=== PATIENT | female | born 1970 | race Caucasian/White ===

== ENCOUNTER 2016-09-04 16:29 | Inpatient (IN) ==
[2016-09-04] MEDS ORDERED: Pantoprazole 40 MG VIAL IVP ONE (16:37)
--- NOTE | 2016-09-04 16:45 | Emergency Department Note ---
Disposition Clinical Impression: Pulmonary embolism Disposition: Admitted As Inpatient Condition: Good Abdominal Pain HPI - General Chief Complaint: ED Abdominal Pain Stated Complaint: abd pain Time Seen by Provider: 09/04/16 16:36 Source: patient, EMS Mode of arrival: EMS Limitations: no limitations Nursing Notes Reviewed: Yes Vital Signs Reviewed: Yes - History of Present Illness HPI Narrative: 45-year-old with a history of DVT, PE who was on anticoagulation until was stopped due to the fact the patient was having some bleeding episodes. Today she noted that she's been nauseated and unable to keep anything down since vomited a couple times did have some blood in her vomit also had some dark tarry stools. Pt Subjective Complaint: abdominal pain Onset (ago): day(s) Consistency: intermittent Location: diffuse Pain Severity: moderate Pain Scale: 8 Quality: cramping, aching Radiation: none Migration to: no migration Improves with: nothing Worsens with: nothing - Related Data Home Medications Medication Instructions Recorded Confirmed Albuterol Sulfate [Proair 2 puff PO Q4H PRN #0 04/10/15 09/04/16 Respiclick] Aspirin 325 mg PO DAILY #0 04/10/15 09/04/16 BuPROPion XL (24 HR) [Wellbutrin 150 mg PO BID #0 04/10/15 09/04/16 Xl] Budesonide/Formoterol 160/4.5 2 puff IH BIDR #0 04/10/15 09/04/16 [Symbicort 160/4.5] Ipratropium/Albuterol Neb [Duoneb] 3 ml IH QIDR PRN 04/10/15 09/04/16 Montelukast [Singulair] 10 mg PO HS 04/10/15 09/04/16 Ranitidine HCl 150 mg PO BID 04/10/15 09/04/16 Topiramate [Topamax] 100 mg PO HS 04/10/15 09/04/16 Doxepin [Sinequan] 25 - 50 mg PO HS 08/14/15 09/04/16 Venlafaxine XR (24 HR) [Effexor Xr] 75 mg PO HS 08/14/15 09/04/16 Buspirone HCl [Buspar] 10 mg PO BID 09/17/15 09/04/16 CloNIDine HCl 0.1 mg PO BID 09/17/15 09/04/16 Furosemide [Lasix] 40 mg PO DAILY 09/17/15 09/04/16 Oxygen 2 l NS AD 09/17/15 09/04/16 SUMAtriptan Succinate [Imitrex] 100 mg PO DAILY PRN 09/17/15 09/04/16 Potassium Chloride [K-Tab ER] 10 meq PO DAILY 01/20/16 09/04/16 Trazodone HCl [TraZODone] 100 mg PO HS PRN 01/20/16 09/04/16 LORazepam [Ativan] 1 mg PO BID 03/03/16 09/04/16 Cetirizine HCl [All Day Allergy] 10 mg PO DAILY 08/26/16 09/04/16 Gabapentin 800 mg PO TID 08/26/16 09/04/16 Lamotrigine [Lamictal] 100 mg PO BID 08/26/16 09/04/16 Liraglutide [Victoza 2-Jignesh] 1.2 mg SQ DAILY 08/26/16 09/05/16 Metolazone 2.5 mg PO DAILY 08/26/16 09/04/16 Sitagliptin Phosphate [Januvia] 50 mg PO DAILY 08/26/16 09/04/16 Acetaminophen [Tylenol] 1,000 mg PO Q6HR PRN 09/04/16 09/04/16 Previous Rx's Medication Instructions Recorded Bisacodyl [Dulcolax] 10 mg PO DAILY #10 tablet 08/28/16 OxyCODONE ER (12 HR) [OxyCONTIN] 10 mg PO Q12HR #20 tab.er.12h 08/28/16 OxyCODONE/APAP 7.5/325 [Percocet 1 each PO Q6HR PRN #30 tablet 08/28/16 7.5/325 MG] Sennosides/Docusate Sodium 1 each PO BID #30 tablet 08/28/16 [Senna-Docusate Sodium Tablet] Allergies Allergy/AdvReac Type Severity Reaction Status Date / Time codeine Allergy Hives,SWELL Verified 09/04/16 16:32 ING Erythromycin Base Allergy THROAT Verified 09/04/16 16:32 SWELLING ondansetron Allergy Hives Verified 09/04/16 16:32 [From Zofran (as hydrochloride)] Penicillins [PCN] Allergy THROAT Verified 09/04/16 16:32 SWELLING Sulfa (Sulfonamide Allergy THROAT Verified 09/04/16 16:32 Antibiotics) SWELLING tape Allergy Blister Uncoded 08/23/16 01:49 Constitutional: Denies: fever, chills, weakness, weight change Eyes: Denies: eye pain, eye discharge, vision change ENT ED: Denies: ear pain, throat pain, dental pain, hearing loss, epistaxis, congestion, dysphagia Cardiovascular: Denies: chest pain, palpitations, dyspnea on exertion, edema, syncope Respiratory: Denies: cough, dyspnea, wheezes, hemoptysis, stridor Gastrointestinal: Reports: abdominal pain, nausea, vomiting. Denies: diarrhea, constipation, hematemesis, melena, hematochezia Genitourinary: Denies: dysuria, frequency, hematuria, discharge Musculoskeletal: Denies: back pain, neck pain, arthralgia, myalgia Integumentary: Denies: rash, abrasion, lesions Neurological: Denies: headache, weakness, numbness, paresthesias, confusion, abnormal gait, vertigo Psychiatric: Denies: anxiety, depression, suicidal thoughts, homicidal thoughts , auditory hallucinations, visual hallucinations Endocrine: Denies: fatigue Hematological/Lymphatic: Denies: easy bleeding, easy bruising Allergic/Immunologic: Denies: facial swelling, urticaria Abdominal Pain PMH - Past Medical History Medical history: Reports: asthma, DVT, diabetes, GERD, pulmonary embolus, other Female Surgical History: Reports: Adenoidectomy, appendectomy, cholecystectomy, hysterectomy, Tonsillectomy DIRECTOR LEARNING history: Reports: no DIRECTOR LEARNING history Psychiatric history: Reports: anxiety, panic disorder - Social History Smoking status: Never smoker Alcohol use: Reports: none Drug use: Reports: none Physical Exam - General Limitations: physical limitation General appearance: alert, in no apparent distress - Head Head exam: atraumatic, normocephalic, normal inspection - Eye Eye exam: Present: normal appearance, PERRL, EOMI - ENT ENT exam: normal exam, normal oropharynx, mucous membranes moist - Neck Neck exam: Present: normal inspection, full ROM, trachea midline - Chest Chest inspection: Present: normal inspection, symmetric chest wall rise - Respiratory Respiratory exam: Present: normal lung sounds bilaterally - Cardiovascular Cardiovascular exam: Present: regular rate, normal rhythm, normal heart sounds - Abdominal Exam Abdominal exam: Present: soft, tenderness. Absent: distention, guarding, rebound, rigidity Abdominal tenderness: Present: diffuse - Rectal Exam Softlines Supervisor present during exam: Yes Rectal exam: Present: heme (-) stool - Extremities Exam Extremities exam: Present: normal inspection, full ROM. Absent: tenderness, pedal edema - Expanded Lower Extremity Exam Neurovascular/Tendon exam: Absent: motor deficit, sensory deficit, tendon deficit Gait: not tested/not observed - Back Exam Back exam: Present: normal inspection, full ROM. Absent: tenderness - Neurological Exam Neurological exam: Present: alert, oriented X3 - Psychiatric Psychiatric exam: Present: normal affect, normal mood - Skin Skin exam: Present: warm, dry, intact, normal color Course Vital Signs Temperature 98.0 F 09/04/16 16:33 Pulse Rate 93 09/04/16 16:33 Respiratory Rate 24 09/04/16 16:33 Blood Pressure 117/86 09/04/16 16:33 O2 Sat by Pulse Oximetry 98 09/04/16 16:33 Temperature 97.9 F 09/06/16 04:00 Pulse Rate 68 09/06/16 04:00 Respiratory Rate 16 09/06/16 04:00 Blood Pressure 115/84 09/06/16 04:00 O2 Sat by Pulse Oximetry 95 09/06/16 04:00 Oxygen Delivery Oxygen Delivery Nasal Cannula Abdominal Pain - Lab Data Result diagrams: 09/05/16 06:23 09/05/16 06:23 Lab Results 09/04/16 09/04/16 09/04/16 Range/Units 16:50 17:34 17:34 WBC 7.8 (4.3-11.1) K/mcL RBC 4.59 (3.82-4.97) M/mcL Hgb 13.0 (11.5-15.4) g/dL Hct 40.6 (35.3-44.9) % MCV 88.5 (83.0-100.0) fL MCH 28.3 (28.0-33.3) pg MCHC 32.0 (31.6-35.5) g/dL RDW 13.9 (11.5-14.5) % Plt Count 227 (140-400) K/mcL MPV 11.6 (9.4-12.4) fL Immature Gran % 0.9 (0-4) % Seg Neutrophils % 61.4 % Lymphocytes % 23.0 % Monocytes % 6.3 % Eosinophils % 7.8 % Basophils % 0.6 % Neutrophils # 4.8 (1.6-8.9) K/mcL Lymphocytes # 1.8 (0.6-4.6) K/mcL Monocytes # 0.5 (0.0-1.3) K/mcL Eosinophils # 0.6 (0.0-0.6) K/mcL Basophils # 0.1 (0.0-0.2) K/mcL PT 14.0 H (9.4-12.1) Seconds INR 1.3 APTT 26.7 (26.0-36.0) Seconds D-Dimer 63966 H (0-500) ng/mLFEU Sodium (136-145) mEq/L Potassium (3.5-4.5) mEq/L Chloride (98-109) mEq/L Carbon Dioxide (19-29) mEq/L BUN (7-20) mg/dL Creatinine (0.57-1.11) mg/dL Est GFR ( Amer) (> 60) Est GFR (Non-Af Amer) (> 60) BUN/Creatinine Ratio (6-26) Glucose (70-99) mg/dL Calculated Osmolality (280-300) Calcium (8.6-10.8) mg/dL Total Bilirubin (0.2-1.2) mg/dL Direct Bilirubin (0.0-0.5) mg/dL Indirect Bilirubin (0.0-1.2) mg/dL AST (5-34) Units/L ALT (0-55) Units/L Alkaline Phosphatase (38-126) Units/L Troponin I (0-0.03) ng/mL Serum Total Protein (6.0-8.3) g/dL Albumin (3.5-5.0) g/dL Globulin (2.4-3.5) g/dL Albumin/Globulin Ratio (1.1-2.2) Amylase (25-125) Units/L Lipase (8-78) Units/L Serum , Qual (Negative) Urine Color Dark Yellow (Yellow) Urine Clarity Turbid A (Clear) Urine pH 5.5 (5.0-8.0) pH Units Ur Specific [place] 1.029 H (1.010-1.025) Urine Protein Negative (Neg-Trace) mg/dL Urine Glucose (UA) Normal (Normal) mg/dL Urine Ketones Negative (Negative) mg/dL Urine Blood Negative (Negative) Urine Nitrite Negative (Negative) Urine Bilirubin Small H (Negative) Urine Urobilinogen Normal (Normal) mg/dL Ur Leukocyte Esterase Negative (Negative) Urine Microscopic RBC 0-3 (0-3) per hpf Urine Microscopic WBC 5-15 H (0-3) per hpf Ur Squamous Epith Cells Many H (None-Few) per lpf Urine Bacteria Few (None-Few) per hpf Hyaline Casts Test Not Performed Urine Mucus Moderate H (Few) Ur Culture Indicated? YES A (NO) 09/04/16 09/04/16 09/04/16 Range/Units 17:34 17:34 17:34 WBC (4.3-11.1) K/mcL RBC (3.82-4.97) M/mcL Hgb (11.5-15.4) g/dL Hct (35.3-44.9) % MCV (83.0-100.0) fL MCH (28.0-33.3) pg MCHC (31.6-35.5) g/dL RDW (11.5-14.5) % Plt Count (140-400) K/mcL MPV (9.4-12.4) fL Immature Gran % (0-4) % Seg Neutrophils % % Lymphocytes % % Monocytes % % Eosinophils % % Basophils % % Neutrophils # (1.6-8.9) K/mcL Lymphocytes # (0.6-4.6) K/mcL Monocytes # (0.0-1.3) K/mcL Eosinophils # (0.0-0.6) K/mcL Basophils # (0.0-0.2) K/mcL PT (9.4-12.1) Seconds INR APTT (26.0-36.0) Seconds D-Dimer (0-500) ng/mLFEU Sodium 138 (136-145) mEq/L Potassium 4.0 (3.5-4.5) mEq/L Chloride 106 (98-109) mEq/L Carbon Dioxide 19 (19-29) mEq/L BUN 21 H (7-20) mg/dL Creatinine 1.07 (0.57-1.11) mg/dL Est GFR ( Amer) > 60 (> 60) Est GFR (Non-Af Amer) 56 L (> 60) BUN/Creatinine Ratio 20 (6-26) Glucose 165 H (70-99) mg/dL Calculated Osmolality 293 (280-300) Calcium 9.5 (8.6-10.8) mg/dL Total Bilirubin 0.8 (0.2-1.2) mg/dL Direct Bilirubin 0.3 (0.0-0.5) mg/dL Indirect Bilirubin 0.5 (0.0-1.2) mg/dL AST 14 (5-34) Units/L ALT 17 (0-55) Units/L Alkaline Phosphatase 191 H (38-126) Units/L Troponin I 0.56 H* (0-0.03) ng/mL Serum Total Protein 8.1 (6.0-8.3) g/dL Albumin 3.5 (3.5-5.0) g/dL Globulin 4.6 H (2.4-3.5) g/dL Albumin/Globulin Ratio 0.8 L (1.1-2.2) Amylase 44 (25-125) Units/L Lipase 31 (8-78) Units/L Serum , Qual Negative (Negative) Urine Color (Yellow) Urine Clarity (Clear) Urine pH (5.0-8.0) pH Units Ur Specific [place] (1.010-1.025) Urine Protein (Neg-Trace) mg/dL Urine Glucose (UA) (Normal) mg/dL Urine Ketones (Negative) mg/dL Urine Blood (Negative) Urine Nitrite (Negative) Urine Bilirubin (Negative) Urine Urobilinogen (Normal) mg/dL Ur Leukocyte Esterase (Negative) Urine Microscopic RBC (0-3) per hpf Urine Microscopic WBC (0-3) per hpf Ur Squamous Epith Cells (None-Few) per lpf Urine Bacteria (None-Few) per hpf Hyaline Casts Urine Mucus (Few) Ur Culture Indicated? (NO) - EKG Data EKG attestation: Yes I reviewed and interpreted this EKG. EKG shows normal: sinus rhythm Rate: normal Rhythm: NSR Interpretation: no acute changes S.B.A.R. - S.B.A.R. Recommendation: Recommendation based on pending studies, treatments, or consults S.B.A.R. Report Given to: Dr.Budi Munroe Repor Time: 19:00
[2016-09-04] MEDS ORDERED: 0.9 % Sodium Chloride 1,000 ML IVC ONE (16:46)
[2016-09-04 16:59] LABS: Bilirubin,Urine Small (Negative); Blood,Urine Negative (Negative); Clarity,Urine Turbid (Clear); Color,Urine Dark Yellow (Yellow); Glucose,Urine (UA) Normal (Normal); Ketones,Urine Negative (Negative); Leukocyte Esterase,Urine Negative (Negative); Nitrite,Urine Negative (Negative); PH,Urine 5.5 pH Units (5.0-8.0); Protein,Urine Negative (Neg-Trace); Specific Gravity,Urine 1.029 (1.010-1.025); Urobilinogen,Urine Normal (Normal)
[2016-09-04 17:01] LABS: RBC,Urine 0-3 per hpf (0-3); Squamous Epithelial Cell,Urine Many per lpf (None-Few)
[2016-09-04 17:16] LABS: Bacteria,Urine Few per hpf (None-Few)
[2016-09-04 17:17] LABS: Mucus,Urine Moderate (Few)
[2016-09-04 17:46] LABS: Basophils # 0.1 K/mcL (0.0-0.2); Basophils % 0.6 %; Eosinophils # 0.6 K/mcL (0.0-0.6); Eosinophils % 7.8 %; Hematocrit 40.6 % (35.3-44.9); Immature Granulocytes % 0.9 % (0-4); Lymphocytes # 1.8 K/mcL (0.6-4.6); Mean Corpuscular Hemoglobin 28.3 pg (28.0-33.3); Mean Corpuscular Volume 88.5 fL (83.0-100.0); Mean Platelet Volume 11.6 fL (9.4-12.4); Monocytes # 0.5 K/mcL (0.0-1.3); Monocytes % 6.3 %; Neutrophils # 4.8 K/mcL (1.6-8.9); Platelet Count 227 K/mcL (140-400); Red Blood Count 4.59 M/mcL (3.82-4.97); Red Cell Distribution Width 13.9 % (11.5-14.5); Segmented Neutrophils % 61.4 %
[2016-09-04 17:55] LABS: INR 1.3
[2016-09-04 17:57] LABS: Activated Partial Thrombo Time 26.7 Seconds (26.0-36.0)
[2016-09-04 18:02] LABS: Albumin 3.5 g/dL (3.5-5.0); Albumin/Globulin Ratio 0.8 (1.1-2.2); Alkaline Phosphatase 191 Units/L (38-126); Amylase 44 Units/L (25-125); Aspartate Amino Transferase 14 Units/L (5-34); BUN/Creatinine Ratio 20 (6-26); Bilirubin,Direct 0.3 mg/dL (0.0-0.5); Bilirubin,Indirect 0.5 mg/dL (0.0-1.2); Bilirubin,Total 0.8 mg/dL (0.2-1.2); Blood Urea Nitrogen 21 mg/dL (7-20); Calcium 9.5 mg/dL (8.6-10.8); Carbon Dioxide 19 mEq/L (19-29); Chloride 106 mEq/L (98-109); Globulin 4.6 g/dL (2.4-3.5); Glucose 165 mg/dL (70-99); Lipase 31 Units/L (8-78); Osmolality,Calculated 293 (280-300); Sodium 138 mEq/L (136-145); Total Protein 8.1 g/dL (6.0-8.3); eGFR For African Americans > 60 (> 60); eGFR For Non-African Americans 56 (> 60)
[2016-09-04 18:19] LABS: Alanine Aminotransferase 17 Units/L (0-55)
[2016-09-04] MEDS ORDERED: *HR* Heparin 5,000 UNIT/ML VIAL IVP PRN ×2 (20:50)
[2016-09-04] MEDS ORDERED: *HR* Heparin 5,000 UNIT/ML VIAL IVP ONE (20:50)
[2016-09-04] MEDS ORDERED: *HR* Promethazine 25 MG/ML VIAL IVP ONE (21:11)
[2016-09-04] MEDS ORDERED: *HR* Morphine 2 MG/ML SYRINGE IVP ONE (21:11)
[2016-09-04] MEDS: Heparin 25,000 UNIT/500 ML D5W 25,000 UNIT/500 ML MLS IVC SCH (21:24)
--- NOTE | 2016-09-04 22:50 | Emergency Department Note ---
Disposition Clinical Impression: Pulmonary embolism Qualifiers: Qualified Code(s): I26.99 - Disposition: Admitted As Inpatient Condition: Good Time of Disposition: 22:44 Abdominal Pain HPI - General Chief Complaint: ED Abdominal Pain Stated Complaint: abd pain Time Seen by Provider: 09/04/16 16:36 Source: patient, EMS Mode of arrival: EMS Limitations: no limitations Nursing Notes Reviewed: Yes Vital Signs Reviewed: Yes - History of Present Illness Pt Subjective Complaint: abdominal pain Location: diffuse Pain Severity: moderate Pain Scale: 7 Quality: cramping, aching Migration to: no migration Improves with: nothing Worsens with: nothing - Related Data Home Medications Medication Instructions Recorded Confirmed Albuterol Sulfate [Proair 2 puff PO Q4H PRN #0 04/10/15 09/04/16 Respiclick] Aspirin 325 mg PO DAILY #0 04/10/15 09/04/16 BuPROPion XL (24 HR) [Wellbutrin 150 mg PO BID #0 04/10/15 09/04/16 Xl] Budesonide/Formoterol 160/4.5 2 puff IH BIDR #0 04/10/15 09/04/16 [Symbicort 160/4.5] Ipratropium/Albuterol Neb [Duoneb] 3 ml IH QIDR PRN 04/10/15 09/04/16 Montelukast [Singulair] 10 mg PO HS 04/10/15 09/04/16 Ranitidine HCl 150 mg PO BID 04/10/15 09/04/16 Topiramate [Topamax] 100 mg PO HS 04/10/15 09/04/16 Doxepin [Sinequan] 25 - 50 mg PO HS 08/14/15 09/04/16 Venlafaxine XR (24 HR) [Effexor Xr] 75 mg PO HS 08/14/15 09/04/16 Buspirone HCl [Buspar] 10 mg PO BID 09/17/15 09/04/16 CloNIDine HCl 0.1 mg PO BID 09/17/15 09/04/16 Furosemide [Lasix] 40 mg PO DAILY 09/17/15 09/04/16 Oxygen 2 l NS AD 09/17/15 09/04/16 SUMAtriptan Succinate [Imitrex] 100 mg PO DAILY PRN 09/17/15 09/04/16 Potassium Chloride [K-Tab ER] 10 meq PO DAILY 01/20/16 09/04/16 Trazodone HCl [TraZODone] 100 mg PO HS PRN 01/20/16 09/04/16 LORazepam [Ativan] 1 mg PO BID 03/03/16 09/04/16 Cetirizine HCl [All Day Allergy] 10 mg PO DAILY 08/26/16 09/04/16 Gabapentin 800 mg PO TID 08/26/16 09/04/16 Lamotrigine [Lamictal] 100 mg PO BID 08/26/16 09/04/16 Liraglutide [Victoza 2-Jignesh] 0.6 mg PO DAILY 08/26/16 09/04/16 Metolazone 2.5 mg PO DAILY 08/26/16 09/04/16 Sitagliptin Phosphate [Januvia] 50 mg PO DAILY 08/26/16 09/04/16 Acetaminophen [Tylenol] 1,000 mg PO Q6HR PRN 09/04/16 09/04/16 Previous Rx's Medication Instructions Recorded Bisacodyl [Dulcolax] 10 mg PO DAILY #10 tablet 08/28/16 OxyCODONE ER (12 HR) [OxyCONTIN] 10 mg PO Q12HR #20 tab.er.12h 08/28/16 OxyCODONE/APAP 7.5/325 [Percocet 1 each PO Q6HR PRN #30 tablet 08/28/16 7.5/325 MG] Sennosides/Docusate Sodium 1 each PO BID #30 tablet 08/28/16 [Senna-Docusate Sodium Tablet] Allergies Allergy/AdvReac Type Severity Reaction Status Date / Time codeine Allergy Hives,SWELL Verified 09/04/16 16:32 ING Erythromycin Base Allergy THROAT Verified 09/04/16 16:32 SWELLING ondansetron Allergy Hives Verified 09/04/16 16:32 [From Zofran (as hydrochloride)] Penicillins [PCN] Allergy THROAT Verified 09/04/16 16:32 SWELLING Sulfa (Sulfonamide Allergy THROAT Verified 09/04/16 16:32 Antibiotics) SWELLING tape Allergy Blister Uncoded 08/23/16 01:49 Constitutional: Denies: fever, chills, weakness, weight change Eyes: Denies: eye pain, eye discharge, vision change ENT ED: Denies: ear pain, throat pain, dental pain, hearing loss, epistaxis, congestion, dysphagia Cardiovascular: Denies: chest pain, palpitations, dyspnea on exertion, edema, syncope Respiratory: Denies: cough, dyspnea, wheezes, hemoptysis, stridor Gastrointestinal: Reports: abdominal pain, nausea, vomiting. Denies: diarrhea, constipation, hematemesis, melena, hematochezia Genitourinary: Denies: dysuria, frequency, hematuria, discharge Musculoskeletal: Denies: back pain, neck pain, arthralgia, myalgia Integumentary: Denies: rash, abrasion, lesions Neurological: Denies: headache, weakness, numbness, paresthesias, confusion, abnormal gait, vertigo Psychiatric: Denies: anxiety, depression, suicidal thoughts, homicidal thoughts , auditory hallucinations, visual hallucinations Endocrine: Denies: fatigue Hematological/Lymphatic: Denies: easy bleeding, easy bruising Allergic/Immunologic: Denies: facial swelling, urticaria Abdominal Pain PMH - Past Medical History Medical history: Reports: asthma, DVT, diabetes, GERD, pulmonary embolus, other Female Surgical History: Reports: Adenoidectomy, appendectomy, cholecystectomy, hysterectomy, Tonsillectomy CATERER HELPER history: Reports: no CATERER HELPER history Psychiatric history: Reports: anxiety, panic disorder - Social History Smoking status: Never smoker Alcohol use: Reports: none Drug use: Reports: none Physical Exam - General Limitations: physical limitation General appearance: alert, in no apparent distress Course Vital Signs Temperature 98.0 F 09/04/16 16:33 Pulse Rate 93 09/04/16 16:33 Respiratory Rate 24 09/04/16 16:33 Blood Pressure 117/86 09/04/16 16:33 O2 Sat by Pulse Oximetry 98 09/04/16 16:33 Temperature 98.0 F 09/04/16 22:33 Pulse Rate 90 09/04/16 22:33 Respiratory Rate 18 09/04/16 22:33 Blood Pressure 115/68 09/04/16 22:33 O2 Sat by Pulse Oximetry 99 09/04/16 22:33 Oxygen Delivery Oxygen Delivery Nasal Cannula Abdominal Pain - MDM Narrative Medical decision making narrative: Patient received in signout from Dr. Mata pending CTA of the chest to rule out pulmonary embolism. Patient has bilateral pulmonary embolisms present on CT. She has a history of GI bleeding as well as a hematoma to the right gluteus which was treated in the hospital 2 weeks ago. Patient was taken off her anticoagulation medication in order to resolve the hematoma. Today the patient states that she had one episode of emesis which was red colored however she has not had any since that time. Patient's hemoglobin is within normal limits in the emergency department. She had a negative rectal exam by the previous attending which was confirmed upon asking the patient. I spoke with Dr. Bishop who was covering for the patient's car groomer who recommended starting heparin drip to treat her PE. Dr. Denis was consult in to admit the patient to the hospital who recommended speaking with surgery prior to starting the heparin drip. Surgery was counseled that by Dr. Denis who agreed to consult on the patient if there was any difficulty. Vital signs are stable and patient is comfortable with plan of admitting to the hospital for further care. - Medical Records Medical records reviewed: Yes I reviewed the patient's medical records. - Lab Data Lab results reviewed: Yes I reviewed the patient's lab results. Result diagrams: 09/04/16 17:34 09/04/16 17:34 Lab Results 09/04/16 09/04/16 09/04/16 Range/Units 16:50 17:34 17:34 WBC 7.8 (4.3-11.1) K/mcL RBC 4.59 (3.82-4.97) M/mcL Hgb 13.0 (11.5-15.4) g/dL Hct 40.6 (35.3-44.9) % MCV 88.5 (83.0-100.0) fL MCH 28.3 (28.0-33.3) pg MCHC 32.0 (31.6-35.5) g/dL RDW 13.9 (11.5-14.5) % Plt Count 227 (140-400) K/mcL MPV 11.6 (9.4-12.4) fL Immature Gran % 0.9 (0-4) % Seg Neutrophils % 61.4 % Lymphocytes % 23.0 % Monocytes % 6.3 % Eosinophils % 7.8 % Basophils % 0.6 % Neutrophils # 4.8 (1.6-8.9) K/mcL Lymphocytes # 1.8 (0.6-4.6) K/mcL Monocytes # 0.5 (0.0-1.3) K/mcL Eosinophils # 0.6 (0.0-0.6) K/mcL Basophils # 0.1 (0.0-0.2) K/mcL PT 14.0 H (9.4-12.1) Seconds INR 1.3 APTT 26.7 (26.0-36.0) Seconds D-Dimer 53291 H (0-500) ng/mLFEU Sodium (136-145) mEq/L Potassium (3.5-4.5) mEq/L Chloride (98-109) mEq/L Carbon Dioxide (19-29) mEq/L BUN (7-20) mg/dL Creatinine (0.57-1.11) mg/dL Est GFR ( Amer) (> 60) Est GFR (Non-Af Amer) (> 60) BUN/Creatinine Ratio (6-26) Glucose (70-99) mg/dL Calculated Osmolality (280-300) Calcium (8.6-10.8) mg/dL Total Bilirubin (0.2-1.2) mg/dL Direct Bilirubin (0.0-0.5) mg/dL Indirect Bilirubin (0.0-1.2) mg/dL AST (5-34) Units/L ALT (0-55) Units/L Alkaline Phosphatase (38-126) Units/L Troponin I (0-0.03) ng/mL Serum Total Protein (6.0-8.3) g/dL Albumin (3.5-5.0) g/dL Globulin (2.4-3.5) g/dL Albumin/Globulin Ratio (1.1-2.2) Amylase (25-125) Units/L Lipase (8-78) Units/L Serum , Qual (Negative) Urine Color Dark Yellow (Yellow) Urine Clarity Turbid A (Clear) Urine pH 5.5 (5.0-8.0) pH Units Ur Specific [place] 1.029 H (1.010-1.025) Urine Protein Negative (Neg-Trace) mg/dL Urine Glucose (UA) Normal (Normal) mg/dL Urine Ketones Negative (Negative) mg/dL Urine Blood Negative (Negative) Urine Nitrite Negative (Negative) Urine Bilirubin Small H (Negative) Urine Urobilinogen Normal (Normal) mg/dL Ur Leukocyte Esterase Negative (Negative) Urine Microscopic RBC 0-3 (0-3) per hpf Urine Microscopic WBC 5-15 H (0-3) per hpf Ur Squamous Epith Cells Many H (None-Few) per lpf Urine Bacteria Few (None-Few) per hpf Hyaline Casts Test Not Performed Urine Mucus Moderate H (Few) Ur Culture Indicated? YES A (NO) 09/04/16 09/04/16 09/04/16 Range/Units 17:34 17:34 17:34 WBC (4.3-11.1) K/mcL RBC (3.82-4.97) M/mcL Hgb (11.5-15.4) g/dL Hct (35.3-44.9) % MCV (83.0-100.0) fL MCH (28.0-33.3) pg MCHC (31.6-35.5) g/dL RDW (11.5-14.5) % Plt Count (140-400) K/mcL MPV (9.4-12.4) fL Immature Gran % (0-4) % Seg Neutrophils % % Lymphocytes % % Monocytes % % Eosinophils % % Basophils % % Neutrophils # (1.6-8.9) K/mcL Lymphocytes # (0.6-4.6) K/mcL Monocytes # (0.0-1.3) K/mcL Eosinophils # (0.0-0.6) K/mcL Basophils # (0.0-0.2) K/mcL PT (9.4-12.1) Seconds INR APTT (26.0-36.0) Seconds D-Dimer (0-500) ng/mLFEU Sodium 138 (136-145) mEq/L Potassium 4.0 (3.5-4.5) mEq/L Chloride 106 (98-109) mEq/L Carbon Dioxide 19 (19-29) mEq/L BUN 21 H (7-20) mg/dL Creatinine 1.07 (0.57-1.11) mg/dL Est GFR ( Amer) > 60 (> 60) Est GFR (Non-Af Amer) 56 L (> 60) BUN/Creatinine Ratio 20 (6-26) Glucose 165 H (70-99) mg/dL Calculated Osmolality 293 (280-300) Calcium 9.5 (8.6-10.8) mg/dL Total Bilirubin 0.8 (0.2-1.2) mg/dL Direct Bilirubin 0.3 (0.0-0.5) mg/dL Indirect Bilirubin 0.5 (0.0-1.2) mg/dL AST 14 (5-34) Units/L ALT 17 (0-55) Units/L Alkaline Phosphatase 191 H (38-126) Units/L Troponin I 0.56 H* (0-0.03) ng/mL Serum Total Protein 8.1 (6.0-8.3) g/dL Albumin 3.5 (3.5-5.0) g/dL Globulin 4.6 H (2.4-3.5) g/dL Albumin/Globulin Ratio 0.8 L (1.1-2.2) Amylase 44 (25-125) Units/L Lipase 31 (8-78) Units/L Serum , Qual Negative (Negative) Urine Color (Yellow) Urine Clarity (Clear) Urine pH (5.0-8.0) pH Units Ur Specific [place] (1.010-1.025) Urine Protein (Neg-Trace) mg/dL Urine Glucose (UA) (Normal) mg/dL Urine Ketones (Negative) mg/dL Urine Blood (Negative) Urine Nitrite (Negative) Urine Bilirubin (Negative) Urine Urobilinogen (Normal) mg/dL Ur Leukocyte Esterase (Negative) Urine Microscopic RBC (0-3) per hpf Urine Microscopic WBC (0-3) per hpf Ur Squamous Epith Cells (None-Few) per lpf Urine Bacteria (None-Few) per hpf Hyaline Casts Urine Mucus (Few) Ur Culture Indicated? (NO) - Radiology Data Radiology results reviewed: Yes I reviewed the patient's radiology results. - EKG Data EKG attestation: Yes I reviewed and interpreted this EKG. EKG results narrative: ECG - interpreted by ED physician. Rate 95, normal sinus rhythm, no STEMI, MO, QT intervals, and QRS within normal limits
[2016-09-04] MEDS ORDERED: Ipratropium/Albuterol Neb 3 ML IH PRN (22:52)
[2016-09-04] MEDS ORDERED: NON-FORMULARY MEDICATION 1 EACH EACH (Oxygen [Oxygen] 2 L) NS SCH (23:00)
--- NOTE | 2016-09-04 23:04 | Internal Med History&Physical ---
Date of Encounter: 09/04/16 Time of Encounter: 23:00 Assessment and Plan (1) Pulmonary embolism Current visit: Yes Status: Acute Patients presents with acute bilateral pulmonary embolism due to interruption of anticoagulation in a patient with factor V Leiden mutation. She will be started on high dose heparin drip. I discussed the case with the surgeon because of history of recent gluteal hematoma so surgery will be follwoing. Patients appears short of breath with conversation. Echocardiogram will be check will also check troponin. she is normotensive. She has been on O2 at home proably because of chronic thromboemnbolic pulmonary hypertension. Qualifiers: Qualified Code(s): I26.99 - Other pulmonary embolism without acute cor pulmonale (2) Thigh hematoma Current visit: Yes Status: Acute Seems to be improving. Ultrasound will be performed to evaluate the hematoma. Serial examination. 3. Questionable urinary tract infection she has some parcels in your and however lots of epithelial cells. Await urine culture hold off antibiotics Qualifiers: Qualified Code(s): S70.10XA - Contusion of unspecified thigh, initial encounter Internal Medicine - H&P: HPI Chief complaint: sob History of present illness: Ms. Mitchell is a 45 year old female with unfortunate history of factor 5 Leiden mutation with multiple prior DVDs pulmonary embolism and other clotting on home oxygen probably because of chronic thromboembolic pulmonary hypertension will recently had their anticoagulation interrupted since her discharge from the hospital a week ago on 08/28/2016 after she had sustained our rights will till hematoma presents with emergency room today with having shortness of breath. For the past 3 days patient has been short of breath on this has been progressive to the point where she is unable to breathe at rest. She has been having some chest pains that worsens with inspiration. She presented the emergency room and CT angiogram showed bilateral pulmonary embolism (involving right main pulmonary artery). She has been on photos Lovenox 150 mg twice daily prior to that as this seems to have been them best anticoagulant to prevent clotting for her. Patient notices improvement in her right gluteal and thigh pain however she stills notices increasing girth of her right upper thigh compares to the left side. She mentioned that she was having black stools however she started taking Pepto-Bismol. Patient was hemodynamically stable in the emergency room. Past Med Surg Social Fam HX - Past Medical History Medical history: asthma, DVT, diabetes, GERD, pulmonary embolus, other Psychiatric history: anxiety, panic disorder - Past Surgical History Surgical History: cholecystectomy, hysterectomy, orthopedic, other (Left endoscopic carpal tunnel release and left elbow ulnar nerve decompression) - Social History Smoking Status: Never smoker Smokeless Tobacco Status: No Alcohol use: none Drug use: none - Family History Mother Name: Akbar Cullen Family Member Ethnicity: Non- Living Status: Age at : 46 Cause of : cancer Hx Family Cardiac Disorders: Yes Hx Family Cancer: Yes (cervical cancer w/ mets) Internal Medicine - H&P: Meds Albuterol Sulfate [Proair Respiclick] 2 puff PO Q4H PRN #0 04/10/15 [History] Aspirin 325 mg PO DAILY #0 04/10/15 [History] BuPROPion XL (24 HR) [Wellbutrin Xl] 150 mg PO BID #0 04/10/15 [History] Budesonide/Formoterol 160/4.5 [Symbicort 160/4.5] 2 puff IH BIDR #0 04/10/15 [ History] Ipratropium/Albuterol Neb [Duoneb] 3 ml IH QIDR PRN 04/10/15 [History] Montelukast [Singulair] 10 mg PO HS 04/10/15 [History] Ranitidine HCl 150 mg PO BID 04/10/15 [History] Topiramate [Topamax] 100 mg PO HS 04/10/15 [History] Doxepin [Sinequan] 25 - 50 mg PO HS 08/14/15 [History] Venlafaxine XR (24 HR) [Effexor Xr] 75 mg PO HS 08/14/15 [History] Buspirone HCl [Buspar] 10 mg PO BID 09/17/15 [History] CloNIDine HCl 0.1 mg PO BID 09/17/15 [History] Furosemide [Lasix] 40 mg PO DAILY 09/17/15 [History] Oxygen 2 l NS AD 09/17/15 [History] SUMAtriptan Succinate [Imitrex] 100 mg PO DAILY PRN 09/17/15 [History] Potassium Chloride [K-Tab ER] 10 meq PO DAILY 01/20/16 [History] Trazodone HCl [TraZODone] 100 mg PO HS PRN 01/20/16 [History] LORazepam [Ativan] 1 mg PO BID 03/03/16 [History] Cetirizine HCl [All Day Allergy] 10 mg PO DAILY 08/26/16 [History] Gabapentin 800 mg PO TID 08/26/16 [History] Lamotrigine [Lamictal] 100 mg PO BID 08/26/16 [History] Liraglutide [Victoza 2-Jignesh] 0.6 mg PO DAILY 08/26/16 [History] Metolazone 2.5 mg PO DAILY 08/26/16 [History] Sitagliptin Phosphate [Januvia] 50 mg PO DAILY 08/26/16 [History] Bisacodyl [Dulcolax] 10 mg PO DAILY #10 tablet 08/28/16 [Rx] OxyCODONE ER (12 HR) [OxyCONTIN] 10 mg PO Q12HR #20 tab.er.12h 08/28/16 [Rx] OxyCODONE/APAP 7.5/325 [Percocet 7.5/325 MG] 1 each PO Q6HR PRN #30 tablet 08/28 [Rx] Sennosides/Docusate Sodium [Senna-Docusate Sodium Tablet] 1 each PO BID #30 tablet 08/28/16 [Rx] Acetaminophen [Tylenol] 1,000 mg PO Q6HR PRN 09/04/16 [History] Allergies codeine Allergy (Verified 09/04/16 16:32) Hives,SWELLING Erythromycin Base Allergy (Verified 09/04/16 16:32) THROAT SWELLING ondansetron [From Zofran (as hydrochloride)] Allergy (Verified 09/04/16 16:32) Hives Penicillins [PCN] Allergy (Verified 09/04/16 16:32) THROAT SWELLING Sulfa (Sulfonamide Antibiotics) Allergy (Verified 09/04/16 16:32) THROAT SWELLING tape Allergy (Uncoded 08/23/16 01:49) Blister All Systems PM: A 10-system review of systems was performed and is negative for pertinent findings except as documented above in the HPI. Review of systems: 10 point review systems is negative except for HPI - Constitutional Vitals: Temp Pulse Resp BP Pulse Ox 98.0 F 90 18 115/68 99 09/04/16 22:33 09/04/16 22:33 09/04/16 22:33 09/04/16 22:33 09/04/16 22:33 Exam: Gen.: patient is alert and oriented times 3 not distress Hillary: normal S1 S2 no additional sounds of murmurs chest: clear auscultation abdomen: soft nontender nondistended most discreet I do not appreciate any hematoma in the groin, gluteal or thigh area. There is increased girth of the right thigh. Left neuro: no focal deficits Internal Med - H&P Results - Labs CBC & Chem 7: 09/04/16 17:34 09/04/16 17:34
[2016-09-05] MEDS: Ondansetron 4 MG/2 ML VIAL IVP PRN ×4 (00:08→22:54)
[2016-09-05] MEDS: *HR* Morphine 2 MG/ML SYRINGE IVP PRN ×5 (00:15→22:54)
[2016-09-05 01:21] LABS: Activated Partial Thrombo Time 186.2 Seconds (26.0-36.0)
[2016-09-05 02:13] LABS: Heparin anti-factor XA UFH 1.24 IU/mL (0.30-0.70)
[2016-09-05 07:18] LABS: Basophils # 0.1 K/mcL (0.0-0.2); Basophils % 0.8 %; Eosinophils # 0.7 K/mcL (0.0-0.6); Eosinophils % 9.3 %; Hematocrit 36.5 % (35.3-44.9); Hemoglobin 11.5 g/dL (11.5-15.4); Immature Granulocytes % 1.3 % (0-4); Lymphocytes # 2.6 K/mcL (0.6-4.6); Lymphocytes % 35.1 %; Mean Corpuscular HGB Conc 31.5 g/dL (31.6-35.5); Mean Corpuscular Hemoglobin 28.4 pg (28.0-33.3); Mean Corpuscular Volume 90.1 fL (83.0-100.0); Mean Platelet Volume 11.7 fL (9.4-12.4); Monocytes # 0.5 K/mcL (0.0-1.3); Monocytes % 6.7 %; Neutrophils # 3.5 K/mcL (1.6-8.9); Platelet Count 244 K/mcL (140-400); Red Blood Count 4.05 M/mcL (3.82-4.97); Red Cell Distribution Width 13.8 % (11.5-14.5); Segmented Neutrophils % 46.8 %
[2016-09-05 07:33] LABS: BUN/Creatinine Ratio 21 (6-26); Blood Urea Nitrogen 21 mg/dL (7-20); Calcium 8.7 mg/dL (8.6-10.8); Carbon Dioxide 21 mEq/L (19-29); Chloride 105 mEq/L (98-109); Glucose 177 mg/dL (70-99); Magnesium 1.8 mg/dL (1.6-2.6); Osmolality,Calculated 285 (280-300); Potassium 3.7 mEq/L (3.5-4.5); Sodium 134 mEq/L (136-145); eGFR For African Americans > 60 (> 60); eGFR For Non-African Americans 60 (> 60)
[2016-09-05] MEDS ORDERED: *HR* Dextrose 50 % in Water (Syg) 50 ML SYRINGE IVP PRN (09:01)
[2016-09-05] MEDS ORDERED: D5% in Water 1,000 ML IV PRN (09:01)
[2016-09-05] MEDS ORDERED: Dextrose Gel 15 GM PO PRN ×2 (09:01)
[2016-09-05] MEDS: Heparin 25,000 UNIT/500 ML D5W 25,000 UNIT/500 ML MLS IVC SCH ×2 (09:13→20:22)
[2016-09-05] MEDS: Aspirin 325 MG TABLET PO SCH (09:24)
[2016-09-05] MEDS: Famotidine 20 MG TABLET PO SCH ×2 (09:24→16:26)
[2016-09-05] MEDS: *HR* LORazepam 0.5 MG TABLET PO SCH ×2 (09:25→20:17)
[2016-09-05] MEDS: Furosemide 40 MG TABLET PO SCH (09:25)
[2016-09-05] MEDS: Loratadine 10 MG TABLET PO SCH (09:25)
[2016-09-05] MEDS: lamoTRIgine 100 MG TABLET PO SCH ×2 (09:25→20:18)
[2016-09-05] MEDS: Sennosides/Docusate Sodium TABLET PO SCH ×2 (09:25→20:18)
[2016-09-05] MEDS: Gabapentin 400 MG CAPSULE PO SCH ×3 (09:26→20:17)
[2016-09-05] MEDS: Budesonide/Formoterol 160/4.5 MDI IH SCH ×2 (11:07→21:06)
--- NOTE | 2016-09-05 11:19 | Internal Med Progress Note ---
Date of Encounter: 09/05/16 Time of Encounter: 10:00 - Assessment and plan (1) Pulmonary embolism Current Visit: Yes Status: Acute Assessment and plan: Pt with bilateral PEs. She is currently on heparin drip. Depending on recent hematoma, will need to decide on timing of starting PO anticoagulation. Qualifiers: Pulmonary embolism type: other Chronicity: acute Acute cor pulmonale presence: without acute cor pulmonale Qualified Code(s): I26.99 - Other pulmonary embolism without acute cor pulmonale (2) Factor 5 Leiden mutation, heterozygous Current Visit: Yes Status: Chronic (3) Chest pain Current Visit: Yes Status: Acute Assessment and plan: Related to acute PE. Qualifiers: Chest pain type: chest pain on breathing Qualified Code(s): R07.1 - Chest pain on breathing (4) Diabetes mellitus Current Visit: Yes Status: Chronic Qualifiers: Diabetes mellitus type: type 2 Diabetes mellitus complication status: with hyperglycemia Diabetes mellitus moth exterminator insulin use: without prison use Qualified Code(s): E11.65 - Type 2 diabetes mellitus with hyperglycemia (5) Thigh hematoma Current Visit: Yes Status: Acute Assessment and plan: Evaluation to see if can restart PO anticoagulant. Qualifiers: Encounter type: subsequent encounter Laterality: right Qualified Code(s) : S70.11XD - Contusion of right thigh, subsequent encounter (6) Morbid obesity with BMI of 50.0-59.9, adult Current Visit: Yes Status: Chronic - Subjective Interval history: Ms. Mitchell is currently admitted for acute bilateral PE. She is high risk due to potential for further thrombosis as well respiratory issues. Ms. Mitchell is feeling OK but having pain and dyspnea. Morphine does not last long enough. No GI symptoms. No fever or chills but feels flushed and warm at times. No cough. No abd pain. Hungry but is NPO pending any cardiology tests. - Constitutional Vitals: Temp Pulse Resp BP Pulse Ox 97.7 F 81 16 104/77 97 09/05/16 07:04 09/05/16 07:04 09/05/16 07:04 09/05/16 07:04 09/05/16 07:47 General appearance: Present: A&O X 3, morbidly obese, pleasant, answers questions appropriately - Head Head exam: Present: normocephalic - Eye Eye exam: Present: EOMI, conjuntiva pink - ENT ENT exam: Present: mucous membranes dry - Respiratory Respiratory exam: Present: rhonchi, tachypnea. Absent: wheezes - Cardiovascular Cardiovascular exam: Present: RRR, tachycardia. Absent: systolic murmur - GI/Abdominal GI/Abdominal exam: Present: soft. Absent: mass, tenderness - Extremities Exam Extremities exam: Present: warm. Absent: pedal edema - Neurological Exam Neurological exam: Present: alert, oriented X3, no focal deficits - Psychiatric Psychiatric exam: Present: normal affect, normal mood - Skin Skin exam: Present: dry, normal color, warm. Absent: rash Internal Medicine: Result - Labs CBC & Chem 7: 09/05/16 06:23 09/05/16 06:23 Labs: Short CBC 09/05/16 Range/Units 06:23 WBC 7.5 (4.3-11.1) K/mcL Hgb 11.5 D (11.5-15.4) g/dL Hct 36.5 (35.3-44.9) % Plt Count 244 (140-400) K/mcL Neutrophils # 3.5 (1.6-8.9) K/mcL BMP 09/05/16 06:23 Sodium 134 L Potassium 3.7 Chloride 105 Carbon Dioxide 21 BUN 21 H Creatinine 1.01 Glucose 177 H Calcium 8.7 Cardiac Enzymes 09/05/16 Range/Units 06:23 Troponin I 0.01 (0-0.03) ng/mL - ABG Interpretation ABG results: PT/INR, D-dimer PT 14.0 Seconds (9.4-12.1) H 09/04/16 17:34 D-Dimer 78624 ng/mLFEU (0-500) H 09/04/16 17:34 - Impressions Impressions Extremity Ultrasound 09/04/16 22:58 IMPRESSION: Unremarkable sonographic evaluation of the right buttock D/ / Aldo Juárez MD / Aldo Juárez MD Interpreting Provider: Aldo Juárez MD Consult Discharge Plan - Plan Referrals: Misael Miller MD [Primary Care Provider] -
--- NOTE | 2016-09-05 11:35 | ECHO - Doppler Report ---
Limited Echocardiogram Name: Mary Mitchell Date of Study: 09/05/2016 Date: 1970 Ht: 65.0 in Medical Record#: [id number] Age: 45 Wt: 340.0 lb Gender: Female BSA: 2.48 Order #: [id number] Location: [facility] Room #: [id number] Reading Physician: Mino Hutson MD, [facility] Production Gear Cutter: Santos Fournier Ordering Physician: Wesley Denis MD Primary Physician: Misael Miller M.D. Indications: Check RV function Impressions: Normal left ventricular size and systolic function, LVEF 55%. Normal right ventricular size and function. No evidence of pulmonary hypertension. Left Ventricular Wall Motion: Rest Echo Findings All wall segments showed normal motion. Findings: Study Quality * Technically adequate exam. ECG Findings * Normal sinus rhythm. Left Ventricle * Normal left ventricular size and systolic function, LVEF 55%. * Normal LV wall thickness. Right Ventricle * Normal right ventricular size and function. Left Atrium * Normal left atrial size. Right Atrium * Normal right atrial size. Aorta * Normally sized aortic root. Pericardium * There is no pericardial effusion present. IVC * The IVC is not dilated. Tricuspid Valve * Normal tricuspid valve structure. * No tricuspid stenosis. * Trace tricuspid regurgitation. * No evidence of pulmonary hypertension. History Family History of CAD 07/16/16 a Previous Echo was performed. Measurements: BP: 104/ 77 2D Normal Values RVIDd: 2.90 cm IVSd: 1.00 cm 0.6 - 1.0 cm LVIDd: 5.26 cm 3.7 - 5.6 cm LVPWd: 1.00 cm 0.6 - 1.1 cm LVIDs: 3.75 cm 1.5 - 3.6 cm AO: 2.90 cm < 4.0 cm %FS: 28.70 cm >25 % LA volume: 43 Tricuspid Valve TV Regurg Peak Grad: 12.00mmHg TV Regurg Peak Jamir: 1.70m/sec Updated by Mino Hutson MD, [facility] on 09/05/2016 11:25:21 AM electronically signed on 09/05/2016 11:30:00 AM with status of Final Wall Motion Garcia: 1=Normal, 2=Hypokinesis, 3=Akinesis, 4=Dyskinesis, 5=Aneurysmal, 6=Hyperkinetic, X=Not Visualized (Blank)=Missing
[2016-09-05] MEDS: Insulin LISPRO 300 UNITS/3 ML VIAL SQ SCH ×3 (13:18→21:55)
[2016-09-05] MEDS: *HR* OxyCODONE/APAP 5/325 TABLET PO PRN ×2 (13:18→17:34)
[2016-09-05] MEDS ORDERED: SUMAtriptan succinate 50 MG TABLET PO PRN (14:52)
[2016-09-05] MEDS: cloNIDine HCl 0.1 MG TABLET PO SCH ×2 (15:21→20:18)
--- NOTE | 2016-09-05 15:24 | General Surgery Consult Note ---
<Philomena Lee - Last Filed: 09/05/16 15:20> Date of Encounter: 09/05/16 Time of Encounter: 15:20 Assessment and Plan (1) Pulmonary embolism Current Visit: Yes Status: Acute Bilateral PEs Currently on heparin drip Hematoma will determine timing to start PO anticoagulation Qualifiers: Pulmonary embolism type: other Chronicity: acute Acute cor pulmonale presence: without acute cor pulmonale Qualified Code(s): I26.99 - Other pulmonary embolism without acute cor pulmonale (2) Thigh hematoma Current Visit: Yes Status: Acute Improved since previous hospital discharge No abnormality seen on imaging. There is no indication for surgery at this time. Surgery will follow at a distance. 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 harvesting supervisor use Qualified Code(s): E11.65 - Type 2 diabetes mellitus with hyperglycemia (4) Factor 5 Leiden mutation, heterozygous Current Visit: Yes Status: Chronic (5) Morbid obesity with BMI of 50.0-59.9, adult Current Visit: Yes Status: Chronic History of Present Illness Consult date: 09/05/16 Reason for consult: other (R gluteal hematoma diagnosed 12 days ago, now starting high dose heparin therapy for PE) Requesting physician: Wesley Denis History of present illness: 45 yo female with a past medical history of Factor V Leiden with multiple DVTs and PEs who was recently diagnosed with a right thigh hematoma and taken off anticoagulation admitted with bilateral PE. She had increasing shortness of breath for 3 days prior to coming to the ER, with the last day being progressively worse. Of note, her thigh has improved since her previous hospital discharge. Past Med Surg Social Fam HX - Past Medical History Medical history: asthma, DVT, diabetes, GERD, pulmonary embolus, other (Factor V Leiden) Psychiatric history: anxiety, panic disorder - Past Surgical History Surgical History: cholecystectomy, hysterectomy, orthopedic, other (Left endoscopic carpal tunnel release and left elbow ulnar nerve decompression) - Social History Smoking Status: Never smoker Smokeless Tobacco Status: No Alcohol use: none Drug use: none - Family History Mother Name: Akbar Cullen Family Member Ethnicity: Non- Living Status: Age at : 46 Cause of : cancer Hx Family Cardiac Disorders: Yes Hx Family Cancer: Yes (cervical cancer w/ mets) Medications and Allergies Albuterol Sulfate [Proair Respiclick] 2 puff PO Q4H PRN #0 04/10/15 [History] Aspirin 325 mg PO DAILY #0 04/10/15 [History] BuPROPion XL (24 HR) [Wellbutrin Xl] 150 mg PO BID #0 04/10/15 [History] Budesonide/Formoterol 160/4.5 [Symbicort 160/4.5] 2 puff IH BIDR #0 04/10/15 [ History] Ipratropium/Albuterol Neb [Duoneb] 3 ml IH QIDR PRN 04/10/15 [History] Montelukast [Singulair] 10 mg PO HS 04/10/15 [History] Ranitidine HCl 150 mg PO BID 04/10/15 [History] Topiramate [Topamax] 100 mg PO HS 04/10/15 [History] Doxepin [Sinequan] 25 - 50 mg PO HS 08/14/15 [History] Venlafaxine XR (24 HR) [Effexor Xr] 75 mg PO HS 08/14/15 [History] Buspirone HCl [Buspar] 10 mg PO BID 09/17/15 [History] CloNIDine HCl 0.1 mg PO BID 09/17/15 [History] Furosemide [Lasix] 40 mg PO DAILY 09/17/15 [History] Oxygen 2 l NS AD 09/17/15 [History] SUMAtriptan Succinate [Imitrex] 100 mg PO DAILY PRN 09/17/15 [History] Potassium Chloride [K-Tab ER] 10 meq PO DAILY 01/20/16 [History] Trazodone HCl [TraZODone] 100 mg PO HS PRN 01/20/16 [History] LORazepam [Ativan] 1 mg PO BID 03/03/16 [History] Cetirizine HCl [All Day Allergy] 10 mg PO DAILY 08/26/16 [History] Gabapentin 800 mg PO TID 08/26/16 [History] Lamotrigine [Lamictal] 100 mg PO BID 08/26/16 [History] Liraglutide [Victoza 2-Jignesh] 1.2 mg SQ DAILY 08/26/16 [History] Metolazone 2.5 mg PO DAILY 08/26/16 [History] Sitagliptin Phosphate [Januvia] 50 mg PO DAILY 08/26/16 [History] Bisacodyl [Dulcolax] 10 mg PO DAILY #10 tablet 08/28/16 [Rx] OxyCODONE ER (12 HR) [OxyCONTIN] 10 mg PO Q12HR #20 tab.er.12h 08/28/16 [Rx] OxyCODONE/APAP 7.5/325 [Percocet 7.5/325 MG] 1 each PO Q6HR PRN #30 tablet 08/28 [Rx] Sennosides/Docusate Sodium [Senna-Docusate Sodium Tablet] 1 each PO BID #30 tablet 08/28/16 [Rx] Acetaminophen [Tylenol] 1,000 mg PO Q6HR PRN 09/04/16 [History] Allergies codeine Allergy (Verified 09/04/16 16:32) Hives,SWELLING Erythromycin Base Allergy (Verified 09/04/16 16:32) THROAT SWELLING ondansetron [From Zofran (as hydrochloride)] Allergy (Verified 09/04/16 16:32) Hives Penicillins [PCN] Allergy (Verified 09/04/16 16:32) THROAT SWELLING Sulfa (Sulfonamide Antibiotics) Allergy (Verified 09/04/16 16:32) THROAT SWELLING tape Allergy (Uncoded 08/23/16 01:49) Blister Review of Systems All systems PM: A 10-system review of systems was performed and is negative for pertinent findings except as documented above in the HPI. General Surgery Exam Initial Vital Signs Temp Pulse Resp BP Pulse Ox 98.0 F 93 24 117/86 98 09/04/16 16:33 09/04/16 16:33 09/04/16 16:33 09/04/16 16:33 09/04/16 16:33 Exam Initial Vital Signs Temp Pulse Resp BP Pulse Ox 98.0 F 93 24 117/86 98 09/04/16 16:33 09/04/16 16:33 09/04/16 16:33 09/04/16 16:33 09/04/16 16:33 - General physical appearance well developed, well nourished, no distress, obese - Eyes normal ocular movement - ENT atraumatic, normocephalic - Neck trachea midline - Respiratory normal respiratory effort rales: bilateral - Abdomen Abdomen: soft, non tender - Musculoskeletal other (right thigh larger than left) Results - Labs 09/05/16 06:23 09/05/16 06:23 Abnormal lab results MCHC 31.5 g/dL (31.6-35.5) L 09/05/16 06:23 Eosinophils # 0.7 K/mcL (0.0-0.6) H 09/05/16 06:23 PT 14.0 Seconds (9.4-12.1) H 09/04/16 17:34 APTT 108.3 Seconds (26.0-36.0) H 09/05/16 13:13 D-Dimer [id number] ng/mLFEU (0-500) H 09/04/16 17:34 Heparin Anti-Xa, Unfract 1.24 IU/mL (0.30-0.70) H* 09/05/16 00:40 Sodium 134 mEq/L (136-145) L 09/05/16 06:23 BUN 21 mg/dL (7-20) H 09/05/16 06:23 Glucose 177 mg/dL (70-99) H 09/05/16 06:23 POC Glucose 217 (58-89) H 09/05/16 12:23 Alkaline Phosphatase 191 Units/L (38-126) H 09/04/16 17:34 Globulin 4.6 g/dL (2.4-3.5) H 09/04/16 17:34 Albumin/Globulin Ratio 0.8 (1.1-2.2) L 09/04/16 17:34 Urine Clarity Turbid (Clear) A 09/04/16 16:50 Ur Specific [place] 1.029 (1.010-1.025) H 09/04/16 16:50 Urine Bilirubin Small (Negative) H 09/04/16 16:50 Urine Microscopic WBC 5-15 per hpf (0-3) H 09/04/16 16:50 Ur Squamous Epith Cells Many per lpf (None-Few) H 09/04/16 16:50 Urine Mucus Moderate (Few) H 09/04/16 16:50 Ur Culture Indicated? YES (NO) A 09/04/16 16:50 Diabetes panel 09/05/16 Range/Units 06:23 Sodium 134 L (136-145) mEq/L Potassium 3.7 (3.5-4.5) mEq/L Chloride 105 (98-109) mEq/L Carbon Dioxide 21 (19-29) mEq/L BUN 21 H (7-20) mg/dL Creatinine 1.01 (0.57-1.11) mg/dL Glucose 177 H (70-99) mg/dL Calcium 8.7 (8.6-10.8) mg/dL Calcium panel 09/05/16 Range/Units 06:23 Calcium 8.7 (8.6-10.8) mg/dL Pituitary panel 09/05/16 Range/Units 06:23 Sodium 134 L (136-145) mEq/L Potassium 3.7 (3.5-4.5) mEq/L Chloride 105 (98-109) mEq/L Carbon Dioxide 21 (19-29) mEq/L BUN 21 H (7-20) mg/dL Creatinine 1.01 (0.57-1.11) mg/dL Glucose 177 H (70-99) mg/dL Calcium 8.7 (8.6-10.8) mg/dL Adrenal panel 09/05/16 Range/Units 06:23 Sodium 134 L (136-145) mEq/L Potassium 3.7 (3.5-4.5) mEq/L Chloride 105 (98-109) mEq/L Carbon Dioxide 21 (19-29) mEq/L BUN 21 H (7-20) mg/dL Creatinine 1.01 (0.57-1.11) mg/dL Glucose 177 H (70-99) mg/dL Calcium 8.7 (8.6-10.8) mg/dL All other labs normal. Consult Discharge Plan - Plan Referrals: Misael Miller MD [Primary Care Provider] - <Cathleen Valencia - Last Filed: 09/06/16 08:06> Date of Encounter: 09/05/16 Assessment and Plan (1) Myositis Current Visit: Yes Status: Acute I have reviewed previous imaging and current imaging and do not believe patient had a hematoma, favor more likely mysosits. A hematoma would not have resolved so quickly. Qualifiers: Myositis type: unspecified type Myositis location: lower extremity Laterality: right Qualified Code(s): M60.861 - Other myositis, right lower leg (2) Pulmonary embolism Current Visit: Yes Status: Acute treat bilateral PE's without concern for hematoma - do not think she had hematoma but more likely mysositis no hematoma on CT or US this admission follow Hb restart lovenox (home medication) when medicine feels appropriate general surgery signing off, call if needed Qualifiers: Pulmonary embolism type: other Chronicity: acute Acute cor pulmonale presence: without acute cor pulmonale Qualified Code(s): I26.99 - Other pulmonary embolism without acute cor pulmonale (3) Factor 5 Leiden mutation, heterozygous Current Visit: Yes Status: Chronic (4) Morbid obesity with BMI of 50.0-59.9, adult Current Visit: Yes Status: Chronic History of Present Illness History of present illness: Patient with factor 5 Leiden and a longstanding history of recurrent PE's. She has an IVCF in place for several years. She is usually on lovenox as they could never get her inr stabilized with coumadin. She states she developed a spontaneous hematoma in her right buttock/hip area about 2 weeks ago and was admitted into the hospital. CT scan on 08/23 showed mysositis verses hematoma. Her lovenox was stopped at that time. She began having SOB about 3 days prior to this admission. She presented to the ER and CTA showed bilateral PE's. She has had repeat imaging during this admission CT and US both not demonstrating any hematoma. Past Med Surg Social Fam HX - Past Medical History Source: patient Medical history: other (factor V leiden) - Past Surgical History Surgical History: other (IVCF) Review of Systems All systems PM: reviewed and no additional remarkable complaints except as stated All systems PM: A 10-system review of systems was performed and is negative for pertinent findings except as documented above in the HPI. - Constitutional as per HPI General Surgery Exam Initial Vital Signs Temp Pulse Resp BP Pulse Ox 98.0 F 93 24 117/86 98 09/04/16 16:33 09/04/16 16:33 09/04/16 16:33 09/04/16 16:33 09/04/16 16:33 - General physical appearance well nourished, no distress, no pain, obese - Eyes PERRL, normal ocular movement - ENT normal mucosa, atraumatic, normocephalic - Neck trachea midline - Respiratory normal expansion, clear to auscultation - Cardiovascular Cardiovascular exam: Present: RRR - Integumentary Integumentary general surgery: Present: warm and dry, no abnormal pigmentation - Neurologic Present: CN 2-12 grossly intact - Musculoskeletal Present: normal posture, other (no obvious hematoma at right buttock/flank, is tender) - Psychiatric Psychiatric general surgery: Present: A&Ox3, speech is normal Exam Initial Vital Signs Temp Pulse Resp BP Pulse Ox 98.0 F 93 24 117/86 98 09/04/16 16:33 09/04/16 16:33 09/04/16 16:33 09/04/16 16:33 09/04/16 16:33 Results - Labs 09/05/16 06:23 09/05/16 06:23 Abnormal lab results MCHC 31.5 g/dL (31.6-35.5) L 09/05/16 06:23 Eosinophils # 0.7 K/mcL (0.0-0.6) H 09/05/16 06:23 PT 14.0 Seconds (9.4-12.1) H 09/04/16 17:34 APTT 71.7 Seconds (26.0-36.0) H 09/06/16 02:39 D-Dimer [id number] ng/mLFEU (0-500) H 09/04/16 17:34 Heparin Anti-Xa, Unfract 1.24 IU/mL (0.30-0.70) H* 09/05/16 00:40 Sodium 134 mEq/L (136-145) L 09/05/16 06:23 BUN 21 mg/dL (7-20) H 09/05/16 06:23 Glucose 177 mg/dL (70-99) H 09/05/16 06:23 POC Glucose 206 (58-89) H 09/05/16 21:27 Alkaline Phosphatase 191 Units/L (38-126) H 09/04/16 17:34 Globulin 4.6 g/dL (2.4-3.5) H 09/04/16 17:34 Albumin/Globulin Ratio 0.8 (1.1-2.2) L 09/04/16 17:34 Urine Clarity Turbid (Clear) A 09/04/16 16:50 Ur Specific [place] 1.029 (1.010-1.025) H 09/04/16 16:50 Urine Bilirubin Small (Negative) H 09/04/16 16:50 Urine Microscopic WBC 5-15 per hpf (0-3) H 09/04/16 16:50 Ur Squamous Epith Cells Many per lpf (None-Few) H 09/04/16 16:50 Urine Mucus Moderate (Few) H 09/04/16 16:50 Ur Culture Indicated? YES (NO) A 09/04/16 16:50 All other labs normal. - Imaging CT scan - abdomen: report reviewed, image reviewed CT scan - chest: report reviewed, image reviewed CT scan - pelvis: report reviewed, image reviewed Additional studies: US extremity
[2016-09-05] MEDS: BuPROPion XL (24 HR) 150 MG TABLET PO SCH (20:17)
[2016-09-05] MEDS: Topiramate 100 MG TABLET PO SCH (20:18)
[2016-09-05] MEDS: Venlafaxine XR (24 HR) 75 MG CAP.ER.24H PO SCH (20:18)
[2016-09-05] MEDS: Nystatin POWDER 30 GM BOTTLE TP SCH (21:57)
[2016-09-06] MEDS: *HR* OxyCODONE/APAP 5/325 TABLET PO PRN ×5 (00:17→21:03)
[2016-09-06] MEDS: *HR* Morphine 2 MG/ML SYRINGE IVP PRN ×2 (04:48→19:34)
[2016-09-06] MEDS: Ondansetron 4 MG/2 ML VIAL IVP PRN ×2 (06:18→19:40)
[2016-09-06] MEDS: Budesonide/Formoterol 160/4.5 MDI IH SCH ×2 (10:27→22:25)
[2016-09-06] MEDS: BuPROPion XL (24 HR) 150 MG TABLET PO SCH ×2 (11:13→21:03)
[2016-09-06] MEDS: Loratadine 10 MG TABLET PO SCH (11:14)
[2016-09-06] MEDS: Famotidine 20 MG TABLET PO SCH ×2 (11:14→16:31)
[2016-09-06] MEDS: Gabapentin 400 MG CAPSULE PO SCH ×3 (11:14→21:03)
[2016-09-06] MEDS: Aspirin 325 MG TABLET PO SCH (11:15)
[2016-09-06] MEDS: Furosemide 40 MG TABLET PO SCH (11:15)
[2016-09-06] MEDS: Sennosides/Docusate Sodium TABLET PO SCH ×2 (11:15→21:03)
[2016-09-06] MEDS: cloNIDine HCl 0.1 MG TABLET PO SCH ×2 (11:15→21:03)
[2016-09-06] MEDS: *HR* LORazepam 0.5 MG TABLET PO SCH ×2 (11:15→21:03)
[2016-09-06] MEDS: Insulin LISPRO 300 UNITS/3 ML VIAL SQ SCH ×4 (11:20→21:47)
[2016-09-06] MEDS: Nystatin POWDER 30 GM BOTTLE TP SCH ×2 (11:21→21:07)
[2016-09-06] MEDS: lamoTRIgine 100 MG TABLET PO SCH ×2 (11:21→21:03)
--- NOTE | 2016-09-06 17:08 | Internal Med Progress Note ---
Date of Encounter: 09/06/16 Time of Encounter: 08:30 - Assessment and plan (1) Pulmonary embolism Current Visit: Yes Status: Acute Assessment and plan: Acute bilateral PEs. Hematoma appears to have resolved so plan restart Lovenox tomorrow. Increase activity as able. PT/OT. Incentive spirometry/ Qualifiers: Pulmonary embolism type: other Chronicity: acute Acute cor pulmonale presence: without acute cor pulmonale Qualified Code(s): I26.99 - Other pulmonary embolism without acute cor pulmonale (2) Factor 5 Leiden mutation, heterozygous Current Visit: Yes Status: Chronic Assessment and plan: Continue anticoagulation. (3) Chest pain Current Visit: Yes Status: Acute Assessment and plan: Persists. Appears to be related to PEs. Continue symptomatic treatment. Qualifiers: Chest pain type: chest pain on breathing Qualified Code(s): R07.1 - Chest pain on breathing (4) Diabetes mellitus Current Visit: Yes Status: Chronic Assessment and plan: Continue accuchecks and coverage. 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 Qualifiers: Encounter type: subsequent encounter Laterality: right Qualified Code(s) : S70.11XD - Contusion of right thigh, subsequent encounter (6) Morbid obesity with BMI of 50.0-59.9, adult Current Visit: Yes Status: Chronic - Subjective Interval history: Ms. Mitchell is currently admitted for acute bilateral PE. She is high risk due to potential for further thrombosis as well respiratory issues. Ms. Mitchell is very dyspneic with any movement. Still having pain in chest area and receiving pain medications. Appreciate surgical input - hematoma appears to have resolved. Has not been up much due to dyspnea and fatigue. No cough. No diarrhea. - Constitutional Vitals: Temp Pulse Resp BP Pulse Ox 97.5 F L 71 15 119/41 96 09/06/16 15:41 09/06/16 15:41 09/06/16 15:41 09/06/16 15:41 09/06/16 15:41 General appearance: Present: A&O X 3, morbidly obese, pleasant, answers questions appropriately - Head Head exam: Present: normocephalic - Eye Eye exam: Present: EOMI, conjuntiva pink - ENT ENT exam: Present: mucous membranes moist - Respiratory Respiratory exam: Present: decreased breath sounds, CTAB. Absent: rhonchi, wheezes - Cardiovascular Cardiovascular exam: Present: RRR. Absent: tachycardia - GI/Abdominal GI/Abdominal exam: Present: normal bowel sounds, soft. Absent: mass, tenderness - Extremities Exam Extremities exam: Present: pedal edema, warm - Neurological Exam Neurological exam: Present: alert, oriented X3, no focal deficits - Skin Skin exam: Present: dry, warm. Absent: rash Internal Medicine: Result - Labs CBC & Chem 7: 09/05/16 06:23 09/05/16 06:23 - ABG Interpretation ABG results: PT/INR, D-dimer PT 14.0 Seconds (9.4-12.1) H 09/04/16 17:34 D-Dimer [id number] ng/mLFEU (0-500) H 09/04/16 17:34 Consult Discharge Plan - Plan Referrals: Misael Miller MD [Primary Care Provider] -
[2016-09-06] MEDS: Venlafaxine XR (24 HR) 75 MG CAP.ER.24H PO SCH (21:02)
[2016-09-06] MEDS: traZODone 50 MG TABLET PO PRN (21:02)
[2016-09-06] MEDS: Topiramate 100 MG TABLET PO SCH (21:03)
[2016-09-06] MEDS: Heparin 25,000 UNIT/500 ML D5W 25,000 UNIT/500 ML MLS IVC SCH (21:45)
[2016-09-07] MEDS: *HR* Morphine 2 MG/ML SYRINGE IVP PRN ×4 (00:06→18:58)
[2016-09-07] MEDS: Ondansetron 4 MG/2 ML VIAL IVP PRN ×3 (04:49→19:02)
[2016-09-07] MEDS: *HR* OxyCODONE/APAP 5/325 TABLET PO PRN ×3 (04:49→20:57)
[2016-09-07 05:57] LABS: Hemoglobin 10.9 g/dL (11.5-15.4); Mean Corpuscular HGB Conc 32.1 g/dL (31.6-35.5); Mean Corpuscular Hemoglobin 28.6 pg (28.0-33.3); Mean Corpuscular Volume 89.2 fL (83.0-100.0); Mean Platelet Volume 11.8 fL (9.4-12.4); Platelet Count 245 K/mcL (140-400); Red Blood Count 3.81 M/mcL (3.82-4.97); Red Cell Distribution Width 13.8 % (11.5-14.5)
[2016-09-07 06:23] LABS: BUN/Creatinine Ratio 16 (6-26); Blood Urea Nitrogen 17 mg/dL (7-20); Calcium 8.8 mg/dL (8.6-10.8); Carbon Dioxide 26 mEq/L (19-29); Chloride 102 mEq/L (98-109); Glucose 273 mg/dL (70-99); Osmolality,Calculated 291 (280-300); Sodium 135 mEq/L (136-145); eGFR For African Americans > 60 (> 60); eGFR For Non-African Americans 56 (> 60)
[2016-09-07] MEDS: Furosemide 40 MG TABLET PO SCH (08:25)
[2016-09-07] MEDS: Gabapentin 400 MG CAPSULE PO SCH ×3 (08:25→20:54)
[2016-09-07] MEDS: lamoTRIgine 100 MG TABLET PO SCH ×2 (08:25→20:58)
[2016-09-07] MEDS: BuPROPion XL (24 HR) 150 MG TABLET PO SCH ×2 (08:25→20:55)
[2016-09-07] MEDS: cloNIDine HCl 0.1 MG TABLET PO SCH ×2 (08:25→20:56)
[2016-09-07] MEDS: Aspirin 325 MG TABLET PO SCH (08:25)
[2016-09-07] MEDS: Insulin LISPRO 300 UNITS/3 ML VIAL SQ SCH ×4 (08:26→20:59)
[2016-09-07] MEDS: *HR* LORazepam 0.5 MG TABLET PO SCH ×2 (08:26→20:58)
[2016-09-07] MEDS: Sennosides/Docusate Sodium TABLET PO SCH ×2 (08:26→20:56)
[2016-09-07] MEDS: Loratadine 10 MG TABLET PO SCH (08:26)
[2016-09-07] MEDS: Famotidine 20 MG TABLET PO SCH ×2 (08:26→16:25)
[2016-09-07] MEDS: Nystatin POWDER 30 GM BOTTLE TP SCH ×2 (08:27→20:59)
[2016-09-07] MEDS: Budesonide/Formoterol 160/4.5 MDI IH SCH ×2 (10:24→21:24)
--- NOTE | 2016-09-07 11:45 | Internal Med Progress Note ---
<Manuel Constantino - Last Filed: 09/07/16 11:43> Date of Encounter: 09/07/16 Time of Encounter: 09:00 - Assessment and plan (1) Pulmonary embolism Current Visit: Yes Status: Acute Assessment and plan: Acute bilateral PEs. Patient is transitioned from heparin to lovenox. continues to have CP with inspiration. Qualifiers: Pulmonary embolism type: other Chronicity: acute Acute cor pulmonale presence: without acute cor pulmonale Qualified Code(s): I26.99 - Other pulmonary embolism without acute cor pulmonale (2) Chest pain Current Visit: Yes Status: Acute Assessment and plan: Persists. Appears to be related to PEs. Continue symptomatic treatment. Qualifiers: Chest pain type: chest pain on breathing Qualified Code(s): R07.1 - Chest pain on breathing (3) Diabetes mellitus Current Visit: Yes Status: Chronic Assessment and plan: Continue accuchecks and coverage. Qualifiers: Diabetes mellitus type: type 2 Diabetes mellitus complication status: with hyperglycemia Diabetes mellitus [facility] insulin use: without [facility] chemist use Qualified Code(s): E11.65 - Type 2 diabetes mellitus with hyperglycemia (4) Factor 5 Leiden mutation, heterozygous Current Visit: Yes Status: Chronic Assessment and plan: Continue anticoagulation. (5) Morbid obesity with BMI of 50.0-59.9, adult Current Visit: Yes Status: Chronic Assessment and plan: PT/OT will be ordered to assess patients functional status. - Subjective Interval history: Patient continues to have pleuritic chest pain with inspiration. She does not feel back to her baseline. - Constitutional Vitals: Temp Pulse Resp BP Pulse Ox 98.6 F 76 16 111/75 97 09/07/16 07:10 09/07/16 07:10 09/07/16 07:10 09/07/16 07:10 09/07/16 07:10 General appearance: Present: A&O X 3, morbidly obese, pleasant, answers questions appropriately - Respiratory Respiratory exam: Present: decreased breath sounds, wheezes. Absent: rales, rhonchi - Cardiovascular Cardiovascular exam: Present: RRR, +S1, +S2. Absent: diastolic murmur, gallop, rubs, systolic murmur - Extremities Exam Extremities exam: Present: normal inspection, radial pulses palpable and symetrical. Absent: pedal edema - Skin Skin exam: Present: dry, intact Internal Medicine: Result - Labs CBC & Chem 7: 09/07/16 04:43 09/07/16 04:43 Labs: Short CBC 09/07/16 Range/Units 04:43 WBC 6.8 (4.3-11.1) K/mcL Hgb 10.9 L (11.5-15.4) g/dL Hct 34.0 L (35.3-44.9) % Plt Count 245 (140-400) K/mcL BMP 09/07/16 04:43 Sodium 135 L Potassium 4.0 Chloride 102 Carbon Dioxide 26 BUN 17 Creatinine 1.07 Glucose 273 H Calcium 8.8 - ABG Interpretation ABG results: PT/INR, D-dimer PT 14.0 Seconds (9.4-12.1) H 09/04/16 17:34 D-Dimer [id number] ng/mLFEU (0-500) H 09/04/16 17:34 Consult Discharge Plan - Plan Referrals: Misael Miller MD [Primary Care Provider] - 09/17/16 2:15 pm <Sebastien López - Last Filed: 09/07/16 19:32> Date of Encounter: 09/07/16 - Assessment and plan (1) Pulmonary embolism Current Visit: Yes Status: Acute Qualifiers: Pulmonary embolism type: other Chronicity: acute Acute cor pulmonale presence: without acute cor pulmonale Qualified Code(s): I26.99 - Other pulmonary embolism without acute cor pulmonale (2) Factor 5 Leiden mutation, heterozygous Current Visit: Yes Status: Chronic (3) Chest pain Current Visit: Yes Status: Acute Qualifiers: Chest pain type: chest pain on breathing Qualified Code(s): R07.1 - Chest pain on breathing (4) Diabetes mellitus Current Visit: Yes Status: Chronic Qualifiers: Diabetes mellitus type: type 2 Diabetes mellitus complication status: with hyperglycemia Diabetes mellitus [facility] chem[facility] insulin use: without [facility] use Qualified Code(s): E11.65 - Type 2 diabetes mellitus with hyperglycemia (5) Morbid obesity with BMI of 50.0-59.9, adult Current Visit: Yes Status: Chronic (6) Chronic pain Current Visit: Yes Status: Acute Qualifiers: Chronic pain type: chronic pain syndrome Qualified Code(s): G89.4 - Chronic pain syndrome - Constitutional Vitals: Temp Pulse Resp BP Pulse Ox 98.6 F 76 16 111/75 97 09/07/16 07:10 09/07/16 07:10 09/07/16 07:10 09/07/16 07:10 09/07/16 07:10 Internal Medicine: Result - Labs CBC & Chem 7: 09/07/16 04:43 09/07/16 04:43 Labs: Short CBC 09/07/16 Range/Units 04:43 WBC 6.8 (4.3-11.1) K/mcL Hgb 10.9 L (11.5-15.4) g/dL Hct 34.0 L (35.3-44.9) % Plt Count 245 (140-400) K/mcL BMP 09/07/16 04:43 Sodium 135 L Potassium 4.0 Chloride 102 Carbon Dioxide 26 BUN 17 Creatinine 1.07 Glucose 273 H Calcium 8.8 - ABG Interpretation ABG results: PT/INR, D-dimer PT 14.0 Seconds (9.4-12.1) H 09/04/16 17:34 D-Dimer [id number] ng/mLFEU (0-500) H 09/04/16 17:34 - Attending Attestation I examined this patient and my medical decision-making was reviewed with the Resident Physician. I agree with the documented findings, disposition and treatment plan as described except to the extent set forth below. Ms. Mitchell is currently admitted for bilateral PEs related to Factor V Leiden. She is high risk due to potential of worsening status with PEs. Ms. Mitchell continues to have pain and is not getting up much. Breathing is still an issue. Hematoma is gone. No GI symptoms. Exam Alert. Mild distress Heart reg Lungs clear I/P 1. Bilateral PE 2. Chronic pain 3. Thigh hematoma - resolved. Can restart Lovenox and work on d/c planning. PT/OT. Discourage long acting pain med.
[2016-09-07] MEDS: *HR* Enoxaparin 150 MG/ML SYRINGE SQ SCH (13:01)
--- NOTE | 2016-09-07 14:07 | Electrocardiograph Report ---
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
--- NOTE | 2016-09-07 14:09 | Electrocardiograph Report ---
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
[2016-09-07] MEDS: Venlafaxine XR (24 HR) 75 MG CAP.ER.24H PO SCH (20:54)
[2016-09-07] MEDS: Topiramate 100 MG TABLET PO SCH (20:55)
[2016-09-08] MEDS: *HR* Enoxaparin 150 MG/ML SYRINGE SQ SCH ×2 (00:16→13:49)
[2016-09-08] MEDS: *HR* Morphine 2 MG/ML SYRINGE IVP PRN (00:16)
[2016-09-08] MEDS: traZODone 50 MG TABLET PO PRN (00:16)
[2016-09-08] MEDS: Ondansetron 4 MG/2 ML VIAL IVP PRN ×2 (01:51→08:16)
[2016-09-08 06:37] LABS: Hematocrit 35.5 % (35.3-44.9); Hemoglobin 11.1 g/dL (11.5-15.4); Mean Corpuscular HGB Conc 31.3 g/dL (31.6-35.5); Mean Corpuscular Hemoglobin 28.2 pg (28.0-33.3); Mean Corpuscular Volume 90.1 fL (83.0-100.0); Mean Platelet Volume 11.6 fL (9.4-12.4); Platelet Count 258 K/mcL (140-400); Red Blood Count 3.94 M/mcL (3.82-4.97); Red Cell Distribution Width 13.7 % (11.5-14.5)
[2016-09-08 06:39] LABS: INR 1.2; Prothrombin Time 13.1 Seconds (9.4-12.1)
[2016-09-08 06:57] LABS: BUN/Creatinine Ratio 19 (6-26); Blood Urea Nitrogen 18 mg/dL (7-20); Calcium 9.3 mg/dL (8.6-10.8); Carbon Dioxide 26 mEq/L (19-29); Chloride 103 mEq/L (98-109); Glucose 196 mg/dL (70-99); Osmolality,Calculated 291 (280-300); Potassium 4.3 mEq/L (3.5-4.5); Sodium 137 mEq/L (136-145); eGFR For African Americans > 60 (> 60); eGFR For Non-African Americans > 60 (> 60)
[2016-09-08 08:06] VITALS: BP 106/74
[2016-09-08] MEDS: *HR* OxyCODONE/APAP 5/325 TABLET PO PRN (08:17)
[2016-09-08] MEDS: Aspirin 325 MG TABLET PO SCH (08:17)
[2016-09-08] MEDS: cloNIDine HCl 0.1 MG TABLET PO SCH (08:17)
[2016-09-08] MEDS: Sennosides/Docusate Sodium TABLET PO SCH (08:17)
[2016-09-08] MEDS: Gabapentin 400 MG CAPSULE PO SCH (08:17)
[2016-09-08] MEDS: Loratadine 10 MG TABLET PO SCH (08:17)
[2016-09-08] MEDS: Furosemide 40 MG TABLET PO SCH (08:17)
[2016-09-08] MEDS: *HR* LORazepam 0.5 MG TABLET PO SCH (08:18)
[2016-09-08] MEDS: Famotidine 20 MG TABLET PO SCH (08:18)
[2016-09-08] MEDS: Nystatin POWDER 30 GM BOTTLE TP SCH (08:18)
[2016-09-08] MEDS: Insulin LISPRO 300 UNITS/3 ML VIAL SQ SCH (08:18)
[2016-09-08] MEDS: BuPROPion XL (24 HR) 150 MG TABLET PO SCH (08:18)
[2016-09-08] MEDS: lamoTRIgine 100 MG TABLET PO SCH (08:18)
[2016-09-08] MEDS: Budesonide/Formoterol 160/4.5 MDI IH SCH (08:19)
--- NOTE | 2016-09-08 10:32 | Discharge Summary ---
<Max Pollard P - Last Filed: 09/08/16 19:10> Date of Encounter: 09/08/16 - Discharge Medications Prescriptions: OxyCODONE/APAP 5/325 [Percocet 5/325 MG] 1 each PO Q8HR PRN #20 tablet PRN Reason: Pain Enoxaparin [Lovenox] 150 mg SQ Q12H #60 syringe Home Medications: Albuterol Sulfate [Proair Respiclick] 2 puff PO Q4H PRN #0 04/10/15 [History] Aspirin 325 mg PO DAILY #0 04/10/15 [History] BuPROPion XL (24 HR) [Wellbutrin Xl] 150 mg PO BID #0 04/10/15 [History] Budesonide/Formoterol 160/4.5 [Symbicort 160/4.5] 2 puff IH BIDR #0 04/10/15 [ History] Ipratropium/Albuterol Neb [Duoneb] 3 ml IH QIDR PRN 04/10/15 [History] Montelukast [Singulair] 10 mg PO HS 04/10/15 [History] Ranitidine HCl 150 mg PO BID 04/10/15 [History] Topiramate [Topamax] 100 mg PO HS 04/10/15 [History] Doxepin [Sinequan] 25 - 50 mg PO HS 08/14/15 [History] Venlafaxine XR (24 HR) [Effexor Xr] 75 mg PO HS 08/14/15 [History] Buspirone HCl [Buspar] 10 mg PO BID 09/17/15 [History] CloNIDine HCl 0.1 mg PO BID 09/17/15 [History] Furosemide [Lasix] 40 mg PO DAILY 09/17/15 [History] Oxygen 2 l NS AD 09/17/15 [History] SUMAtriptan Succinate [Imitrex] 100 mg PO DAILY PRN 09/17/15 [History] Potassium Chloride [K-Tab ER] 10 meq PO DAILY 01/20/16 [History] Trazodone HCl [TraZODone] 100 mg PO HS PRN 01/20/16 [History] LORazepam [Ativan] 1 mg PO BID 03/03/16 [History] Cetirizine HCl [All Day Allergy] 10 mg PO DAILY 08/26/16 [History] Gabapentin 800 mg PO TID 08/26/16 [History] Lamotrigine [Lamictal] 100 mg PO BID 08/26/16 [History] Liraglutide [Victoza 2-Jignesh] 1.2 mg SQ DAILY 08/26/16 [History] Metolazone 2.5 mg PO DAILY 08/26/16 [History] Sitagliptin Phosphate [Januvia] 50 mg PO DAILY 08/26/16 [History] Bisacodyl [Dulcolax] 10 mg PO DAILY #10 tablet 08/28/16 [Rx] OxyCODONE/APAP 7.5/325 [Percocet 7.5/325 MG] 1 each PO Q6HR PRN #30 tablet 08/28 [Rx] Sennosides/Docusate Sodium [Senna-Docusate Sodium Tablet] 1 each PO BID #30 tablet 08/28/16 [Rx] Acetaminophen [Tylenol] 1,000 mg PO Q6HR PRN 09/04/16 [History] Enoxaparin [Lovenox] 150 mg SQ Q12H #60 syringe 09/08/16 [Rx] OxyCODONE/APAP 5/325 [Percocet 5/325 MG] 1 each PO Q8HR PRN #20 tablet 09/08/16 [Rx] Allergies/Adverse Reactions: Allergies codeine Allergy (Verified 09/04/16 16:32) Hives,SWELLING Erythromycin Base Allergy (Verified 09/04/16 16:32) THROAT SWELLING ondansetron [From Zofran (as hydrochloride)] Allergy (Verified 09/04/16 16:32) Hives Penicillins [PCN] Allergy (Verified 09/04/16 16:32) THROAT SWELLING Sulfa (Sulfonamide Antibiotics) Allergy (Verified 09/04/16 16:32) THROAT SWELLING tape Allergy (Uncoded 08/23/16 01:49) Blister Procedures/tests Complete & Pending: Procedures Performed prior 72 hours Category Date Time Status EV limited echocardiogram Routine Y 09/05/16 23:00 Completed Date of admission: 09/04/16 20:55 Primary care physician: Misael Miller MD Consults: 09/06/16 17:14 Consult to Occupational Therapy [CONS] Routine Comment: Evaluate, develop and implement POC Consult to Physical Therapy [CONS] Routine Comment: Evaluate, develop and implement POC 09/04/16 22:49 Consult to Surgery [CONS] Routine Consulting Provider: [facility] Reason for Consult: right gluteal hematoma diagnosed 12 days ago. Now have to start High dose heparin for PE Call Completed: Yes - Patient Status Disposition: Home Health Service Condition: Good - Discharge Instructions Follow Up With: Misael Miller MD [Primary Care Provider] - 09/17/16 2:15 pm Forms: ED Satisfaction Letter, Work/School Release Hospital course: Ms. Mitchell is a 45 year old female - Time Spent with Patient Total time spent providing and/or coordinating discharge services: - Constitutional Vitals: Temp Pulse Resp BP Pulse Ox 97.8 F 64 18 106/74 96 09/08/16 07:59 09/08/16 07:59 09/08/16 08:19 09/08/16 07:59 09/08/16 08:19 - Attending Attestation I examined this patient and my medical decision-making was reviewed with the DRAPERY SEWER HAND/PA/Advanced Practice Nurse/Resident Physician. I agree with the documented findings, disposition and treatment plan as described except to the extent set forth below. <ViraIldefonsodianna Robins - Last Filed: 09/08/16 19:32> Date of Encounter: 09/08/16 Time of Encounter: 10:26 - Discharge Diagnosis (1) Pulmonary embolism Priority: Primary Status: Acute Qualifiers: Pulmonary embolism type: other Chronicity: acute Acute cor pulmonale presence: without acute cor pulmonale Qualified Code(s): I26.99 - Other pulmonary embolism without acute cor pulmonale (2) Chest pain Priority: Secondary Status: Acute Qualifiers: Chest pain type: chest pain on breathing Qualified Code(s): R07.1 - Chest pain on breathing (3) Diabetes mellitus Priority: Secondary Status: Chronic Qualifiers: Diabetes mellitus type: type 2 Diabetes mellitus complication status: with hyperglycemia Diabetes mellitus senior living insulin use: without senior living use Qualified Code(s): E11.65 - Type 2 diabetes mellitus with hyperglycemia (4) Factor 5 Leiden mutation, heterozygous Priority: Secondary Status: Chronic (5) Morbid obesity with BMI of 50.0-59.9, adult Priority: Secondary Status: Chronic Procedures/tests Complete & Pending: Procedures Performed prior 72 hours Category Date Time Status ECG 12 lead ECG [ECG] Routine Y 09/05/16 12:00 Completed EV limited echocardiogram Routine Y 09/05/16 23:00 Completed Date of admission: 09/04/16 20:55 Primary care physician: Misael Miller MD Consults: 09/06/16 17:14 Consult to Occupational Therapy [CONS] Routine Comment: Evaluate, develop and implement POC Consult to Physical Therapy [CONS] Routine Comment: Evaluate, develop and implement POC 09/04/16 22:49 Consult to Surgery [CONS] Routine Consulting Provider: [facility] Reason for Consult: right gluteal hematoma diagnosed 12 days ago. Now have to start High dose heparin for PE Call Completed: Yes Discharging clinician: Manuel Constantino Anticipated date of discharge: 09/08/16 - Patient Status Functional capacity at discharge: uses cane/walker Overall status at discharge: patient is progressing back to baseline - Diet and Activity Activity: as per physical therapy, increase activity as tolerated, wear oxygen at all times Diet: diabetic diet, low fat, low cholesterol, low salt diet Hospital course: Ms. Mitchell is a 45 year old female hx of factor five leiden, PE presented with 3 days of sob and chest pain with inspiration. Patient developed a r thigh hematoma during her last admission and her anticoagulation lovenox was d/c for a brief period. She takes 150mg twice daily. CT angio chest showed b/l pulmonary embolism. She was started on high dose heparin drip and her home O2 was continued as she had chronic thromboembolic pulmonary HTN. Surgery was consulted for R. thigh hematoma. Echocardiogram did not show R. heart strain. Initial troponin was elevated at .53 repeat was 0.01. Ultrasound of R thigh showed resolution of hematoma. Patients sob improved during her hospital stay. She was switched to her home dose of lovenox. PT/OT were consulted and recomended outpatient PT/OT. Today patients vitals were stable and her sob resolved, lung exam was CTAB, she was tolerating oral intake well. Patient is stable for discharge. Plan is to see PCP in 7 days. Will be discharged with prescription for Lovenox. - Time Spent with Patient Total time spent providing and/or coordinating discharge services: - Constitutional Vitals: Temp Pulse Resp BP Pulse Ox 97.8 F 64 18 106/74 94 L 09/08/16 07:59 09/08/16 07:59 01/03/17 07:59 09/08/16 07:59 09/08/16 07:59 General appearance: Present: A&O X 3, morbidly obese, pleasant, answers questions appropriately - Head Head exam: Present: atraumatic, normocephalic - Eye Eye exam: Present: EOMI, PERRL, conjuntiva pink, sclera anicteric - Neck Neck exam general surgery: Present: supple, trachea midline. Absent: lymphadenopathy - Respiratory Respiratory exam: Present: CTAB. Absent: accessory muscle use, rales, rhonchi, wheezes - Cardiovascular Cardiovascular exam: Present: RRR, +S1, +S2. Absent: diastolic murmur, gallop, rubs, systolic murmur - GI/Abdominal GI/Abdominal exam: Present: normal bowel sounds, soft, no peritoneal signs. Absent: distended, tenderness - Extremities Exam Extremities exam: Present: warm, radial pulses palpable and symetrical. Absent : calf tenderness, cyanotic, pedal edema - Neurological Exam Neurological exam: Present: CN II-XII intact, oriented X3, no focal deficits. Absent: pronater drift, facial droop, speech deficit - Skin Skin exam: Present: dry, intact
--- NOTE | 2016-09-08 10:34 | Physician Discharge Referral ---
<Manuel Constantino - Last Filed: 09/08/16 10:35> Home Health/Hosp Referral Info Transfer to: Home Health Attending Provider: Dr. Pollard Provider in Charge Post Discharge: PCP - Diagnosis (1) Pulmonary embolism Priority: Primary Status: Acute (2) Chest pain Priority: Secondary Status: Acute (3) Diabetes mellitus Priority: Secondary Status: Chronic (4) Factor 5 Leiden mutation, heterozygous Priority: Secondary Status: Chronic (5) Morbid obesity with BMI of 50.0-59.9, adult Priority: Secondary Status: Chronic - Respiratory Orders Oxygen / L per min (2) Smoking Cessation: Smoking cessation has been advised. For more information, call the [place] Tobacco Quit Line at 9-328-ISHD-NOW. - Diet/Nutrition Diet/Nutrition Orders: No Added Salt (GIOVANI) (diabetic diet as well), Cardiac - Activity Activity Orders: Walker - Services Needed Following services are medically necessary services: Nursing, Physical Therapy, Occupational Therapy - Transfer Medications Prescriptions: OxyCODONE/APAP 5/325 [Percocet 5/325 MG] 1 each PO Q8HR PRN #20 tablet PRN Reason: Pain Enoxaparin [Lovenox] 150 mg SQ Q12H #60 syringe Home Medications: Albuterol Sulfate [Proair Respiclick] 2 puff PO Q4H PRN #0 04/10/15 [History] Aspirin 325 mg PO DAILY #0 04/10/15 [History] BuPROPion XL (24 HR) [Wellbutrin Xl] 150 mg PO BID #0 04/10/15 [History] Budesonide/Formoterol 160/4.5 [Symbicort 160/4.5] 2 puff IH BIDR #0 04/10/15 [ History] Ipratropium/Albuterol Neb [Duoneb] 3 ml IH QIDR PRN 04/10/15 [History] Montelukast [Singulair] 10 mg PO HS 04/10/15 [History] Ranitidine HCl 150 mg PO BID 04/10/15 [History] Topiramate [Topamax] 100 mg PO HS 04/10/15 [History] Doxepin [Sinequan] 25 - 50 mg PO HS 08/14/15 [History] Venlafaxine XR (24 HR) [Effexor Xr] 75 mg PO HS 08/14/15 [History] Buspirone HCl [Buspar] 10 mg PO BID 09/17/15 [History] CloNIDine HCl 0.1 mg PO BID 09/17/15 [History] Furosemide [Lasix] 40 mg PO DAILY 09/17/15 [History] Oxygen 2 l NS AD 09/17/15 [History] SUMAtriptan Succinate [Imitrex] 100 mg PO DAILY PRN 09/17/15 [History] Potassium Chloride [K-Tab ER] 10 meq PO DAILY 01/20/16 [History] Trazodone HCl [TraZODone] 100 mg PO HS PRN 01/20/16 [History] LORazepam [Ativan] 1 mg PO BID 03/03/16 [History] Cetirizine HCl [All Day Allergy] 10 mg PO DAILY 08/26/16 [History] Gabapentin 800 mg PO TID 08/26/16 [History] Lamotrigine [Lamictal] 100 mg PO BID 08/26/16 [History] Liraglutide [Victoza 2-Jignesh] 1.2 mg SQ DAILY 08/26/16 [History] Metolazone 2.5 mg PO DAILY 08/26/16 [History] Sitagliptin Phosphate [Januvia] 50 mg PO DAILY 08/26/16 [History] Bisacodyl [Dulcolax] 10 mg PO DAILY #10 tablet 08/28/16 [Rx] OxyCODONE/APAP 7.5/325 [Percocet 7.5/325 MG] 1 each PO Q6HR PRN #30 tablet 08/28 [Rx] Sennosides/Docusate Sodium [Senna-Docusate Sodium Tablet] 1 each PO BID #30 tablet 08/28/16 [Rx] Acetaminophen [Tylenol] 1,000 mg PO Q6HR PRN 09/04/16 [History] Enoxaparin [Lovenox] 150 mg SQ Q12H #60 syringe 09/08/16 [Rx] OxyCODONE/APAP 5/325 [Percocet 5/325 MG] 1 each PO Q8HR PRN #20 tablet 09/08/16 [Rx] Allergies/Adverse Reactions: Allergies codeine Allergy (Verified 09/04/16 16:32) Hives,SWELLING Erythromycin Base Allergy (Verified 09/04/16 16:32) THROAT SWELLING ondansetron [From Zofran (as hydrochloride)] Allergy (Verified 09/04/16 16:32) Hives Penicillins [PCN] Allergy (Verified 09/04/16 16:32) THROAT SWELLING Sulfa (Sulfonamide Antibiotics) Allergy (Verified 09/04/16 16:32) THROAT SWELLING tape Allergy (Uncoded 08/23/16 01:49) Blister Certification: Further, I certify that my clinical findings support that this patient is homebound (i.e. absences from home require considerable and taxing effort and are for medical reasons or sikhism services or infrequently or short duration when for other reasons) because: Homebound Reason: Patient requires assistance of a person or device to safely leave home, Leaving home requires considerable and taxing effort due to condition Attestation: My signature below is to certify that this patient is under my care and that I, or nurse practitioner, or a physician's application assistant working with me, has a face-to -face encounter with this patient. <Max Pollard P - Last Filed: 09/08/16 19:10> - Respiratory Orders Smoking Cessation: Smoking cessation has been advised. For more information, call the [place] Tobacco Quit Line at 2-205-QTDP-NOW. Certification: Further, I certify that my clinical findings support that this patient is homebound (i.e. absences from home require considerable and taxing effort and are for medical reasons or sikhism services or infrequently or short duration when for other reasons) because: Attestation: My signature below is to certify that this patient is under my care and that I, or nurse practitioner, or a physician's application assistant working with me, has a face-to -face encounter with this patient.
[2016-09-09 18:15] LABS: CK-BB (CK isoenzymes) 0 % (0-0); CK-MB (CK isoenzymes) 0 % (0-4); CK-MM (CK-isoenzymes) 100 % (96-100)
[2016-09-11 08:40] LABS: CK Total (Ck Isoenzymes) 97 U/L (20-180)
== END 2016-09-08 14:56 | disposition home health service (06) | DRG 134 ==
LOC: EMEROO 16:29 → 2NENU 20:55
PROVIDERS: ADMIT Hospitalist; ATTEND Internal Medicine

== ENCOUNTER 2016-09-21 16:56 | Inpatient (IN) ==
--- NOTE | 2016-09-21 17:27 | Emergency Department Note ---
Disposition Clinical Impression: Pulmonary embolism Qualifiers: Pulmonary embolism type: other Chronicity: acute Acute cor pulmonale presence: without acute cor pulmonale Qualified Code(s): I26.99 - Other pulmonary embolism without acute cor pulmonale Disposition: Admitted As Inpatient Condition: Critical Time of Disposition: 22:15 General Adult HPI - General Chief complaint: ED Shortness of Breath/Dyspnea Stated complaint: "multiple PE's" Time Seen by Provider: 09/21/16 17:05 Source: patient Limitations: no limitations Nursing Notes Reviewed: Yes Vital Signs Reviewed: Yes - History of Present Illness HPI Narrative: Ms. Mitchell, a 45yo female, presents form Dr. Castillo's office by POV with CC: symptomatic hypoxia. Known hx of recurrent PE. Was diagnosed with PE yesterday in this ED per CTA chest, no right heart strain per Echo. PE unchanged since last CTA Aug 2016. Symptoms at this presentation include lightheadedness, chills, chest pain described as "what she normally feels when she has a PE." Denies fever, weakness, cough. Was last diacharged 09/08/16 for PE. While inpatient, she developed a spontaneous right gluteal hematoma while on high dose Lovenox. Anticoagulation was held. Discharged and re-started hematoma 09/08. PMH: Recurrent PE since 1998. History of failed Coumadin as her INR was repeatedly uncontrolled. On Lovenox x 7yrs. Pain Scale: 8 - Related Data Home Medications Medication Instructions Recorded Confirmed Albuterol Sulfate [Proair 2 puff PO Q4H PRN #0 04/10/15 09/21/16 Respiclick] Aspirin 325 mg PO DAILY #0 04/10/15 09/21/16 BuPROPion XL (24 HR) [Wellbutrin 150 mg PO BID #0 04/10/15 09/21/16 Xl] Budesonide/Formoterol 160/4.5 2 puff IH BIDR #0 04/10/15 09/21/16 [Symbicort 160/4.5] Ipratropium/Albuterol Neb [Duoneb] 3 ml IH QIDR PRN 04/10/15 09/21/16 Montelukast [Singulair] 10 mg PO HS 04/10/15 09/21/16 Ranitidine HCl 150 mg PO BID 04/10/15 09/21/16 Topiramate [Topamax] 100 mg PO HS 04/10/15 09/21/16 Doxepin [Sinequan] 25 - 50 mg PO HS 08/14/15 09/21/16 Venlafaxine XR (24 HR) [Effexor Xr] 75 mg PO HS 08/14/15 09/21/16 Buspirone HCl [Buspar] 10 mg PO BID 09/17/15 09/21/16 CloNIDine HCl 0.1 mg PO BID 09/17/15 09/21/16 Furosemide [Lasix] 40 mg PO DAILY 09/17/15 09/21/16 Oxygen 2 l NS AD 09/17/15 09/21/16 SUMAtriptan Succinate [Imitrex] 100 mg PO DAILY PRN 09/17/15 09/21/16 Potassium Chloride [K-Tab ER] 10 meq PO DAILY 01/20/16 09/21/16 Trazodone HCl [TraZODone] 100 mg PO HS PRN 01/20/16 09/21/16 LORazepam [Ativan] 1 mg PO BID 03/03/16 09/21/16 Cetirizine HCl [All Day Allergy] 10 mg PO DAILY 08/26/16 09/21/16 Gabapentin 800 mg PO TID 08/26/16 09/21/16 Lamotrigine [Lamictal] 100 mg PO BID 08/26/16 09/21/16 Liraglutide [Victoza 2-Jignesh] 1.2 mg SQ DAILY 08/26/16 09/21/16 Metolazone 2.5 mg PO DAILY 08/26/16 09/21/16 Acetaminophen [Tylenol] 1,000 mg PO Q6HR PRN 09/04/16 09/21/16 OxyCODONE/APAP 5/325 [Percocet 1 tab PO Q8HR PRN 09/21/16 09/21/16 5/325 MG] Sennosides/Docusate Sodium 1 tab PO BID 09/21/16 09/21/16 [Senna-Docusate Sodium Tablet] Previous Rx's Medication Instructions Recorded Bisacodyl [Dulcolax] 10 mg PO DAILY #10 tablet 08/28/16 Enoxaparin [Lovenox] 150 mg SQ Q12H #60 syringe 09/08/16 Promethazine [Phenergan] 12.5 mg PO Q6HR #8 tablet 09/20/16 Allergies Allergy/AdvReac Type Severity Reaction Status Date / Time codeine Allergy Hives,SWELL Verified 09/04/16 16:32 ING Erythromycin Base Allergy THROAT Verified 09/04/16 16:32 SWELLING ondansetron Allergy Hives Verified 09/04/16 16:32 [From Zofran (as hydrochloride)] Penicillins [PCN] Allergy THROAT Verified 09/04/16 16:32 SWELLING Sulfa (Sulfonamide Allergy THROAT Verified 09/04/16 16:32 Antibiotics) SWELLING tape Allergy Blister Uncoded 08/23/16 01:49 Constitutional: Reports: fever. Denies: chills Cardiovascular: Reports: chest pain, dyspnea on exertion. Denies: palpitations , orthopnea, edema, syncope Respiratory: Reports: dyspnea. Denies: cough, wheezes, hemoptysis Gastrointestinal: Reports: nausea. 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 General: Patient is alert, oriented, and in no acute distress. HEENT: No facial asymmetry. Head is normocephalic and atraumatic. PERRLA, EOMI. Nasal turbinates moist and pink. Posterior pharynx without exudates or cobblestoning. Trachea midline, no adenopathy. Cardiovascular: Heart regular rate and rhythm without clicks, rubs, gallops, or murmurs. No JVD. PMI nondisplaced. Respiratory: Symmetric chest rise with good respiratory effort. Bilateral breath sounds are clear without wheezing, crackles, or rhonchi. Abdomen: Bowel sounds present normoactive x-4 quadrants. Abdomen is soft, nondistended, and nontender. No organomegaly noted. Psych: Patient's affect is appropriate for situation. - General Limitations: no limitations General appearance: alert Course Course Narrative: Have paged heme/onc. Awaiting their call-back. No clinical need to repeat basic labs or imaging. Will repeat coagulation and draw anti-Xa. Chart check: 09/20: CTA chest: Impression-Pulmonary emboli within distal right main/proximal lobar pulmonary arteries as well as segmental left lower lobe pulmonary emboli are grossly unchanged. No new definite proximal pulmonary emboli are otherwise noted. Compared to CTA dated 09/04/2016. 09/20: EKG: Impression-Sinus tachycardia with poor R-wave progression. 09/20:2 view chest x-ray: Impression-no radiographically finding to account for patient's cough, shortness of breath, or chest pain. 09/20: Lab work: Elevated PT, APTT. Otherwise unremarkable. (CBC, PT/INR, CMP, Troponin I, BNP) 09/05/2016: Echocardiogram: Impression-Normal LV size and systolic function; LVEF 55%. Normal RV size and function. No evidence of pulmonary hypertension. 17:45 Patient reports nausea. States phenergan works better than zofran. Continues to deny pain at this time. Will dose phenergan. Encouraged her to breath through her nose to take advantage of her nasal cannulae. 17:47 Dr. Castillo - her PE this time around appears situational because she was off lovenox secondary to thigh hematoma. At rest - 98%, with conversation 79%. He recommends admission for Heparin to resolve her PE then transition to Lovenox for discharge home. 18:[address] Lee. Vital Signs Temperature 97.8 F 09/21/16 16:59 Pulse Rate 89 09/21/16 16:59 Respiratory Rate 18 09/21/16 16:59 Blood Pressure 149/93 09/21/16 16:59 O2 Sat by Pulse Oximetry 99 09/21/16 16:59 Temperature 98.0 F 09/21/16 20:10 Pulse Rate 90 09/21/16 20:10 Respiratory Rate 18 09/21/16 20:10 Blood Pressure 100/63 09/21/16 20:10 O2 Sat by Pulse Oximetry 98 09/21/16 20:10 Oxygen Delivery Oxygen Delivery Nasal Cannula Medical Decision Making - Lab Data Lab Results 09/21/16 Range/Units 18:10 PT 11.8 (9.4-12.1) Seconds INR 1.1 Heparin Anti-Xa, LM Wt 0.24 L (0.50-1.10) IU/mL
[2016-09-21] MEDS ORDERED: *HR* Promethazine 25 MG/ML VIAL IVP ONE (17:45)
[2016-09-21 18:37] LABS: Heparin anti-factor XA LMWH 0.24 IU/mL (0.50-1.10); INR 1.1; Prothrombin Time 11.8 Seconds (9.4-12.1)
[2016-09-21] MEDS ORDERED: Ipratropium/Albuterol Neb 3 ML IH PRN (21:15)
[2016-09-21] MEDS ORDERED: traZODone 50 MG TABLET PO PRN (21:15)
[2016-09-21] MEDS ORDERED: SUMAtriptan succinate 50 MG TABLET PO PRN (21:15)
[2016-09-21] MEDS ORDERED: Naloxone 0.4 MG/ML INJ IVP PRN (21:21)
--- NOTE | 2016-09-21 21:59 | Internal Med History&Physical ---
Date of Encounter: 09/22/16 Time of Encounter: 21:00 Assessment and Plan (1) Pulmonary embolism Current visit: No Status: Acute Acute on chronic Pulmonary Embolism. Patient states that she has a significant history of PE, and has had "too many to count" She was last admitted to hosptial on 09/04 for PE and released on 09/08. She came back to ED on 09/20 for PE. CTA from 09/20 showed persistent pulmonary embolus within the distal right main pulmonary artery with extension into the proximal lobar segments. No evidence of right ventricular strain. No new proximal pulmonary emboli were identified. No acute cardiopulmonary findings were noted. Of note, patient has tried coumadin in the past but was taken off due to fluctuating INR. She has failed therapy with Pradaxa, Xarelto as well. Patient's compliance with lovenox was questioned, but she states she has not missed any doses. Continue with Home dose of Lovenox: 150mg SQ Q12HR. Consider changing anticoagulation terminal computer operator, as patient has multiple recurrent PE's. Qualifiers: Pulmonary embolism type: other Chronicity: acute Acute cor pulmonale presence: without acute cor pulmonale Qualified Code(s): I26.99 - Other pulmonary embolism without acute cor pulmonale (2) Chest pain Current visit: No Status: Acute Etiology likely due to PE. Plan as above. Qualifiers: Chest pain type: chest pain on breathing Qualified Code(s): R07.1 - Chest pain on breathing (3) Factor 5 Leiden mutation, heterozygous Current visit: No Status: Chronic Heterozygous mutation, according to oncology records. Lovenox 150mg SQ Q12HR (4) Right hip pain Current visit: No Status: Acute chronic pain. (5) Neurogenic bladder Current visit: No Status: Chronic Patient has long standing history of neurogenic bladder. Her does intermittent catheterization for her at home. Vizcaino catheter will be in place. (6) Diabetes mellitus Current visit: Yes Status: Chronic Diabetic diet with ACHS accuchecks. Levemir 10 basal with low dose Sliding Scale. Qualifiers: Diabetes mellitus type: type 2 Diabetes mellitus complication status: with hyperglycemia Diabetes mellitus halfway insulin use: without terminal computer operator use Qualified Code(s): E11.65 - Type 2 diabetes mellitus with hyperglycemia (7) Morbid obesity with BMI of 50.0-59.9, adult Current visit: Yes Status: Chronic Likely a contributing factor to her recurrent Pulmonary Emboli. Patient counseled on importance of exercise, diabetes management, diet, and weight loss to help prevent further DVT/PE (8) DVT prophylaxis Current visit: Yes Status: Acute Lovenox 150mg SQ Q12HR Internal Medicine - H&P: HPI Chief complaint: shortness of breath Admitted From: Emergency Dept Plans for Post Hospital Care: Home History of present illness: Ms. Mitchell is a 45 year old female with PMHx of Factor V leiden (sees Dr. Mcdermott), asthma, anxiety, Diabetes, history of several recurrent PE. PCP: Dr. Misael Miller Ms. Mitchell was at a heme/onc appointment with Dr. Mcdermott today around 3:30, when she was experiencing severe shortness of breath and symptomatic hypoxia. She was sent to the ED by Dr. Mcdermott. This patient was last admitted to hospital on 09/04 for PE and released on 09/08. She came back to ED yesterday on for another PE, and was sent home and instructed to follow up with Dr. Mcdermott today, as previously scheduled. Upon examination, patient reports having chest pain which she rates 9/10. She also complains of intermittent shortness of breath during conversation. Her oxygen sat was 98% on 3L NC. Family History: Mother: hx of blood clots, CAD, at age 46 from cervical cancer. Father: HTN, CAD Brother and sister: health status unknown due to lack of communication. Social History: lives with at home. She has one daugher, who is in a treatment facility for severe depression due to history of rape. Denies smoking, alcohol, illicit drug use. Past Med Surg Social Fam HX - Past Medical History Medical history: asthma, diabetes, other Psychiatric history: anxiety, panic disorder - Past Surgical History Surgical History: cholecystectomy, hysterectomy, orthopedic, other - Social History Smoking Status: Never smoker Smokeless Tobacco Status: No Alcohol use: none Drug use: none - Family History Mother Family Member Ethnicity: Non- Living Status: Hx Family Cardiac Disorders: Yes Hx Family Cancer: Yes (cervical cancer w/ mets) Internal Medicine - H&P: Meds Albuterol Sulfate [Proair Respiclick] 2 puff PO Q4H PRN #0 04/10/15 [History] Aspirin 325 mg PO DAILY #0 04/10/15 [History] BuPROPion XL (24 HR) [Wellbutrin Xl] 150 mg PO BID #0 04/10/15 [History] Budesonide/Formoterol 160/4.5 [Symbicort 160/4.5] 2 puff IH BIDR #0 04/10/15 [ History] Ipratropium/Albuterol Neb [Duoneb] 3 ml IH QIDR PRN 04/10/15 [History] Montelukast [Singulair] 10 mg PO HS 04/10/15 [History] Ranitidine HCl 150 mg PO BID 04/10/15 [History] Topiramate [Topamax] 100 mg PO HS 04/10/15 [History] Doxepin [Sinequan] 25 - 50 mg PO HS 08/14/15 [History] Venlafaxine XR (24 HR) [Effexor Xr] 75 mg PO HS 08/14/15 [History] Buspirone HCl [Buspar] 10 mg PO BID 09/17/15 [History] CloNIDine HCl 0.1 mg PO BID 09/17/15 [History] Furosemide [Lasix] 40 mg PO DAILY 09/17/15 [History] Oxygen 2 l NS AD 09/17/15 [History] SUMAtriptan Succinate [Imitrex] 100 mg PO DAILY PRN 09/17/15 [History] Potassium Chloride [K-Tab ER] 10 meq PO DAILY 01/20/16 [History] Trazodone HCl [TraZODone] 100 mg PO HS PRN 01/20/16 [History] LORazepam [Ativan] 1 mg PO BID 03/03/16 [History] Cetirizine HCl [All Day Allergy] 10 mg PO DAILY 08/26/16 [History] Gabapentin 800 mg PO TID 08/26/16 [History] Lamotrigine [Lamictal] 100 mg PO BID 08/26/16 [History] Liraglutide [Victoza 2-Jignesh] 1.2 mg SQ DAILY 08/26/16 [History] Metolazone 2.5 mg PO DAILY 08/26/16 [History] Bisacodyl [Dulcolax] 10 mg PO DAILY #10 tablet 08/28/16 [Rx] Acetaminophen [Tylenol] 1,000 mg PO Q6HR PRN 09/04/16 [History] Enoxaparin [Lovenox] 150 mg SQ Q12H #60 syringe 09/08/16 [Rx] Promethazine [Phenergan] 12.5 mg PO Q6HR #8 tablet 09/20/16 [Rx] OxyCODONE/APAP 5/325 [Percocet 5/325 MG] 1 tab PO Q8HR PRN 09/21/16 [History] Sennosides/Docusate Sodium [Senna-Docusate Sodium Tablet] 1 tab PO BID 09/21/16 [History] Allergies codeine Allergy (Verified 09/04/16 16:32) Hives,SWELLING Erythromycin Base Allergy (Verified 09/04/16 16:32) THROAT SWELLING ondansetron [From Zofran (as hydrochloride)] Allergy (Verified 09/04/16 16:32) Hives Penicillins [PCN] Allergy (Verified 09/04/16 16:32) THROAT SWELLING Sulfa (Sulfonamide Antibiotics) Allergy (Verified 09/04/16 16:32) THROAT SWELLING tape Allergy (Uncoded 08/23/16 01:49) Blister All Systems PM: A 10-system review of systems was performed and is negative for pertinent findings except as documented above in the HPI. - Constitutional Constitutional: chills, lethargy, no fever(s), no falls - EENT Eyes: no blurry vision, no change in vision, no decreased night vision Nose, mouth and throat: no sore throat - Cardiovascular Cardiovascular ROS IM: chest pain, dyspnea - Respiratory Respiratory: dyspnea, no hemoptysis - Gastrointestinal Gastrointestinal: abdominal pain, no hematochezia, no melena - Genitourinary Genitourinary: difficulty urinating, no hematuria - Musculoskeletal Musculoskeletal ROS IM: arthralgias - Integumentary Integumentary IM: rash Additional comments: maculopapular rash across nose and cheeks. - Psychiatric Psychiatric: anxiety - Constitutional Vitals: Temp Pulse Resp BP Pulse Ox 98.0 F 90 18 100/63 98 09/21/16 20:10 09/21/16 20:10 09/21/16 20:10 09/21/16 20:10 09/21/16 20:10 General appearance: Present: A&O X 3, pleasant, no acute distress, obese, answers questions appropriately - Head Head exam: Present: atraumatic, normocephalic - Respiratory Respiratory exam: Present: CTAB. Absent: wheezes - Cardiovascular Cardiovascular exam: Present: RRR, +S1, +S2 - GI/Abdominal GI/Abdominal exam: Present: normal bowel sounds, soft, tenderness. Absent: guarding - Extremities Exam Extremities exam: Absent: cyanotic, pedal edema - Skin Additional comments: maculopapular erythematous rash on nose and cheeks. bruising on stomach from lovenox shots. Internal Med - H&P Results - Labs CBC & Chem 7: 09/22/16 03:57 09/22/16 03:57
[2016-09-21] MEDS: Venlafaxine XR (24 HR) 75 MG CAP.ER.24H PO SCH (22:17)
[2016-09-21] MEDS: *HR* Enoxaparin 150 MG/ML SYRINGE SQ SCH (22:17)
[2016-09-21] MEDS ORDERED: *HR* HYDROmorphone (PF) 1 MG/ML SYRINGE IVP PRN (22:36)
[2016-09-21] MEDS ORDERED: *HR* OxyCODONE/APAP 5/325 TABLET PO PRN (22:42)
[2016-09-21] MEDS ORDERED: Dextrose Gel 15 GM PO PRN ×2 (22:43)
[2016-09-21] MEDS ORDERED: *HR* Dextrose 50 % in Water (Syg) 50 ML SYRINGE IVP PRN (22:43)
[2016-09-21] MEDS ORDERED: D5% in Water 1,000 ML IV PRN (22:43)
[2016-09-21] MEDS: Budesonide/Formoterol 160/4.5 MDI IH SCH (23:34)
[2016-09-22 04:47] LABS: Basophils % 0.5 %; Eosinophils % 16.7 %; Hematocrit 36.2 % (35.3-44.9); Immature Granulocytes % 0.5 % (0-4); Lymphocytes # 2.6 K/mcL (0.6-4.6); Mean Corpuscular HGB Conc 32.3 g/dL (31.6-35.5); Mean Corpuscular Hemoglobin 28.7 pg (28.0-33.3); Mean Corpuscular Volume 88.9 fL (83.0-100.0); Mean Platelet Volume 11.6 fL (9.4-12.4); Monocytes # 0.4 K/mcL (0.0-1.3); Monocytes % 6.7 %; Neutrophils # 1.9 K/mcL (1.6-8.9); Platelet Count 174 K/mcL (140-400); Red Blood Count 4.07 M/mcL (3.82-4.97); Red Cell Distribution Width 14.5 % (11.5-14.5); Segmented Neutrophils % 32.6 %
[2016-09-22 04:48] LABS: Hemoglobin 11.7 g/dL (11.5-15.4)
[2016-09-22 05:10] LABS: Alanine Aminotransferase 41 Units/L (0-55); Albumin 3.1 g/dL (3.5-5.0); Albumin/Globulin Ratio 0.9 (1.1-2.2); Alkaline Phosphatase 130 Units/L (38-126); Aspartate Amino Transferase 26 Units/L (5-34); BUN/Creatinine Ratio 18 (6-26); Bilirubin,Total 0.5 mg/dL (0.2-1.2); Blood Urea Nitrogen 15 mg/dL (7-20); Calcium 8.8 mg/dL (8.6-10.8); Carbon Dioxide 21 mEq/L (19-29); Chloride 109 mEq/L (98-109); Globulin 3.4 g/dL (2.4-3.5); Glucose 132 mg/dL (70-99); Osmolality,Calculated 293 (280-300); Potassium 3.4 mEq/L (3.5-4.5); Sodium 140 mEq/L (136-145); Total Protein 6.5 g/dL (6.0-8.3); eGFR For African Americans > 60 (> 60); eGFR For Non-African Americans > 60 (> 60)
[2016-09-22] MEDS: Famotidine 20 MG TABLET PO SCH ×2 (07:40→15:10)
[2016-09-22] MEDS: *HR* Enoxaparin 150 MG/ML SYRINGE SQ SCH ×2 (07:40→17:25)
[2016-09-22] MEDS: BuPROPion SR (12 HR) 150 MG TABLET PO SCH ×2 (08:38→21:15)
[2016-09-22] MEDS: Insulin LISPRO 300 UNITS/3 ML VIAL SQ SCH ×3 (08:38→17:23)
[2016-09-22] MEDS: lamoTRIgine 100 MG TABLET PO SCH ×2 (08:38→21:15)
[2016-09-22] MEDS: Gabapentin 400 MG CAPSULE PO SCH ×3 (08:38→21:15)
[2016-09-22] MEDS: Budesonide/Formoterol 160/4.5 MDI IH SCH ×2 (11:07→22:28)
[2016-09-22] MEDS: *HR* OxyCODONE/APAP 5/325 TABLET PO PRN ×2 (15:14→21:47)
--- NOTE | 2016-09-22 15:26 | Internal Med Progress Note ---
Date of Encounter: 09/22/16 Time of Encounter: 15:23 - Assessment and plan (1) Pulmonary embolism Current Visit: Yes Status: Chronic Assessment and plan: Unsure if patient has a new episode of pulmonary embolism as CTA shows no e/o- extension in previous PE; continue subcutaneous Lovenox at this time, will d/w , patient's Lightning Rod Installer for further recommendations; continue supplemental O2; Patient has h/o- recurrent DVT and PE episodes and failed Coumadin, Xarelto and Pradaxa in the past and has been stable on high dose Lovenox, which had to be interrupted briefly recently due to right gluteal hematoma, and was resumed on Lovenox after being diagnosed with PE, about 2 weeks back. Qualifiers: Pulmonary embolism type: other Chronicity: acute Acute cor pulmonale presence: without acute cor pulmonale Qualified Code(s): I26.99 - Other pulmonary embolism without acute cor pulmonale (2) Diabetes mellitus Current Visit: Yes Status: Chronic Assessment and plan: Continue Accu-Chek blood glucose monitoring with basal bolus insulin regimen. Diabetic diet. Qualifiers: Diabetes mellitus type: type 2 Diabetes mellitus complication status: with unspecified complications Diabetes mellitus terminal makeup operator insulin use: without longterm use Qualified Code(s): E11.8 - Type 2 diabetes mellitus with unspecified complications (3) Low back pain Current Visit: Yes Status: Chronic Qualifiers: Chronicity: chronic Back pain laterality: midline Sciatica presence: without sciatica Qualified Code(s): M54.5 - Low back pain; G89.29 - Other chronic pain (4) Neurogenic bladder Current Visit: Yes Status: Chronic Assessment and plan: Continue Vizcaino catheter. Does intermittent self-catheterization at home. (5) Morbid obesity with BMI of 50.0-59.9, adult Current Visit: Yes Status: Chronic - Subjective Interval history: No chest pain or shortness of breath. Reports compliance to Lovenox at home. Complains of nausea at this time and also increase in right thigh girth and is worried about a new hematoma. - Constitutional Vitals: Temp Pulse Resp BP Pulse Ox 98.1 F 79 16 128/81 100 09/22/16 15:16 09/22/16 15:16 09/22/16 15:16 09/22/16 15:16 09/22/16 15:16 General appearance: Present: A&O X 3, morbidly obese, answers questions appropriately - Head Head exam: Present: atraumatic, normocephalic - Neck Neck exam general surgery: Present: supple, trachea midline. Absent: lymphadenopathy - Respiratory Respiratory exam: Present: CTAB. Absent: accessory muscle use, rales, rhonchi, wheezes - Cardiovascular Cardiovascular exam: Present: RRR, +S1, +S2. Absent: diastolic murmur, gallop, rubs, systolic murmur - GI/Abdominal GI/Abdominal exam: Present: normal bowel sounds, soft, no peritoneal signs. Absent: distended, tenderness - Extremities Exam Extremities exam: Present: warm, radial pulses palpable and symetrical. Absent : calf tenderness, cyanotic, pedal edema - Neurological Exam Neurological exam: Present: CN II-XII intact, oriented X3, no focal deficits. Absent: pronater drift, facial droop, speech deficit - Skin Skin exam: Present: dry, intact Internal Medicine: Result - Labs CBC & Chem 7: 09/22/16 03:57 09/22/16 03:57 Labs: Short CBC 09/22/16 Range/Units 03:57 WBC 5.9 (4.3-11.1) K/mcL Hgb 11.7 (11.5-15.4) g/dL Hct 36.2 (35.3-44.9) % Plt Count 174 (140-400) K/mcL Neutrophils # 1.9 (1.6-8.9) K/mcL BMP 09/22/16 03:57 Sodium 140 Potassium 3.4 L Chloride 109 Carbon Dioxide 21 BUN 15 Creatinine 0.83 Glucose 132 H Calcium 8.8 Liver Function 09/22/16 Range/Units 03:57 Total Bilirubin 0.5 (0.2-1.2) mg/dL AST 26 (5-34) Units/L ALT 41 (0-55) Units/L Alkaline Phosphatase 130 H (38-126) Units/L Albumin 3.1 L (3.5-5.0) g/dL - ABG Interpretation ABG results: PT/INR, D-dimer PT 11.8 Seconds (9.4-12.1) 09/21/16 18:10 Consult Discharge Plan - Plan Referrals: Dennis Mcdermott MD [Primary Care Provider] -
[2016-09-22] MEDS ORDERED: Potassium Chloride Elixir 20 MEQ/15 ML UDC PO ONE (15:31)
[2016-09-22] MEDS ORDERED: Topiramate 100 MG TABLET PO SCH (21:00)
[2016-09-22] MEDS ORDERED: Insulin DETEMIR 100 UNIT/ML X5UNITS SQ SCH (21:00)
[2016-09-22] MEDS ORDERED: Insulin LISPRO 300 UNITS/3 ML VIAL SQ SCH (21:00)
[2016-09-22] MEDS: Venlafaxine XR (24 HR) 75 MG CAP.ER.24H PO SCH (21:15)
[2016-09-22] MEDS: *HR* LORazepam 1 MG TABLET PO PRN (21:47)
[2016-09-23] MEDS: *HR* Enoxaparin 150 MG/ML SYRINGE SQ SCH ×2 (06:20→17:12)
[2016-09-23] MEDS: *HR* OxyCODONE/APAP 5/325 TABLET PO PRN ×2 (06:20→16:10)
[2016-09-23] MEDS: Famotidine 20 MG TABLET PO SCH ×2 (06:20→16:12)
[2016-09-23] MEDS: Insulin LISPRO 300 UNITS/3 ML VIAL SQ SCH ×4 (08:18→16:30)
[2016-09-23] MEDS: lamoTRIgine 100 MG TABLET PO SCH (08:19)
[2016-09-23] MEDS: BuPROPion SR (12 HR) 150 MG TABLET PO SCH (08:19)
[2016-09-23] MEDS: Gabapentin 400 MG CAPSULE PO SCH ×2 (08:19→16:13)
[2016-09-23] MEDS: *HR* LORazepam 1 MG TABLET PO PRN (08:26)
[2016-09-23] MEDS: Budesonide/Formoterol 160/4.5 MDI IH SCH (10:40)
--- NOTE | 2016-09-23 14:52 | Discharge Summary ---
Date of Encounter: 09/23/16 Time of Encounter: 14:50 - Discharge Diagnosis (1) Pulmonary embolism Priority: Primary Status: Chronic Qualifiers: Pulmonary embolism type: other Chronicity: acute Acute cor pulmonale presence: without acute cor pulmonale Qualified Code(s): I26.99 - Other pulmonary embolism without acute cor pulmonale (2) Diabetes mellitus Priority: Secondary Status: Chronic Qualifiers: Diabetes mellitus type: type 2 Diabetes mellitus complication status: with unspecified complications Diabetes mellitus residential insulin use: without intermediate manager use Qualified Code(s): E11.8 - Type 2 diabetes mellitus with unspecified complications (3) Low back pain Priority: Secondary Status: Chronic Qualifiers: Chronicity: chronic Back pain laterality: midline Sciatica presence: without sciatica Qualified Code(s): M54.5 - Low back pain; G89.29 - Other chronic pain (4) Neurogenic bladder Priority: Secondary Status: Chronic (5) Morbid obesity with BMI of 50.0-59.9, adult Priority: Secondary Status: Chronic - Discharge Medications Home Medications: Albuterol Sulfate [Proair Respiclick] 2 puff PO Q4H PRN #0 04/10/15 [History] Aspirin 325 mg PO DAILY #0 04/10/15 [History] BuPROPion XL (24 HR) [Wellbutrin Xl] 150 mg PO BID #0 04/10/15 [History] Budesonide/Formoterol 160/4.5 [Symbicort 160/4.5] 2 puff IH BIDR #0 04/10/15 [ History] Ipratropium/Albuterol Neb [Duoneb] 3 ml IH QIDR PRN 04/10/15 [History] Montelukast [Singulair] 10 mg PO HS 04/10/15 [History] Ranitidine HCl 150 mg PO BID 04/10/15 [History] Topiramate [Topamax] 100 mg PO HS 04/10/15 [History] Doxepin [Sinequan] 25 - 50 mg PO HS 08/14/15 [History] Venlafaxine XR (24 HR) [Effexor Xr] 75 mg PO HS 08/14/15 [History] Buspirone HCl [Buspar] 10 mg PO BID 09/17/15 [History] CloNIDine HCl 0.1 mg PO BID 09/17/15 [History] Furosemide [Lasix] 40 mg PO DAILY 09/17/15 [History] Oxygen 2 l NS AD 09/17/15 [History] SUMAtriptan Succinate [Imitrex] 100 mg PO DAILY PRN 09/17/15 [History] Potassium Chloride [K-Tab ER] 10 meq PO DAILY 01/20/16 [History] Trazodone HCl [TraZODone] 100 mg PO HS PRN 01/20/16 [History] LORazepam [Ativan] 1 mg PO BID 03/03/16 [History] Cetirizine HCl [All Day Allergy] 10 mg PO DAILY 08/26/16 [History] Gabapentin 800 mg PO TID 08/26/16 [History] Lamotrigine [Lamictal] 100 mg PO BID 08/26/16 [History] Liraglutide [Victoza 2-Jignesh] 1.2 mg SQ DAILY 08/26/16 [History] Metolazone 2.5 mg PO DAILY 08/26/16 [History] Bisacodyl [Dulcolax] 10 mg PO DAILY #10 tablet 08/28/16 [Rx] Acetaminophen [Tylenol] 1,000 mg PO Q6HR PRN 09/04/16 [History] Enoxaparin [Lovenox] 150 mg SQ Q12H #60 syringe 09/08/16 [Rx] Promethazine [Phenergan] 12.5 mg PO Q6HR #8 tablet 09/20/16 [Rx] OxyCODONE/APAP 5/325 [Percocet 5/325 MG] 1 tab PO Q8HR PRN 09/21/16 [History] Sennosides/Docusate Sodium [Senna-Docusate Sodium Tablet] 1 tab PO BID 09/21/16 [History] Allergies/Adverse Reactions: Allergies codeine Allergy (Verified 09/04/16 16:32) Hives,SWELLING Erythromycin Base Allergy (Verified 09/04/16 16:32) THROAT SWELLING ondansetron [From Zofran (as hydrochloride)] Allergy (Verified 09/04/16 16:32) Hives Penicillins [PCN] Allergy (Verified 09/04/16 16:32) THROAT SWELLING Sulfa (Sulfonamide Antibiotics) Allergy (Verified 09/04/16 16:32) THROAT SWELLING tape Allergy (Uncoded 08/23/16 01:49) Blister Procedures/tests Complete & Pending: Procedures Performed prior 72 hours Category Date Time Status ECG 12 lead ECG [ECG] AM 0600 Y 09/22/16 06:00 Ordered Date of admission: 09/21/16 18:37 Primary care physician: Chiquita Apodaca Consults: 09/21/16 23:02 Consult to Oncology Hematology [CONS] Routine Consulting Provider: Tyrone Barrera Reason for Consult: Patient sent to ED from Dr. Mcdermott's office for recurrent PE. Please see patient in hospital. Call Completed: No Discharging clinician: Christiane Cole Anticipated date of discharge: 09/23/16 - Patient Status Disposition: Home, Self-Care Condition: Good Functional capacity at discharge: independent ambulation Overall status at discharge: patient is progressing back to baseline - Discharge Instructions Follow Up With: Dennis Mcdermott MD [Primary Care Provider] - 10/19/16 2:50 pm (please call if need anything before than) - Diet and Activity Activity: resume usual activities as tolerated, wear oxygen at all times Diet: diabetic diet, low fat, low cholesterol, low salt diet Hospital course: Ms. Mitchell is a 45 year old female with history of recurrent episodes of DVT and PE was admitted with worsening shortness of breath, chest pain and tachycardia and hypoxia while in the hematology office for follow-up. CT angiogram of chest done in the emergency room showed bilateral pulmonary emboli that were present on recent CT angiogram when she was admitted for acute PE and discharged on subcutaneous Lovenox. It is difficult to say if the old pulmonary emboli have not resolved or if there has been expansion or new clots. She was continued on high dose subcutaneous Lovenox, which according to previous notes have worked better for her as she is noted to have failed previous treatments with Coumadin, Xarelto, Pradaxa. Her symptoms gradually improved and oxygen requirements returned to baseline. Case has been discussed with , patient's laundry housekeeper who agreed with the present management and patient is medically stable for discharge on subcutaneous Lovenox with outpatient hematology follow-up for further management. - Time Spent with Patient Total time spent providing and/or coordinating discharge services: Greater than 30 minutes (40 min) - Constitutional Vitals: Temp Pulse Resp BP Pulse Ox 97.7 F 79 14 132/86 100 09/23/16 11:35 09/23/16 11:35 09/23/16 11:35 09/23/16 11:35 09/23/16 11:35 General appearance: Present: A&O X 3, morbidly obese, answers questions appropriately - Respiratory Respiratory exam: Absent: accessory muscle use
[2016-09-23] MEDS ORDERED: Metoclopramide 10 MG/2 ML VIAL IVP PRN (15:36)
[2016-09-23 15:46] VITALS: BP 138/82
== END 2016-09-23 18:35 | disposition home or self-care (01) | DRG 134 ==
LOC: 2ANU 16:56 → EMEROO 16:56 → OBSVTOIN 18:37 → SUATTDRO 18:37 → 2ANU 19:04
PROVIDERS: ADMIT Internal Medicine; ATTEND Internal Medicine

== ENCOUNTER 2017-04-27 13:27 | Observation (INO) ==
[2017-04-27] MEDS ORDERED: Metoclopramide 10 MG/2 ML VIAL IVP ONE (15:42)
[2017-04-27 15:55] LABS: Basophils % 0.3 %; Eosinophils # 0.5 K/mcL (0.0-0.6); Eosinophils % 6.6 %; Hematocrit 48.8 % (35.3-44.9); Hemoglobin 16.1 g/dL (11.5-15.4); Immature Granulocytes % 0.3 % (0-4); Lymphocytes # 1.7 K/mcL (0.6-4.6); Lymphocytes % 22.7 %; Mean Platelet Volume 11.5 fL (9.4-12.4); Monocytes # 0.5 K/mcL (0.0-1.3); Monocytes % 6.1 %; Neutrophils # 4.8 K/mcL (1.6-8.9); Platelet Count 203 K/mcL (140-400); Red Blood Count 5.36 M/mcL (3.82-4.97); Red Cell Distribution Width 12.8 % (11.5-14.5)
[2017-04-27 16:08] LABS: BUN/Creatinine Ratio 16 (6-26); Blood Urea Nitrogen 16 mg/dL (7-20); Calcium 9.5 mg/dL (8.6-10.8); Carbon Dioxide 26 mEq/L (19-29); Chloride 98 mEq/L (98-109); Glucose 130 mg/dL (70-99); Osmolality,Calculated 281 (280-300); Potassium 3.9 mEq/L (3.5-4.5); Sodium 134 mEq/L (136-145); eGFR For African Americans > 60 (> 60); eGFR For Non-African Americans > 60 (> 60)
[2017-04-27 16:09] LABS: INR 1.1; Prothrombin Time 11.6 Seconds (9.4-12.1)
[2017-04-27 16:11] LABS: Activated Partial Thrombo Time 38.1 Seconds (26.0-36.0)
[2017-04-27 16:46] LABS: Bilirubin,Urine Negative (Negative); Blood,Urine Negative (Negative); Clarity,Urine Cloudy (Clear); Color,Urine Dark Yellow (Yellow); Glucose,Urine (UA) Normal (Normal); Ketones,Urine Negative (Negative); Leukocyte Esterase,Urine Negative (Negative); Nitrite,Urine Negative (Negative); PH,Urine 5.5 pH Units (5.0-8.0); Protein,Urine Negative (Neg-Trace); Urobilinogen,Urine Normal (Normal)
[2017-04-27 16:51] LABS: Bacteria,Urine None Seen per hpf (None-Few); RBC,Urine 0-3 per hpf (0-3); Squamous Epithelial Cell,Urine Many per lpf (None-Few); WBC,Urine 0-3 per hpf (0-3)
--- NOTE | 2017-04-27 16:56 | Emergency Department Note ---
Disposition Clinical Impression: Nausea, Severe nausea, Shortness of breath Left lower lobe pneumonia Qualifiers: Pneumonia type: due to unspecified organism Qualified Code(s): J18.1 - Lobar pneumonia, unspecified organism Chest pain Qualifiers: Chest pain type: unspecified Qualified Code(s): R07.9 - Chest pain, unspecified Disposition: Admitted As Inpatient Condition: Fair Time of Disposition: 20:00 Chest Pain HPI - General Chief Complaint: ED Chest Pain Stated Complaint: chest pain, "lungs hurting", nausea Time Seen by Provider: 04/27/17 15:03 Source: patient Limitations: no limitations Vital Signs Reviewed: Yes Nursing Notes Reviewed: Yes - History of Present Illness HPI Narrative: Patient is a 46-year-old female past medical history for clotting disorder secondary to a factor V Leiden deficiency, currently under care of hematology who complains of some onset of chest pain and shortness of breath 3 days. Patient states her pain symptoms and worsening and currently 8/10 worse with breathing. Patient states that she also has newly diagnosed renal insufficiency but still makes urine. Patient states she has been making less urine over the past few days. Patient states her has to straight catheter at home. Patient denies alcohol use, illicit drug use, tobacco use. Severity scale (1-10): 9 - Related Data Home Medications Medication Instructions Recorded Confirmed Albuterol Sulfate [Proair 2 puff PO Q4H PRN #0 04/10/15 04/27/17 Respiclick] Budesonide/Formoterol 160/4.5 2 puff IH BIDR #0 04/10/15 04/27/17 [Symbicort 160/4.5] Ipratropium/Albuterol Neb [Duoneb] 3 ml IH QIDR PRN 04/10/15 04/27/17 Montelukast [Singulair] 10 mg PO HS 04/10/15 04/27/17 Topiramate [Topamax] 150 mg PO HS 04/10/15 04/27/17 raNITIdine HCl [Ranitidine HCl] 150 mg PO BID 04/10/15 04/27/17 Doxepin [Sinequan] 25 - 50 mg PO HS 08/14/15 04/27/17 Venlafaxine XR (24 HR) [Effexor Xr] 75 mg PO HS 08/14/15 04/27/17 Buspirone HCl [Buspar] 10 mg PO BID 09/17/15 04/27/17 Furosemide [Lasix] 40 mg PO DAILY 09/17/15 04/27/17 Oxygen 2 l NS AD 09/17/15 04/27/17 SUMAtriptan Succinate [Imitrex] 100 mg PO DAILY PRN 09/17/15 04/27/17 cloNIDine HCl [CloNIDine HCl] 0.1 mg PO BID 09/17/15 04/27/17 Potassium Chloride [K-Tab ER] 10 meq PO DAILY 01/20/16 04/27/17 Trazodone HCl [TraZODone] 100 mg PO HS PRN 01/20/16 04/27/17 LORazepam [Ativan] 1 mg PO BID 03/03/16 04/27/17 Cetirizine HCl [All Day Allergy] 10 mg PO DAILY 08/26/16 04/27/17 Gabapentin 800 mg PO TID 08/26/16 04/27/17 lamoTRIgine [Lamictal] 100 mg PO BID 08/26/16 04/27/17 metOLazone [Metolazone] 2.5 mg PO DAILY 08/26/16 04/27/17 Acetaminophen [Tylenol] 1,000 mg PO Q6HR PRN 09/04/16 04/27/17 Topiramate [Topamax] 50 mg PO DAILY 03/04/17 04/27/17 Atorvastatin [Lipitor] 10 mg PO HS 04/27/17 04/27/17 Dulaglutide [Trulicity] 1.5 mg SQ QWEEK 04/27/17 04/27/17 Oxycodone HCl/Acetaminophen 1 tab PO Q6H PRN 04/27/17 04/27/17 [Percocet 5-325 mg Tablet] Previous Rx's Medication Instructions Recorded Albuterol Neb [Proventil Neb] 2.5 mg IH Q4HR #30 vial.neb 01/30/17 Albuterol Sulfate [Albuterol 2 puff IH Q4HR #1 hfa.aer.ad 01/30/17 Inhaler] Enoxaparin [Lovenox] 150 mg SQ Q12H #60 syringe 03/04/17 Promethazine [Phenergan] 12.5 mg PO Q8HR PRN #10 tablet 03/17/17 Allergies Allergy/AdvReac Type Severity Reaction Status Date / Time codeine Allergy Hives,SWELL Verified 04/27/17 13:40 ING Erythromycin Base Allergy THROAT Verified 04/27/17 13:40 SWELLING ondansetron Allergy Hives Verified 04/27/17 13:40 [From Zofran (as hydrochloride)] Penicillins [PCN] Allergy THROAT Verified 04/27/17 13:40 SWELLING Sulfa (Sulfonamide Allergy THROAT Verified 04/27/17 13:40 Antibiotics) SWELLING tape Allergy Blister Uncoded 04/27/17 13:40 All systems ED: reviewed and negative except as stated. Review of Systems: As Per HPI Constitutional: Denies: fever Eyes: Denies: vision change Cardiovascular: Reports: chest pain Respiratory: Reports: cough, dyspnea Gastrointestinal: Reports: nausea, vomiting Genitourinary: Denies: urgency, dysuria Musculoskeletal: Denies: back pain Integumentary: Denies: rash Neurological: Denies: headache Psychiatric: Reports: anxiety Endocrine: Reports: fatigue Hematological/Lymphatic: Denies: easy bleeding Allergic/Immunologic: Denies: facial swelling Chest Pain PMH - Past Medical History Medical history: Reports: asthma, DVT, diabetes, pulmonary embolus, renal disease, other Surgical history: Reports: cholecystectomy, hysterectomy, orthopedic, other, other Psychiatric history: Reports: anxiety, panic disorder 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 - Social History Smoking Status: Never smoker Alcohol use: Reports: none Drug use: Reports: none Physical Exam - General Limitations: no limitations General appearance: alert, in no apparent distress - Head Head exam: atraumatic, normocephalic, normal inspection - Eye Eye exam: Present: normal appearance, PERRL, EOMI - ENT ENT exam: normal exam, normal oropharynx, mucous membranes moist - Neck Neck exam: Present: normal inspection, full ROM, trachea midline - Chest Chest inspection: Present: normal inspection, symmetric chest wall rise - Respiratory Respiratory exam: Present: normal lung sounds bilaterally, other (Patient has bilateral diminished lower lung sounds. This may be secondary to body habitus) - Cardiovascular Cardiovascular exam: Present: regular rate, normal rhythm, normal heart sounds - Abdominal Exam Abdominal exam: Present: soft, Non-Tender. Absent: tenderness, distention, guarding, rebound, rigidity - Extremities Exam Extremities exam: Present: normal inspection, full ROM, normal capillary refill. Absent: tenderness, pedal edema - Back Exam Back exam: Present: normal inspection, full ROM. Absent: tenderness, CVA tenderness (R), CVA tenderness (L) - Neurological Exam Neurological exam: Present: alert, oriented X3 - Skin Skin exam: Present: warm, dry, intact, normal color Course - Reevaluation(s) Reevaluation #1: Patient seen and examined. Patient's labs ordered. Patient has been prescribed Phenergan for nausea, Dilaudid for pain. CT of the chest ordered to rule out DVT Time: 17:38 Vital Signs Temperature 97.7 F 04/27/17 13:36 Pulse Rate 96 04/27/17 13:36 Respiratory Rate 16 04/27/17 13:36 Blood Pressure 139/92 04/27/17 13:36 O2 Sat by Pulse Oximetry 98 04/27/17 13:36 Temperature 99.1 F 04/28/17 00:52 Pulse Rate 83 04/28/17 00:52 Respiratory Rate 17 04/28/17 00:52 Blood Pressure 112/76 04/28/17 00:52 O2 Sat by Pulse Oximetry 93 04/28/17 00:52 Oxygen Delivery Oxygen Delivery Room Air Chest Pain - MDM Narrative Medical decision making narrative: Patient's concerning for PE, ACS/PR, aortic dissection, pneumonia. Due to patient being high risk for clotting secondary to factor V Leiden deficiency and history of previous clots patient is a workup for ACS labs and CTA. Patient 's chest x-ray showed no acute abnormalities. Patient's lab work was negative for troponin as well as other abnormalities. CT was positive for left lower lobe pneumonia. Patient will be started on antibiotics. Patient's hard score is 3 Due to patient's complaints of inability to take anything orally secondary to extreme nausea and vomiting that has been resistant to Phenergan 25 mg 2 doses and recurrent pain. Patient will be admitted for IV antibiotic therapy for pneumonia. Patient understands and agrees to treatment plan. Patient started on levofloxacin - Lab Data Lab results reviewed: Yes I reviewed the patient's lab results. Lab results narrative: Short CBC 04/27/17 Range/Units 15:41 WBC 7.5 (4.3-11.1) K/mcL Hgb 16.1 H (11.5-15.4) g/dL Hct 48.8 H (35.3-44.9) % Plt Count 203 (140-400) K/mcL Neutrophils # 4.8 (1.6-8.9) K/mcL BMP 04/27/17 Range/Units 15:41 Sodium 134 L (136-145) mEq/L Potassium 3.9 (3.5-4.5) mEq/L Chloride 98 (98-109) mEq/L Carbon Dioxide 26 (19-29) mEq/L BUN 16 (7-20) mg/dL Creatinine 0.99 (0.57-1.11) mg/dL Glucose 130 H (70-99) mg/dL Calcium 9.5 (8.6-10.8) mg/dL Cardiac Enzymes 04/27/17 Range/Units 15:41 Troponin I 0.01 (0-0.03) ng/mL Urine 04/27/17 Range/Units 16:24 Urine Color Dark Yellow (Yellow) Urine Clarity Cloudy A (Clear) Urine pH 5.5 (5.0-8.0) pH Units Ur Specific [place] 1.030 H (1.010-1.025) Urine Protein Negative (Neg-Trace) mg/dL Urine Glucose (UA) Normal (Normal) mg/dL Result diagrams: 04/27/17 15:41 04/27/17 15:41 Lab Results 04/27/17 04/27/17 04/27/17 Range/Units 15:41 15:41 15:41 WBC 7.5 (4.3-11.1) K/mcL RBC 5.36 H (3.82-4.97) M/mcL Hgb 16.1 H (11.5-15.4) g/dL Hct 48.8 H (35.3-44.9) % MCV 91.0 (83.0-100.0) fL MCH 30.0 (28.0-33.3) pg MCHC 33.0 (31.6-35.5) g/dL RDW 12.8 (11.5-14.5) % Plt Count 203 (140-400) K/mcL MPV 11.5 (9.4-12.4) fL Immature Gran % 0.3 (0-4) % Seg Neutrophils % 64.0 % Lymphocytes % 22.7 % Monocytes % 6.1 % Eosinophils % 6.6 % Basophils % 0.3 % Neutrophils # 4.8 (1.6-8.9) K/mcL Lymphocytes # 1.7 (0.6-4.6) K/mcL Monocytes # 0.5 (0.0-1.3) K/mcL Eosinophils # 0.5 (0.0-0.6) K/mcL Basophils # 0.0 (0.0-0.2) K/mcL PT 11.6 (9.4-12.1) Seconds INR 1.1 APTT 38.1 H (26.0-36.0) Seconds Sodium 134 L (136-145) mEq/L Potassium 3.9 (3.5-4.5) mEq/L Chloride 98 (98-109) mEq/L Carbon Dioxide 26 (19-29) mEq/L BUN 16 (7-20) mg/dL Creatinine 0.99 (0.57-1.11) mg/dL Est GFR ( Amer) > 60 (> 60) Est GFR (Non-Af Amer) > 60 (> 60) BUN/Creatinine Ratio 16 (6-26) Glucose 130 H (70-99) mg/dL Calculated Osmolality 281 (280-300) Calcium 9.5 (8.6-10.8) mg/dL Troponin I (0-0.03) ng/mL Urine Color (Yellow) Urine Clarity (Clear) Urine pH (5.0-8.0) pH Units Ur Specific [place] (1.010-1.025) Urine Protein (Neg-Trace) mg/dL Urine Glucose (UA) (Normal) mg/dL Urine Ketones (Negative) mg/dL Urine Blood (Negative) Urine Nitrite (Negative) Urine Bilirubin (Negative) Urine Urobilinogen (Normal) mg/dL Ur Leukocyte Esterase (Negative) Urine Microscopic RBC (0-3) per hpf Urine Microscopic WBC (0-3) per hpf Ur Squamous Epith Cells (None-Few) per lpf Amorphous Sediment (Few) Urine Bacteria (None-Few) per hpf Hyaline Casts (None-Few) per lpf Urine Mucus (Few) Ur Culture Indicated? (NO) 04/27/17 04/27/17 Range/Units 15:41 16:24 WBC (4.3-11.1) K/mcL RBC (3.82-4.97) M/mcL Hgb (11.5-15.4) g/dL Hct (35.3-44.9) % MCV (83.0-100.0) fL MCH (28.0-33.3) pg MCHC (31.6-35.5) g/dL RDW (11.5-14.5) % Plt Count (140-400) K/mcL MPV (9.4-12.4) fL Immature Gran % (0-4) % Seg Neutrophils % % Lymphocytes % % Monocytes % % Eosinophils % % Basophils % % Neutrophils # (1.6-8.9) K/mcL Lymphocytes # (0.6-4.6) K/mcL Monocytes # (0.0-1.3) K/mcL Eosinophils # (0.0-0.6) K/mcL Basophils # (0.0-0.2) K/mcL PT (9.4-12.1) Seconds INR APTT (26.0-36.0) Seconds Sodium (136-145) mEq/L Potassium (3.5-4.5) mEq/L Chloride (98-109) mEq/L Carbon Dioxide (19-29) mEq/L BUN (7-20) mg/dL Creatinine (0.57-1.11) mg/dL Est GFR ( Amer) (> 60) Est GFR (Non-Af Amer) (> 60) BUN/Creatinine Ratio (6-26) Glucose (70-99) mg/dL Calculated Osmolality (280-300) Calcium (8.6-10.8) mg/dL Troponin I 0.01 (0-0.03) ng/mL Urine Color Dark Yellow (Yellow) Urine Clarity Cloudy A (Clear) Urine pH 5.5 (5.0-8.0) pH Units Ur Specific [place] 1.030 H (1.010-1.025) Urine Protein Negative (Neg-Trace) mg/dL Urine Glucose (UA) Normal (Normal) mg/dL Urine Ketones Negative (Negative) mg/dL Urine Blood Negative (Negative) Urine Nitrite Negative (Negative) Urine Bilirubin Negative (Negative) Urine Urobilinogen Normal (Normal) mg/dL Ur Leukocyte Esterase Negative (Negative) Urine Microscopic RBC 0-3 (0-3) per hpf Urine Microscopic WBC 0-3 (0-3) per hpf Ur Squamous Epith Cells Many H (None-Few) per lpf Amorphous Sediment Many H (Few) Urine Bacteria None Seen (None-Few) per hpf Hyaline Casts None Seen (None-Few) per lpf Urine Mucus Many H (Few) Ur Culture Indicated? NO (NO) - Radiology Data Radiology results reviewed: Yes I reviewed the patient's radiology results. Chest X-Ray 04/27/17 13:41 IMPRESSION: No acute cardiopulmonary process. D/ / 04/27/2017 15:12:30 Rishabh Ashley MD / willian Interpreting Provider: Rishabh Ashley MD Chest CTA 04/27/17 16:33 IMPRESSION: 1. No pulmonary embolism. 2. Focal consolidation in the left lower lobe evidence of acute pneumonia. Follow-up imaging recommended to ensure resolution. D/ / Rene Grady MD / Rene Grady MD Interpreting Provider: Rene Grady MD - EKG Data EKG attestation: Yes I reviewed and interpreted this EKG. EKG results narrative: EKG taken 04/27/2017 at 1347 hrs. shows a sinus rhythm with no acute ST of face or depressions any leads. Patient has 2 inversion in lead 3 no QRS widening or QT prolongation in any leads. This EKG for comparison sated 03/30/2017 shows sinus rhythm 87 bpm with same T-wave inversion in lead 3 no QRS widened QT prolongation. Heart Score - Score History: Slightly Suspicious EKG: Non Specific repolarisation Disturbance Age: Less than 45 Risk Factors: Equal/Greater than 3 risk factor or history of atherosclerotic disease Troponin: Less than normal limit HEART Score Total: 3 Attestation Statement - Attestation Attestation: I, Brent Baugh, examined this patient and my medical decision-making was reviewed with the FORMULATION CHEMIST/PA/Advanced Practice Nurse/Resident Physician. I agree with the documented findings, disposition and treatment plan as described except to the extent set forth below. 46-year-old female presents to the emergency department with concerns of difficulty breathing and chest pain. Patient states she has a history of factor V Leiden and has had multiple PEs in the past. Patient is currently taking Lovenox twice a day and denies missing any of her doses. Patient states symptoms have been present throughout the day today. She states they feel similar to her previous PE. CTA of the chest was ordered which showed a left lower lobe pneumonia but no evidence of PE. Vital signs are stable however the patient continues to be nauseated and is unable to tolerate by mouth intake. Patient does not feel comfortable going home because she is not tolerating by mouth intake. Patient will be admitted to the hospital for further care and evaluation. She was started on Levaquin IV in the emergency department.
[2017-04-27 17:24] LABS: Amorphous Sediment,Urine Many (Few); Hyaline Casts,Urine None Seen per lpf (None-Few); Mucus,Urine Many (Few)
[2017-04-27] MEDS ORDERED: *HR* HYDROmorphone (PF) 1 MG/ML SYRINGE IVP ONE (17:37)
[2017-04-27] MEDS ORDERED: *HR* Promethazine 25 MG/ML VIAL IVP ONE ×2 (17:38→19:55)
[2017-04-27] MEDS ORDERED: levoFLOXacin 750 MG TABLET PO ONE (18:22)
[2017-04-27] MEDS ORDERED: Levofloxacin 750 MG/150 ML 750 MG/150 ML BAG IVPB ONE (18:55)
[2017-04-27] MEDS ORDERED: SUMAtriptan succinate 50 MG TABLET PO PRN (23:02)
[2017-04-27] MEDS ORDERED: Naloxone 0.4 MG/ML INJ IVP PRN (23:10)
[2017-04-27] MEDS ORDERED: Ondansetron 4 MG/2 ML VIAL IVP PRN (23:10)
--- NOTE | 2017-04-27 23:14 | Internal Med History&Physical ---
Date of Encounter: 04/27/17 Time of Encounter: 23:09 Assessment and Plan (1) PNA (pneumonia) Current visit: Yes Status: Acute IV levaquin, IVF, anti-emetic due to related anorexia/n/v and unable to take PO pills Qualifiers: Laterality: left Lung location: lower lobe of lung Qualified Code(s): J18.1 - Lobar pneumonia, unspecified organism (2) Factor 5 Leiden mutation, heterozygous Current visit: No Status: Chronic lovenox 1mg/kg BID per home regimen (3) Morbid obesity with BMI of 50.0-59.9, adult Current visit: No Status: Chronic education (4) Depression (emotion) Current visit: Yes Status: Acute continue medications. Due to interactions with multiple psych meds with levaquin. Check EKG tomorrow for QTC Qualifiers: Qualified Code(s): F32.9 - Major depressive disorder, single episode, unspecified Internal Medicine - H&P: HPI Chief complaint: Chills, n/v, abdominal bloating, anorexia History of present illness: Ms. Mitchell is a 46 year old female who presents with Chills, n/v, abdominal bloating, anorexia. SOB. Found to have LLL PNA. She reported 3 days hx of above symptoms. Chest and abdominal discomfort worse with n/v. Unable to tolerate PO antibiotics for home due to UGI symptoms. SOB worse with exertion, improve with rest. Has PCN allergy with throat swelling Hx notable for FVL prothrombotic hx and is on indefinite lovenox therapy EKG reviewed with rate 94. NSR CT/CT angio chest IMPRESSION: 1. No pulmonary embolism. 2. Focal consolidation in the left lower lobe evidence of acute pneumonia. Follow-up imaging recommended to ensure resolution. Past Med Surg Social Fam HX - Past Medical History Medical history: asthma, DVT, diabetes, pulmonary embolus, renal disease, other Psychiatric history: anxiety, panic disorder - Past Surgical History Surgical History: cholecystectomy, hysterectomy, orthopedic, other, other - Social History Smoking Status: Never smoker Smokeless Tobacco Status: No Alcohol use: none Drug use: none - Family History Mother Family Member Ethnicity: Non- Living Status: Age at : 46 Cause of : Cervical Cancer Hx Family Cardiac Disorders: Yes ([place], CHF) Hx Family Respiratory Disorders: No Hx Family Cancer: Yes (Cervical) Hx Family GI Disorders: No Hx Family Genitourinary Disorders: Yes Hx Family Endocrine Disorder: Yes (Hypoglycemia) Hx Family Musculoskeletal Disorders: No Hx Family Neuromuscular Disorders: No Hx Family Neurologic Disorders: No Hx Family HEENT Disorders: No Hx Family Autoimmune Disorders: Yes (Factor V) Hx Family Reproductive Disorders: No Hx Family Psychosocial Disorders: No Hx Family Medical Disorders: No Internal Medicine - H&P: Meds Albuterol Sulfate [Proair Respiclick] 2 puff PO Q4H PRN #0 04/10/15 [History] Budesonide/Formoterol 160/4.5 [Symbicort 160/4.5] 2 puff IH BIDR #0 04/10/15 [ History] Ipratropium/Albuterol Neb [Duoneb] 3 ml IH QIDR PRN 04/10/15 [History] Montelukast [Singulair] 10 mg PO HS 04/10/15 [History] Topiramate [Topamax] 150 mg PO HS 04/10/15 [History] raNITIdine HCl [Ranitidine HCl] 150 mg PO BID 04/10/15 [History] Doxepin [Sinequan] 25 - 50 mg PO HS 08/14/15 [History] Venlafaxine XR (24 HR) [Effexor Xr] 75 mg PO HS 08/14/15 [History] Buspirone HCl [Buspar] 10 mg PO BID 09/17/15 [History] Furosemide [Lasix] 40 mg PO DAILY 09/17/15 [History] Oxygen 2 l NS AD 09/17/15 [History] SUMAtriptan Succinate [Imitrex] 100 mg PO DAILY PRN 09/17/15 [History] cloNIDine HCl [CloNIDine HCl] 0.1 mg PO BID 09/17/15 [History] Potassium Chloride [K-Tab ER] 10 meq PO DAILY 01/20/16 [History] Trazodone HCl [TraZODone] 100 mg PO HS PRN 01/20/16 [History] LORazepam [Ativan] 1 mg PO BID 03/03/16 [History] Cetirizine HCl [All Day Allergy] 10 mg PO DAILY 08/26/16 [History] Gabapentin 800 mg PO TID 12/21/16 [History] lamoTRIgine [Lamictal] 100 mg PO BID 08/26/16 [History] metOLazone [Metolazone] 2.5 mg PO DAILY 08/26/16 [History] Acetaminophen [Tylenol] 1,000 mg PO Q6HR PRN 09/04/16 [History] Albuterol Neb [Proventil Neb] 2.5 mg IH Q4HR #30 vial.neb 01/30/17 [Rx] Albuterol Sulfate [Albuterol Inhaler] 2 puff IH Q4HR #1 hfa.aer.ad 01/30/17 [Rx] Enoxaparin [Lovenox] 150 mg SQ Q12H #60 syringe 03/04/17 [Rx] Topiramate [Topamax] 50 mg PO DAILY 03/04/17 [History] Promethazine [Phenergan] 12.5 mg PO Q8HR PRN #10 tablet 03/17/17 [Rx] Atorvastatin [Lipitor] 10 mg PO HS 04/27/17 [History] Dulaglutide [Trulicity] 1.5 mg SQ QWEEK 04/27/17 [History] Oxycodone HCl/Acetaminophen [Percocet 5-325 mg Tablet] 1 tab PO Q6H PRN [History] 3 Allergy/AdvReac Type Severity Reaction Status Date / Time codeine Allergy Hives,SWELL Verified 04/27/17 13:40 ING Erythromycin Base Allergy THROAT Verified 04/27/17 13:40 SWELLING ondansetron Allergy Hives Verified 04/27/17 13:40 [From Zofran (as hydrochloride)] Penicillins [PCN] Allergy THROAT Verified 04/27/17 13:40 SWELLING Sulfa (Sulfonamide Allergy THROAT Verified 04/27/17 13:40 Antibiotics) SWELLING tape Allergy Blister Uncoded 04/27/17 13:40 All Systems PM: A 10-system review of systems was performed and is negative for pertinent findings except as documented above in the HPI. Review of systems: ROS 14 point review of systems reviewed as best as possible given presentation. Pertinent positive or negative as per HPI or otherwise reviewed as negative - Constitutional Vitals: Temp Pulse Resp BP Pulse Ox 98.4 F 85 17 145/83 96 04/27/17 21:37 04/27/17 21:37 04/27/17 21:37 04/27/17 21:37 04/27/17 21:37 Exam: General - AAO x 3. Obesity Psych - Appropriate affect/speech. No agitation Eyes - KIRA. Eye lids intact. No scleral icterus Heart - Sinus. RRR. S1 and S2 present. No added HS/murmurs appreciated. No elevated JVD appreciated. Lung - Adequate air entry b/l, bibasal crackles. No wheeze GI - Soft, non-tender. No hepatosplenomegaly/ascites. BS+ - No CVA/suprapubic tenderness or palpable bladder distension Skin - Intact. No rash/petechiae/ecchymosis. Warm extremities Internal Med - H&P Results - Labs CBC & Chem 7: 04/27/17 15:41 04/27/17 15:41
[2017-04-27] MEDS ORDERED: (Dulaglutide [Trulicity] 1.5 MG) SQ SCH (23:15)
[2017-04-27] MEDS: 0.9 % Sodium Chloride 1,000 ML IVC SCH (23:29)
[2017-04-27] MEDS: *HR* OxyCODONE/APAP 5/325 TABLET PO PRN (23:29)
[2017-04-27] MEDS: *HR* Enoxaparin 150 MG/ML SYRINGE SQ SCH (23:29)
[2017-04-28] MEDS: Prochlorperazine 10 MG/2 ML VIAL IVP PRN ×4 (00:41→20:32)
[2017-04-28 05:45] LABS: Hematocrit 42.6 % (35.3-44.9); Mean Corpuscular HGB Conc 33.3 g/dL (31.6-35.5); Mean Corpuscular Hemoglobin 30.3 pg (28.0-33.3); Mean Platelet Volume 11.8 fL (9.4-12.4); Platelet Count 187 K/mcL (140-400); Red Blood Count 4.68 M/mcL (3.82-4.97)
[2017-04-28 05:48] LABS: Hemoglobin 14.2 g/dL (11.5-15.4)
[2017-04-28] MEDS: *HR* OxyCODONE/APAP 5/325 TABLET PO PRN ×2 (05:55→11:06)
[2017-04-28] MEDS ORDERED: *HR* Enoxaparin 40 MG/0.4 ML SYRINGE SQ SCH (06:00)
[2017-04-28 06:01] LABS: BUN/Creatinine Ratio 16 (6-26); Blood Urea Nitrogen 17 mg/dL (7-20); Calcium 8.8 mg/dL (8.6-10.8); Chloride 100 mEq/L (98-109); Glucose 123 mg/dL (70-99); Osmolality,Calculated 283 (280-300); Potassium 3.6 mEq/L (3.5-4.5); Sodium 135 mEq/L (136-145); eGFR For African Americans > 60 (> 60); eGFR For Non-African Americans 58 (> 60)
--- NOTE | 2017-04-28 06:23 | Electrocardiograph Report ---
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
[2017-04-28 06:26] LABS: Carbon Dioxide 26 mEq/L (19-29)
[2017-04-28] MEDS: Levofloxacin 750 MG/150 ML 750 MG/150 ML BAG IVPB SCH (08:06)
[2017-04-28] MEDS: Loratadine 10 MG TABLET PO SCH (08:07)
[2017-04-28] MEDS: lamoTRIgine 100 MG TABLET PO SCH ×2 (08:07→20:31)
[2017-04-28] MEDS: *HR* LORazepam 1 MG TABLET PO SCH ×2 (08:07→20:31)
[2017-04-28] MEDS: Topiramate 25 MG TABLET PO SCH (08:07)
[2017-04-28] MEDS: Famotidine 20 MG TABLET PO SCH ×2 (08:07→20:32)
[2017-04-28] MEDS: Insulin LISPRO 300 UNITS/3 ML VIAL SQ SCH ×4 (08:08→21:58)
[2017-04-28] MEDS: cloNIDine HCl 0.1 MG TABLET PO SCH ×2 (08:15→20:31)
--- NOTE | 2017-04-28 10:15 | Internal Med Progress Note ---
<Roberto Savage - Last Filed: 04/28/17 11:12> Date of Encounter: 04/28/17 Time of Encounter: 10:15 - Assessment and plan (1) Dyspnea Current Visit: Yes Status: Acute Assessment and plan: Patient has a history of not being able to swallow food and now has progressed to liquids, trouble swallowing is above collar bone. - Speech/Therapy pending - Ct soft tissue neck pending - possible PNA seen on CXR, continue levaquin for now. Day 2. Qualifiers: Qualified Code(s): R06.00 - Dyspnea, unspecified (2) Depression (emotion) Current Visit: Yes Status: Acute Assessment and plan: continue meds. EKG pending for Psych RX and Levaquin interaction Qualifiers: Qualified Code(s): F32.9 - Major depressive disorder, single episode, unspecified (3) Nausea Current Visit: Yes Status: Acute Assessment and plan: continue Phenergan PRN (4) Abdominal pain Current Visit: No Status: Acute Assessment and plan: reassess. pain is controlled currently Qualifiers: Qualified Code(s): R10.9 - Unspecified abdominal pain (5) Factor 5 Leiden mutation, heterozygous Current Visit: No Status: Chronic (6) Morbid obesity with BMI of 50.0-59.9, adult Current Visit: No Status: Chronic Assessment and plan: to be followed up on Outpatient - Subjective Interval history: Ms Mitchell is a 46 year old Female on day 1 of admission 2/2 abdominal pain, anorexia, nausea, vomiting w/ hx factor 5 leiden mutation, heterozygous, morbid obesity. Today she reports continued lower bilateral abdominal pain, and nausea. she was unable to eat her breakfast today. patient denies SOB, f/c, d/c. she is unable to swallow or take pillows. she states that food gets stuck about her collar bone. First stated with difficult with swallowing food, and has now progressed to having problems drinking liquid. Patient takes opaites but clearly states she never takes more than prescribed - Constitutional Vitals: Temp Pulse Resp BP Pulse Ox 98.2 F 67 17 109/68 98 04/28/17 06:47 04/28/17 06:47 04/28/17 06:47 04/28/17 06:47 04/28/17 06:47 General appearance: Present: mild distress, A&O X 3, morbidly obese - Head Head exam: Present: atraumatic, normocephalic - Respiratory Respiratory exam: Present: CTAB. Absent: accessory muscle use, rales, rhonchi, wheezes - Cardiovascular Cardiovascular exam: Present: RRR, +S1, +S2. Absent: diastolic murmur, gallop, rubs, systolic murmur - Neurological Exam Neurological exam: Present: alert, oriented X3 - Psychiatric Psychiatric exam: Present: normal affect, normal mood Internal Medicine: Result - Labs CBC & Chem 7: 04/28/17 04:34 04/28/17 04:34 Labs: Short CBC 04/28/17 Range/Units 04:34 WBC 6.2 (4.3-11.1) K/mcL Hgb 14.2 D (11.5-15.4) g/dL Hct 42.6 (35.3-44.9) % Plt Count 187 (140-400) K/mcL BMP 04/28/17 04:34 Sodium 135 L Potassium 3.6 Chloride 100 Carbon Dioxide 26 BUN 17 Creatinine 1.04 Glucose 123 H Calcium 8.8 - ABG Interpretation ABG results: PT/INR, D-dimer PT 11.6 Seconds (9.4-12.1) 04/27/17 15:41 Consult Discharge Plan - Plan Referrals: Misael Miller MD [Primary Care Provider] - <Max Pollard P - Last Filed: 04/28/17 17:46> Date of Encounter: 04/28/17 - Constitutional Vitals: Temp Pulse Resp BP Pulse Ox 98.1 F 72 18 107/71 97 04/28/17 17:07 04/28/17 17:07 04/28/17 17:07 04/28/17 17:07 04/28/17 17:07 Internal Medicine: Result - Labs CBC & Chem 7: 04/28/17 04:34 04/28/17 04:34 Labs: Short CBC 04/28/17 Range/Units 04:34 WBC 6.2 (4.3-11.1) K/mcL Hgb 14.2 D (11.5-15.4) g/dL Hct 42.6 (35.3-44.9) % Plt Count 187 (140-400) K/mcL BMP 04/28/17 04:34 Sodium 135 L Potassium 3.6 Chloride 100 Carbon Dioxide 26 BUN 17 Creatinine 1.04 Glucose 123 H Calcium 8.8 - ABG Interpretation ABG results: PT/INR, D-dimer PT 11.6 Seconds (9.4-12.1) 04/27/17 15:41 - Impressions Impressions Videofluoroscopic Swallow 04/28/17 11:55 IMPRESSION: Swallowing mechanism grossly within normal limits without evidence of aspiration. Please see separate speech pathology report for full discussion of findings and recommendations. D/ / Edith Mauricio MD / Edith Mauricio MD Interpreting Provider: Edith Mauricio MD Soft Tissue Neck CT 04/28/17 14:00 IMPRESSION: 1. There is no neck mass identified to account for the patient's difficulty swallowing and choking. 2. There is radiopaque material noted in the patient's oral cavity and pharynx, likely related to oral contrast or ingested material. 3. No cervical lymphadenopathy. D/ / 04/28/2017 14:29:14 John Cabrera MD [facility] Interpreting Provider: John Cabrera MD - Attending Attestation I examined this patient and my medical decision-making was reviewed with the Resident Physician. I agree with the documented findings, disposition and treatment plan as described except to the extent set forth below. 46/female Admitted with persistent nausea and vomiting. Her emesis is controlled with the IV pain medication. Possible reason for emesis was swallowing issues. CT soft tissue neck: No abnormal obstructive lesion. No lymphadenopathy. Swallowing evaluation: Within normal limits. Chest x-ray: Possible pneumonia. Plan: -We will continue IV antibiotics for now. -Reason for inpatient status: Intravenous antibiotics/intravenous medication to prevent persistent emesis/aspiration. -Close monitoring. Possible home tomorrow.
[2017-04-28] MEDS: 0.9 % Sodium Chloride 1,000 ML IVC SCH ×2 (10:49→20:44)
[2017-04-28] MEDS: *HR* Enoxaparin 150 MG/ML SYRINGE SQ SCH ×2 (10:49→22:18)
[2017-04-28] MEDS: Budesonide/Formoterol 160/4.5 MDI IH SCH ×2 (10:58→20:07)
--- NOTE | 2017-04-28 14:56 | Electrocardiograph Report ---
[address] [place], [place] [address] Test Date: 2017-04-28 Pat Name: Mary Mitchell Department: 111 Room: 2A Gender: F Funding Specialist: DEBBI : 1970 Requested By: Jazmine Alejandro Order Number: [id number] Reading MD: Ander Bobby MD Measurements Intervals [place] Rate: 79 P: 52 WV: 181 QRS: 24 QRSD: 124 T: 14 QT: 388 QTc: 423 Interpretive Statements SINUS RHYTHM MODERATE INTRAVENTRICULAR CONDUCTION DELAY Electronically Signed On 04-28-2017 14:54:44 EDT by Ander Bobby MD
[2017-04-28] MEDS: Topiramate 100 MG TABLET PO SCH (20:31)
[2017-04-28] MEDS: Venlafaxine XR (24 HR) 37.5 MG CAP.ER.24H PO SCH (20:31)
[2017-04-29] MEDS: *HR* OxyCODONE/APAP 5/325 TABLET PO PRN ×2 (03:15→18:02)
[2017-04-29] MEDS: Prochlorperazine 10 MG/2 ML VIAL IVP PRN ×3 (03:15→18:03)
[2017-04-29 07:12] LABS: Hematocrit 38.8 % (35.3-44.9); Hemoglobin 12.8 g/dL (11.5-15.4); Mean Corpuscular Hemoglobin 29.8 pg (28.0-33.3); Mean Corpuscular Volume 90.2 fL (83.0-100.0); Mean Platelet Volume 11.1 fL (9.4-12.4); Platelet Count 180 K/mcL (140-400); Red Cell Distribution Width 12.6 % (11.5-14.5)
--- NOTE | 2017-04-29 07:19 | Internal Med Progress Note ---
<Roberto Savage - Last Filed: 04/29/17 15:10> Date of Encounter: 04/29/17 Time of Encounter: 07:19 - Assessment and plan (1) Depression (emotion) Current Visit: Yes Status: Acute Assessment and plan: continue meds. EKG for Psych RX and Levaquin interaction showed normal sinus Qualifiers: Qualified Code(s): F32.9 - Major depressive disorder, single episode, unspecified (2) Dyspnea Current Visit: Yes Status: Acute Assessment and plan: Patient has a history of not being able to swallow food and now has progressed to liquids, trouble swallowing is above collar bone. MBS - sallowing WNL w/o eviden of aspiration. CT soft tissue neck w/ con - no neck mass identified, - possible PNA seen on CXR, continue levaquin for now. Day 2. Qualifiers: Qualified Code(s): R06.00 - Dyspnea, unspecified (3) Nausea Current Visit: Yes Status: Acute Assessment and plan: continue Phenergan PRN. (4) Abdominal pain Current Visit: No Status: Acute Assessment and plan: pain is slightly improved. - ct percocet q6h for pain control Qualifiers: Qualified Code(s): R10.9 - Unspecified abdominal pain (5) Factor 5 Leiden mutation, heterozygous Current Visit: No Status: Chronic Assessment and plan: chronic hx of Factor 5 Leiden mutation, heterozygous (6) Morbid obesity with BMI of 50.0-59.9, adult Current Visit: No Status: Chronic Assessment and plan: to be followed up on Outpatient - Subjective Interval history: Ms Mitchell is a 46 year old Female on day 2+ of admission 2/2 abdominal pain, anorexia, nausea, vomiting w/ hx factor 5 leiden mutation, heterozygous, morbid obesity. Today she continues to have lower bilateral abdominal pain, and nausea. she does report an improvement in her ability to eat today. patient denies SOB, f/c , d/c. she is unable to swallow or take pillows. - Constitutional Vitals: Temp Pulse Resp BP Pulse Ox 98.1 F 69 18 112/64 99 04/29/17 05:29 04/29/17 05:29 04/29/17 05:29 04/29/17 05:29 04/29/17 05:29 General appearance: Present: mild distress, A&O X 3, morbidly obese - Respiratory Respiratory exam: Present: CTAB. Absent: accessory muscle use, rales, rhonchi, wheezes - Cardiovascular Cardiovascular exam: Present: RRR, +S1, +S2. Absent: diastolic murmur, gallop, rubs, systolic murmur - GI/Abdominal GI/Abdominal exam: Present: diminished bowel sounds, guarding, hypoactive bowel sounds - Neurological Exam Neurological exam: Present: alert, oriented X3 Internal Medicine: Result - Labs CBC & Chem 7: 04/29/17 07:01 04/29/17 07:01 Labs: Short CBC 04/29/17 Range/Units 07:01 WBC 5.4 (4.3-11.1) K/mcL Hgb 12.8 (11.5-15.4) g/dL Hct 38.8 (35.3-44.9) % Plt Count 180 (140-400) K/mcL - ABG Interpretation ABG results: PT/INR, D-dimer PT 11.6 Seconds (9.4-12.1) 04/27/17 15:41 - Impressions Impressions Videofluoroscopic Swallow 04/28/17 11:55 IMPRESSION: Swallowing mechanism grossly within normal limits without evidence of aspiration. Please see separate speech pathology report for full discussion of findings and recommendations. D/ / Edith Mauricio MD / Edith Mauricio MD Interpreting Provider: Edith Mauricio MD Soft Tissue Neck CT 04/28/17 14:00 IMPRESSION: 1. There is no neck mass identified to account for the patient's difficulty swallowing and choking. 2. There is radiopaque material noted in the patient's oral cavity and pharynx, likely related to oral contrast or ingested material. 3. No cervical lymphadenopathy. D/ / 04/28/2017 14:29:14 [facility] Interpreting Provider: John Cabrera MD Consult Discharge Plan - Plan Referrals: Misael Miller MD [Primary Care Provider] - 05/06/17 10:30 am <Max Pollard - Last Filed: 04/29/17 18:30> Date of Encounter: 04/29/17 - Constitutional Vitals: Temp Pulse Resp BP Pulse Ox 97.6 F 67 16 84/57 98 04/29/17 15:14 04/29/17 15:14 04/29/17 15:14 04/29/17 15:14 04/29/17 15:14 Internal Medicine: Result - Labs CBC & Chem 7: 04/29/17 07:01 04/29/17 07:01 Labs: Short CBC 04/29/17 Range/Units 07:01 WBC 5.4 (4.3-11.1) K/mcL Hgb 12.8 (11.5-15.4) g/dL Hct 38.8 (35.3-44.9) % Plt Count 180 (140-400) K/mcL BMP 04/29/17 07:01 Sodium 138 Potassium 4.0 Chloride 108 Carbon Dioxide 23 BUN 14 Creatinine 0.90 Glucose 116 H Calcium 8.5 L - ABG Interpretation ABG results: PT/INR, D-dimer PT 11.6 Seconds (9.4-12.1) 04/27/17 15:41 - Attending Attestation I examined this patient and my medical decision-making was reviewed with the Resident Physician. I agree with the documented findings, disposition and treatment plan as described except to the extent set forth below.
[2017-04-29 07:25] LABS: BUN/Creatinine Ratio 16 (6-26); Blood Urea Nitrogen 14 mg/dL (7-20); Calcium 8.5 mg/dL (8.6-10.8); Carbon Dioxide 23 mEq/L (19-29); Chloride 108 mEq/L (98-109); Glucose 116 mg/dL (70-99); Osmolality,Calculated 287 (280-300); Sodium 138 mEq/L (136-145); eGFR For African Americans > 60 (> 60); eGFR For Non-African Americans > 60 (> 60)
[2017-04-29] MEDS: *HR* LORazepam 1 MG TABLET PO SCH ×2 (08:07→21:06)
[2017-04-29] MEDS: Topiramate 25 MG TABLET PO SCH (08:07)
[2017-04-29] MEDS: cloNIDine HCl 0.1 MG TABLET PO SCH ×2 (08:07→21:06)
[2017-04-29] MEDS: lamoTRIgine 100 MG TABLET PO SCH ×2 (08:07→21:06)
[2017-04-29] MEDS: Famotidine 20 MG TABLET PO SCH ×2 (08:07→21:06)
[2017-04-29] MEDS: Loratadine 10 MG TABLET PO SCH (08:07)
[2017-04-29] MEDS: 0.9 % Sodium Chloride 1,000 ML IVC SCH (08:08)
[2017-04-29] MEDS: Levofloxacin 750 MG/150 ML 750 MG/150 ML BAG IVPB SCH (08:12)
[2017-04-29] MEDS: Budesonide/Formoterol 160/4.5 MDI IH SCH ×2 (08:19→20:14)
[2017-04-29] MEDS: Insulin LISPRO 300 UNITS/3 ML VIAL SQ SCH ×4 (08:25→21:27)
[2017-04-29] MEDS: *HR* Enoxaparin 150 MG/ML SYRINGE SQ SCH ×2 (11:10→22:26)
[2017-04-29] MEDS: Venlafaxine XR (24 HR) 37.5 MG CAP.ER.24H PO SCH (21:05)
[2017-04-29] MEDS: Topiramate 100 MG TABLET PO SCH (21:06)
[2017-04-30] MEDS: *HR* OxyCODONE/APAP 5/325 TABLET PO PRN ×2 (00:27→06:32)
[2017-04-30] MEDS: Prochlorperazine 10 MG/2 ML VIAL IVP PRN ×4 (00:28→19:41)
[2017-04-30 04:17] LABS: Hematocrit 41.1 % (35.3-44.9); Hemoglobin 13.2 g/dL (11.5-15.4); Mean Corpuscular HGB Conc 32.1 g/dL (31.6-35.5); Mean Corpuscular Volume 93.4 fL (83.0-100.0); Mean Platelet Volume 12.1 fL (9.4-12.4); Platelet Count 150 K/mcL (140-400); Red Cell Distribution Width 12.6 % (11.5-14.5)
[2017-04-30 04:29] LABS: BUN/Creatinine Ratio 13 (6-26); Blood Urea Nitrogen 12 mg/dL (7-20); Calcium 9.1 mg/dL (8.6-10.8); Carbon Dioxide 20 mEq/L (19-29); Chloride 108 mEq/L (98-109); Glucose 110 mg/dL (70-99); Osmolality,Calculated 284 (280-300); Potassium 4.1 mEq/L (3.5-4.5); Sodium 137 mEq/L (136-145); eGFR For African Americans > 60 (> 60); eGFR For Non-African Americans > 60 (> 60)
[2017-04-30] MEDS: Insulin LISPRO 300 UNITS/3 ML VIAL SQ SCH ×4 (08:35→21:17)
[2017-04-30] MEDS: Levofloxacin 750 MG/150 ML 750 MG/150 ML BAG IVPB SCH (08:35)
[2017-04-30] MEDS: lamoTRIgine 100 MG TABLET PO SCH ×2 (08:36→21:16)
[2017-04-30] MEDS: *HR* LORazepam 1 MG TABLET PO SCH ×2 (08:36→21:16)
[2017-04-30] MEDS: Famotidine 20 MG TABLET PO SCH ×2 (08:36→21:16)
[2017-04-30] MEDS: Loratadine 10 MG TABLET PO SCH (08:36)
[2017-04-30] MEDS: cloNIDine HCl 0.1 MG TABLET PO SCH ×2 (08:36→21:15)
[2017-04-30] MEDS: Topiramate 25 MG TABLET PO SCH (08:36)
[2017-04-30] MEDS ORDERED: 0.9 % Sodium Chloride 1,000 ML IVC SCH (09:00)
[2017-04-30] MEDS ORDERED: Acetaminophen 325 MG TABLET PO PRN (09:28)
--- NOTE | 2017-04-30 10:16 | Internal Med Progress Note ---
<Delfin Rodríguez - Last Filed: 04/30/17 10:30> Date of Encounter: 04/30/17 Time of Encounter: 08:00 - Assessment and plan (1) PNA (pneumonia) Current Visit: Yes Status: Acute Assessment and plan: Present on admission CT chest showed: "Focal consolidation in the left lower lobe evidence of acute pneumonia." Continue Levaquin Day 3. Qualifiers: Pneumonia type: due to unspecified organism Laterality: left Lung location: lower lobe of lung Qualified Code(s): J18.1 - Lobar pneumonia, unspecified organism (2) Dysphagia Current Visit: Yes Status: Acute Assessment and plan: Patient has a history of not being able to swallow food and now has progressed to liquids, trouble swallowing is above collar bone. MBS - sallowing WNL w/o eviden of aspiration. CT soft tissue neck w/ con - no neck mass identified. Qualifiers: Dysphagia type: unspecified Qualified Code(s): R13.10 - Dysphagia, unspecified (3) Abdominal pain Current Visit: No Status: Acute Assessment and plan: pain not improved per patient. continue percocet q6h for pain control Qualifiers: Qualified Code(s): R10.9 - Unspecified abdominal pain (4) Depression (emotion) Current Visit: Yes Status: Acute Assessment and plan: Chronic. Stable. continue home meds. EKG for Psych RX and Levaquin interaction showed normal sinus rhythm Qualifiers: Qualified Code(s): F32.9 - Major depressive disorder, single episode, unspecified (5) Nausea Current Visit: Yes Status: Acute Assessment and plan: -continue Phenergan PRN. (6) Dyspnea Current Visit: Yes Status: Acute Assessment and plan: No improvement possible PNA seen on CXR continue levaquin for now. Day 3. Qualifiers: Qualified Code(s): R06.00 - Dyspnea, unspecified (7) Diabetes mellitus Current Visit: No Status: Chronic Assessment and plan: Chronic, Stable Sugars have been well controlled. 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 continue lovenox (9) Morbid obesity with BMI of 50.0-59.9, adult Current Visit: No Status: Chronic Assessment and plan: Chronic, stable. to be followed up on Outpatient - Subjective Interval history: Patient reports no improvement in any of her symptoms. She reports continued ABD pn, feeling like food goes not go down all the way when swallowing, Nausea, SOB. She denies Vomiting, Diarrhea, Fever. - Constitutional Vitals: Temp Pulse Resp BP Pulse Ox 97.7 F 58 17 80/56 97 04/30/17 08:03 04/30/17 08:03 04/30/17 08:03 04/30/17 08:03 04/30/17 08:51 General appearance: Present: mild distress, A&O X 3, morbidly obese - Head Head exam: Present: atraumatic, normocephalic - Eye Eye exam: Present: PERRL, sclera anicteric Pupils: Present: PERRL - ENT ENT exam: Present: mucous membranes moist, normal oropharynx - Neck Neck exam general surgery: Present: supple, trachea midline - Respiratory Respiratory exam: Present: decreased breath sounds (on the R) - Cardiovascular Cardiovascular exam: Present: RRR, +S1, +S2. Absent: diastolic murmur, gallop, rubs, systolic murmur - GI/Abdominal GI/Abdominal exam: Present: normal bowel sounds, soft, tenderness (RUQ and LLQ, epigastric.) - Extremities Exam Extremities exam: Absent: calf tenderness, cyanotic, pedal edema - Neurological Exam Neurological exam: Present: alert, oriented X3. Absent: facial droop, speech deficit - Psychiatric Psychiatric exam: Present: depressed, flat affect - Skin Skin exam: Present: dry, intact, warm Internal Medicine: Result - Labs CBC & Chem 7: 04/30/17 03:54 04/30/17 03:54 Labs: Short CBC 04/30/17 Range/Units 03:54 WBC 4.9 (4.3-11.1) K/mcL Hgb 13.2 (11.5-15.4) g/dL Hct 41.1 (35.3-44.9) % Plt Count 150 (140-400) K/mcL BMP 04/30/17 03:54 Sodium 137 Potassium 4.1 Chloride 108 Carbon Dioxide 20 BUN 12 Creatinine 0.93 Glucose 110 H Calcium 9.1 - ABG Interpretation ABG results: PT/INR, D-dimer PT 11.6 Seconds (9.4-12.1) 04/27/17 15:41 Consult Discharge Plan - Plan Referrals: Misael Miller MD [Primary Care Provider] - 05/06/17 10:30 am <Max Pollard P - Last Filed: 04/30/17 18:15> Date of Encounter: 04/30/17 - Constitutional Vitals: Temp Pulse Resp BP Pulse Ox 97.6 F 78 17 89/57 95 04/30/17 16:16 04/30/17 16:16 04/30/17 16:16 04/30/17 16:16 04/30/17 16:16 Internal Medicine: Result - Labs CBC & Chem 7: 04/30/17 03:54 04/30/17 03:54 Labs: Short CBC 04/30/17 Range/Units 03:54 WBC 4.9 (4.3-11.1) K/mcL Hgb 13.2 (11.5-15.4) g/dL Hct 41.1 (35.3-44.9) % Plt Count 150 (140-400) K/mcL BMP 04/30/17 03:54 Sodium 137 Potassium 4.1 Chloride 108 Carbon Dioxide 20 BUN 12 Creatinine 0.93 Glucose 110 H Calcium 9.1 - ABG Interpretation ABG results: PT/INR, D-dimer PT 11.6 Seconds (9.4-12.1) 04/27/17 15:41 - Attending Attestation I examined this patient and my medical decision-making was reviewed with the Resident Physician. I agree with the documented findings, disposition and treatment plan as described except to the extent set forth below.
[2017-04-30] MEDS: *HR* Enoxaparin 150 MG/ML SYRINGE SQ SCH ×2 (12:21→23:38)
[2017-04-30] MEDS: Budesonide/Formoterol 160/4.5 MDI IH SCH ×2 (12:28→22:48)
[2017-04-30] MEDS: Venlafaxine XR (24 HR) 37.5 MG CAP.ER.24H PO SCH (21:16)
[2017-04-30] MEDS: Topiramate 100 MG TABLET PO SCH (21:17)
[2017-05-01] MEDS: Prochlorperazine 10 MG/2 ML VIAL IVP PRN (03:57)
[2017-05-01 05:29] LABS: Alanine Aminotransferase 16 Units/L (0-55); Albumin 3.2 g/dL (3.5-5.0); Albumin/Globulin Ratio 0.9 (1.1-2.2); Alkaline Phosphatase 107 Units/L (38-126); Aspartate Amino Transferase 13 Units/L (5-34); BUN/Creatinine Ratio 13 (6-26); Bilirubin,Total 0.3 mg/dL (0.2-1.2); Blood Urea Nitrogen 15 mg/dL (7-20); Calcium 9.3 mg/dL (8.6-10.8); Carbon Dioxide 24 mEq/L (19-29); Chloride 106 mEq/L (98-109); Globulin 3.5 g/dL (2.4-3.5); Glucose 121 mg/dL (70-99); Osmolality,Calculated 290 (280-300); Sodium 139 mEq/L (136-145); Total Protein 6.7 g/dL (6.0-8.3); eGFR For African Americans > 60 (> 60); eGFR For Non-African Americans 52 (> 60)
[2017-05-01] MEDS: Insulin LISPRO 300 UNITS/3 ML VIAL SQ SCH ×4 (07:56→22:28)
[2017-05-01] MEDS: Budesonide/Formoterol 160/4.5 MDI IH SCH ×2 (07:57→22:43)
[2017-05-01] MEDS: lamoTRIgine 100 MG TABLET PO SCH ×2 (09:22→22:28)
[2017-05-01] MEDS: cloNIDine HCl 0.1 MG TABLET PO SCH ×3 (09:22→22:27)
[2017-05-01] MEDS: Levofloxacin 750 MG/150 ML 750 MG/150 ML BAG IVPB SCH (09:22)
[2017-05-01] MEDS: Loratadine 10 MG TABLET PO SCH (09:23)
[2017-05-01] MEDS: Topiramate 25 MG TABLET PO SCH (09:23)
[2017-05-01] MEDS: *HR* LORazepam 1 MG TABLET PO SCH ×2 (09:23→22:26)
[2017-05-01] MEDS: Famotidine 20 MG TABLET PO SCH ×2 (09:23→22:28)
--- NOTE | 2017-05-01 10:54 | Internal Med Progress Note ---
<JonathanshilogrettamelissaDelfin - Last Filed: 05/01/17 10:52> Date of Encounter: 05/01/17 Time of Encounter: 10:15 - Assessment and plan (1) PNA (pneumonia) Current Visit: Yes Status: Acute Assessment and plan: Present on admission CT chest showed: "Focal consolidation in the left lower lobe evidence of acute pneumonia." -EKG for Psych meds and Levaquin interaction showed normal sinus rhythm Continue Levaquin Day 4. Qualifiers: Pneumonia type: due to unspecified organism Laterality: left Lung location: lower lobe of lung Qualified Code(s): J18.1 - Lobar pneumonia, unspecified organism (2) Dysphagia Current Visit: Yes Status: Acute Assessment and plan: Patient has a history of not being able to swallow food and now has progressed to liquids, trouble swallowing is above collar bone. MBS - sallowing WNL w/o eviden of aspiration. CT soft tissue neck w/ con - no neck mass identified. Qualifiers: Dysphagia type: unspecified Qualified Code(s): R13.10 - Dysphagia, unspecified (3) Abdominal pain Current Visit: No Status: Acute Assessment and plan: pain not improved per patient. Will check CT abd pelvis with IV and oral contrast. continue percocet q6h for pain control Qualifiers: Qualified Code(s): R10.9 - Unspecified abdominal pain (4) Depression (emotion) Current Visit: Yes Status: Acute Assessment and plan: Chronic. Stable. -continue home meds. Patient on home oxygen. Qualifiers: Qualified Code(s): F32.9 - Major depressive disorder, single episode, unspecified (5) Nausea Current Visit: Yes Status: Acute Assessment and plan: -Made compazine 5mg Scheduled q6hr instead of PRN since patient reports no improvement. -continue Phenergan PRN q8h (6) Dyspnea Current Visit: Yes Status: Acute Assessment and plan: No improvement -possible PNA seen on CXR -continue levaquin for now. Day 4. Qualifiers: Qualified Code(s): R06.00 - Dyspnea, unspecified (7) Diabetes mellitus Current Visit: No Status: Chronic Assessment and plan: Chronic, Stable -Sugars have been well controlled. -Continue SSI -Continue auchecks -Continue diabetic diet Qualifiers: Diabetes mellitus type: type 2 Diabetes mellitus complication status: with unspecified complications Diabetes mellitus terminal gauger insulin use: without terminal gauger use Qualified Code(s): E11.8 - Type 2 diabetes mellitus with unspecified complications (8) Factor 5 Leiden mutation, heterozygous Current Visit: No Status: Chronic Assessment and plan: chronic, stable. -continue lovenox (9) Morbid obesity with BMI of 50.0-59.9, adult Current Visit: No Status: Chronic Assessment and plan: Chronic, stable. f/u as Outpatient - Subjective Interval history: Nothign has changed per the patient since yesterday. She states she does not feel ready to go home. Patient reports no improvement in any of her symptoms. She reports continued ABD pn, feeling like food goes not go down all the way when swallowing, Nausea, SOB. She denies Vomiting, Diarrhea, Fever. - Constitutional Vitals: Temp Pulse Resp BP Pulse Ox 97.6 F 60 16 92/61 98 05/01/17 06:57 05/01/17 06:57 05/01/17 07:59 05/01/17 06:57 05/01/17 07:59 General appearance: Present: mild distress, A&O X 3, morbidly obese - Head Head exam: Present: atraumatic, normocephalic - Eye Eye exam: Present: PERRL, sclera anicteric - ENT ENT exam: Present: mucous membranes moist, normal oropharynx - Neck Neck exam general surgery: Present: supple, trachea midline - Respiratory Respiratory exam: Present: decreased breath sounds. Absent: rales, rhonchi, wheezes - Cardiovascular Cardiovascular exam: Present: RRR, +S1, +S2. Absent: diastolic murmur, gallop, rubs, systolic murmur - GI/Abdominal GI/Abdominal exam: Present: normal bowel sounds, soft, tenderness (reports difuse mild tenderness on palpation, but does not flinch when pushign with stethescope while listening.), no peritoneal signs - Extremities Exam Extremities exam: Absent: calf tenderness, cyanotic, pedal edema - Neurological Exam Neurological exam: Present: alert, oriented X3. Absent: facial droop, speech deficit - Psychiatric Psychiatric exam: Present: depressed, flat affect - Skin Skin exam: Present: dry, intact, warm Internal Medicine: Result - Labs CBC & Chem 7: 04/30/17 03:54 05/01/17 02:58 Labs: BMP 05/01/17 02:58 Sodium 139 Potassium 4.0 Chloride 106 Carbon Dioxide 24 BUN 15 Creatinine 1.13 H Glucose 121 H Calcium 9.3 Liver Function 05/01/17 Range/Units 02:58 Total Bilirubin 0.3 (0.2-1.2) mg/dL AST 13 (5-34) Units/L ALT 16 (0-55) Units/L Alkaline Phosphatase 107 (38-126) Units/L Albumin 3.2 L (3.5-5.0) g/dL - ABG Interpretation ABG results: PT/INR, D-dimer PT 11.6 Seconds (9.4-12.1) 04/27/17 15:41 Consult Discharge Plan - Plan Referrals: Misael Miller MD [Primary Care Provider] - 05/06/17 10:30 am <Max Pollard - Last Filed: 05/01/17 14:05> Date of Encounter: 05/01/17 - Constitutional Vitals: Temp Pulse Resp BP Pulse Ox 97.7 F 70 16 105/68 90 05/01/17 11:41 05/01/17 11:41 05/01/17 11:41 05/01/17 11:41 05/01/17 11:41 Internal Medicine: Result - Labs CBC & Chem 7: 04/30/17 03:54 05/01/17 02:58 Labs: [facility] 05/01/17 02:58 Sodium 139 Potassium 4.0 Chloride 106 Carbon Dioxide 24 BUN 15 Creatinine 1.13 H Glucose 121 H Calcium 9.3 Liver Function 05/01/17 Range/Units 02:58 Total Bilirubin 0.3 (0.2-1.2) mg/dL AST 13 (5-34) Units/L ALT 16 (0-55) Units/L Alkaline Phosphatase 107 (38-126) Units/L Albumin 3.2 L (3.5-5.0) g/dL - ABG Interpretation ABG results: PT/INR, D-dimer PT 11.6 Seconds (9.4-12.1) 04/27/17 15:41 - Attending Attestation I examined this patient and my medical decision-making was reviewed with the Resident Physician. I agree with the documented findings, disposition and treatment plan as described except to the extent set forth below.
[2017-05-01] MEDS: *HR* Enoxaparin 150 MG/ML SYRINGE SQ SCH ×2 (11:11→22:30)
[2017-05-01] MEDS: *HR* OxyCODONE/APAP 5/325 TABLET PO PRN ×3 (11:11→22:30)
[2017-05-01] MEDS: Venlafaxine XR (24 HR) 37.5 MG CAP.ER.24H PO SCH (22:27)
[2017-05-01] MEDS: Topiramate 100 MG TABLET PO SCH (22:29)
[2017-05-01] MEDS: traZODone 50 MG TABLET PO PRN (22:31)
[2017-05-02 04:57] LABS: Albumin 3.3 g/dL (3.5-5.0); Bilirubin,Total 0.3 mg/dL (0.2-1.2); Calcium 9.4 mg/dL (8.6-10.8); Globulin 3.4 g/dL (2.4-3.5); Total Protein 6.7 g/dL (6.0-8.3)
[2017-05-02] MEDS: Budesonide/Formoterol 160/4.5 MDI IH SCH ×2 (07:52→22:22)
[2017-05-02] MEDS: Insulin LISPRO 300 UNITS/3 ML VIAL SQ SCH ×4 (07:57→22:18)
[2017-05-02] MEDS: Famotidine 20 MG TABLET PO SCH ×2 (09:46→22:16)
[2017-05-02] MEDS: cloNIDine HCl 0.1 MG TABLET PO SCH ×3 (09:46→22:17)
[2017-05-02] MEDS: Topiramate 25 MG TABLET PO SCH (09:46)
[2017-05-02] MEDS: lamoTRIgine 100 MG TABLET PO SCH ×2 (09:46→22:16)
[2017-05-02] MEDS: *HR* LORazepam 1 MG TABLET PO SCH ×2 (09:46→22:17)
[2017-05-02] MEDS: Loratadine 10 MG TABLET PO SCH (09:47)
[2017-05-02] MEDS: Levofloxacin 750 MG/150 ML 750 MG/150 ML BAG IVPB SCH (09:47)
--- NOTE | 2017-05-02 10:35 | Internal Med Progress Note ---
<Mino Danielle - Last Filed: 05/02/17 11:28> Date of Encounter: 05/02/17 Time of Encounter: 10:33 - Assessment and plan (1) PNA (pneumonia) Current Visit: Yes Status: Acute Assessment and plan: Evidence of left lower lobe pneumonia on CT scan. Patient is currently on day 5 of Levaquin therapy and feels she is not getting better. Clinically she appears improved. Given that the patient feels that she does not feel like she can go home will switch antibiotics to doxycycline. Qualifiers: Pneumonia type: due to unspecified organism Laterality: left Lung location: lower lobe of lung Qualified Code(s): J18.1 - Lobar pneumonia, unspecified organism (2) Diabetes mellitus Current Visit: No Status: Chronic Assessment and plan: Blood sugars been under good control. Continue sliding scale insulin. 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 More nausea than pain. CT scan of the abdomen was unremarkable. May be related to antibiotics. Continue Compazine scheduled and Phenergan when necessary for symptomatic relief. Qualifiers: Abdominal location: generalized Qualified Code(s): R10.84 - Generalized abdominal pain (4) Factor 5 Leiden mutation, heterozygous Current Visit: No Status: Chronic Assessment and plan: Stable. No evidence of acute thrombosis. Continue Lovenox. - Subjective Interval history: Patient seen and examined at bedside. Patient reports persistent cough that is nonproductive. She also reports continued nausea. Patient feels like she is about the same as yesterday, does not feel like she is ready to go home. She denies fever, chills, chest pain, vomiting, diarrhea. - Constitutional Vitals: Temp Pulse Resp BP Pulse Ox 97.7 F 61 16 93/59 96 05/02/17 07:02 05/02/17 07:02 05/02/17 07:52 05/02/17 07:02 05/02/17 09:55 General appearance: Present: mild distress, A&O X 3, morbidly obese - Respiratory Respiratory exam: Present: CTAB. Absent: rales, rhonchi, wheezes - Cardiovascular Cardiovascular exam: Present: RRR. Absent: gallop, rubs, systolic murmur - GI/Abdominal GI/Abdominal exam: Present: normal bowel sounds, soft. Absent: distended, tenderness - Extremities Exam Extremities exam: Present: warm. Absent: pedal edema, tenderness - Neurological Exam Neurological exam: Present: alert, CN II-XII intact, oriented X3, no focal deficits Internal Medicine: Result - Labs CBC & Chem 7: 04/30/17 03:54 05/02/17 03:30 Labs: BMP 05/02/17 03:30 Sodium 140 Potassium 4.0 Chloride 106 Carbon Dioxide 25 BUN 16 Creatinine 1.20 H Glucose 116 H Calcium 9.4 Liver Function 05/02/17 Range/Units 03:30 Total Bilirubin 0.3 (0.2-1.2) mg/dL AST 12 (5-34) Units/L ALT 13 (0-55) Units/L Alkaline Phosphatase 105 (38-126) Units/L Albumin 3.3 L (3.5-5.0) g/dL - ABG Interpretation ABG results: PT/INR, D-dimer PT 11.6 Seconds (9.4-12.1) 04/27/17 15:41 - Impressions Impressions Abdomen/Pelvis CT 05/01/17 13:00 IMPRESSION: Increased dense consolidation of the left lower lobe likely pneumonia. Follow-up to resolution is recommended. Suspected fatty infiltration of the liver. D/ / Shanti Chandler Cha, MD / Shanti Chandler Cha, MD Interpreting Provider: Shanti Chandler Cha, MD Liver Ultrasound 05/01/17 14:00 IMPRESSION: Fatty infiltration of the liver. Mild prominence of the common duct measuring up to 1 cm status post cholecystectomy. Prominence of the common duct is likely related to the patient's age and postcholecystectomy state. Correlation to exclude biliary obstruction is recommended D/ / Shanti Chandler Cha, MD / Shanti Chandler Cha, MD Interpreting Provider: Shanti Chandler Cha, MD Consult Discharge Plan - Plan Referrals: Misael Miller MD [Primary Care Provider] - 05/06/17 10:30 am <Max Pollard P - Last Filed: 05/02/17 17:18> Date of Encounter: 05/02/17 - Constitutional Vitals: Temp Pulse Resp BP Pulse Ox 97.7 F 67 18 113/76 98 05/02/17 16:00 05/02/17 16:00 05/02/17 16:00 05/02/17 16:00 05/02/17 16:00 Internal Medicine: Result - Labs CBC & Chem 7: 04/30/17 03:54 05/02/17 03:30 Labs: BMP 05/02/17 03:30 Sodium 140 Potassium 4.0 Chloride 106 Carbon Dioxide 25 BUN 16 Creatinine 1.20 H Glucose 116 H Calcium 9.4 Liver Function 05/02/17 Range/Units 03:30 Total Bilirubin 0.3 (0.2-1.2) mg/dL AST 12 (5-34) Units/L ALT 13 (0-55) Units/L Alkaline Phosphatase 105 (38-126) Units/L Albumin 3.3 L (3.5-5.0) g/dL - ABG Interpretation ABG results: PT/INR, D-dimer PT 11.6 Seconds (9.4-12.1) 04/27/17 15:41 - Attending Attestation I examined this patient and my medical decision-making was reviewed with the Resident Physician. I agree with the documented findings, disposition and treatment plan as described except to the extent set forth below.
[2017-05-02] MEDS: *HR* Enoxaparin 150 MG/ML SYRINGE SQ SCH ×2 (12:58→23:53)
[2017-05-02] MEDS: Doxycycline 100 MG in 0.9 % Sodium Chloride Mini Bag 100 ML IVPB SCH (17:59)
[2017-05-02] MEDS: Topiramate 100 MG TABLET PO SCH (22:15)
[2017-05-02] MEDS: Venlafaxine XR (24 HR) 37.5 MG CAP.ER.24H PO SCH (22:16)
[2017-05-02] MEDS: traZODone 50 MG TABLET PO PRN (22:17)
[2017-05-03 04:38] LABS: Basophils % 0.6 %; Eosinophils # 0.8 K/mcL (0.0-0.6); Eosinophils % 12.2 %; Hematocrit 40.4 % (35.3-44.9); Hemoglobin 13.5 g/dL (11.5-15.4); Immature Granulocytes % 0.5 % (0-4); Lymphocytes # 2.5 K/mcL (0.6-4.6); Lymphocytes % 38.1 %; Mean Corpuscular HGB Conc 33.4 g/dL (31.6-35.5); Mean Corpuscular Hemoglobin 30.1 pg (28.0-33.3); Mean Platelet Volume 12.2 fL (9.4-12.4); Monocytes # 0.4 K/mcL (0.0-1.3); Monocytes % 5.9 %; Neutrophils # 2.8 K/mcL (1.6-8.9); Platelet Count 207 K/mcL (140-400); Red Blood Count 4.49 M/mcL (3.82-4.97); Red Cell Distribution Width 12.6 % (11.5-14.5); Segmented Neutrophils % 42.7 %
[2017-05-03 04:55] LABS: Alanine Aminotransferase 13 Units/L (0-55); Albumin 3.3 g/dL (3.5-5.0); Albumin/Globulin Ratio 0.9 (1.1-2.2); Alkaline Phosphatase 99 Units/L (38-126); Aspartate Amino Transferase 11 Units/L (5-34); BUN/Creatinine Ratio 17 (6-26); Blood Urea Nitrogen 19 mg/dL (7-20); Calcium 9.5 mg/dL (8.6-10.8); Carbon Dioxide 22 mEq/L (19-29); Chloride 107 mEq/L (98-109); Globulin 3.5 g/dL (2.4-3.5); Glucose 126 mg/dL (70-99); Osmolality,Calculated 292 (280-300); Sodium 139 mEq/L (136-145); Total Protein 6.8 g/dL (6.0-8.3); eGFR For African Americans > 60 (> 60); eGFR For Non-African Americans 54 (> 60)
[2017-05-03 04:56] LABS: Bilirubin,Total < 0.3 mg/dL (0.2-1.2)
[2017-05-03] MEDS: Doxycycline 100 MG in 0.9 % Sodium Chloride Mini Bag 100 ML IVPB SCH ×2 (06:07→17:04)
[2017-05-03] MEDS: Budesonide/Formoterol 160/4.5 MDI IH SCH ×2 (07:30→20:57)
[2017-05-03] MEDS ORDERED: *HR* Promethazine 25 MG/ML VIAL IVP ONE (07:49)
--- NOTE | 2017-05-03 07:52 | Internal Med Progress Note ---
<Delfin Rodríguez - Last Filed: 05/03/17 09:03> Date of Encounter: 05/03/17 Time of Encounter: 07:52 - Assessment and plan (1) PNA (pneumonia) Current Visit: Yes Status: Acute Assessment and plan: Present on admission CT chest showed: "Focal consolidation in the left lower lobe evidence of acute pneumonia." EKG for Psych meds and Levaquin interaction showed normal sinus rhythm Patient switched to doxycycline yesterday. Patient seems clinically improved, but insists on not feeling any better. Qualifiers: Pneumonia type: due to unspecified organism Laterality: left Lung location: lower lobe of lung Qualified Code(s): J18.1 - Lobar pneumonia, unspecified organism (2) Dysphagia Current Visit: Yes Status: Acute Assessment and plan: Patient has a history of not being able to swallow food and now has progressed to liquids, trouble swallowing is above collar bone. MBS - sallowing WNL w/o eviden of aspiration. CT soft tissue neck w/ con - no neck mass identified. Consulted GI today for possible EGD Qualifiers: Dysphagia type: unspecified Qualified Code(s): R13.10 - Dysphagia, unspecified (3) Abdominal pain Current Visit: No Status: Acute Assessment and plan: pain not improved per patient. CT abd pelvis and abd U/S showed no acute issues. GI consulted for possible EGD Patient seems clinically improved but insists on no improvement. continue percocet q6h for pain control Qualifiers: Abdominal location: generalized Qualified Code(s): R10.84 - Generalized abdominal pain (4) Depression (emotion) Current Visit: Yes Status: Acute Assessment and plan: Chronic. Stable. -continue home meds. Patient insisting none of her symptoms are improved despite clinical improvement on exam and lab work. Will consider a psych consult Qualifiers: Depression Type: major depressive disorder Major depression recurrence: single episode Active/Remission status: currently active Major depression episode severity: unspecified Qualified Code(s): F32.9 - Major depressive disorder, single episode, unspecified (5) Nausea Current Visit: Yes Status: Acute Assessment and plan: -continue compazine 5mg Scheduled q6hr -continue Phenergan PRN q8h gave one time dose of IV phenergan since currently NPO for EGD (6) Dyspnea Current Visit: Yes Status: Acute Assessment and plan: No improvement -possible PNA seen on CXR Switched to doxycycline Patient on home oxygen. patient seems clinically improved, but denies improvement. Qualifiers: Dyspnea type: unspecified Qualified Code(s): R06.00 - Dyspnea, unspecified (7) Diabetes mellitus Current Visit: No Status: Chronic Assessment and plan: Chronic, Stable -Sugars have been well controlled. 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 -no evidence of acute thrombosis -continue lovenox (9) Morbid obesity with BMI of 50.0-59.9, adult Current Visit: No Status: Chronic Assessment and plan: Chronic, stable. -f/u as Outpatient - Subjective Interval history: Nothing has changed per the patient. She states she does not feel ready to go home. Patient reports no improvement in any of her symptoms. She reports continued ABD pn, feeling like food goes not go down all the way when swallowing, Nausea, SOB. She denies Vomiting, Diarrhea, Fever. - Constitutional Vitals: Temp Pulse Resp BP Pulse Ox 97.6 F 66 22 94/60 98 05/03/17 07:11 05/03/17 07:11 05/03/17 07:11 05/03/17 07:11 05/03/17 07:11 General appearance: Present: mild distress, A&O X 3, morbidly obese - Head Head exam: Present: atraumatic, normocephalic - Eye Eye exam: Present: PERRL, sclera anicteric - ENT ENT exam: Present: mucous membranes moist, normal oropharynx - Neck Neck exam general surgery: Present: supple, trachea midline - Respiratory Respiratory exam: Present: CTAB. Absent: rales, rhonchi, wheezes - Cardiovascular Cardiovascular exam: Present: RRR, +S1, +S2. Absent: diastolic murmur, gallop, rubs, systolic murmur - GI/Abdominal GI/Abdominal exam: Present: normal bowel sounds, soft, no peritoneal signs. Absent: tenderness - Extremities Exam Extremities exam: Absent: calf tenderness, cyanotic, pedal edema - Neurological Exam Neurological exam: Present: alert, oriented X3. Absent: facial droop, speech deficit - Psychiatric Psychiatric exam: Present: depressed, flat affect - Skin Skin exam: Present: dry, intact, warm Internal Medicine: Result - Labs CBC & Chem 7: 05/03/17 03:25 05/03/17 03:25 Labs: Short CBC 05/03/17 Range/Units 03:25 WBC 6.5 (4.3-11.1) K/mcL Hgb 13.5 (11.5-15.4) g/dL Hct 40.4 (35.3-44.9) % Plt Count 207 (140-400) K/mcL Neutrophils # 2.8 (1.6-8.9) K/mcL BMP 05/03/17 03:25 Sodium 139 Potassium 4.0 Chloride 107 Carbon Dioxide 22 BUN 19 Creatinine 1.10 Glucose 126 H Calcium 9.5 Liver Function 05/03/17 Range/Units 03:25 Total Bilirubin < 0.3 (0.2-1.2) mg/dL AST 11 (5-34) Units/L ALT 13 (0-55) Units/L Alkaline Phosphatase 99 (38-126) Units/L Albumin 3.3 L (3.5-5.0) g/dL - ABG Interpretation ABG results: PT/INR, D-dimer PT 11.6 Seconds (9.4-12.1) 04/27/17 15:41 Consult Discharge Plan - Plan Referrals: Misael Miller MD [Primary Care Provider] - 05/06/17 10:30 am <Max Pollard - Last Filed: 05/03/17 18:26> Date of Encounter: 05/03/17 - Constitutional Vitals: Temp Pulse Resp BP Pulse Ox 98.1 F 67 16 95/65 92 05/03/17 16:15 05/03/17 16:15 05/03/17 16:15 05/03/17 16:15 05/03/17 16:15 Internal Medicine: Result - Labs CBC & Chem 7: 05/03/17 03:25 05/03/17 03:25 Labs: Short CBC 05/03/17 Range/Units 03:25 WBC 6.5 (4.3-11.1) K/mcL Hgb 13.5 (11.5-15.4) g/dL Hct 40.4 (35.3-44.9) % Plt Count 207 (140-400) K/mcL Neutrophils # 2.8 (1.6-8.9) K/mcL BMP 05/03/17 03:25 Sodium 139 Potassium 4.0 Chloride 107 Carbon Dioxide 22 BUN 19 Creatinine 1.10 Glucose 126 H Calcium 9.5 Liver Function 05/03/17 Range/Units 03:25 Total Bilirubin < 0.3 (0.2-1.2) mg/dL AST 11 (5-34) Units/L ALT 13 (0-55) Units/L Alkaline Phosphatase 99 (38-126) Units/L Albumin 3.3 L (3.5-5.0) g/dL - ABG Interpretation ABG results: PT/INR, D-dimer PT 11.6 Seconds (9.4-12.1) 04/27/17 15:41 - Attending Attestation I examined this patient and my medical decision-making was reviewed with the Resident Physician. I agree with the documented findings, disposition and treatment plan as described except to the extent set forth below.
--- NOTE | 2017-05-03 09:47 | Gastroenterology Consult Note ---
<Rosie Bocanegra - Last Filed: 05/03/17 12:48> Date of Encounter: 05/03/17 Time of Encounter: 11:17 - Assessment and plan (1) Dysphagia Current Visit: Yes Status: Chronic Assessment and plan: with both solids and liquids, recent onset of 1 month per the patient. Swallow study wnl. Qualifiers: Dysphagia type: unspecified Qualified Code(s): R13.10 - Dysphagia, unspecified (2) Left lower lobe pneumonia Current Visit: Yes Status: Acute Assessment and plan: hospitalist management Qualifiers: Pneumonia type: due to unspecified organism Qualified Code(s): J18.1 - Lobar pneumonia, unspecified organism (3) Severe nausea Current Visit: Yes Status: Acute Assessment and plan: Controlled with current regimen. If EGD negative for cause, consider GES evaluation. (4) Abdominal pain Current Visit: No Status: Acute Assessment and plan: EGD to r/o esophagitis, gastritis, duodenitis, PUD. Qualifiers: Abdominal location: generalized Qualified Code(s): R10.84 - Generalized abdominal pain - Time Spent With Patient Total time spent is greater than 50% in coordination of care (as documented) at patient's floor/unit and/or counseling patient: less than 15 minutes GI History of Present Illness - Data of Consult Patient: known to practice within the last 3 years Consult date: 05/03/17 Requesting Physician: Max Pollard MD - Consult Narrative Reason for consult: N/V, abd pain, dysphagia History of present illness: Ms. Mitchell is a 46 year old female with PMH of Factor V Leiden deficiency on Lovenox presented to ED 04/27/17 with onset of chest pain and shortness of breath 3 days prior to admit, she was dx and being treated for pneumonia. She also had complaint of dysphagia prior to admission with solids, during her inpatient stay, she now complains dysphagia with both solids and liquids. US liver revealed fatty liver changes. CT showed CBD dilation up to 1 cm with history of prior cholecystectomy. She underwent a swallow study with normal results. She states dysphagia symptoms for about 1 month, N/V repeated times over the past week. She states no blood in vomitus, no change in bowel habits, no diarrhea. Emesis is described as food she consumed 'yesterday'. Admits indigestion/heartburn and abdominal pain in epigastric area. Colonoscopy: 2014 - Gul - friability in rectum EGD: none Past Med Surg Social Fam HX - Past Medical History Medical history: asthma, DVT, diabetes, pulmonary embolus, renal disease, other Psychiatric history: anxiety, panic disorder - Past Surgical History Surgical History: cholecystectomy, hysterectomy, orthopedic, other, other - Social History Smoking Status: Never smoker Smokeless Tobacco Status: No Alcohol use: none Drug use: none - Family History Mother Family Member Ethnicity: Non- Living Status: Age at : 46 Cause of : Cervical Cancer Hx Family Cardiac Disorders: Yes (ME, CHF) Hx Family Respiratory Disorders: No Hx Family Cancer: Yes (Cervical) Hx Family GI Disorders: No Hx Family Genitourinary Disorders: Yes Hx Family Endocrine Disorder: Yes (Hypoglycemia) Hx Family Musculoskeletal Disorders: No Hx Family Neuromuscular Disorders: No Hx Family Neurologic Disorders: No Hx Family HEENT Disorders: No Hx Family Autoimmune Disorders: Yes (Factor V) Hx Family Reproductive Disorders: No Hx Family Psychosocial Disorders: No Hx Family Medical Disorders: No - Gastrointestinal NSAID use: None noted Anticoagulation Use: Lovenox Number of BM Per Day: 1-2 Gastrointestinal: Present: abdominal pain, heartburn, nausea, vomiting - Constitutional Constitutional: as per HPI - EENT Eyes: as per HPI Ears: Present: as per HPI Nose, mouth and throat: Present: dysphagia - Cardiovascular Cardiovascular ROS: Present: as per HPI - Respiratory Respiratory IM: Present: as per HPI - Neurological ROS Neurological GI: Present: as per HPI - Hematologic/Lymphatic Hematologic/Lymphatic pediatric: Present: as per HPI - Musculoskeletal Musculoskeletal ROS GI: Present: as per HPI - Integumentary Integumentary GI: Present: as per HPI - Psychiatric ROS Psychiatric GI: Present: as per HPI - Endocrine Endocrine IM: Present: as per HPI - Constitutional Vitals: Temp Pulse Resp BP Pulse Ox 97.6 F 66 16 94/60 98 05/03/17 07:11 05/03/17 07:11 05/03/17 07:30 05/03/17 07:11 05/03/17 07:30 General appearance: Present: cooperative, A&O X 3, no acute distress, answers questions appropriately - Head Head exam: Present: atraumatic, normocephalic - Eye Eye exam: Present: normal appearance, sclera anicteric - ENT ENT exam: Present: mucous membranes moist - Neck Neck exam general surgery: Present: normal inspection, trachea midline - Respiratory Respiratory exam: Present: CTAB - Cardiovascular Cardiovascular exam: Present: RRR, +S1, +S2 - GI/Abdominal GI/Abdominal exam: Present: soft, tenderness, no peritoneal signs - Rectal Rectal exam: Present: deferred - Extremities Exam Extremities exam: Present: warm - Neurological Exam Neurological exam: Present: no focal deficits - Psychiatric Psychiatric exam: Present: normal affect, normal mood - Skin Skin exam: Present: dry, intact, normal color, warm Results - Labs CBC & Chem 7: 05/03/17 03:25 05/03/17 03:25 Labs: Last Result Calcium 9.5 mg/dL (8.6-10.8) 05/03/17 03:25 Troponin I 0.01 ng/mL (0-0.03) 04/27/17 15:41 Entire Visit Hgb 13.5 g/dL (11.5-15.4) 05/03/17 03:25 Hct 40.4 % (35.3-44.9) 05/03/17 03:25 PT 11.6 Seconds (9.4-12.1) 04/27/17 15:41 Total Bilirubin < 0.3 mg/dL (0.2-1.2) 05/03/17 03:25 AST 11 Units/L (5-34) 05/03/17 03:25 ALT 13 Units/L (0-55) 05/03/17 03:25 - ABG ABG results: PT/INR, D-dimer PT 11.6 Seconds (9.4-12.1) 04/27/17 15:41 Consult Discharge Plan - Plan Referrals: Misael Miller MD [Primary Care Provider] - 05/06/17 10:30 am <Ambar Mckinnon - Last Filed: 05/03/17 18:02> Date of Encounter: 05/03/17 Time of Encounter: 17:20 - Time Spent With Patient Total time spent is greater than 50% in coordination of care (as documented) at patient's floor/unit and/or counseling patient: GI History of Present Illness - Data of Consult Requesting Physician: Max Pollard MD - Consult Narrative History of present illness: Ms. Mitchell is a 46 year old female - Constitutional Vitals: Temp Pulse Resp BP Pulse Ox 98.1 F 67 16 95/65 92 05/03/17 16:15 05/03/17 16:15 05/03/17 16:15 05/03/17 16:15 05/03/17 16:15 Results - Labs CBC & Chem 7: 05/03/17 03:25 05/03/17 03:25 Labs: Last Result Calcium 9.5 mg/dL (8.6-10.8) 05/03/17 03:25 Troponin I 0.01 ng/mL (0-0.03) 04/27/17 15:41 Entire Visit Hgb 13.5 g/dL (11.5-15.4) 05/03/17 03:25 Hct 40.4 % (35.3-44.9) 05/03/17 03:25 PT 11.6 Seconds (9.4-12.1) 04/27/17 15:41 Total Bilirubin < 0.3 mg/dL (0.2-1.2) 05/03/17 03:25 AST 11 Units/L (5-34) 05/03/17 03:25 ALT 13 Units/L (0-55) 05/03/17 03:25 - ABG ABG results: PT/INR, D-dimer PT 11.6 Seconds (9.4-12.1) 04/27/17 15:41 - Attending Attestation I examined this patient and my medical decision-making was reviewed with the Resident Physician. I agree with the documented findings, disposition and treatment plan as described except to the extent set forth below. Patient complaining of nausea along with dysphagia. Plan: EGD to rule out the esophageal etiology for her dysphagia, also examination of the stomach with biopsy to rule out gastritis/peptic ulcer disease for her nausea symptoms
[2017-05-03] MEDS: Insulin LISPRO 300 UNITS/3 ML VIAL SQ SCH ×4 (10:05→20:34)
[2017-05-03] MEDS: *HR* Enoxaparin 150 MG/ML SYRINGE SQ SCH ×2 (12:09→23:32)
[2017-05-03] MEDS: Loratadine 10 MG TABLET PO SCH (12:10)
[2017-05-03] MEDS: Topiramate 25 MG TABLET PO SCH (12:10)
[2017-05-03] MEDS: Famotidine 20 MG TABLET PO SCH ×2 (12:10→20:32)
[2017-05-03] MEDS: lamoTRIgine 100 MG TABLET PO SCH ×2 (12:10→20:34)
[2017-05-03] MEDS: *HR* LORazepam 1 MG TABLET PO SCH ×2 (12:10→20:32)
[2017-05-03] MEDS: cloNIDine HCl 0.1 MG TABLET PO SCH ×2 (12:14→20:32)
[2017-05-03] MEDS: *HR* OxyCODONE/APAP 5/325 TABLET PO PRN (20:32)
[2017-05-03] MEDS: Venlafaxine XR (24 HR) 37.5 MG CAP.ER.24H PO SCH (20:32)
[2017-05-03] MEDS: Topiramate 100 MG TABLET PO SCH (20:33)
[2017-05-03] MEDS: traZODone 50 MG TABLET PO PRN (23:33)
[2017-05-04 04:46] LABS: Basophils # 0.1 K/mcL (0.0-0.2); Eosinophils # 0.8 K/mcL (0.0-0.6); Eosinophils % 11.5 %; Hematocrit 42.6 % (35.3-44.9); Hemoglobin 13.8 g/dL (11.5-15.4); Immature Granulocytes % 0.6 % (0-4); Lymphocytes # 3.1 K/mcL (0.6-4.6); Lymphocytes % 43.9 %; Mean Corpuscular HGB Conc 32.4 g/dL (31.6-35.5); Mean Corpuscular Hemoglobin 29.6 pg (28.0-33.3); Mean Corpuscular Volume 91.4 fL (83.0-100.0); Mean Platelet Volume 11.9 fL (9.4-12.4); Monocytes # 0.4 K/mcL (0.0-1.3); Monocytes % 5.4 %; Neutrophils # 2.6 K/mcL (1.6-8.9); Platelet Count 224 K/mcL (140-400); Red Blood Count 4.66 M/mcL (3.82-4.97); Red Cell Distribution Width 12.7 % (11.5-14.5); Segmented Neutrophils % 37.6 %
[2017-05-04 05:01] LABS: BUN/Creatinine Ratio 16 (6-26); Blood Urea Nitrogen 19 mg/dL (7-20); Calcium 9.6 mg/dL (8.6-10.8); Carbon Dioxide 24 mEq/L (19-29); Chloride 107 mEq/L (98-109); Glucose 112 mg/dL (70-99); Osmolality,Calculated 291 (280-300); Potassium 4.1 mEq/L (3.5-4.5); Sodium 139 mEq/L (136-145); eGFR For African Americans > 60 (> 60); eGFR For Non-African Americans 51 (> 60)
[2017-05-04] MEDS: Doxycycline 100 MG in 0.9 % Sodium Chloride Mini Bag 100 ML IVPB SCH (05:52)
[2017-05-04] MEDS: Budesonide/Formoterol 160/4.5 MDI IH SCH ×2 (07:49→19:57)
[2017-05-04] MEDS: Insulin LISPRO 300 UNITS/3 ML VIAL SQ SCH ×4 (09:17→22:14)
[2017-05-04] MEDS ORDERED: Simethicone 40 MG/0.6 ML MLS IR ONE (09:33)
[2017-05-04] MEDS ORDERED: Tetracaine/Benzocaine/Butamben 200MG/SPRAY (100SPY/BOT) MM ONE (09:34)
[2017-05-04] MEDS: lamoTRIgine 100 MG TABLET PO SCH ×2 (09:35→22:14)
[2017-05-04] MEDS: Famotidine 20 MG TABLET PO SCH ×2 (09:35→22:13)
[2017-05-04] MEDS: *HR* LORazepam 1 MG TABLET PO SCH ×2 (09:35→22:13)
[2017-05-04] MEDS: Topiramate 25 MG TABLET PO SCH (09:35)
[2017-05-04] MEDS: cloNIDine HCl 0.1 MG TABLET PO SCH ×2 (09:35→22:15)
[2017-05-04] MEDS: Loratadine 10 MG TABLET PO SCH (09:36)
[2017-05-04] MEDS: *HR* OxyCODONE/APAP 5/325 TABLET PO PRN ×3 (09:39→22:13)
--- NOTE | 2017-05-04 10:05 | Internal Med Progress Note ---
<Delfin Rodríguez - Last Filed: 05/04/17 10:23> Date of Encounter: 05/04/17 Time of Encounter: 08:15 - Assessment and plan (1) PNA (pneumonia) Current Visit: Yes Status: Acute Assessment and plan: Present on admission CT chest showed: "Focal consolidation in the left lower lobe evidence of acute pneumonia." EKG for Psych meds and Levaquin interaction showed normal sinus rhythm Patient had a 6 days course of levaquin but reported no improvement. Patient switched to doxycycline On 05/02 day 3. Patient seems clinically improved, but insists on not feeling any better. Qualifiers: Pneumonia type: due to unspecified organism Laterality: left Lung location: lower lobe of lung Qualified Code(s): J18.1 - Lobar pneumonia, unspecified organism (2) Dysphagia Current Visit: Yes Status: Chronic Assessment and plan: Patient has a history of not being able to swallow food and now has progressed to liquids, trouble swallowing is above collar bone. MBS - sallowing WNL w/o eviden of aspiration. CT soft tissue neck w/ con - no neck mass identified. Consulted GI yesterday for possible EGD EGD scheduled for today. Qualifiers: Dysphagia type: unspecified Qualified Code(s): R13.10 - Dysphagia, unspecified (3) Abdominal pain Current Visit: No Status: Acute Assessment and plan: pain not improved per patient. CT abd pelvis and abd U/S showed no acute issues. GI consulted for possible EGD Patient seems clinically improved but insists on no improvement. continue percocet q6h for pain control Patient taking less doses of PRN pain meds Qualifiers: Abdominal location: generalized Qualified Code(s): R10.84 - Generalized abdominal pain (4) Depression (emotion) Current Visit: Yes Status: Acute Assessment and plan: Chronic. Stable. continue home meds. Patient insisting none of her symptoms are improved despite clinical improvement on exam and lab work. Will consider a psych consult after GI work up if still no improvement. Qualifiers: Depression Type: major depressive disorder Major depression recurrence: single episode Active/Remission status: currently active Major depression episode severity: unspecified Qualified Code(s): F32.9 - Major depressive disorder, single episode, unspecified (5) Nausea Current Visit: Yes Status: Acute Assessment and plan: No improved per patient continue compazine 5mg Scheduled q6hr continue Phenergan PRN q8h (6) Dyspnea Current Visit: Yes Status: Acute Assessment and plan: No improvement per the patient but appears clinically improved possible PNA seen on CXR Switched to doxycycline day 3 Received 6 days of levaquin prior. Patient on home oxygen. Qualifiers: Dyspnea type: unspecified Qualified Code(s): R06.00 - Dyspnea, unspecified (7) Diabetes mellitus Current Visit: No Status: Chronic Assessment and plan: Chronic, Stable Sugars have been well controlled. Continue SSI Continue auchecks Continue diabetic diet Qualifiers: Diabetes mellitus type: type 2 Diabetes mellitus complication status: with unspecified complications Diabetes mellitus custodial insulin use: without custodial use Qualified Code(s): E11.8 - Type 2 diabetes mellitus with unspecified complications (8) Factor 5 Leiden mutation, heterozygous Current Visit: No Status: Chronic Assessment and plan: chronic, stable. no evidence of acute thrombosis continue lovenox (9) Morbid obesity with BMI of 50.0-59.9, adult Current Visit: No Status: Chronic Assessment and plan: Chronic, stable. f/u as Outpatient - Subjective Interval history: Still nothing has changed per the patient. Patient reports no improvement in any of her symptoms. She reports continued ABD pn, feeling like food goes not go down all the way when swallowing, Nausea, SOB. She denies Vomiting, Diarrhea, Fever. Patient to have EGD today. - Constitutional Vitals: Temp Pulse Resp BP Pulse Ox 98.3 F 66 17 94/59 97 05/04/17 07:18 05/04/17 07:18 05/04/17 07:50 05/04/17 07:18 05/04/17 07:50 General appearance: Present: mild distress, A&O X 3, morbidly obese - Head Head exam: Present: atraumatic, normocephalic - Eye Eye exam: Present: PERRL, conjuntiva pink, sclera anicteric Pupils: Present: PERRL - Neck Neck exam general surgery: Present: supple, trachea midline - Respiratory Respiratory exam: Present: CTAB. Absent: accessory muscle use, rales, rhonchi, wheezes - Cardiovascular Cardiovascular exam: Present: RRR, +S1, +S2. Absent: diastolic murmur, gallop, rubs, systolic murmur - GI/Abdominal GI/Abdominal exam: Present: normal bowel sounds, soft, no peritoneal signs. Absent: tenderness - Extremities Exam Extremities exam: Present: warm. Absent: calf tenderness, cyanotic, pedal edema - Neurological Exam Neurological exam: Present: alert, oriented X3. Absent: facial droop, speech deficit - Psychiatric Psychiatric exam: Present: depressed, flat affect - Skin Skin exam: Present: dry, intact, warm Internal Medicine: Result - Labs CBC & Chem 7: 05/04/17 03:41 05/04/17 03:41 Labs: Short CBC 05/04/17 Range/Units 03:41 WBC 7.0 (4.3-11.1) K/mcL Hgb 13.8 (11.5-15.4) g/dL Hct 42.6 (35.3-44.9) % Plt Count 224 (140-400) K/mcL Neutrophils # 2.6 (1.6-8.9) K/mcL BMP 05/04/17 03:41 Sodium 139 Potassium 4.1 Chloride 107 Carbon Dioxide 24 BUN 19 Creatinine 1.16 H Glucose 112 H Calcium 9.6 - ABG Interpretation ABG results: PT/INR, D-dimer PT 11.6 Seconds (9.4-12.1) 04/27/17 15:41 Consult Discharge Plan - Plan Referrals: Misael Miller MD [Primary Care Provider] - 05/06/17 10:30 am <Sebastien López - Last Filed: 05/04/17 19:28> Date of Encounter: 05/04/17 - Assessment and plan (1) Gastroparesis Current Visit: Yes Status: Suspected (2) Left lower lobe pneumonia Current Visit: Yes Status: Suspected Qualifiers: Pneumonia type: aspiration pneumonia Qualified Code(s): J69.0 - Pneumonitis due to inhalation of food and vomit (3) Severe nausea Current Visit: Yes Status: Acute (4) Dysphagia Current Visit: Yes Status: Chronic Qualifiers: Dysphagia type: unspecified Qualified Code(s): R13.10 - Dysphagia, unspecified (5) Pulmonary embolism Current Visit: No Status: Resolved Qualifiers: Pulmonary embolism type: saddle Chronicity: unspecified Acute cor pulmonale presence: without acute cor pulmonale Qualified Code(s): I26.92 - Saddle embolus of pulmonary artery without acute cor pulmonale (6) Diabetes mellitus Current Visit: No Status: Chronic Qualifiers: Diabetes mellitus type: type 2 Diabetes mellitus complication status: with unspecified complications Diabetes mellitus custodial insulin use: without custodial use Qualified Code(s): E11.8 - Type 2 diabetes mellitus with unspecified complications (7) Chronic respiratory failure with hypoxia Current Visit: Yes Status: Chronic - Constitutional Vitals: Temp Pulse Resp BP Pulse Ox 98.1 F 59 17 97/58 96 05/04/17 16:09 05/04/17 16:09 05/04/17 16:09 05/04/17 16:09 05/04/17 16:09 Internal Medicine: Result - Labs CBC & Chem 7: 05/04/17 03:41 05/04/17 03:41 Labs: Short CBC 05/04/17 Range/Units 03:41 WBC 7.0 (4.3-11.1) K/mcL Hgb 13.8 (11.5-15.4) g/dL Hct 42.6 (35.3-44.9) % Plt Count 224 (140-400) K/mcL Neutrophils # 2.6 (1.6-8.9) K/mcL BMP 05/04/17 03:41 Sodium 139 Potassium 4.1 Chloride 107 Carbon Dioxide 24 BUN 19 Creatinine 1.16 H Glucose 112 H Calcium 9.6 - ABG Interpretation ABG results: PT/INR, D-dimer PT 11.6 Seconds (9.4-12.1) 04/27/17 15:41 - Attending Attestation I examined this patient and my medical decision-making was reviewed with the Resident Physician on 05/04/17. I agree with the documented findings, disposition and treatment plan as described except to the extent set forth below. Ms. Mitchell is currently in observation for pneumonia and dysphagia. She remains moderate risk due to potential for worsening status. Ms Mitchell had endoscopy today. No fever or chills. Had stricture and probable gastroparesis. Exam alert. Resting comfortably Mucus membranes dry Heart reg No wheeze Abd soft I/P 1. PNA 2. Gastroparesis Further diagnoses and plan as above. Anticipate d/c tomorrow.
[2017-05-04] MEDS: *HR* Enoxaparin 150 MG/ML SYRINGE SQ SCH ×2 (11:43→22:12)
--- NOTE | 2017-05-04 13:00 | Anesthesia Evaluation PreOp ---
Date of Encounter: 05/04/17 Time of Encounter: 13:00 - Past History Planned Operation: EGD Cardiac History: HTN, Hyperlipidemia, Other (Leiden Factor mutation having Hx DVT and PE) Pulmonary History: COPD, SÁNCHEZ Dx (uses CPAP) COAL HANDLER History: Denies Any Significant HX Other Medical History: Diabetes Type II, Other Anesthesia History: No Prior Anesthetic Complications : No Alcohol Use: none Drug use: none Medications and Allergies Albuterol Sulfate [Proair Respiclick] 2 puff PO Q4H PRN #0 04/10/15 [History] Budesonide/Formoterol 160/4.5 [Symbicort 160/4.5] 2 puff IH BIDR #0 04/10/15 [ History] Ipratropium/Albuterol Neb [Duoneb] 3 ml IH QIDR PRN 04/10/15 [History] Montelukast [Singulair] 10 mg PO HS 04/10/15 [History] Topiramate [Topamax] 150 mg PO HS 04/10/15 [History] raNITIdine HCl [Ranitidine HCl] 150 mg PO BID 04/10/15 [History] Doxepin [Sinequan] 25 - 50 mg PO HS 08/14/15 [History] Venlafaxine XR (24 HR) [Effexor Xr] 75 mg PO HS 08/14/15 [History] Buspirone HCl [Buspar] 10 mg PO BID 09/17/15 [History] Furosemide [Lasix] 40 mg PO DAILY 09/17/15 [History] Oxygen 2 l NS AD 09/17/15 [History] SUMAtriptan Succinate [Imitrex] 100 mg PO DAILY PRN 09/17/15 [History] cloNIDine HCl [CloNIDine HCl] 0.1 mg PO BID 09/17/15 [History] Potassium Chloride [K-Tab ER] 10 meq PO DAILY 01/20/16 [History] Trazodone HCl [TraZODone] 100 mg PO HS PRN 01/20/16 [History] LORazepam [Ativan] 1 mg PO BID 03/03/16 [History] Cetirizine HCl [All Day Allergy] 10 mg PO DAILY 08/26/16 [History] Gabapentin 800 mg PO TID 08/26/16 [History] lamoTRIgine [Lamictal] 100 mg PO BID 08/26/16 [History] metOLazone [Metolazone] 2.5 mg PO DAILY 08/26/16 [History] Acetaminophen [Tylenol] 1,000 mg PO Q6HR PRN 09/04/16 [History] Albuterol Neb [Proventil Neb] 2.5 mg IH Q4HR #30 vial.neb 01/30/17 [Rx] Albuterol Sulfate [Albuterol Inhaler] 2 puff IH Q4HR #1 hfa.aer.ad 01/30/17 [Rx] Enoxaparin [Lovenox] 150 mg SQ Q12H #60 syringe 03/04/17 [Rx] Topiramate [Topamax] 50 mg PO DAILY 03/04/17 [History] Promethazine [Phenergan] 12.5 mg PO Q8HR PRN #10 tablet 03/17/17 [Rx] Atorvastatin [Lipitor] 10 mg PO HS 04/27/17 [History] Dulaglutide [Trulicity] 1.5 mg SQ QWEEK 04/27/17 [History] Oxycodone HCl/Acetaminophen [Percocet 5-325 mg Tablet] 1 tab PO Q6H PRN [History] 3 Allergy/AdvReac Type Severity Reaction Status Date / Time codeine Allergy Hives,SWELL Verified 04/27/17 13:40 ING Erythromycin Base Allergy THROAT Verified 04/27/17 13:40 SWELLING ondansetron Allergy Hives Verified 04/27/17 13:40 [From Zofran (as hydrochloride)] Penicillins [PCN] Allergy THROAT Verified 04/27/17 13:40 SWELLING Sulfa (Sulfonamide Allergy THROAT Verified 04/27/17 13:40 Antibiotics) SWELLING tape Allergy Blister Uncoded 04/27/17 13:40 - Meds/Allergy Pre-op Review Medications Reviewed: Yes Allergies Reviewed: Yes Beta Blockers on Current Med List: No Anesthesia Results - Labs 05/04/17 03:41 05/04/17 03:41 Anesthesia Exam O2 Sat Weight 154 kg O2 Sat by Pulse Oximetry 95 O2 Sat by Pulse Oximetry 97 O2 Sat by Pulse Oximetry 96 O2 Sat by Pulse Oximetry 97 O2 Sat by Pulse Oximetry 94 O2 Sat by Pulse Oximetry 95 O2 Sat by Pulse Oximetry 95 O2 Sat by Pulse Oximetry 95 O2 Sat by Pulse Oximetry 92 Vital Signs Temp Pulse Resp BP Pulse Ox 97.7 F 96 16 139/92 98 04/27/17 13:36 04/27/17 13:36 04/27/17 13:36 04/27/17 13:36 04/27/17 13:36 Height: 5'5 Weight: 340 lbs NPO (# of Hours): MN Pain Scale: 0 - HEENT Pupil (Motor): Pupils equal, EOMI Mallampati: III Teeth: Normal Oral Opening: Less than or equal to 3 - COAL HANDLER LOC: Oriented COAL HANDLER Motor: Normal RUE, Normal LUE, Normal RLE, Normal LLE, Normal Face COAL HANDLER Sensory: Normal: RUE, LUE, RLE, LLE, Face - Cardiac Rhythm: Regular Murmur: None JVD: No Carotid Bruit: No - Pulmonary Breath Sounds: bilateral Clear Respiratory Effort: Symmetrical Anesthesia Assess/Plan ASA Score: 3 (HTN DM MO) Modified Troy Scale for Level of Consciousness: Cooperative, oriented, and tranquil Anesthetic Plan: MAC Monitoring Plan: Standard Monitors Recovery Plan: Other (Discussed MAC, agrees to proceed)
[2017-05-04] MEDS: Metoclopramide 10 MG/10 ML UD.LIQ PO SCH (19:06)
[2017-05-04] MEDS ORDERED: *HR* Propofol 200 MG/20 ML VIAL IVP ONE (19:58)
[2017-05-04] MEDS ORDERED: Lidocaine -MPF 2% 5 ML VIAL INFILT ONE (19:58)
[2017-05-04] MEDS ORDERED: 0.9 % Sodium Chloride 500 ML IVC ONE (21:50)
[2017-05-04] MEDS: Topiramate 100 MG TABLET PO SCH (22:13)
[2017-05-04] MEDS: Venlafaxine XR (24 HR) 37.5 MG CAP.ER.24H PO SCH (22:13)
[2017-05-05] MEDS: Metoclopramide 10 MG/10 ML UD.LIQ PO SCH ×5 (00:55→22:49)
[2017-05-05 04:30] LABS: Basophils % 0.6 %; Eosinophils # 0.8 K/mcL (0.0-0.6); Hemoglobin 13.6 g/dL (11.5-15.4); Immature Granulocytes % 0.7 % (0-4); Lymphocytes % 41.9 %; Mean Corpuscular HGB Conc 32.4 g/dL (31.6-35.5); Mean Corpuscular Hemoglobin 29.3 pg (28.0-33.3); Mean Corpuscular Volume 90.5 fL (83.0-100.0); Monocytes # 0.4 K/mcL (0.0-1.3); Monocytes % 5.5 %; Neutrophils # 2.9 K/mcL (1.6-8.9); Platelet Count 194 K/mcL (140-400); Red Blood Count 4.64 M/mcL (3.82-4.97); Red Cell Distribution Width 12.6 % (11.5-14.5); Segmented Neutrophils % 40.3 %
[2017-05-05 04:43] LABS: BUN/Creatinine Ratio 18 (6-26); Blood Urea Nitrogen 19 mg/dL (7-20); Calcium 8.8 mg/dL (8.6-10.8); Carbon Dioxide 20 mEq/L (19-29); Chloride 109 mEq/L (98-109); Glucose 99 mg/dL (70-99); Osmolality,Calculated 286 (280-300); Potassium 4.8 mEq/L (3.5-4.5); Sodium 137 mEq/L (136-145); eGFR For African Americans > 60 (> 60); eGFR For Non-African Americans 58 (> 60)
[2017-05-05] MEDS: Budesonide/Formoterol 160/4.5 MDI IH SCH ×2 (07:35→20:32)
[2017-05-05] MEDS ORDERED: 0.9 % Sodium Chloride 1,000 ML IVC SCH (08:30)
[2017-05-05] MEDS: Insulin LISPRO 300 UNITS/3 ML VIAL SQ SCH ×4 (08:35→22:49)
[2017-05-05] MEDS: lamoTRIgine 100 MG TABLET PO SCH ×2 (08:38→22:48)
[2017-05-05] MEDS: Loratadine 10 MG TABLET PO SCH (08:38)
[2017-05-05] MEDS: Topiramate 25 MG TABLET PO SCH (08:38)
[2017-05-05] MEDS: cloNIDine HCl 0.1 MG TABLET PO SCH ×2 (08:38→22:49)
[2017-05-05] MEDS: *HR* LORazepam 1 MG TABLET PO SCH ×2 (08:38→22:47)
[2017-05-05] MEDS: Famotidine 20 MG TABLET PO SCH ×2 (08:38→22:48)
[2017-05-05] MEDS: *HR* OxyCODONE/APAP 5/325 TABLET PO PRN ×3 (08:42→22:48)
--- NOTE | 2017-05-05 09:33 | Internal Med Progress Note ---
<Delfin Rodríguez - Last Filed: 05/05/17 15:33> Date of Encounter: 05/05/17 Time of Encounter: 08:45 - Assessment and plan (1) PNA (pneumonia) Current Visit: Yes Status: Acute Assessment and plan: Present on admission CT chest showed: "Focal consolidation in the left lower lobe evidence of acute pneumonia." Patient seems clinically improved, but insists on not feeling any better. Patient finished 8 days of abx. Qualifiers: Pneumonia type: due to unspecified organism Laterality: left Lung location: lower lobe of lung Qualified Code(s): J18.1 - Lobar pneumonia, unspecified organism (2) Dysphagia Current Visit: Yes Status: Chronic Assessment and plan: Patient has a history of not being able to swallow food and now has progressed to liquids, trouble swallowing is above collar bone. MBS - sallowing WNL w/o eviden of aspiration. CT soft tissue neck w/ con - no neck mass identified. Consulted GI yesterday for possible EGD EGD showed esophageal stricture. GI did not dilate at that time. Will refer for out patient follow up with GI Qualifiers: Dysphagia type: unspecified Qualified Code(s): R13.10 - Dysphagia, unspecified (3) Abdominal pain Current Visit: No Status: Acute Assessment and plan: pain not improved per patient. CT abd pelvis and abd U/S showed no acute issues. Patient seems clinically improved but insists on no improvement. EGD showed gastroparesis which may be the cause of her abdominal pain. Continue reglan continue percocet q6h for pain control Patient taking less doses of PRN pain meds Qualifiers: Abdominal location: generalized Qualified Code(s): R10.84 - Generalized abdominal pain (4) Depression (emotion) Current Visit: Yes Status: Acute Assessment and plan: Chronic. Stable. continue home meds. Patient insisting none of her symptoms are improved despite clinical improvement on exam and lab work. Will consider a psych referral for out patient. Qualifiers: Depression Type: major depressive disorder Major depression recurrence: single episode Active/Remission status: currently active Major depression episode severity: unspecified Qualified Code(s): F32.9 - Major depressive disorder, single episode, unspecified (5) Nausea Current Visit: Yes Status: Acute Assessment and plan: No improved per patient EGD showed gastroparesis which may be the cause of patient's nausea Switched patient from Compazine to Reglan which is shown to help with nausea and gastroparesis continue to monitor. (6) Dyspnea Current Visit: Yes Status: Acute Assessment and plan: No improvement per the patient but appears clinically improved possible PNA seen on CXR patient had 8 days of abx abx discontinued Patient on home oxygen. Qualifiers: Dyspnea type: unspecified Qualified Code(s): R06.00 - Dyspnea, unspecified (7) Diabetes mellitus Current Visit: No Status: Chronic Assessment and plan: Chronic, Stable -Sugars have been well controlled. -Continue SSI -Continue auchecks -Continue diabetic diet Qualifiers: Diabetes mellitus type: type 2 Diabetes mellitus complication status: with unspecified complications Diabetes mellitus fdc insulin use: without fdc use Qualified Code(s): E11.8 - Type 2 diabetes mellitus with unspecified complications (8) Factor 5 Leiden mutation, heterozygous Current Visit: No Status: Chronic Assessment and plan: chronic, stable. -no evidence of acute thrombosis -continue lovenox (9) Morbid obesity with BMI of 50.0-59.9, adult Current Visit: No Status: Chronic Assessment and plan: Chronic, stable. -f/u as Outpatient - Subjective Interval history: Yet again patient reports no change in sxs. Patient reports no improvement in any of her symptoms. She reports continued ABD pn, feeling like food goes not go down all the way when swallowing, Nausea, SOB. She denies Vomiting, Diarrhea, Fever. Patient had EGD yesterday which showed stricture and gastroparesis. Patient switched to reglan to help with her gastroparesis. - Constitutional Vitals: Temp Pulse Resp BP Pulse Ox 97.5 F L 65 16 87/53 95 05/05/17 07:59 05/05/17 07:59 05/05/17 07:59 05/05/17 07:59 05/05/17 07:59 General appearance: Present: mild distress, A&O X 3, morbidly obese - Head Head exam: Present: atraumatic, normocephalic - Eye Eye exam: Present: conjuntiva pink, sclera anicteric - Neck Neck exam general surgery: Present: supple, trachea midline - Respiratory Respiratory exam: Present: CTAB. Absent: accessory muscle use, rales, rhonchi, wheezes - Cardiovascular Cardiovascular exam: Present: RRR, +S1, +S2. Absent: diastolic murmur, gallop, rubs, systolic murmur - GI/Abdominal GI/Abdominal exam: Present: normal bowel sounds, soft, no peritoneal signs. Absent: tenderness - Extremities Exam Extremities exam: Present: warm, radial pulses palpable and symmetrical. Absent : calf tenderness, cyanotic, pedal edema - Neurological Exam Neurological exam: Present: oriented X3. Absent: facial droop, speech deficit - Psychiatric Psychiatric exam: Present: depressed, flat affect - Skin Skin exam: Present: dry, intact Internal Medicine: Result - Labs CBC & Chem 7: 05/05/17 04:13 05/05/17 04:13 Labs: Short CBC 05/05/17 Range/Units 04:13 WBC 7.1 (4.3-11.1) K/mcL Hgb 13.6 (11.5-15.4) g/dL Hct 42.0 (35.3-44.9) % Plt Count 194 (140-400) K/mcL Neutrophils # 2.9 (1.6-8.9) K/mcL BMP 05/05/17 04:13 Sodium 137 Potassium 4.8 H Chloride 109 Carbon Dioxide 20 BUN 19 Creatinine 1.03 Glucose 99 Calcium 8.8 - ABG Interpretation ABG results: PT/INR, D-dimer PT 11.6 Seconds (9.4-12.1) 04/27/17 15:41 Consult Discharge Plan - Plan Referrals: Misael Miller MD [Primary Care Provider] - 05/06/17 10:30 am <Sebastien López - Last Filed: 05/05/17 18:41> Date of Encounter: 05/05/17 - Assessment and plan (1) Gastroparesis Current Visit: Yes Status: Suspected (2) Left lower lobe pneumonia Current Visit: Yes Status: Suspected Qualifiers: Pneumonia type: aspiration pneumonia Qualified Code(s): J69.0 - Pneumonitis due to inhalation of food and vomit (3) Severe nausea Current Visit: Yes Status: Acute (4) Dysphagia Current Visit: Yes Status: Chronic Qualifiers: Dysphagia type: unspecified Qualified Code(s): R13.10 - Dysphagia, unspecified (5) Pulmonary embolism Current Visit: No Status: Resolved Qualifiers: Pulmonary embolism type: saddle Chronicity: unspecified Acute cor pulmonale presence: without acute cor pulmonale Qualified Code(s): I26.92 - Saddle embolus of pulmonary artery without acute cor pulmonale (6) Diabetes mellitus Current Visit: No Status: Chronic Qualifiers: Diabetes mellitus type: type 2 Diabetes mellitus complication status: with unspecified complications Diabetes mellitus fdc insulin use: without keno terminal operator use Qualified Code(s): E11.8 - Type 2 diabetes mellitus with unspecified complications (7) Chronic respiratory failure with hypoxia Current Visit: Yes Status: Chronic - Constitutional Vitals: Temp Pulse Resp BP Pulse Ox 97.4 F L 66 17 94/60 95 05/05/17 11:55 05/05/17 11:55 05/05/17 11:55 05/05/17 11:55 05/05/17 11:55 Internal Medicine: Result - Labs CBC & Chem 7: 05/05/17 04:13 05/05/17 04:13 Labs: Short CBC 05/05/17 Range/Units 04:13 WBC 7.1 (4.3-11.1) K/mcL Hgb 13.6 (11.5-15.4) g/dL Hct 42.0 (35.3-44.9) % Plt Count 194 (140-400) K/mcL Neutrophils # 2.9 (1.6-8.9) K/mcL BMP 05/05/17 04:13 Sodium 137 Potassium 4.8 H Chloride 109 Carbon Dioxide 20 BUN 19 Creatinine 1.03 Glucose 99 Calcium 8.8 - ABG Interpretation ABG results: PT/INR, D-dimer PT 11.6 Seconds (9.4-12.1) 04/27/17 15:41 - Attending Attestation I examined this patient and my medical decision-making was reviewed with the Resident Physician on 05/05/17. I agree with the documented findings, disposition and treatment plan as described except to the extent set forth below. Ms. Mitchell is currently in observation for pneumonia, dysphagia and intractable N /V due to gastroparesis. Ms Mitchell says she does not feel much better. No CP. No fever or chills. BP was low last night. Exam Alert. Comfortable Mucus membranes moist Heart reg No wheeze I/P 1. Dysphagia 2. PNA 3. Gastroparesis. Further diagnoses and plan as above.
[2017-05-05] MEDS: *HR* Enoxaparin 150 MG/ML SYRINGE SQ SCH ×2 (12:05→22:47)
[2017-05-05] MEDS: Venlafaxine XR (24 HR) 37.5 MG CAP.ER.24H PO SCH (22:47)
[2017-05-05] MEDS: Topiramate 100 MG TABLET PO SCH (22:48)
[2017-05-06 04:27] LABS: Basophils % 0.6 %; Eosinophils # 0.7 K/mcL (0.0-0.6); Eosinophils % 10.1 %; Hematocrit 41.7 % (35.3-44.9); Hemoglobin 13.5 g/dL (11.5-15.4); Immature Granulocytes % 0.5 % (0-4); Lymphocytes # 2.2 K/mcL (0.6-4.6); Lymphocytes % 34.4 %; Mean Corpuscular HGB Conc 32.4 g/dL (31.6-35.5); Mean Corpuscular Hemoglobin 29.7 pg (28.0-33.3); Mean Corpuscular Volume 91.6 fL (83.0-100.0); Mean Platelet Volume 12.1 fL (9.4-12.4); Monocytes # 0.3 K/mcL (0.0-1.3); Neutrophils # 3.2 K/mcL (1.6-8.9); Platelet Count 218 K/mcL (140-400); Red Blood Count 4.55 M/mcL (3.82-4.97); Red Cell Distribution Width 12.4 % (11.5-14.5); Segmented Neutrophils % 49.4 %
[2017-05-06 04:45] LABS: BUN/Creatinine Ratio 16 (6-26); Blood Urea Nitrogen 17 mg/dL (7-20); Calcium 8.9 mg/dL (8.6-10.8); Carbon Dioxide 24 mEq/L (19-29); Chloride 109 mEq/L (98-109); Glucose 96 mg/dL (70-99); Osmolality,Calculated 291 (280-300); Potassium 3.8 mEq/L (3.5-4.5); Sodium 140 mEq/L (136-145); eGFR For African Americans > 60 (> 60); eGFR For Non-African Americans 56 (> 60)
[2017-05-06] MEDS: Metoclopramide 10 MG/10 ML UD.LIQ PO SCH ×2 (05:30→12:04)
[2017-05-06 07:18] VITALS: BP 112/71
[2017-05-06] MEDS: Budesonide/Formoterol 160/4.5 MDI IH SCH (07:43)
[2017-05-06] MEDS: lamoTRIgine 100 MG TABLET PO SCH (07:48)
[2017-05-06] MEDS: *HR* OxyCODONE/APAP 5/325 TABLET PO PRN (07:48)
[2017-05-06] MEDS: Famotidine 20 MG TABLET PO SCH (07:48)
[2017-05-06] MEDS: Topiramate 25 MG TABLET PO SCH (07:49)
[2017-05-06] MEDS: cloNIDine HCl 0.1 MG TABLET PO SCH (07:49)
[2017-05-06] MEDS: Loratadine 10 MG TABLET PO SCH (07:49)
[2017-05-06] MEDS: *HR* LORazepam 1 MG TABLET PO SCH (07:49)
[2017-05-06] MEDS: Insulin LISPRO 300 UNITS/3 ML VIAL SQ SCH ×2 (07:49→12:05)
--- NOTE | 2017-05-06 09:06 | Discharge Summary ---
<Delfin Rodríguez - Last Filed: 05/06/17 12:50> Date of Encounter: 05/06/17 Time of Encounter: 09:06 - Discharge Diagnosis (1) PNA (pneumonia) Priority: Secondary Status: Acute Qualifiers: Pneumonia type: due to unspecified organism Laterality: left Lung location: lower lobe of lung Qualified Code(s): J18.1 - Lobar pneumonia, unspecified organism (2) Dysphagia Priority: Secondary Status: Chronic Qualifiers: Dysphagia type: unspecified Qualified Code(s): R13.10 - Dysphagia, unspecified (3) Abdominal pain Priority: Secondary Status: Acute Qualifiers: Abdominal location: generalized Qualified Code(s): R10.84 - Generalized abdominal pain (4) Depression (emotion) Priority: Secondary Status: Acute Qualifiers: Depression Type: major depressive disorder Major depression recurrence: single episode Active/Remission status: currently active Major depression episode severity: unspecified Qualified Code(s): F32.9 - Major depressive disorder, single episode, unspecified (5) Nausea Priority: Primary Status: Acute (6) Dyspnea Priority: Secondary Status: Acute Qualifiers: Dyspnea type: unspecified Qualified Code(s): R06.00 - Dyspnea, unspecified (7) Diabetes mellitus Priority: Secondary Status: Chronic Qualifiers: Diabetes mellitus type: type 2 Diabetes mellitus complication status: with unspecified complications Diabetes mellitus terminal supervisor insulin use: without terminal supervisor use Qualified Code(s): E11.8 - Type 2 diabetes mellitus with unspecified complications (8) Factor 5 Leiden mutation, heterozygous Priority: Secondary Status: Chronic (9) Morbid obesity with BMI of 50.0-59.9, adult Priority: Secondary Status: Chronic - Discharge Medications Prescriptions: Metoclopramide [Reglan] 5 mg PO Q6HR #120 tab Home Medications: Albuterol Sulfate [Proair Respiclick] 2 puff PO Q4H PRN #0 04/10/15 [History] Budesonide/Formoterol 160/4.5 [Symbicort 160/4.5] 2 puff IH BIDR #0 04/10/15 [ History] Ipratropium/Albuterol Neb [Duoneb] 3 ml IH QIDR PRN 04/10/15 [History] Montelukast [Singulair] 10 mg PO HS 04/10/15 [History] Topiramate [Topamax] 150 mg PO HS 04/10/15 [History] raNITIdine HCl [Ranitidine HCl] 150 mg PO BID 04/10/15 [History] Doxepin [Sinequan] 25 - 50 mg PO HS 08/14/15 [History] Venlafaxine XR (24 HR) [Effexor Xr] 75 mg PO HS 08/14/15 [History] Buspirone HCl [Buspar] 10 mg PO BID 09/17/15 [History] Furosemide [Lasix] 40 mg PO DAILY 09/17/15 [History] Oxygen 2 l NS AD 09/17/15 [History] SUMAtriptan Succinate [Imitrex] 100 mg PO DAILY PRN 09/17/15 [History] cloNIDine HCl [CloNIDine HCl] 0.1 mg PO BID 09/17/15 [History] Potassium Chloride [K-Tab ER] 10 meq PO DAILY 01/20/16 [History] Trazodone HCl [TraZODone] 100 mg PO HS PRN 01/20/16 [History] LORazepam [Ativan] 1 mg PO BID 03/03/16 [History] Cetirizine HCl [All Day Allergy] 10 mg PO DAILY 08/26/16 [History] Gabapentin 800 mg PO TID 08/26/16 [History] lamoTRIgine [Lamictal] 100 mg PO BID 08/26/16 [History] metOLazone [Metolazone] 2.5 mg PO DAILY 08/26/16 [History] Acetaminophen [Tylenol] 1,000 mg PO Q6HR PRN 09/04/16 [History] Albuterol Neb [Proventil Neb] 2.5 mg IH Q4HR #30 vial.neb 01/30/17 [Rx] Albuterol Sulfate [Albuterol Inhaler] 2 puff IH Q4HR #1 hfa.aer.ad 01/30/17 [Rx] Enoxaparin [Lovenox] 150 mg SQ Q12H #60 syringe 03/04/17 [Rx] Topiramate [Topamax] 50 mg PO DAILY 03/04/17 [History] Promethazine [Phenergan] 12.5 mg PO Q8HR PRN #10 tablet 03/17/17 [Rx] Atorvastatin [Lipitor] 10 mg PO HS 04/27/17 [History] Dulaglutide [Trulicity] 1.5 mg SQ QWEEK 04/27/17 [History] Oxycodone HCl/Acetaminophen [Percocet 5-325 mg Tablet] 1 tab PO Q6H PRN [History] Metoclopramide [Reglan] 5 mg PO Q6HR #120 tab 05/06/17 [Rx] Allergies/Adverse Reactions: 3 Allergy/AdvReac Type Severity Reaction Status Date / Time codeine Allergy Hives,SWELL Verified 04/27/17 13:40 ING Erythromycin Base Allergy THROAT Verified 04/27/17 13:40 SWELLING ondansetron Allergy Hives Verified 04/27/17 13:40 [From Zofran (as hydrochloride)] Penicillins [PCN] Allergy THROAT Verified 04/27/17 13:40 SWELLING Sulfa (Sulfonamide Allergy THROAT Verified 04/27/17 13:40 Antibiotics) SWELLING tape Allergy Blister Uncoded 04/27/17 13:40 Procedures/tests Complete & Pending: CTA Chest: "FINDINGS: Pulmonary Arteries: Study is of good technical quality for evaluation of pulmonary embolism. There are no filling defects to suggest pulmonary embolism. Main pulmonary artery is normal in caliber. No evidence of right ventricular strain. Mediastinum: The heart size is normal. Aorta is normal in caliber. Superior mediastinum is normal. No mediastinal or hilar lymph node enlargement. Lungs/pleura: The airways are patent. No pleural fluid. Focal consolidation in the superior segment of the left lower lobe new from prior exam. Upper Abdomen: Visualized abdominal structures in the upper abdomen are normal. Soft Tissues/Bones: No skeletal abnormalities throughout the chest. CT/CT angio chest IMPRESSION: 1. No pulmonary embolism. 2. Focal consolidation in the left lower lobe evidence of acute pneumonia. Follow-up imaging recommended to ensure resolution." Swallow Study: "FINDINGS: Oral phase of swallowing was grossly within normal limits. No evidence of laryngeal penetration or aspiration. XR/XR modified bs w speech therap IMPRESSION: Swallowing mechanism grossly within normal limits without evidence of aspiration. Please see separate speech pathology report for full discussion of findings and recommendations. ' Diagnostic Impressions Patient presents with a functional swallow evidenced by normal oral motor skills, normal tongue based retraction, normal hyolaryngeal elevation, and normal pharyngeal constriction. Patient was given trials of pureed textures, regular textures, and thin liquids and tolerated all without oral difficulties, pooling, swallow delay, penetration, aspiration, or residue. Patient c/o globus sensation, however, no residue was observed. It is recommended that patient continue wtih soft diet with thin liquids. It is also recommended that patient's esophageal function be assessed. Swallow therapy is not warranted at this time." CT soft tissue neck: FINDINGS: PHARYNX/LARYNX: The parapharyngeal fat spaces are preserved. There is radiopaque material noted on the patient's tongue which may be related to oral contrast or ingested material. No tongue base mass is identified. The vallecula, epiglottis, aryepiglottic folds, and true vocal cords are unremarkable. SALIVARY GLANDS/THYROID: There is a low-attenuation nodule noted in the right lobe of the thyroid gland measuring approximately 9 mm in diameter. No further follow-up imaging is required. The submandibular and parotid glands are unremarkable. LYMPH NODES: There is no cervical lymphadenopathy. SOFT TISSUES: There is no appreciable soft tissue swelling. No neck mass is identified. BRAIN/ORBITS/SINUSES: Limited images through the cerebral and cerebellar parenchyma are unremarkable. The orbits are unremarkable. The paranasal sinuses and mastoid air cells are well-aerated. LUNG APICES/SUPERIOR MEDIASTINUM: There is no superior mediastinal lymphadenopathy. Images through the lung apices are unremarkable. BONES: There are degenerative changes noted in the spine. There is a segmentation anomaly between the C2 and C3 vertebral bodies. No fracture. CT/CT soft tissue neck w con IMPRESSION: 1. There is no neck mass identified to account for the patient's difficulty swallowing and choking. 2. There is radiopaque material noted in the patient's oral cavity and pharynx, likely related to oral contrast or ingested material. 3. No cervical lymphadenopathy. CT Abd/Pelvis: FINDINGS: Lower Chest: Dense anterior left lower lobe consolidation marginating the major fissure has increased. No pleural effusion. The right lung base is clear. Organs: The attenuation of the liver is mildly diffusely decreased suspicious for fatty infiltration. No focal hepatic lesion. The gallbladder is surgically absent. No significant intra/extrahepatic biliary ductal dilation is identified. The spleen, pancreas, adrenal glands, and kidneys show no acute abnormality. GI/Bowel: The bowel shows normal caliber and course. Normal appendix. There are several sigmoid colonic diverticula without evidence of active inflammation. Pelvis: The uterus is not visualized, presumably surgically absent. The urinary bladder is mildly distended but otherwise unremarkable. Peritoneum/Retroperitoneum: The aorta is normal in caliber and course. A filter is present within the inferior vena cava with its tip just below the level the renal veins. Bones/Soft Tissues: No acute or focal bony abnormality. There is soft tissue attenuation as well as some gas within the subcutaneous fat of the lower anterior abdominal wall presumably related to subcutaneous injections. CT/CT abd pelvis w iv and oral IMPRESSION: Increased dense consolidation of the left lower lobe likely pneumonia. Follow-up to resolution is recommended. Suspected fatty infiltration of the liver. Abd U/S: "FINDINGS: LIVER: The overall echogenicity of the liver is increased compatible with fatty infiltration. No focal hepatic lesion. BILIARY SYSTEM: The gallbladder is surgically absent. Common bile duct is somewhat prominent measuring 9 mm. RIGHT KIDNEY: The right kidney is grossly unremarkable without evidence of hydronephrosis. PANCREAS: Not well visualized. OTHER: No evidence of right upper quadrant ascites. US/US liver IMPRESSION: Fatty infiltration of the liver. Mild prominence of the common duct measuring up to 1 cm status post cholecystectomy. Prominence of the common duct is likely related to the patient's age and postcholecystectomy state. Correlation to exclude biliary obstruction is recommended" Endoscopy Report: "Distal esophageal Stricture, ? Short section of Lauri's Diffuse gastritis, Gastroparesis suggested, antral edema, normal bulb and second part of duodenum, no biopsies as patient was anticoagulated with lovenox and had been on plavix Date of admission: 04/27/17 19:57 Primary care physician: Misael Miller MD Consults: 04/27/17 22:17 Consult to Nutrition [CONS] Routine Comment: Consulting Provider: NUTRITION Reason for Dietary Consult: MST Score 04/28/17 11:16 Consult to Speech Therapy [CONS] Routine Comment: Evaluate, develop and implement POC Reason for Consult: inability to swallow food Call Completed: Yes Discharging clinician: Delfin Rodríguez Anticipated date of discharge: 05/06/17 - Patient Status Disposition: Home, Self-Care Condition: Fair Functional capacity at discharge: independent ambulation Overall status at discharge: patient is progressing back to baseline - Discharge Instructions Instructions: Metoclopramide (By mouth), Depression (DC), Pneumonia (DC) Follow Up With: Misael Miller MD [Primary Care Provider] - 05/06/17 10:30 am Ambar Mckinnon MD [Partnered Physician] - 06/03/17 3:50 pm Additional Instructions: Please follow up with your primary care provider within 1 week of discharge. Please follow up with Gastroenterology within the next month as scheduled. Please continue to hydrate and eat. Please resume all your home medications. Please take the new medication reglan as prescribed. Please return to the hospital if you experience any new or worsening symptoms. - Diet and Activity Activity: resume usual activities as tolerated Diet: advance to your usual diet (as tolerated) Interval History: Patient reports some improvement in her nausea and abdominal pain. Patient will be advanced in her diet and sent home later today. Hospital course: Ms. Mitchell is a 46 year old female asthma, DVT, diabetes, pulmonary embolus, renal disease, anxiety, panic disorder, cholecystectomy, hysterectomy, who reported to the hospital complaining of N, V, Abd pain and SOB for 3 days. Patient was found to have a LLL pneumonia on CT scan. She was treated with 6 days of Ceftriaxone and 2 days of doxycycline. Patient's N, V, abd pain were worked up with CT Abd, pelvis, and abd U/S which were both normal. She was given IV nausea medication. Patient also was complaining of dysphagia that had been going on for a month. She was worked up with a Barrium Swallow, CT neck soft tissue and speech evaluation. All of these turned up normal. GI was consulted and an EGD was performed, which showed esophageal stricture and gastroparesis which likely exaplain her dysphagia, Nausea, and Abd pain. She was started on Reglan with improvement of her symptoms. She was discharged home in stable condition. - Time Spent with Patient Total time spent providing and/or coordinating discharge services: 40 minutes - Constitutional Vitals: Temp Pulse Resp BP Pulse Ox 97.4 F L 64 18 112/71 98 05/06/17 07:13 05/06/17 07:13 05/06/17 07:45 05/06/17 07:13 05/06/17 07:53 General appearance: Present: mild distress, A&O X 3, morbidly obese - Head Head exam: Present: atraumatic, normocephalic - Eye Eye exam: Present: PERRL, conjuntiva pink, sclera anicteric Pupils: Present: PERRL - Neck Neck exam general surgery: Present: supple, trachea midline. Absent: lymphadenopathy - Respiratory Respiratory exam: Present: CTAB. Absent: accessory muscle use, rales, rhonchi, wheezes - Cardiovascular Cardiovascular exam: Present: RRR, +S1, +S2. Absent: diastolic murmur, gallop, rubs, systolic murmur - GI/Abdominal GI/Abdominal exam: Present: normal bowel sounds, soft, no peritoneal signs. Absent: distended, tenderness - Extremities Exam Extremities exam: Present: warm. Absent: calf tenderness, cyanotic, pedal edema - Neurological Exam Neurological exam: Present: alert, CN II-XII intact, oriented X3, no focal deficits. Absent: pronater drift, facial droop, speech deficit - Skin Skin exam: Present: dry, intact, warm <Sebastien López - Last Filed: 05/06/17 17:18> Date of Encounter: 05/06/17 - Discharge Diagnosis (1) Gastroparesis Priority: Primary Status: Suspected (2) Left lower lobe pneumonia Priority: Primary Status: Suspected Qualifiers: Pneumonia type: aspiration pneumonia Qualified Code(s): J69.0 - Pneumonitis due to inhalation of food and vomit (3) Severe nausea Priority: Primary Status: Acute (4) Dysphagia Status: Chronic Qualifiers: Dysphagia type: unspecified Qualified Code(s): R13.10 - Dysphagia, unspecified (5) Pulmonary embolism Priority: Secondary Status: Resolved Qualifiers: Pulmonary embolism type: saddle Chronicity: unspecified Acute cor pulmonale presence: without acute cor pulmonale Qualified Code(s): I26.92 - Saddle embolus of pulmonary artery without acute cor pulmonale (6) Diabetes mellitus Status: Chronic Qualifiers: Diabetes mellitus type: type 2 Diabetes mellitus complication status: with unspecified complications Diabetes mellitus terminal supervisor insulin use: without residential use Qualified Code(s): E11.8 - Type 2 diabetes mellitus with unspecified complications (7) Chronic respiratory failure with hypoxia Priority: Secondary Status: Chronic Date of admission: 04/27/17 19:57 Primary care physician: Misael Miller MD Consults: 04/27/17 22:17 Consult to Nutrition [CONS] Routine Comment: Consulting Provider: NUTRITION Reason for Dietary Consult: MST Score 04/28/17 11:16 Consult to Speech Therapy [CONS] Routine Comment: Evaluate, develop and implement POC Reason for Consult: inability to swallow food Call Completed: Yes Hospital course: Ms. Mitchell is a 46 year old female - Time Spent with Patient Total time spent providing and/or coordinating discharge services: - Constitutional Vitals: Temp Pulse Resp BP Pulse Ox 97.4 F L 64 18 112/71 98 05/06/17 07:13 05/06/17 07:13 05/06/17 07:45 05/06/17 07:13 05/06/17 07:53 - Attending Attestation I examined this patient and my medical decision-making was reviewed with the Resident Physician on 05/06/17. I agree with the documented findings, disposition and treatment plan as described except to the extent set forth below. Ms Mitchell was able to tolerate some soft food today. She still has some nausea but is using less antiemetics since starting Reglan. She is afebrile with stable vitals and will be discharged today. Exam Alert. Resting comfortably in bed Mucus membranes moist Heart reg No wheeze Abd soft Plan D/C home today Reglan Follow up with PCP
[2017-05-06] MEDS: *HR* Enoxaparin 150 MG/ML SYRINGE SQ SCH (12:04)
== END 2017-05-06 14:52 | disposition home or self-care (01) ==
LOC: 2ANU 13:27 → EMEROO 13:27 → SUATTDRO 19:57 → 2ANU 21:19
PROVIDERS: ADMIT Internal Medicine Hematology & Oncology; ATTEND Internal Medicine
PROC: ENDOEBX (2017-05-04 13:00)

== ENCOUNTER 2017-05-11 03:30 | Inpatient (IN) ==
--- NOTE | 2017-05-11 04:02 | Emergency Department Note ---
Disposition Clinical Impression: Chest pain, Chest pain, atypical, Factor 5 Leiden mutation, heterozygous, PNA ( pneumonia) Disposition: Admitted As Inpatient Condition: Fair Time of Disposition: 06:35 SOB HPI - General Chief Complaint: ED Shortness of Breath/Dyspnea Stated Complaint: manpreet Time Seen by Provider: 05/11/17 03:36 Source: patient Mode of arrival: ambulatory Limitations: no limitations Nursing Notes Reviewed: Yes Vital Signs Reviewed: Yes - History of Present Illness Patient presents to the ED with the chief complaint of shortness of breath. Patient reports that she was recently discharged from the hospital after being diagnosed with pneumonia. States that about 2 days after she was discharged she started feeling short of breath began having a productive cough and chills. Reports that this is gotten worse in the last 2 days. Reports several episodes of posttussive emesis in the last 2 days. Reports this evening that her difficulty breathing got worse. She does have a history of factor V Leiden deficiency and does take Lovenox. Denies any nausea or abdominal pain. Denies any chest pain other than when she is coughing or when she feels like she is having trouble breathing. She describes it as a very sharp stabbing retrosternal and epigastric pain. Nonradiating. Similar pain to when she had pneumonia before. - Related Data Home Medications Medication Instructions Recorded Confirmed Albuterol Sulfate [Proair 2 puff PO Q4H PRN #0 04/10/15 04/27/17 Respiclick] Budesonide/Formoterol 160/4.5 2 puff IH BIDR #0 04/10/15 04/27/17 [Symbicort 160/4.5] Ipratropium/Albuterol Neb [Duoneb] 3 ml IH QIDR PRN 04/10/15 04/27/17 Montelukast [Singulair] 10 mg PO HS 04/10/15 04/27/17 Topiramate [Topamax] 150 mg PO HS 04/10/15 04/27/17 raNITIdine HCl [Ranitidine HCl] 150 mg PO BID 04/10/15 04/27/17 Doxepin [Sinequan] 25 - 50 mg PO HS 08/14/15 04/27/17 Venlafaxine XR (24 HR) [Effexor Xr] 75 mg PO HS 08/14/15 04/27/17 Buspirone HCl [Buspar] 10 mg PO BID 09/17/15 04/27/17 Furosemide [Lasix] 40 mg PO DAILY 09/17/15 04/27/17 Oxygen 2 l NS AD 09/17/15 04/27/17 SUMAtriptan Succinate [Imitrex] 100 mg PO DAILY PRN 09/17/15 04/27/17 cloNIDine HCl [CloNIDine HCl] 0.1 mg PO BID 09/17/15 04/27/17 Potassium Chloride [K-Tab ER] 10 meq PO DAILY 01/20/16 04/27/17 Trazodone HCl [TraZODone] 100 mg PO HS PRN 01/20/16 04/27/17 LORazepam [Ativan] 1 mg PO BID 03/03/16 04/27/17 Cetirizine HCl [All Day Allergy] 10 mg PO DAILY 08/26/16 04/27/17 Gabapentin 800 mg PO TID 08/26/16 04/27/17 lamoTRIgine [Lamictal] 100 mg PO BID 08/26/16 04/27/17 metOLazone [Metolazone] 2.5 mg PO DAILY 08/26/16 04/27/17 Acetaminophen [Tylenol] 1,000 mg PO Q6HR PRN 09/04/16 04/27/17 Topiramate [Topamax] 50 mg PO DAILY 03/04/17 04/27/17 Atorvastatin [Lipitor] 10 mg PO HS 04/27/17 04/27/17 Dulaglutide [Trulicity] 1.5 mg SQ QWEEK 04/27/17 04/27/17 Oxycodone HCl/Acetaminophen 1 tab PO Q6H PRN 04/27/17 04/27/17 [Percocet 5-325 mg Tablet] Previous Rx's Medication Instructions Recorded Albuterol Neb [Proventil Neb] 2.5 mg IH Q4HR #30 vial.neb 01/30/17 Albuterol Sulfate [Albuterol 2 puff IH Q4HR #1 hfa.aer.ad 01/30/17 Inhaler] Enoxaparin [Lovenox] 150 mg SQ Q12H #60 syringe 03/04/17 Promethazine [Phenergan] 12.5 mg PO Q8HR PRN #10 tablet 03/17/17 Metoclopramide [Reglan] 5 mg PO Q6HR #120 tab 05/06/17 Allergies Allergy/AdvReac Type Severity Reaction Status Date / Time codeine Allergy Hives,SWELL Verified 04/27/17 13:40 ING Erythromycin Base Allergy THROAT Verified 04/27/17 13:40 SWELLING ondansetron Allergy Hives Verified 04/27/17 13:40 [From Zofran (as hydrochloride)] Penicillins [PCN] Allergy THROAT Verified 04/27/17 13:40 SWELLING Sulfa (Sulfonamide Allergy THROAT Verified 04/27/17 13:40 Antibiotics) SWELLING tape Allergy Blister Uncoded 04/27/17 13:40 All systems ED: reviewed and negative except as stated. Constitutional: Reports: chills Cardiovascular: Reports: chest pain Respiratory: Reports: cough, dyspnea Gastrointestinal: Reports: vomiting Genitourinary: Denies: dysuria Past Medical History - Past Medical History Attestation: Yes The following information was validated with the patient. 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 - Social History Smoking Status: Never smoker Smokeless Tobacco Status: No Alcohol use: Reports: none Drug use: Reports: none Physical Exam - General Limitations: no limitations General appearance: alert, in no apparent distress - Head Head exam: atraumatic, normocephalic, normal inspection - Eye Eye exam: Present: normal appearance, PERRL, EOMI - ENT ENT exam: normal exam, normal oropharynx, mucous membranes moist - Neck Neck exam: Present: normal inspection, full ROM, trachea midline - Chest Chest inspection: Present: normal inspection, symmetric chest wall rise, tenderness - Respiratory Respiratory exam: Present: wheezes. Absent: normal lung sounds bilaterally, respiratory distress - Cardiovascular Cardiovascular exam: Present: regular rate, normal rhythm, normal heart sounds - Abdominal Exam Abdominal exam: Present: soft, Non-Tender, other (obese). Absent: tenderness, distention, guarding, rebound, rigidity - Extremities Exam Extremities exam: Present: normal inspection, full ROM. Absent: tenderness - Neurological Exam Neurological exam: Present: alert, oriented X3 - Psychiatric Psychiatric exam: Present: normal affect, normal mood - Skin Skin exam: Present: warm, dry, intact, normal color Course Course Narrative: 46-year-old female presenting with shortness of breath. History of factor V Leiden deficiency with recent admission for pneumonia. High-risk for PE. Hemodynamically stable. We will check labs and CTA chest. - Reevaluation(s) Reevaluation #1: CT was unremarkable for PE but did show persistent pneumonia, we will give a dose of antibiotics and admitted to the hospital. Will recommend pulmonology evaluation due to persistent airspace disease. Could be related to inadequate treatment previously, but patient may need bronchoscopy to further evaluate. Vital Signs Temperature 98.6 F 05/11/17 03:32 Pulse Rate 96 05/11/17 03:32 Respiratory Rate 24 05/11/17 03:32 Blood Pressure 154/88 05/11/17 03:32 O2 Sat by Pulse Oximetry 94 05/11/17 03:32 Temperature 98.6 F 05/11/17 03:32 Pulse Rate 81 05/11/17 05:17 Respiratory Rate 18 05/11/17 06:51 Blood Pressure 120/72 05/11/17 06:51 O2 Sat by Pulse Oximetry 97 05/11/17 05:17 Oxygen Delivery Oxygen Delivery Nasal Cannula Shortness of Breath/Dyspnea - Medical Records Medical records reviewed: Yes I reviewed the patient's medical records. - Lab Data Lab results reviewed: Yes I reviewed the patient's lab results. Result diagrams: 05/11/17 03:57 05/11/17 03:57 Lab Results 05/11/17 05/11/17 05/11/17 Range/Units 03:57 03:57 03:57 WBC 9.0 (4.3-11.1) K/mcL RBC 4.70 (3.82-4.97) M/mcL Hgb 13.9 (11.5-15.4) g/dL Hct 41.8 (35.3-44.9) % MCV 88.9 (83.0-100.0) fL MCH 29.6 (28.0-33.3) pg MCHC 33.3 (31.6-35.5) g/dL RDW 12.7 (11.5-14.5) % Plt Count 220 (140-400) K/mcL MPV 11.6 (9.4-12.4) fL Immature Gran % 0.3 (0-4) % Seg Neutrophils % 52.7 % Lymphocytes % 26.2 % Monocytes % 8.5 % Eosinophils % 11.7 % Basophils % 0.6 % Neutrophils # 4.8 (1.6-8.9) K/mcL Lymphocytes # 2.4 (0.6-4.6) K/mcL Monocytes # 0.8 (0.0-1.3) K/mcL Eosinophils # 1.1 H (0.0-0.6) K/mcL Basophils # 0.1 (0.0-0.2) K/mcL PT (9.4-12.1) Seconds INR APTT (26.0-36.0) Seconds Sodium 137 (136-145) mEq/L Potassium 3.9 (3.5-4.5) mEq/L Chloride 107 (98-109) mEq/L Carbon Dioxide 20 (19-29) mEq/L BUN 16 (7-20) mg/dL Creatinine 1.07 (0.57-1.11) mg/dL Est GFR ( Amer) > 60 (> 60) Est GFR (Non-Af Amer) 56 L (> 60) BUN/Creatinine Ratio 15 (6-26) Glucose 108 H (70-99) mg/dL Calculated Osmolality 286 (280-300) Lactic Acid 1.6 (0.5-2.2) mmol/L Calcium 9.6 (8.6-10.8) mg/dL Troponin I (0-0.03) ng/mL B-Natriuretic Peptide (0-100) pg/mL 05/11/17 05/11/17 05/11/17 Range/Units 03:57 03:57 03:57 WBC (4.3-11.1) K/mcL RBC (3.82-4.97) M/mcL Hgb (11.5-15.4) g/dL Hct (35.3-44.9) % MCV (83.0-100.0) fL MCH (28.0-33.3) pg MCHC (31.6-35.5) g/dL RDW (11.5-14.5) % Plt Count (140-400) K/mcL MPV (9.4-12.4) fL Immature Gran % (0-4) % Seg Neutrophils % % Lymphocytes % % Monocytes % % Eosinophils % % Basophils % % Neutrophils # (1.6-8.9) K/mcL Lymphocytes # (0.6-4.6) K/mcL Monocytes # (0.0-1.3) K/mcL Eosinophils # (0.0-0.6) K/mcL Basophils # (0.0-0.2) K/mcL PT 12.3 H (9.4-12.1) Seconds INR 1.1 APTT 32.2 (26.0-36.0) Seconds Sodium (136-145) mEq/L Potassium (3.5-4.5) mEq/L Chloride (98-109) mEq/L Carbon Dioxide (19-29) mEq/L BUN (7-20) mg/dL Creatinine (0.57-1.11) mg/dL Est GFR ( Amer) (> 60) Est GFR (Non-Af Amer) (> 60) BUN/Creatinine Ratio (6-26) Glucose (70-99) mg/dL Calculated Osmolality (280-300) Lactic Acid (0.5-2.2) mmol/L Calcium (8.6-10.8) mg/dL Troponin I 0.02 (0-0.03) ng/mL B-Natriuretic Peptide 21 (0-100) pg/mL - Radiology Data Radiology results reviewed: Yes I reviewed the patient's radiology results. - EKG Data EKG attestation: Yes I reviewed and interpreted this EKG. EKG results narrative: Sinus rhythm, rate 92, WI interval 184, QRS 106, QTc 412, normal axis, no acute ischemic changes S.B.A.R. - S.B.A.R. Situation: Demographics, MOA Background: Presenting Complaint, Relevant PMH, Meds, & Allergies Assessment: Vital Signs, Course and respsone to treatment, Exam Concerns, Patient/Family Expectation, Pertinant Lab Results, Outstanding Labs Recommendation: Barrier(s) to disposition, Recommendation based on pending studies, treatments, or consults S.B.A.R. Report Given to: Dr. Ledbetter S.B.A.RBridget Repor Time: 06:35 Attestation Statement - Attestation Attestation: I, Paramjit Fletcher MD, personally evaluated this patient and discussed their management with the resident physician. I reviewed the resident's note and agree with the documented findings, medical decision making, and plan of care. 46-year-old female presents to the emergency department with a complaint that she was admitted to the hospital last week with pneumonia and was discharged 5 days ago. She states they did not send her home on any antibiotics and that since going home she does not feel like she is getting any better. In fact she feels like over the last few days she has gotten worse. There is increased shortness of breath and increased cough. No definite fever. Some pain in her lungs with coughing or deep breathing. On examination patient is a well-developed morbidly obese female in no acute distress. She is alert and oriented 3. There is no cyanosis or diaphoresis. Patient is very anxious. Chest is nontender to palpation. Breath sounds are decreased bilaterally. No definite rales or wheezes noted. Heart regular rate and rhythm. Abdomen is soft and nontender with normal bowel sounds. Labs reviewed. EKG shows a normal sinus rhythm with no acute ischemic changes. Chest x-ray shows persistent left basilar pneumonia. CTA shows no evidence of pulmonary embolism. Persistent left basilar airspace disease, likely pneumonia. The hospitalist, Dr. Ledbetter, was consulted and accepted admission of the patient.
[2017-05-11 04:10] LABS: Basophils # 0.1 K/mcL (0.0-0.2); Basophils % 0.6 %; Eosinophils # 1.1 K/mcL (0.0-0.6); Eosinophils % 11.7 %; Hematocrit 41.8 % (35.3-44.9); Hemoglobin 13.9 g/dL (11.5-15.4); Immature Granulocytes % 0.3 % (0-4); Lymphocytes # 2.4 K/mcL (0.6-4.6); Lymphocytes % 26.2 %; Mean Corpuscular HGB Conc 33.3 g/dL (31.6-35.5); Mean Corpuscular Hemoglobin 29.6 pg (28.0-33.3); Mean Corpuscular Volume 88.9 fL (83.0-100.0); Mean Platelet Volume 11.6 fL (9.4-12.4); Monocytes # 0.8 K/mcL (0.0-1.3); Monocytes % 8.5 %; Neutrophils # 4.8 K/mcL (1.6-8.9); Platelet Count 220 K/mcL (140-400); Red Cell Distribution Width 12.7 % (11.5-14.5); Segmented Neutrophils % 52.7 %
[2017-05-11 04:13] LABS: INR 1.1; Prothrombin Time 12.3 Seconds (9.4-12.1)
[2017-05-11 04:15] LABS: Activated Partial Thrombo Time 32.2 Seconds (26.0-36.0)
[2017-05-11 04:22] LABS: BUN/Creatinine Ratio 15 (6-26); Blood Urea Nitrogen 16 mg/dL (7-20); Calcium 9.6 mg/dL (8.6-10.8); Carbon Dioxide 20 mEq/L (19-29); Chloride 107 mEq/L (98-109); Glucose 108 mg/dL (70-99); Osmolality,Calculated 286 (280-300); Potassium 3.9 mEq/L (3.5-4.5); Sodium 137 mEq/L (136-145); eGFR For African Americans > 60 (> 60); eGFR For Non-African Americans 56 (> 60)
[2017-05-11] MEDS ORDERED: *HR* Morphine 2 MG/ML SYRINGE IVP ONE (05:17)
[2017-05-11] MEDS ORDERED: Aspirin 325 MG TABLET PO ONE (06:21)
[2017-05-11] MEDS ORDERED: Levofloxacin 750 MG/150 ML 750 MG/150 ML BAG IVPB ONE (06:34)
[2017-05-11] MEDS ORDERED: *HR* Promethazine 25 MG/ML VIAL ONE (07:02)
[2017-05-11] MEDS: *HR* Promethazine 25 MG/ML VIAL IVP PRN ×2 (07:06→22:57)
[2017-05-11] MEDS ORDERED: Naloxone 0.4 MG/ML INJ IVP PRN (08:58)
[2017-05-11] MEDS ORDERED: Ipratropium/Albuterol Neb 3 ML IH PRN (09:14)
--- NOTE | 2017-05-11 09:40 | Internal Med History&Physical ---
Date of Encounter: 05/11/17 Time of Encounter: 08:20 Assessment and Plan (1) Chest pain Current visit: Yes Status: Acute Patient likely has chest pain related to gastritis/GERD/recent pneumonia. Continue telemetry monitoring, trend troponins, continue supportive care. Qualifiers: Chest pain type: chest pain on breathing Qualified Code(s): R07.1 - Chest pain on breathing (2) PNA (pneumonia) Current visit: Yes Status: Chronic Patient was recently diagnosed and treated with 8 days of antibiotics for left lower lobe pneumonia. CT angiogram of chest done in the emergency room shows no pulmonary emboli but left lower lobe consolidation, which has been treated. No fever or leukocytosis or evidence of sepsis. We will hold off on antibiotics at this time. Qualifiers: Pneumonia type: due to unspecified organism Laterality: left Lung location: lower lobe of lung Qualified Code(s): J18.1 - Lobar pneumonia, unspecified organism (3) Dysphagia Current visit: Yes Status: Chronic Patient reports ongoing dysphagia for at least more than 1-2 months. EGD done during previous admission reveals distal esophageal stricture, gastritis and antral edema suggestive of gastroparesis. Dilatation and biopsies were deferred as the patient is on anticoagulation with Lovenox for underlying hypercoagulable disorder. Will d/w GI for further theraoy. Continue PRN antiemetics and scheduled Reglan and PPI. Clear liquid diet as tolerated. Qualifiers: Dysphagia type: unspecified Qualified Code(s): R13.10 - Dysphagia, unspecified (4) Nausea Current visit: Yes Status: Chronic PRN antiemetics. (5) Anxiety Current visit: Yes Status: Chronic Continue when necessary benzodiazepines per home regimen. (6) Diabetes mellitus Current visit: Yes Status: Chronic Accu-Chek blood glucose monitoring with sliding scale insulin. Diabetic clear liquid diet as tolerated. 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 Continue therapeutic dose of twice daily subcutaneous Lovenox. Follows with hematology as outpatient. (8) Morbid obesity with BMI of 50.0-59.9, adult Current visit: Yes Status: Chronic (9) Depression (emotion) Current visit: Yes Status: Chronic Continue home medications. Qualifiers: Depression Type: major depressive disorder Major depression recurrence: single episode Active/Remission status: currently active Major depression episode severity: unspecified Qualified Code(s): F32.9 - Major depressive disorder, single episode, unspecified (10) Gastroparesis Current visit: Yes Status: Chronic (11) Chronic respiratory failure with hypoxia Current visit: Yes Status: Chronic Internal Medicine - H&P: HPI Chief complaint: Cough Admitted From: Emergency Dept Plans for Post Hospital Care: Home History of present illness: Ms. Mitchell is a 46 year old female with history of factor V Leyden deficiency, recently discharged from our hospital after being treated for dysphagia and left lower pneumonia, who presents with complaints of cough. Patient was noted to have had a prolonged hospitalization with multiple complaints and subjective reports of not feeling well and was discharged on May 06. She reports having a lot of dry cough since getting home, which continued to get worse, associated with chest pain "in her lungs". She has no fever, palpitations but does report dyspnea and chills. Her cough is constant with no positional or diurnal variation. No wheezing. She also underwent EGD during her previous hospitalization due to dysphagia, which showed esophageal stricture which according to the patient, has not been dilated and may be the reason for her cough. She currently continues to report dysphagia to solids and liquids. Past Med Surg Social Fam HX - Past Medical History Medical history: asthma, DVT, diabetes, GERD, pulmonary embolus, renal disease, other Psychiatric history: anxiety, panic disorder - Past Surgical History Surgical History: cholecystectomy, hysterectomy, orthopedic, other, other - Social History Smoking Status: Never smoker Smokeless Tobacco Status: No Alcohol use: none Drug use: none Occupational status: disabled Current living situation: Home, With Family Activity Level: Independent ambulation Recent Out of Country Travel Within the Last 8 Weeks: No Exposure or Possible Exposure to Illness During Travel: No - Family History Mother Family Member Ethnicity: Non- Living Status: Hx Family Cardiac Disorders: Yes (CT, CHF) Hx Family Respiratory Disorders: No Hx Family Cancer: Yes (Cervical) Hx Family GI Disorders: No Hx Family Endocrine Disorder: Yes (Hypoglycemia) Hx Family Neuromuscular Disorders: No Hx Family Neurologic Disorders: No Hx Family HEENT Disorders: No Hx Family Autoimmune Disorders: Yes (Factor V) Internal Medicine - H&P: Meds Albuterol Sulfate [Proair Respiclick] 2 puff PO Q4H PRN #0 04/10/15 [History] Budesonide/Formoterol 160/4.5 [Symbicort 160/4.5] 2 puff IH BIDR #0 04/10/15 [ History] Ipratropium/Albuterol Neb [Duoneb] 3 ml IH QIDR PRN 04/10/15 [History] Montelukast [Singulair] 10 mg PO HS 04/10/15 [History] Topiramate [Topamax] 150 mg PO HS 04/10/15 [History] raNITIdine HCl [Ranitidine HCl] 150 mg PO BID 04/10/15 [History] Doxepin [Sinequan] 25 - 50 mg PO HS 08/14/15 [History] Venlafaxine XR (24 HR) [Effexor Xr] 75 mg PO HS 08/14/15 [History] Buspirone HCl [Buspar] 10 mg PO BID 09/17/15 [History] Furosemide [Lasix] 40 mg PO DAILY 09/17/15 [History] Oxygen 2 l NS AD 09/17/15 [History] SUMAtriptan Succinate [Imitrex] 100 mg PO DAILY PRN 09/17/15 [History] cloNIDine HCl [CloNIDine HCl] 0.1 mg PO BID 09/17/15 [History] Potassium Chloride [K-Tab ER] 10 meq PO DAILY 01/20/16 [History] Trazodone HCl [TraZODone] 100 mg PO HS PRN 01/20/16 [History] LORazepam [Ativan] 1 mg PO BID 03/03/16 [History] Cetirizine HCl [All Day Allergy] 10 mg PO DAILY 08/26/16 [History] Gabapentin 800 mg PO TID 08/26/16 [History] lamoTRIgine [Lamictal] 100 mg PO BID 08/26/16 [History] metOLazone [Metolazone] 2.5 mg PO DAILY 08/26/16 [History] Acetaminophen [Tylenol] 1,000 mg PO Q6HR PRN 09/04/16 [History] Albuterol Neb [Proventil Neb] 2.5 mg IH Q4HR #30 vial.neb 01/30/17 [Rx] Albuterol Sulfate [Albuterol Inhaler] 2 puff IH Q4HR #1 hfa.aer.ad 01/30/17 [Rx] Enoxaparin [Lovenox] 150 mg SQ Q12H #60 syringe 03/04/17 [Rx] Topiramate [Topamax] 50 mg PO DAILY 03/04/17 [History] Promethazine [Phenergan] 12.5 mg PO Q8HR PRN #10 tablet 03/17/17 [Rx] Atorvastatin [Lipitor] 10 mg PO HS 04/27/17 [History] Dulaglutide [Trulicity] 1.5 mg SQ QWEEK 04/27/17 [History] Oxycodone HCl/Acetaminophen [Percocet 5-325 mg Tablet] 1 tab PO Q6H PRN [History] Metoclopramide [Reglan] 5 mg PO Q6HR #120 tab 05/06/17 [Rx] 3 Allergy/AdvReac Type Severity Reaction Status Date / Time codeine Allergy Hives,SWELL Verified 04/27/17 13:40 ING Erythromycin Base Allergy THROAT Verified 04/27/17 13:40 SWELLING ondansetron Allergy Hives Verified 04/27/17 13:40 [From Zofran (as hydrochloride)] Penicillins [PCN] Allergy THROAT Verified 04/27/17 13:40 SWELLING Sulfa (Sulfonamide Allergy THROAT Verified 04/27/17 13:40 Antibiotics) SWELLING tape Allergy Blister Uncoded 04/27/17 13:40 All Systems PM: A 10-system review of systems was performed and is negative for pertinent findings except as documented above in the HPI. - Constitutional Constitutional: no chills, no fever(s), no night sweats - EENT Eyes: no change in vision, no discharge, no pain, no photophobia Ears: no ear discharge, no ear pain, no tinnitus Nose, mouth and throat: no dysphagia, no nasal discharge, no neck pain, no sore throat - Cardiovascular Cardiovascular ROS IM: chest pain - Respiratory Respiratory: cough, dyspnea - Gastrointestinal Gastrointestinal: heartburn, nausea - Genitourinary Genitourinary: no change in urinary stream, no dysuria, no flank pain, no hematuria - Musculoskeletal Musculoskeletal ROS IM: no numbness, no tingling - Integumentary Integumentary IM: no rash, no unusual bruising - Neurological Neurological ROS: no confusion, no convulsions, no focal weakness, no numbness, no tingling, no tremor(s) - Hematologic/Lymphatic Hematologic/Lymphatic: no easy bruising - Constitutional Vitals: Temp Pulse Resp BP Pulse Ox 98.2 F 78 18 101/69 95 05/11/17 07:51 05/11/17 07:51 05/11/17 07:51 05/11/17 07:51 05/11/17 08:42 General appearance: Present: A&O X 3, morbidly obese, answers questions appropriately - Respiratory Respiratory exam: Present: CTAB. Absent: accessory muscle use, rales, rhonchi, wheezes - Cardiovascular Cardiovascular exam: Present: RRR, +S1, +S2. Absent: diastolic murmur, gallop, rubs, systolic murmur - GI/Abdominal GI/Abdominal exam: Present: normal bowel sounds, soft (Obese), no peritoneal signs. Absent: distended, tenderness - Extremities Exam Extremities exam: Present: full ROM, pedal edema, warm, radial pulses palpable and symmetrical. Absent: calf tenderness, cyanotic - Neurological Exam Neurological exam: Present: CN II-XII intact, oriented X3, no focal deficits. Absent: pronater drift, facial droop, speech deficit - Psychiatric Psychiatric exam: Present: depressed, flat affect - Skin Skin exam: Present: dry, intact Internal Med - H&P Results - Labs CBC & Chem 7: 05/11/17 03:57 05/11/17 03:57
[2017-05-11] MEDS: *HR* Enoxaparin 150 MG/ML SYRINGE SQ SCH ×2 (10:50→21:46)
[2017-05-11] MEDS: Budesonide/Formoterol 160/4.5 MDI IH SCH ×2 (10:59→20:05)
[2017-05-11] MEDS: Gabapentin 400 MG CAPSULE PO SCH ×2 (15:49→21:42)
[2017-05-11] MEDS: *HR* OxyCODONE/APAP 5/325 TABLET PO PRN ×2 (15:52→22:48)
[2017-05-11] MEDS: Benzonatate 100 MG CAPSULE PO PRN (15:52)
[2017-05-11] MEDS: Topiramate 100 MG TABLET PO SCH (21:41)
[2017-05-11] MEDS: lamoTRIgine 100 MG TABLET PO SCH (21:42)
[2017-05-11] MEDS: *HR* LORazepam 1 MG TABLET PO SCH (21:42)
[2017-05-11] MEDS: cloNIDine HCl 0.1 MG TABLET PO SCH (21:42)
[2017-05-11] MEDS: Venlafaxine XR (24 HR) 75 MG CAP.ER.24H PO SCH (22:50)
[2017-05-12 04:34] LABS: Basophils % 0.7 %; Eosinophils # 0.7 K/mcL (0.0-0.6); Eosinophils % 15.3 %; Hemoglobin 13.5 g/dL (11.5-15.4); Immature Granulocytes % 0.5 % (0-4); Lymphocytes % 50.7 %; Mean Corpuscular HGB Conc 36.5 g/dL (31.6-35.5); Mean Corpuscular Hemoglobin 33.8 pg (28.0-33.3); Mean Corpuscular Volume 92.5 fL (83.0-100.0); Monocytes # 0.4 K/mcL (0.0-1.3); Monocytes % 9.2 %; Platelet Count 162 K/mcL (140-400); Red Cell Distribution Width 13.1 % (11.5-14.5); Segmented Neutrophils % 23.6 %
[2017-05-12 04:39] LABS: Lymphocytes # 2.2 K/mcL (0.6-4.6)
[2017-05-12 04:46] LABS: BUN/Creatinine Ratio 14 (6-26); Blood Urea Nitrogen 12 mg/dL (7-20); Carbon Dioxide 23 mEq/L (19-29); Chloride 109 mEq/L (98-109); Glucose 109 mg/dL (70-99); Osmolality,Calculated 288 (280-300); Potassium 3.7 mEq/L (3.5-4.5); Sodium 139 mEq/L (136-145); eGFR For African Americans > 60 (> 60); eGFR For Non-African Americans > 60 (> 60)
[2017-05-12] MEDS: *HR* OxyCODONE/APAP 5/325 TABLET PO PRN ×3 (05:39→20:23)
[2017-05-12] MEDS: Budesonide/Formoterol 160/4.5 MDI IH SCH ×2 (07:51→20:17)
[2017-05-12] MEDS: lamoTRIgine 100 MG TABLET PO SCH ×2 (08:54→20:22)
[2017-05-12] MEDS: metOLazone 2.5 MG TABLET PO SCH (08:55)
[2017-05-12] MEDS: cloNIDine HCl 0.1 MG TABLET PO SCH ×2 (08:55→20:23)
[2017-05-12] MEDS: Topiramate 25 MG TABLET PO SCH (08:55)
[2017-05-12] MEDS: *HR* LORazepam 1 MG TABLET PO SCH ×2 (08:55→20:22)
[2017-05-12] MEDS: Gabapentin 400 MG CAPSULE PO SCH ×3 (08:55→20:22)
[2017-05-12] MEDS: Furosemide 40 MG TABLET PO SCH (08:56)
[2017-05-12] MEDS: *HR* Enoxaparin 150 MG/ML SYRINGE SQ SCH ×2 (09:00→20:21)
[2017-05-12] MEDS: *HR* Promethazine 25 MG/ML VIAL IVP PRN ×2 (09:00→15:51)
[2017-05-12] MEDS: Benzonatate 100 MG CAPSULE PO PRN ×2 (09:07→12:55)
--- NOTE | 2017-05-12 14:50 | Electrocardiograph Report ---
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
--- NOTE | 2017-05-12 18:23 | Internal Med Progress Note ---
Date of Encounter: 05/12/17 Time of Encounter: 14:21 - Assessment and plan (1) On anticoagulant therapy Current Visit: No Status: Chronic Assessment and plan: Continue with full dose Lovenox. (2) Diabetes mellitus Current Visit: Yes Status: Chronic Assessment and plan: Diabetic diet. Insulin sliding scale. Qualifiers: Diabetes mellitus type: type 2 Diabetes mellitus complication status: with unspecified complications Diabetes mellitus senior care insulin use: without senior care use Qualified Code(s): E11.8 - Type 2 diabetes mellitus with unspecified complications (3) Factor 5 Leiden mutation, heterozygous Current Visit: Yes Status: Chronic Assessment and plan: On chronic anticoagulation. She cannot interrupt anticoagulation due to risk of DVT and PE. (4) Morbid obesity with BMI of 50.0-59.9, adult Current Visit: Yes Status: Chronic (5) Hypercoagulable state Current Visit: No Status: Chronic (6) Chest pain Current Visit: Yes Status: Acute Assessment and plan: Likely secondary to GERD. Serial troponins are negative. Continue with PPI and H2 pasha. Clear liquid diet, advance to soft as tolerated. Patient has a known esophageal stricture. As discussed in the previous note she is not a candidate for esophageal dilation at this time due to high risk for complications while off anticoagulation. I explained to the patient this again today. Qualifiers: Chest pain type: other chest pain Qualified Code(s): R07.89 - Other chest pain; R07.8 - Other chest pain (7) Dysphagia Current Visit: Yes Status: Chronic Assessment and plan: Clear liquid diet. Qualifiers: Dysphagia type: unspecified Qualified Code(s): R13.10 - Dysphagia, unspecified - Subjective Interval history: Patient reports difficulty swallowing fluids and soft foods with some stabbing substernal discomfort caused by swallowing. She denies drooling, shortness of breath fever and cough. - Constitutional Vitals: Temp Pulse Resp BP Pulse Ox 97.9 F 65 18 93/60 96 05/12/17 16:26 05/12/17 16:26 05/12/17 16:26 05/12/17 16:26 05/12/17 16:26 General appearance: Present: A&O X 3, morbidly obese, answers questions appropriately - Respiratory Respiratory exam: Present: CTAB. Absent: accessory muscle use, rales, rhonchi, wheezes - Cardiovascular Cardiovascular exam: Present: RRR, +S1, +S2. Absent: diastolic murmur, gallop, rubs, systolic murmur - GI/Abdominal GI/Abdominal exam: Present: normal bowel sounds, soft, no peritoneal signs. Absent: distended, tenderness - Extremities Exam Extremities exam: Present: warm, radial pulses palpable and symmetrical. Absent : calf tenderness, cyanotic, pedal edema - Skin Skin exam: Present: dry, intact Internal Medicine: Result - Labs CBC & Chem 7: 05/12/17 03:43 05/12/17 03:43 Labs: Short CBC 05/12/17 Range/Units 03:43 WBC 4.4 D (4.3-11.1) K/mcL Hgb 13.5 (11.5-15.4) g/dL Hct 37.0 (35.3-44.9) % Plt Count 162 (140-400) K/mcL Neutrophils # 1.0 L (1.6-8.9) K/mcL BMP 05/12/17 03:43 Sodium 139 Potassium 3.7 Chloride 109 Carbon Dioxide 23 BUN 12 Creatinine 0.84 Glucose 109 H Calcium 9.0 Cardiac Enzymes 05/11/17 Range/Units 20:59 Troponin I 0.00 (0-0.03) ng/mL - ABG Interpretation ABG results: PT/INR, D-dimer PT 12.3 Seconds (9.4-12.1) H 05/11/17 03:57 Consult Discharge Plan - Plan Referrals: Misael Miller MD [Primary Care Provider] - 05/19/17 3:15 pm ( )
[2017-05-12] MEDS: Topiramate 100 MG TABLET PO SCH (20:21)
[2017-05-12] MEDS: Venlafaxine XR (24 HR) 75 MG CAP.ER.24H PO SCH (20:22)
[2017-05-13] MEDS: *HR* Promethazine 25 MG/ML VIAL IVP PRN ×3 (03:03→21:31)
[2017-05-13] MEDS: *HR* OxyCODONE/APAP 5/325 TABLET PO PRN ×3 (03:04→21:30)
[2017-05-13] MEDS: Benzonatate 100 MG CAPSULE PO PRN (03:09)
[2017-05-13] MEDS: Acetaminophen 325 MG TABLET PO PRN (05:32)
[2017-05-13 05:33] LABS: Basophils % 0.8 %; Eosinophils # 0.8 K/mcL (0.0-0.6); Eosinophils % 15.1 %; Hematocrit 41.9 % (35.3-44.9); Hemoglobin 13.6 g/dL (11.5-15.4); Immature Granulocytes % 0.2 % (0-4); Lymphocytes # 2.4 K/mcL (0.6-4.6); Lymphocytes % 44.6 %; Mean Corpuscular HGB Conc 32.5 g/dL (31.6-35.5); Mean Corpuscular Hemoglobin 29.7 pg (28.0-33.3); Mean Corpuscular Volume 91.5 fL (83.0-100.0); Mean Platelet Volume 11.9 fL (9.4-12.4); Monocytes # 0.4 K/mcL (0.0-1.3); Monocytes % 7.2 %; Neutrophils # 1.7 K/mcL (1.6-8.9); Platelet Count 204 K/mcL (140-400); Red Blood Count 4.58 M/mcL (3.82-4.97); Red Cell Distribution Width 12.8 % (11.5-14.5); Segmented Neutrophils % 32.1 %
[2017-05-13 05:51] LABS: BUN/Creatinine Ratio 10 (6-26); Blood Urea Nitrogen 11 mg/dL (7-20); Calcium 9.4 mg/dL (8.6-10.8); Carbon Dioxide 26 mEq/L (19-29); Chloride 100 mEq/L (98-109); Glucose 115 mg/dL (70-99); Osmolality,Calculated 282 (280-300); Potassium 3.4 mEq/L (3.5-4.5); Sodium 136 mEq/L (136-145); eGFR For African Americans > 60 (> 60); eGFR For Non-African Americans 56 (> 60)
[2017-05-13] MEDS: Gabapentin 400 MG CAPSULE PO SCH ×3 (07:29→20:02)
[2017-05-13] MEDS: metOLazone 2.5 MG TABLET PO SCH (07:29)
[2017-05-13] MEDS: lamoTRIgine 100 MG TABLET PO SCH ×2 (07:29→20:04)
[2017-05-13] MEDS: Topiramate 25 MG TABLET PO SCH (07:29)
[2017-05-13] MEDS: cloNIDine HCl 0.1 MG TABLET PO SCH ×2 (07:30→20:03)
[2017-05-13] MEDS: *HR* Enoxaparin 150 MG/ML SYRINGE SQ SCH ×2 (07:30→20:02)
[2017-05-13] MEDS: *HR* LORazepam 1 MG TABLET PO SCH ×2 (07:30→20:03)
[2017-05-13] MEDS: Furosemide 40 MG TABLET PO SCH (07:30)
[2017-05-13] MEDS: Budesonide/Formoterol 160/4.5 MDI IH SCH ×2 (08:02→20:00)
[2017-05-13] MEDS: Pantoprazole 40 MG VIAL IVP SCH ×2 (08:55→16:28)
[2017-05-13] MEDS: Famotidine 20 MG/2 ML VIAL IVP SCH ×2 (08:55→16:28)
--- NOTE | 2017-05-13 18:15 | Internal Med Progress Note ---
Date of Encounter: 05/13/17 Time of Encounter: 10:00 - Assessment and plan (1) On anticoagulant therapy Current Visit: No Status: Chronic Assessment and plan: Continue with full dose Lovenox. (2) Diabetes mellitus Current Visit: Yes Status: Chronic Assessment and plan: Diabetic diet. Insulin sliding scale. Qualifiers: Diabetes mellitus type: type 2 Diabetes mellitus complication status: with unspecified complications Diabetes mellitus fdc insulin use: without fdc use Qualified Code(s): E11.8 - Type 2 diabetes mellitus with unspecified complications (3) Factor 5 Leiden mutation, heterozygous Current Visit: Yes Status: Chronic Assessment and plan: On chronic anticoagulation. She cannot interrupt anticoagulation due to risk of DVT and PE. (4) Morbid obesity with BMI of 50.0-59.9, adult Current Visit: Yes Status: Chronic Assessment and plan: She will need outpatient weight loss regimen and lifestyle modification. (5) Hypercoagulable state Current Visit: No Status: Chronic (6) Chest pain Current Visit: Yes Status: Acute Assessment and plan: Likely secondary to GERD. Serial troponins are negative. Continue with PPI and H2 pasha. Clear liquid diet, advance to soft as tolerated. Patient has a known esophageal stricture. As discussed in the previous note she is not a candidate for esophageal dilation at this time due to high risk for complications while off anticoagulation. I explained to the patient this again today. Qualifiers: Chest pain type: other chest pain Qualified Code(s): R07.89 - Other chest pain; R07.8 - Other chest pain (7) Dysphagia Current Visit: Yes Status: Chronic Assessment and plan: Clear liquid diet. Qualifiers: Dysphagia type: unspecified Qualified Code(s): R13.10 - Dysphagia, unspecified (8) GERD with esophagitis Current Visit: Yes Status: Acute Assessment and plan: Recent EGD showed severe esophagitis and GERD. She does have an esophageal stricture however per GI recommendation dilatation of the stricture is not indicated at this time due to anticoagulation and therefore medical management has been indicated. I will start IV Protonix twice a day and IV Pepcid. Consider starting Carafate. I will check LFTs to get an assessment of her nutritional status. - Subjective Interval history: Patient reports difficulty swallowing as well as chest pain unchanged from yesterday, difficulty eating and drinking. She is asking for home IV fluids being concerned that she will get the hydrated but at the same time she is a asking for regular food. - Constitutional Vitals: Temp Pulse Resp BP Pulse Ox 97.4 F L 65 18 114/71 99 05/13/17 16:03 05/13/17 16:03 05/13/17 16:03 05/13/17 11:30 05/13/17 16:03 General appearance: Present: A&O X 3, morbidly obese, answers questions appropriately - Respiratory Respiratory exam: Present: CTAB. Absent: accessory muscle use, rales, rhonchi, wheezes - Cardiovascular Cardiovascular exam: Present: RRR, +S1, +S2. Absent: diastolic murmur, gallop, rubs, systolic murmur - GI/Abdominal GI/Abdominal exam: Present: normal bowel sounds, soft, no peritoneal signs. Absent: distended, tenderness - Extremities Exam Extremities exam: Present: warm, radial pulses palpable and symmetrical. Absent : calf tenderness, cyanotic, pedal edema - Skin Skin exam: Present: dry, intact Internal Medicine: Result - Labs CBC & Chem 7: 05/13/17 05:11 05/13/17 05:11 Labs: Short CBC 05/13/17 Range/Units 05:11 WBC 5.3 (4.3-11.1) K/mcL Hgb 13.6 (11.5-15.4) g/dL Hct 41.9 (35.3-44.9) % Plt Count 204 (140-400) K/mcL Neutrophils # 1.7 (1.6-8.9) K/mcL BMP 05/13/17 05:11 Sodium 136 Potassium 3.4 L Chloride 100 Carbon Dioxide 26 BUN 11 Creatinine 1.07 Glucose 115 H Calcium 9.4 - ABG Interpretation ABG results: PT/INR, D-dimer PT 12.3 Seconds (9.4-12.1) H 05/11/17 03:57 Consult Discharge Plan - Plan Referrals: Misael Miller MD [Primary Care Provider] - 05/19/17 3:15 pm ( )
[2017-05-13] MEDS: Venlafaxine XR (24 HR) 75 MG CAP.ER.24H PO SCH (20:03)
[2017-05-13] MEDS: Topiramate 100 MG TABLET PO SCH (20:04)
[2017-05-14] MEDS: *HR* Promethazine 25 MG/ML VIAL IVP PRN ×4 (03:32→23:11)
[2017-05-14] MEDS: *HR* OxyCODONE/APAP 5/325 TABLET PO PRN ×4 (03:36→23:14)
[2017-05-14 04:40] LABS: Basophils % 0.7 %; Eosinophils # 0.6 K/mcL (0.0-0.6); Eosinophils % 10.3 %; Hematocrit 43.2 % (35.3-44.9); Hemoglobin 14.8 g/dL (11.5-15.4); Immature Granulocytes % 0.2 % (0-4); Lymphocytes # 2.7 K/mcL (0.6-4.6); Lymphocytes % 45.3 %; Mean Corpuscular HGB Conc 34.3 g/dL (31.6-35.5); Mean Corpuscular Hemoglobin 31.2 pg (28.0-33.3); Mean Corpuscular Volume 91.1 fL (83.0-100.0); Monocytes # 0.4 K/mcL (0.0-1.3); Monocytes % 6.2 %; Neutrophils # 2.2 K/mcL (1.6-8.9); Platelet Count 208 K/mcL (140-400); Red Blood Count 4.74 M/mcL (3.82-4.97); Red Cell Distribution Width 12.6 % (11.5-14.5); Segmented Neutrophils % 37.3 %
[2017-05-14 04:57] LABS: Calcium 9.8 mg/dL (8.6-10.8); Potassium 3.3 mEq/L (3.5-4.5)
[2017-05-14] MEDS: Pantoprazole 40 MG VIAL IVP SCH ×2 (05:07→18:38)
[2017-05-14] MEDS: Famotidine 20 MG/2 ML VIAL IVP SCH ×2 (05:07→18:38)
[2017-05-14] MEDS: lamoTRIgine 100 MG TABLET PO SCH ×2 (07:34→20:56)
[2017-05-14] MEDS: cloNIDine HCl 0.1 MG TABLET PO SCH ×2 (07:34→20:57)
[2017-05-14] MEDS: Furosemide 40 MG TABLET PO SCH (07:34)
[2017-05-14] MEDS: *HR* LORazepam 1 MG TABLET PO SCH ×2 (07:34→20:57)
[2017-05-14] MEDS: metOLazone 2.5 MG TABLET PO SCH (07:34)
[2017-05-14] MEDS: Topiramate 25 MG TABLET PO SCH (07:34)
[2017-05-14] MEDS: Gabapentin 400 MG CAPSULE PO SCH ×3 (07:34→20:56)
[2017-05-14] MEDS: *HR* Enoxaparin 150 MG/ML SYRINGE SQ SCH ×2 (07:35→20:56)
[2017-05-14] MEDS: Budesonide/Formoterol 160/4.5 MDI IH SCH ×2 (07:49→20:48)
[2017-05-14 14:58] LABS: INR 1.3; Prothrombin Time 13.9 Seconds (9.4-12.1)
[2017-05-14] MEDS: Benzonatate 100 MG CAPSULE PO PRN (15:00)
[2017-05-14] MEDS: 0.9 % Sodium Chloride w KCl 20 MEQ/1,000 ML MLS IVC SCH ×2 (15:01→21:33)
[2017-05-14 15:09] LABS: Albumin 3.8 g/dL (3.5-5.0); Albumin/Globulin Ratio 0.9 (1.1-2.2); Bilirubin,Total 0.6 mg/dL (0.2-1.2); Globulin 4.3 g/dL (2.4-3.5); Potassium 2.7 mEq/L (3.5-4.5); Total Protein 8.1 g/dL (6.0-8.3)
[2017-05-14] MEDS ORDERED: *HR* LORazepam 1 MG TABLET PO PRN (17:34)
--- NOTE | 2017-05-14 17:43 | Internal Med Progress Note ---
Date of Encounter: 05/14/17 Time of Encounter: 14:00 - Assessment and plan (1) On anticoagulant therapy Current Visit: No Status: Chronic Assessment and plan: Continue with full dose Lovenox. (2) Diabetes mellitus Current Visit: Yes Status: Chronic Assessment and plan: Diabetic diet. Insulin sliding scale. Qualifiers: Diabetes mellitus type: type 2 Diabetes mellitus complication status: with unspecified complications Diabetes mellitus long-term insulin use: without long-term use Qualified Code(s): E11.8 - Type 2 diabetes mellitus with unspecified complications (3) Factor 5 Leiden mutation, heterozygous Current Visit: Yes Status: Chronic Assessment and plan: On chronic anticoagulation. She cannot interrupt anticoagulation due to risk of DVT and PE. (4) Morbid obesity with BMI of 50.0-59.9, adult Current Visit: Yes Status: Chronic Assessment and plan: She will need outpatient weight loss regimen and lifestyle modification. (5) Hypercoagulable state Current Visit: No Status: Chronic (6) Chest pain Current Visit: Yes Status: Acute Assessment and plan: Likely secondary to GERD. Serial troponins are negative. Continue with PPI and H2 pasha. Clear liquid diet, advance to soft as tolerated. Patient has a known esophageal stricture. As discussed in the previous note she is not a candidate for esophageal dilation at this time due to high risk for complications while off anticoagulation. I explained to the patient this again today. Qualifiers: Chest pain type: other chest pain Qualified Code(s): R07.89 - Other chest pain; R07.8 - Other chest pain (7) Dysphagia Current Visit: Yes Status: Chronic Assessment and plan: Clear liquid diet. Qualifiers: Dysphagia type: unspecified Qualified Code(s): R13.10 - Dysphagia, unspecified (8) GERD with esophagitis Current Visit: Yes Status: Acute Assessment and plan: Recent EGD showed severe esophagitis and GERD. She does have an esophageal stricture however per GI recommendation dilatation of the stricture is not indicated at this time due to anticoagulation and therefore medical management has been indicated. I will continue with IV Protonix twice a day and IV Pepcid. I will start Carafate. Try viscous lidocaine for symptomatic relief. Advanced to full liquid diet. (9) Acute kidney injury Current Visit: Yes Status: Acute Assessment and plan: This is a new problem for today. Likely secondary to decreased oral intake. I will encourage oral hydration and will give a bolus of IV fluids. (10) Hypokalemia Current Visit: Yes Status: Acute Assessment and plan: Replete with IV and oral potassium and check magnesium level. - Subjective Interval history: 05/14/2017: Patient reports epigastric pain and nausea, generalized weakness. She does report more anxiety and mental distress due to the fact that she just found out that her daughter tried to commit suicide today. 05/13/2017: Patient reports difficulty swallowing as well as chest pain unchanged from yesterday, difficulty eating and drinking. She is asking for home IV fluids being concerned that she will get the hydrated but at the same time she is a asking for regular food. - Constitutional Vitals: Temp Pulse Resp BP Pulse Ox 98.2 F 85 18 121/81 94 05/14/17 16:18 05/14/17 16:18 05/14/17 16:18 05/14/17 16:18 05/14/17 16:18 General appearance: Present: A&O X 3, morbidly obese, answers questions appropriately - Eye Eye exam: Present: PERRL, conjuntiva pink, sclera anicteric Pupils: Present: PERRL - Respiratory Respiratory exam: Present: CTAB. Absent: accessory muscle use, rales, rhonchi, wheezes - Cardiovascular Cardiovascular exam: Present: RRR, +S1, +S2. Absent: diastolic murmur, gallop, rubs, systolic murmur - GI/Abdominal GI/Abdominal exam: Present: normal bowel sounds, soft, no peritoneal signs. Absent: distended, tenderness Internal Medicine: Result - Labs CBC & Chem 7: 05/14/17 04:05 05/14/17 14:41 Labs: Short CBC 05/14/17 Range/Units 04:05 WBC 5.9 (4.3-11.1) K/mcL Hgb 14.8 (11.5-15.4) g/dL Hct 43.2 (35.3-44.9) % Plt Count 208 (140-400) K/mcL Neutrophils # 2.2 (1.6-8.9) K/mcL BMP 05/14/17 05/14/17 04:05 14:41 Sodium 138 136 Potassium 3.3 L 2.7 L Chloride 94 L 91 L Carbon Dioxide 30 H 33 H BUN 13 14 Creatinine 1.21 H 1.30 H Glucose 122 H 123 H Calcium 9.8 10.0 Liver Function 05/14/17 Range/Units 14:41 Total Bilirubin 0.6 (0.2-1.2) mg/dL AST 24 (5-34) Units/L ALT 42 (0-55) Units/L Alkaline Phosphatase 186 H (38-126) Units/L Albumin 3.8 (3.5-5.0) g/dL - ABG Interpretation ABG results: PT/INR, D-dimer PT 13.9 Seconds (9.4-12.1) H 05/14/17 14:41 Consult Discharge Plan - Plan Referrals: Misael Miller MD [Primary Care Provider] - 05/19/17 3:15 pm ( )
[2017-05-14] MEDS ORDERED: Sucralfate 1 GM TABLET PO SCH (18:00)
[2017-05-14] MEDS: Lidocaine Viscous Oral Soln 15 ML SOLUTION MM SCH (18:38)
[2017-05-14] MEDS: Venlafaxine XR (24 HR) 75 MG CAP.ER.24H PO SCH (20:56)
[2017-05-14] MEDS: Topiramate 100 MG TABLET PO SCH (20:57)
[2017-05-14] MEDS: Potassium Chloride Elixir 20 MEQ/15 ML UDC PO SCH (21:08)
[2017-05-15] MEDS: Pantoprazole 40 MG VIAL IVP SCH ×2 (05:17→17:28)
[2017-05-15] MEDS: Famotidine 20 MG/2 ML VIAL IVP SCH ×2 (05:17→17:32)
[2017-05-15] MEDS: *HR* Promethazine 25 MG/ML VIAL IVP PRN ×3 (05:18→17:30)
[2017-05-15] MEDS: *HR* OxyCODONE/APAP 5/325 TABLET PO PRN ×3 (05:18→17:33)
[2017-05-15] MEDS: Benzonatate 100 MG CAPSULE PO PRN (05:24)
[2017-05-15 05:54] LABS: Basophils % 0.4 %; Eosinophils # 0.5 K/mcL (0.0-0.6); Eosinophils % 9.1 %; Hematocrit 38.9 % (35.3-44.9); Hemoglobin 13.5 g/dL (11.5-15.4); Immature Granulocytes % 0.2 % (0-4); Lymphocytes # 2.7 K/mcL (0.6-4.6); Lymphocytes % 49.8 %; Mean Corpuscular HGB Conc 34.7 g/dL (31.6-35.5); Mean Corpuscular Hemoglobin 31.5 pg (28.0-33.3); Mean Corpuscular Volume 90.7 fL (83.0-100.0); Mean Platelet Volume 12.1 fL (9.4-12.4); Monocytes # 0.4 K/mcL (0.0-1.3); Monocytes % 7.7 %; Neutrophils # 1.8 K/mcL (1.6-8.9); Platelet Count 189 K/mcL (140-400); Red Blood Count 4.29 M/mcL (3.82-4.97); Red Cell Distribution Width 12.6 % (11.5-14.5); Segmented Neutrophils % 32.8 %
[2017-05-15 06:05] LABS: BUN/Creatinine Ratio 12 (6-26); Blood Urea Nitrogen 12 mg/dL (7-20); Calcium 9.1 mg/dL (8.6-10.8); Carbon Dioxide 28 mEq/L (19-29); Chloride 98 mEq/L (98-109); Glucose 124 mg/dL (70-99); Magnesium 1.9 mg/dL (1.6-2.6); Osmolality,Calculated 285 (280-300); Potassium 2.8 mEq/L (3.5-4.5); Sodium 137 mEq/L (136-145); eGFR For African Americans > 60 (> 60); eGFR For Non-African Americans > 60 (> 60)
[2017-05-15] MEDS: Lidocaine Viscous Oral Soln 15 ML SOLUTION MM SCH ×3 (08:39→15:58)
[2017-05-15] MEDS: Potassium Chloride Elixir 20 MEQ/15 ML UDC PO SCH ×2 (08:39→15:58)
[2017-05-15] MEDS: *HR* LORazepam 1 MG TABLET PO SCH ×2 (08:40→20:14)
[2017-05-15] MEDS: Gabapentin 400 MG CAPSULE PO SCH ×3 (08:40→20:13)
[2017-05-15] MEDS: Topiramate 25 MG TABLET PO SCH (08:40)
[2017-05-15] MEDS: metOLazone 2.5 MG TABLET PO SCH (08:41)
[2017-05-15] MEDS: lamoTRIgine 100 MG TABLET PO SCH ×2 (08:41→20:14)
[2017-05-15] MEDS: Furosemide 40 MG TABLET PO SCH (08:41)
[2017-05-15] MEDS: *HR* Enoxaparin 150 MG/ML SYRINGE SQ SCH ×2 (08:42→20:13)
[2017-05-15] MEDS: cloNIDine HCl 0.1 MG TABLET PO SCH ×3 (09:06→20:14)
[2017-05-15] MEDS: Budesonide/Formoterol 160/4.5 MDI IH SCH ×2 (10:33→19:50)
--- NOTE | 2017-05-15 17:28 | Internal Med Progress Note ---
Date of Encounter: 05/15/17 Time of Encounter: 17:24 - Assessment and plan (1) On anticoagulant therapy Current Visit: No Status: Chronic Assessment and plan: Continue with full dose Lovenox. (2) Diabetes mellitus Current Visit: Yes Status: Chronic Assessment and plan: Diabetic diet. Insulin sliding scale. Qualifiers: Diabetes mellitus type: type 2 Diabetes mellitus complication status: with unspecified complications Diabetes mellitus senior care insulin use: without senior care use Qualified Code(s): E11.8 - Type 2 diabetes mellitus with unspecified complications (3) Factor 5 Leiden mutation, heterozygous Current Visit: Yes Status: Chronic (4) Morbid obesity with BMI of 50.0-59.9, adult Current Visit: Yes Status: Chronic Assessment and plan: She will need outpatient weight loss regimen and lifestyle modification. (5) Hypercoagulable state Current Visit: No Status: Chronic (6) Chest pain Current Visit: Yes Status: Acute Qualifiers: Chest pain type: other chest pain Qualified Code(s): R07.89 - Other chest pain; R07.8 - Other chest pain (7) Dysphagia Current Visit: Yes Status: Chronic Assessment and plan: Clear liquid diet. Qualifiers: Dysphagia type: unspecified Qualified Code(s): R13.10 - Dysphagia, unspecified (8) GERD with esophagitis Current Visit: Yes Status: Acute Assessment and plan: 05/15/2017: The patient currently failed advancing diet. I advised her to full liquids and she vomited several times. We will take her back to clear liquid diet. Continue with IV PPI and H2 pasha. I added Carafate yesterday. We will continue this. Viscose lidocaine helped her GERD symptoms and therefore we will continue this. I will consult GI tomorrow. The patient requires inpatient admission due to failure of oral intake causing dehydration and acute renal failure which required IV infusion of 2 L normal saline as well as IV electrolyte repletion. For her past medical history, family history, social history, and review of systems please refer to the original H&P dictated at this facility. There are no updates or changes. Recent EGD showed severe esophagitis and GERD. She does have an esophageal stricture however per GI recommendation dilatation of the stricture is not indicated at this time due to anticoagulation and therefore medical management has been indicated. I will continue with IV Protonix twice a day and IV Pepcid. I will start Carafate. Try viscous lidocaine for symptomatic relief. Advanced to full liquid diet. (9) Acute kidney injury Current Visit: Yes Status: Acute Assessment and plan: Creatinine coming down after infusion of IV fluids. However the patient now started vomiting. The oral intake has decreased and therefore I will resume IV fluids. Likely secondary to decreased oral intake. I will encourage oral hydration and will give a bolus of IV fluids. (10) Hypokalemia Current Visit: Yes Status: Acute Assessment and plan: Replete with 80 mEq IV and oral potassium and check potassium and magnesium level tomorrow. - Subjective Interval history: 05/15/2017: Patient reports nausea and vomiting several times today, after each attempt at eating. She says that her epigastric abdominal pain has improved since yesterday with the new medications. Denies any hematemesis and melena. 05/14/2017: Patient reports epigastric pain and nausea, generalized weakness. She does report more anxiety and mental distress due to the fact that she just found out that her daughter tried to commit suicide today. 05/13/2017: Patient reports difficulty swallowing as well as chest pain unchanged from yesterday, difficulty eating and drinking. She is asking for home IV fluids being concerned that she will get the hydrated but at the same time she is a asking for regular food. - Constitutional Vitals: Temp Pulse Resp BP Pulse Ox 98.1 F 69 18 95/63 97 05/15/17 10:52 05/15/17 15:32 05/15/17 15:32 05/15/17 15:32 05/15/17 15:32 General appearance: Present: A&O X 3, morbidly obese, answers questions appropriately - Eye Eye exam: Present: PERRL, conjuntiva pink, sclera anicteric Pupils: Present: PERRL - Respiratory Respiratory exam: Present: CTAB. Absent: accessory muscle use, rales, rhonchi, wheezes - Cardiovascular Cardiovascular exam: Present: RRR, +S1, +S2. Absent: diastolic murmur, gallop, rubs, systolic murmur - GI/Abdominal GI/Abdominal exam: Present: normal bowel sounds, soft, no peritoneal signs. Absent: distended, tenderness - Extremities Exam Extremities exam: Present: pedal edema, warm, radial pulses palpable and symmetrical. Absent: calf tenderness, cyanotic - Skin Skin exam: Present: dry, intact Internal Medicine: Result - Labs CBC & Chem 7: 05/15/17 05:11 05/15/17 05:11 Labs: Short CBC 05/15/17 Range/Units 05:11 WBC 5.5 (4.3-11.1) K/mcL Hgb 13.5 (11.5-15.4) g/dL Hct 38.9 (35.3-44.9) % Plt Count 189 (140-400) K/mcL Neutrophils # 1.8 (1.6-8.9) K/mcL BMP 05/15/17 05:11 Sodium 137 Potassium 2.8 L Chloride 98 Carbon Dioxide 28 BUN 12 Creatinine 1.00 Glucose 124 H Calcium 9.1 - ABG Interpretation ABG results: PT/INR, D-dimer PT 13.9 Seconds (9.4-12.1) H 05/14/17 14:41 Consult Discharge Plan - Plan Referrals: Misael Miller MD [Primary Care Provider] - 05/19/17 3:15 pm ( )
[2017-05-15] MEDS: 0.9 % Sodium Chloride w KCl 40 MEQ/1,000 ML MLS IVC SCH (18:16)
[2017-05-15] MEDS: Venlafaxine XR (24 HR) 75 MG CAP.ER.24H PO SCH (20:13)
[2017-05-15] MEDS: Topiramate 100 MG TABLET PO SCH (20:14)
[2017-05-16] MEDS: traZODone 50 MG TABLET PO PRN ×2 (00:11→21:18)
[2017-05-16] MEDS: *HR* OxyCODONE/APAP 5/325 TABLET PO PRN ×4 (00:12→18:57)
[2017-05-16] MEDS: *HR* Promethazine 25 MG/ML VIAL IVP PRN ×4 (00:16→18:57)
[2017-05-16] MEDS: 0.9 % Sodium Chloride w KCl 40 MEQ/1,000 ML MLS IVC SCH (01:59)
[2017-05-16] MEDS: Benzonatate 100 MG CAPSULE PO PRN ×2 (04:07→14:15)
[2017-05-16] MEDS: Famotidine 20 MG/2 ML VIAL IVP SCH ×2 (06:39→16:52)
[2017-05-16] MEDS: Pantoprazole 40 MG VIAL IVP SCH ×2 (06:39→16:52)
[2017-05-16] MEDS: Budesonide/Formoterol 160/4.5 MDI IH SCH ×2 (07:44→22:20)
[2017-05-16 07:49] LABS: Basophils % 0.4 %; Eosinophils # 0.6 K/mcL (0.0-0.6); Eosinophils % 10.5 %; Hematocrit 36.7 % (35.3-44.9); Hemoglobin 12.6 g/dL (11.5-15.4); Immature Granulocytes % 0.2 % (0-4); Lymphocytes # 2.4 K/mcL (0.6-4.6); Lymphocytes % 45.3 %; Mean Corpuscular HGB Conc 34.3 g/dL (31.6-35.5); Mean Corpuscular Hemoglobin 31.3 pg (28.0-33.3); Mean Corpuscular Volume 91.1 fL (83.0-100.0); Mean Platelet Volume 12.5 fL (9.4-12.4); Monocytes # 0.4 K/mcL (0.0-1.3); Monocytes % 6.9 %; Platelet Count 163 K/mcL (140-400); Red Blood Count 4.03 M/mcL (3.82-4.97); Red Cell Distribution Width 12.5 % (11.5-14.5); Segmented Neutrophils % 36.7 %
[2017-05-16 07:51] LABS: BUN/Creatinine Ratio 12 (6-26); Blood Urea Nitrogen 10 mg/dL (7-20); Calcium 8.7 mg/dL (8.6-10.8); Carbon Dioxide 29 mEq/L (19-29); Chloride 103 mEq/L (98-109); Glucose 111 mg/dL (70-99); Magnesium 1.8 mg/dL (1.6-2.6); Osmolality,Calculated 286 (280-300); Potassium 3.3 mEq/L (3.5-4.5); Sodium 138 mEq/L (136-145); eGFR For African Americans > 60 (> 60); eGFR For Non-African Americans > 60 (> 60)
[2017-05-16] MEDS: cloNIDine HCl 0.1 MG TABLET PO SCH ×2 (08:22→21:18)
[2017-05-16] MEDS: Topiramate 25 MG TABLET PO SCH (08:23)
[2017-05-16] MEDS: metOLazone 2.5 MG TABLET PO SCH (08:23)
[2017-05-16] MEDS: Lidocaine Viscous Oral Soln 15 ML SOLUTION MM SCH ×3 (08:23→16:52)
[2017-05-16] MEDS: *HR* Enoxaparin 150 MG/ML SYRINGE SQ SCH ×2 (08:23→21:17)
[2017-05-16] MEDS: Furosemide 40 MG TABLET PO SCH (08:23)
[2017-05-16] MEDS: Gabapentin 400 MG CAPSULE PO SCH ×3 (08:23→21:17)
[2017-05-16] MEDS: lamoTRIgine 100 MG TABLET PO SCH ×2 (08:23→21:17)
[2017-05-16] MEDS: *HR* LORazepam 1 MG TABLET PO SCH ×2 (08:23→21:17)
[2017-05-16] MEDS ORDERED: *HR* LORazepam 2 MG/ML VIAL IVP PRN (15:21)
--- NOTE | 2017-05-16 15:42 | Internal Med Progress Note ---
Date of Encounter: 05/16/17 Time of Encounter: 15:40 - Assessment and plan (1) On anticoagulant therapy Current Visit: No Status: Chronic Assessment and plan: Continue with full dose Lovenox. (2) Diabetes mellitus Current Visit: Yes Status: Chronic Assessment and plan: Diabetic diet. Insulin sliding scale. Qualifiers: Diabetes mellitus type: type 2 Diabetes mellitus complication status: with unspecified complications Diabetes mellitus half-way insulin use: without half-way use Qualified Code(s): E11.8 - Type 2 diabetes mellitus with unspecified complications (3) Factor 5 Leiden mutation, heterozygous Current Visit: Yes Status: Chronic Assessment and plan: On chronic anticoagulation. She cannot interrupt anticoagulation due to risk of DVT and PE. (4) Morbid obesity with BMI of 50.0-59.9, adult Current Visit: Yes Status: Chronic Assessment and plan: She will need outpatient weight loss regimen and lifestyle modification. (5) Hypercoagulable state Current Visit: No Status: Chronic (6) Chest pain Current Visit: Yes Status: Acute Assessment and plan: Likely secondary to GERD. Serial troponins are negative. Continue with PPI and H2 pasha. Clear liquid diet, advance to soft as tolerated. I have added oral viscous lidocaine which seemed to be causing some improvement. Patient has a known esophageal stricture. As discussed in the previous note she is not a candidate for esophageal dilation at this time due to high risk for complications while off anticoagulation. I explained to the patient this again today. Qualifiers: Chest pain type: other chest pain Qualified Code(s): R07.89 - Other chest pain; R07.8 - Other chest pain (7) Dysphagia Current Visit: Yes Status: Chronic Assessment and plan: Clear liquid diet. Qualifiers: Dysphagia type: unspecified Qualified Code(s): R13.10 - Dysphagia, unspecified (8) GERD with esophagitis Current Visit: Yes Status: Acute Assessment and plan: 05/16/2017: I will consult GI. She will likely need repeat endoscopy. She is not a candidate for esophageal dilation to 2 anticoagulation. 05/15/2017: The patient currently failed advancing diet. I advised her to full liquids and she vomited several times. We will take her back to clear liquid diet. Continue with IV PPI and H2 pasha. I added Carafate yesterday. We will continue this. Viscose lidocaine helped her GERD symptoms and therefore we will continue this. I will consult GI tomorrow. The patient requires inpatient admission due to failure of oral intake causing dehydration and acute renal failure which required IV infusion of 2 L normal saline as well as IV electrolyte repletion. For her past medical history, family history, social history, and review of systems please refer to the original H&P dictated at this facility. There are no updates or changes. Recent EGD showed severe esophagitis and GERD. She does have an esophageal stricture however per GI recommendation dilatation of the stricture is not indicated at this time due to anticoagulation and therefore medical management has been indicated. I will continue with IV Protonix twice a day and IV Pepcid. I will start Carafate. Try viscous lidocaine for symptomatic relief. Advanced to full liquid diet. (9) Acute kidney injury Current Visit: Yes Status: Acute Assessment and plan: Creatinine coming down after infusion of IV fluids. However the patient now started vomiting. The oral intake has decreased and therefore I will resume IV fluids. Likely secondary to decreased oral intake. I will encourage oral hydration and will give a bolus of IV fluids. (10) Hypokalemia Current Visit: Yes Status: Acute Assessment and plan: I will replete with oral potassium. check potassium and magnesium level tomorrow. (11) Intractable nausea and vomiting Current Visit: Yes Status: Acute Assessment and plan: I have a strong suspicion for malingering. Prior to my entering the room she appears to be lying on her side quite comfortable. Once entered the room and started discussing with her she appears distressed, behaves like she was in a great deal of suffering manifesting somewhat exaggerated grimacing. She is asking me for IV medications for nausea asking for IV Ativan. She has asked me if I can add discharge her home with a PICC line and IV fluids. Altogether her behavior suggests that she has a drug-seeking personality and she may be overstating her symptoms with a goal to receive more invasive care such as IV medications, home IV therapy and ultimately become more dependent on healthcare system. My plan is to rule out any organic cause for her symptoms. We note that she suffers with some degree of gastroparesis and severe GERD. Therefore I will consult GI, however I think that she could be managed with oral medication. I will continue to try to wean her off the IV medications and advance her diet. His EGD does not reveal any significant pathology and she continues to have symptoms I will consult psychiatry to try to tackle her personality/behavioral issues. Qualifiers: Vomiting type: cyclical vomiting Qualified Code(s): G43.A1 - Cyclical vomiting, intractable - Subjective Interval history: 05/16/2017: She reports continued nausea from yesterday, no more vomiting, persistent abdominal pain. Denies fevers and chills. Nausea improves with Phenergan but she says it does not last. 05/15/2017: Patient reports nausea and vomiting several times today, after each attempt at eating. She says that her epigastric abdominal pain has improved since yesterday with the new medications. Denies any hematemesis and melena. 05/14/2017: Patient reports epigastric pain and nausea, generalized weakness. She does report more anxiety and mental distress due to the fact that she just found out that her daughter tried to commit suicide today. 05/13/2017: Patient reports difficulty swallowing as well as chest pain unchanged from yesterday, difficulty eating and drinking. She is asking for home IV fluids being concerned that she will get the hydrated but at the same time she is a asking for regular food. - Constitutional Vitals: Temp Pulse Resp BP Pulse Ox 97.5 F L 67 15 114/73 94 05/16/17 12:14 05/16/17 12:14 05/16/17 12:14 05/16/17 12:14 05/16/17 12:14 General appearance: Present: A&O X 3, morbidly obese, answers questions appropriately Exam: Prior to my entering the room patient appears to be dozing off lying on her side in no distress, quite comfortable. While interviewing her and asking her about her symptoms she appears to be more distressed, grimacing. - Respiratory Respiratory exam: Present: CTAB. Absent: accessory muscle use, rales, rhonchi, wheezes - Cardiovascular Cardiovascular exam: Present: RRR, +S1, +S2. Absent: diastolic murmur, gallop, rubs, systolic murmur - GI/Abdominal GI/Abdominal exam: Present: normal bowel sounds, soft, no peritoneal signs. Absent: distended, tenderness Additional comments: Obese - Extremities Exam Extremities exam: Present: pedal edema, warm, radial pulses palpable and symmetrical. Absent: calf tenderness, cyanotic - Skin Skin exam: Present: dry, intact Internal Medicine: Result - Labs CBC & Chem 7: 05/16/17 07:26 05/16/17 07:26 Labs: Short CBC 05/16/17 Range/Units 07:26 WBC 5.3 (4.3-11.1) K/mcL Hgb 12.6 (11.5-15.4) g/dL Hct 36.7 (35.3-44.9) % Plt Count 163 (140-400) K/mcL Neutrophils # 2.0 (1.6-8.9) K/mcL BMP 05/16/17 07:26 Sodium 138 Potassium 3.3 L Chloride 103 Carbon Dioxide 29 BUN 10 Creatinine 0.85 Glucose 111 H Calcium 8.7 - ABG Interpretation ABG results: PT/INR, D-dimer PT 13.9 Seconds (9.4-12.1) H 05/14/17 14:41 Consult Discharge Plan - Plan Referrals: Misael Miller MD [Primary Care Provider] - 05/19/17 3:15 pm ( )
[2017-05-16] MEDS: Venlafaxine XR (24 HR) 75 MG CAP.ER.24H PO SCH (21:18)
[2017-05-16] MEDS: Topiramate 100 MG TABLET PO SCH (21:18)
[2017-05-17 03:50] LABS: Basophils % 0.3 %; Eosinophils # 0.7 K/mcL (0.0-0.6); Eosinophils % 11.2 %; Hematocrit 38.9 % (35.3-44.9); Hemoglobin 13.4 g/dL (11.5-15.4); Immature Granulocytes % 0.8 % (0-4); Lymphocytes # 2.4 K/mcL (0.6-4.6); Lymphocytes % 41.1 %; Mean Corpuscular HGB Conc 34.4 g/dL (31.6-35.5); Mean Corpuscular Hemoglobin 31.1 pg (28.0-33.3); Mean Corpuscular Volume 90.3 fL (83.0-100.0); Mean Platelet Volume 12.6 fL (9.4-12.4); Monocytes # 0.4 K/mcL (0.0-1.3); Monocytes % 5.9 %; Neutrophils # 2.4 K/mcL (1.6-8.9); Platelet Count 157 K/mcL (140-400); Red Blood Count 4.31 M/mcL (3.82-4.97); Red Cell Distribution Width 12.5 % (11.5-14.5); Segmented Neutrophils % 40.7 %
[2017-05-17] MEDS: *HR* Promethazine 25 MG/ML VIAL IVP PRN ×3 (03:59→22:08)
[2017-05-17] MEDS: *HR* OxyCODONE/APAP 5/325 TABLET PO PRN ×3 (04:00→22:09)
[2017-05-17 04:13] LABS: BUN/Creatinine Ratio 9 (6-26); Blood Urea Nitrogen 9 mg/dL (7-20); Calcium 9.1 mg/dL (8.6-10.8); Carbon Dioxide 29 mEq/L (19-29); Chloride 97 mEq/L (98-109); Glucose 111 mg/dL (70-99); Osmolality,Calculated 285 (280-300); Sodium 138 mEq/L (136-145); eGFR For African Americans > 60 (> 60); eGFR For Non-African Americans 59 (> 60)
[2017-05-17 04:21] LABS: Potassium 2.9 mEq/L (3.5-4.5)
[2017-05-17] MEDS: Pantoprazole 40 MG VIAL IVP SCH ×2 (05:22→16:55)
[2017-05-17] MEDS: Famotidine 20 MG/2 ML VIAL IVP SCH (05:22)
[2017-05-17] MEDS: Topiramate 25 MG TABLET PO SCH (07:26)
[2017-05-17] MEDS: Lidocaine Viscous Oral Soln 15 ML SOLUTION MM SCH ×3 (07:26→15:41)
[2017-05-17] MEDS: lamoTRIgine 100 MG TABLET PO SCH ×2 (07:26→20:51)
[2017-05-17] MEDS: *HR* LORazepam 1 MG TABLET PO SCH ×2 (07:26→20:50)
[2017-05-17] MEDS: Furosemide 40 MG TABLET PO SCH (07:26)
[2017-05-17] MEDS: metOLazone 2.5 MG TABLET PO SCH (07:26)
[2017-05-17] MEDS: Gabapentin 400 MG CAPSULE PO SCH ×3 (07:26→20:51)
[2017-05-17] MEDS: cloNIDine HCl 0.1 MG TABLET PO SCH ×2 (07:33→20:52)
[2017-05-17] MEDS: *HR* Enoxaparin 150 MG/ML SYRINGE SQ SCH ×2 (07:33→20:50)
[2017-05-17] MEDS ORDERED: Potassium Chloride 40 MEQ, Lidocaine 1% 2 ML in D5% in Water 500 ML IVPB ONE (07:58)
[2017-05-17] MEDS: Potassium Chloride Elixir 20 MEQ/15 ML UDC PO SCH ×2 (08:42→20:49)
--- NOTE | 2017-05-17 08:58 | Gastroenterology Consult Note ---
<Tyrone Barrera - Last Filed: 05/17/17 18:04> Date of Encounter: 05/17/17 Time of Encounter: 08:51 - Assessment and plan (1) Dysphagia Current Visit: Yes Status: Chronic Assessment and plan: SOft tissue CT of neck from last visit showed no neck mass, no cervical lymphadenopathy. modified barium swallow showed swallowing mechanism grossly within normal limits without evidence of aspiration. EGD done on 05/04/17 showed distal esophageal stricutre, possible short segment Barretts, diffuse gastritis, possible gastroparesis, antral edema. no biopsies were taken, as patient was on anticoagulation with lovenox and plavix. No dilation was done because this would require patient to be off anticoagulation for a few weeks, and this would put her at increased risk for DVT/PE in setting of her hypercoagulable states. I have explained this to the patient once again during examination. Plan: NPO diet, EGD today. Further management based on EGD findings. Qualifiers: Dysphagia type: unspecified Qualified Code(s): R13.10 - Dysphagia, unspecified (2) Intractable nausea and vomiting Current Visit: Yes Status: Acute Assessment and plan: plan as above Qualifiers: Vomiting type: cyclical vomiting Qualified Code(s): G43.A1 - Cyclical vomiting, intractable (3) Gastroparesis Current Visit: Yes Status: Chronic Assessment and plan: Plan as above - Time Spent With Patient Total time spent is greater than 50% in coordination of care (as documented) at patient's floor/unit and/or counseling patient: GI History of Present Illness - Data of Consult Patient: known to practice within the last 3 years Consult date: 05/17/17 Requesting Physician: Shailesh Tillman MD - Consult Narrative Reason for consult: persistent nausea and vomiting History of present illness: Ms. Mitchell is a 46 year old female with PMHx of favtor V leiden deficiency, asthma, DVT, PE, GERD, renal disease. Patient was recently discharged from the hospital on 05/06/17 after being treated for nausea, vomiting, left lower lobe pneumonia. At that visit she was also complaining of continued dysphagia. At that time, CT A/P and abdominal ultrasound were unremarkable, as well as soft tissue CT neck. Faustino had EGD done during her last hospital visit showing esophageal stricture and gastroparesis. she was started on Reglan. Dilation was not done during her EGD because patient would have to be off her anticoagulation for about two weeks for risk of tear, and she is at high risk for DVT and PE and cannot be off anticoagulation. Patient was re-admitted to [facility] on 05/11/17 for continued cough. patient has been having persistent nausea and vomiting when her diet is advanced. GI was consulted again for possible repeat EGD. Today, patient states that she has not eaten yet and admitst to two episodes of vomiting today. she denies diarrhea, fever, chills. she admits to mild chest pain with breathing, admits to shortness of breath. she denies blood in her stool or dark tarry stools. she denies hematuria. Past Med Surg Social Fam HX - Past Medical History Medical history: asthma, DVT, diabetes, GERD, pulmonary embolus, renal disease, other Psychiatric history: anxiety, panic disorder - Past Surgical History Surgical History: cholecystectomy, hysterectomy, orthopedic, other, other - Social History Smoking Status: Never smoker Smokeless Tobacco Status: No Alcohol use: none Drug use: none - Family History Mother Family Member Ethnicity: Non- Living Status: Hx Family Cardiac Disorders: Yes (SD, CHF) Hx Family Respiratory Disorders: No Hx Family Cancer: Yes (Cervical) Hx Family GI Disorders: No Hx Family Endocrine Disorder: Yes (Hypoglycemia) Hx Family Neuromuscular Disorders: No Hx Family Neurologic Disorders: No Hx Family HEENT Disorders: No Hx Family Autoimmune Disorders: Yes (Factor V) - Gastrointestinal Anticoagulation Use: lovenox Gastrointestinal: Present: as per HPI - Constitutional Constitutional: as per HPI - EENT Eyes: as per HPI - Cardiovascular Cardiovascular ROS: Present: as per HPI - Respiratory Respiratory IM: Present: as per HPI - Neurological ROS Neurological GI: Present: as per HPI - Hematologic/Lymphatic Hematologic/Lymphatic pediatric: Present: as per HPI - Musculoskeletal Musculoskeletal ROS GI: Present: as per HPI - Constitutional Vitals: Temp Pulse Resp BP Pulse Ox 98.1 F 65 17 105/70 93 05/17/17 06:31 05/17/17 06:31 05/17/17 06:31 05/17/17 06:31 05/17/17 07:34 General appearance: Present: A&O X 3, no acute distress, answers questions appropriately - Head Head exam: Present: atraumatic, normocephalic Additional comments: poor dentition - Neck Neck exam general surgery: Present: supple, trachea midline - Respiratory Respiratory exam: Present: CTAB - GI/Abdominal GI/Abdominal exam: Present: soft, tenderness (tenderness more prominent in left mid and left lower quadrant. ). Absent: distended - Extremities Exam Extremities exam: Absent: cyanotic, pedal edema - Psychiatric Psychiatric exam: Present: normal affect, normal mood Results - Labs CBC & Chem 7: 05/17/17 03:19 05/17/17 03:19 Labs: Last Result Calcium 9.1 mg/dL (8.6-10.8) 05/17/17 03:19 Troponin I 0.00 ng/mL (0-0.03) 05/11/17 20:59 Entire Visit Hgb 13.4 g/dL (11.5-15.4) 05/17/17 03:19 Hct 38.9 % (35.3-44.9) 05/17/17 03:19 PT 13.9 Seconds (9.4-12.1) H 05/14/17 14:41 Total Bilirubin 0.6 mg/dL (0.2-1.2) 05/14/17 14:41 AST 24 Units/L (5-34) 05/14/17 14:41 ALT 42 Units/L (0-55) 05/14/17 14:41 - ABG ABG results: PT/INR, D-dimer PT 13.9 Seconds (9.4-12.1) H 05/14/17 14:41 Consult Discharge Plan - Plan Referrals: Misael Miller MD [Primary Care Provider] - 05/19/17 3:15 pm ( ) <Ambar Mckinnon - Last Filed: 05/17/17 18:05> Date of Encounter: 05/17/17 Time of Encounter: 14:00 - Time Spent With Patient Total time spent is greater than 50% in coordination of care (as documented) at patient's floor/unit and/or counseling patient: GI History of Present Illness - Data of Consult Requesting Physician: Shailesh Tillman MD - Consult Narrative History of present illness: Ms. Mitchell is a 46 year old female - Constitutional Vitals: Temp Pulse Resp BP Pulse Ox 98.1 F 67 18 130/74 97 05/17/17 11:03 05/17/17 13:05 05/17/17 13:05 05/17/17 13:05 05/17/17 13:05 Results - Labs CBC & Chem 7: 05/17/17 03:19 05/17/17 03:19 Labs: Last Result Calcium 9.1 mg/dL (8.6-10.8) 05/17/17 03:19 Troponin I 0.00 ng/mL (0-0.03) 05/11/17 20:59 Entire Visit Hgb 13.4 g/dL (11.5-15.4) 05/17/17 03:19 Hct 38.9 % (35.3-44.9) 05/17/17 03:19 PT 13.9 Seconds (9.4-12.1) H 05/14/17 14:41 Total Bilirubin 0.6 mg/dL (0.2-1.2) 05/14/17 14:41 AST 24 Units/L (5-34) 05/14/17 14:41 ALT 42 Units/L (0-55) 05/14/17 14:41 - ABG ABG results: PT/INR, D-dimer PT 13.9 Seconds (9.4-12.1) H 05/14/17 14:41 - Impressions Impressions Abdomen CT 05/17/17 14:27 IMPRESSION: 1. No acute findings within the abdomen or pelvis. Previous cholecystectomy. 2. Partial interval resolution of left lower lobe pneumonia. D/ / 05/17/2017 15:41:54 Rishabh Spain MD / [facility] Interpreting Provider: Rishabh Spain MD - Attending Attestation I examined this patient and my medical decision-making was reviewed with the Resident Physician. I agree with the documented findings, disposition and treatment plan as described except to the extent set forth below.
[2017-05-17] MEDS: Budesonide/Formoterol 160/4.5 MDI IH SCH ×2 (10:05→22:23)
--- NOTE | 2017-05-17 12:39 | Anesthesia Evaluation PreOp ---
Date of Encounter: 05/17/17 Time of Encounter: 13:08 - Past History Planned Operation: EGD Cardiac History: HTN, Hyperlipidemia Pulmonary History: COPD (home O2 2L/NC), SÁNCHEZ Dx (uses CPAP) [employer] History: Denies Any Significant HX Other Medical History: Diabetes Type II, Other (Factor 5 Leiden, obesity BMI= 55.5) Anesthesia History: No Prior Anesthetic Complications, Past Anesthesia ( hysterectomy) Alcohol Use: none Drug use: none Medications and Allergies Albuterol Sulfate [Proair Respiclick] 2 puff PO Q4H PRN #0 04/10/15 [History] Budesonide/Formoterol 160/4.5 [Symbicort 160/4.5] 2 puff IH BIDR #0 04/10/15 [ History] Ipratropium/Albuterol Neb [Duoneb] 3 ml IH QIDR PRN 04/10/15 [History] Montelukast [Singulair] 10 mg PO HS 04/10/15 [History] Topiramate [Topamax] 150 mg PO HS 04/10/15 [History] raNITIdine HCl [Ranitidine HCl] 150 mg PO BID 04/10/15 [History] Doxepin [Sinequan] 25 - 50 mg PO HS 08/14/15 [History] Venlafaxine XR (24 HR) [Effexor Xr] 75 mg PO HS 08/14/15 [History] Buspirone HCl [Buspar] 10 mg PO BID 09/17/15 [History] Furosemide [Lasix] 40 mg PO DAILY 09/17/15 [History] Oxygen 2 l NS AD 09/17/15 [History] SUMAtriptan Succinate [Imitrex] 100 mg PO DAILY PRN 09/17/15 [History] cloNIDine HCl [CloNIDine HCl] 0.1 mg PO BID 09/17/15 [History] Potassium Chloride [K-Tab ER] 10 meq PO DAILY 01/20/16 [History] Trazodone HCl [TraZODone] 100 mg PO HS PRN 01/20/16 [History] LORazepam [Ativan] 1 mg PO BID 03/03/16 [History] Cetirizine HCl [All Day Allergy] 10 mg PO DAILY 08/26/16 [History] Gabapentin 800 mg PO TID 08/26/16 [History] lamoTRIgine [Lamictal] 100 mg PO BID 08/26/16 [History] metOLazone [Metolazone] 2.5 mg PO DAILY 08/26/16 [History] Acetaminophen [Tylenol] 1,000 mg PO Q6HR PRN 09/04/16 [History] Albuterol Neb [Proventil Neb] 2.5 mg IH Q4HR #30 vial.neb 01/30/17 [Rx] Albuterol Sulfate [Albuterol Inhaler] 2 puff IH Q4HR #1 hfa.aer.ad 01/30/17 [Rx] Enoxaparin [Lovenox] 150 mg SQ Q12H #60 syringe 03/04/17 [Rx] Topiramate [Topamax] 50 mg PO DAILY 03/04/17 [History] Promethazine [Phenergan] 12.5 mg PO Q8HR PRN #10 tablet 03/17/17 [Rx] Atorvastatin [Lipitor] 10 mg PO HS 04/27/17 [History] Dulaglutide [Trulicity] 1.5 mg SQ QWEEK 04/27/17 [History] Oxycodone HCl/Acetaminophen [Percocet 5-325 mg Tablet] 1 tab PO Q6H PRN [History] Metoclopramide [Reglan] 5 mg PO Q6HR #120 tab 05/06/17 [Rx] 3 Allergy/AdvReac Type Severity Reaction Status Date / Time codeine Allergy Hives,SWELL Verified 04/27/17 13:40 ING Erythromycin Base Allergy THROAT Verified 04/27/17 13:40 SWELLING ondansetron Allergy Hives Verified 04/27/17 13:40 [From Zofran (as hydrochloride)] Penicillins [PCN] Allergy THROAT Verified 04/27/17 13:40 SWELLING Sulfa (Sulfonamide Allergy THROAT Verified 04/27/17 13:40 Antibiotics) SWELLING tape Allergy Blister Uncoded 04/27/17 13:40 - Meds/Allergy Pre-op Review Medications Reviewed: Yes Allergies Reviewed: Yes Beta Blockers on Current Med List: No Anesthesia Results - Labs 05/17/17 03:19 05/17/17 03:19 - Imaging EKG: report reviewed (05/11/2017 SR) Additional studies: 09/05/2016 Echo Impressions: Normal left ventricular size and systolic function, LVEF 55%. Normal right ventricular size and function. No evidence of pulmonary hypertension. 08/15/2015 Stress Impression: Perfusion imaging was negative for ischemia or infarct. Pharmacologic ECG was negative for ischemia at the level of heart rate achieved. Patient had chest pain with pharmacologic stress. Normal hemodynamic response. No arrhythmias noted with stress. Gated EF = 65%. Recommend clinical correlation. 02/25/2015 Echo Impressions: LVEF 55%. Normal left ventricular structure and function. Mild left ventricular diastolic dysfunction. Mildly dilated right ventricle with normal systolic function. No significant valvular dysfunction. Trace TR, MR, and PI. No evidence of pulmonary hypertension. IVC not visualized. Overall, RVSP was not well obtained. Anesthesia Exam Vital Signs/O2 Sat/Glucose, Most Recent Temp Pulse Resp BP Pulse Ox 98.1 F 64 18 91/61 97 05/17/17 11:03 05/17/17 11:03 05/17/17 11:03 05/17/17 11:03 05/17/17 11:03 Blood Glucose* 134 Height: 5'5''/1.65 m Weight: 33 lbs/151 kg NPO (# of Hours): 8 Pain Scale: 9 (abdomen) Pain Scale Used: Numeric (1 - 10) - HEENT Pupil (Motor): EOMI Mallampati: III Teeth: Normal Oral Opening: Greater than 3 - [employer] LOC: Oriented [employer] Motor: Normal RUE, Normal LUE, Normal LLE, Normal Face, Deficit RLE [employer] Sensory: Normal: RUE, LUE, LLE, Face, Deficit: RLE - Cardiac Rhythm: Regular Murmur: None - Pulmonary Breath Sounds: bilateral Clear Respiratory Effort: Symmetrical Anesthesia Assess/Plan ASA Score: 4 Modified [place] Scale for Level of Consciousness: Cooperative, oriented, and tranquil Anesthetic Plan: MAC Monitoring Plan: Standard Monitors
[2017-05-17] MEDS ORDERED: Tetracaine/Benzocaine/Butamben 200MG/SPRAY (100SPY/BOT) MM ONE (13:24)
[2017-05-17] MEDS ORDERED: Lidocaine -MPF 2% 5 ML VIAL INFILT ONE (13:32)
[2017-05-17] MEDS ORDERED: *HR* Propofol 500 MG/50 ML BOTTLE IVC ONE (13:32)
--- NOTE | 2017-05-17 17:37 | Internal Med Progress Note ---
Date of Encounter: 05/17/17 Time of Encounter: 17:35 - Assessment and plan (1) On anticoagulant therapy Current Visit: No Status: Chronic Assessment and plan: Continue with full dose Lovenox. We will hold this prior to repeat EGD with esophageal dilation. Last dose of Lovenox tonight. Hold tomorrow for 24 hours before and after the procedure. (2) Diabetes mellitus Current Visit: Yes Status: Chronic Assessment and plan: Diabetic diet. Insulin sliding scale. Qualifiers: Diabetes mellitus type: type 2 Diabetes mellitus complication status: with unspecified complications Diabetes mellitus half-way insulin use: without regional intermodal truck driver use Qualified Code(s): E11.8 - Type 2 diabetes mellitus with unspecified complications (3) Factor 5 Leiden mutation, heterozygous Current Visit: Yes Status: Chronic Assessment and plan: On chronic anticoagulation. We will hold anticoagulation for 48 hours starting at midnight. Procedure. (4) Morbid obesity with BMI of 50.0-59.9, adult Current Visit: Yes Status: Chronic Assessment and plan: She will need outpatient weight loss regimen and lifestyle modification. (5) Hypercoagulable state Current Visit: No Status: Chronic (6) Chest pain Current Visit: Yes Status: Acute Assessment and plan: Likely secondary to GERD. Serial troponins are negative. Continue with PPI and H2 pasha. Clear liquid diet, advance to soft as tolerated. I have added oral viscous lidocaine which seemed to be causing some improvement. Patient has a known esophageal stricture. As discussed in the previous note she is not a candidate for esophageal dilation at this time due to high risk for complications while off anticoagulation. I explained to the patient this again today. Qualifiers: Chest pain type: other chest pain Qualified Code(s): R07.89 - Other chest pain; R07.8 - Other chest pain (7) Dysphagia Current Visit: Yes Status: Chronic Assessment and plan: Clear liquid diet. Qualifiers: Dysphagia type: unspecified Qualified Code(s): R13.10 - Dysphagia, unspecified (8) GERD with esophagitis Current Visit: Yes Status: Acute Assessment and plan: 05/17/2017: Patient had repeat EGD which showed some very mild esophageal varices and gastritis. Severe erosive esophagitis appeared to still have resolved. I discussed the case with Dr. Andre. He thinks that the patient would benefit from lower esophageal sphincter dilation. Plan is to hold Lovenox for 48 hours prior procedure. EGD to be done on Wednesday. In the meantime I will continue with IV PPI and H2 pasha. 05/16/2017: I will consult GI. She will likely need repeat endoscopy. She is not a candidate for esophageal dilation to 2 anticoagulation. 05/15/2017: The patient currently failed advancing diet. I advised her to full liquids and she vomited several times. We will take her back to clear liquid diet. Continue with IV PPI and H2 pasha. I added Carafate yesterday. We will continue this. Viscose lidocaine helped her GERD symptoms and therefore we will continue this. I will consult GI tomorrow. The patient requires inpatient admission due to failure of oral intake causing dehydration and acute renal failure which required IV infusion of 2 L normal saline as well as IV electrolyte repletion. For her past medical history, family history, social history, and review of systems please refer to the original H&P dictated at this facility. There are no updates or changes. Recent EGD showed severe esophagitis and GERD. She does have an esophageal stricture however per GI recommendation dilatation of the stricture is not indicated at this time due to anticoagulation and therefore medical management has been indicated. I will continue with IV Protonix twice a day and IV Pepcid. I will start Carafate. Try viscous lidocaine for symptomatic relief. Advanced to full liquid diet. (9) Acute kidney injury Current Visit: Yes Status: Acute Assessment and plan: Creatinine coming down after infusion of IV fluids. However the patient now started vomiting. The oral intake has decreased and therefore I will resume IV fluids. Likely secondary to decreased oral intake. I will encourage oral hydration and will give a bolus of IV fluids. (10) Hypokalemia Current Visit: Yes Status: Acute Assessment and plan: She requires IV and by mouth potassium repletion. Check magnesium and potassium in the morning. The patient is not safe for discharge home at this point due to severe hypokalemia secondary to very poor oral intake which could be attributed to esophageal sphincter dysfunction versus stricture. I am concerned that if discharge home she may have unchecked critically low potassium which could cause arrhythmia and complications. (11) Intractable nausea and vomiting Current Visit: Yes Status: Acute Assessment and plan: 05/17/2017: Although malingering and secondary gain is still likely in this patient, at this time severe esophagitis is not a cause for her symptoms as proved by the EGD however she appears to have some gastroparesis. We will proceed with esophageal dilation to help with her overall oral intake and reassess her symptoms. 05/16/2017: I have a strong suspicion for malingering. Prior to my entering the room she appears to be lying on her side quite comfortable. Once entered the room and started discussing with her she appears distressed, behaves like she was in a great deal of suffering manifesting somewhat exaggerated grimacing. She is asking me for IV medications for nausea asking for IV Ativan. She has asked me if I can add discharge her home with a PICC line and IV fluids. Altogether her behavior suggests that she has a drug-seeking personality and she may be overstating her symptoms with a goal to receive more invasive care such as IV medications, home IV therapy and ultimately become more dependent on healthcare system. My plan is to rule out any organic cause for her symptoms. We note that she suffers with some degree of gastroparesis and severe GERD. Therefore I will consult GI, however I think that she could be managed with oral medication. I will continue to try to wean her off the IV medications and advance her diet. His EGD does not reveal any significant pathology and she continues to have symptoms I will consult psychiatry to try to tackle her personality/behavioral issues. Qualifiers: Vomiting type: cyclical vomiting Qualified Code(s): G43.A1 - Cyclical vomiting, intractable - Subjective Interval history: 05/17/2017: Ration continues to report intractable nausea, uncontrolled with Phenergan and Reglan and Ativan. She has decreased oral intake and reports dry heaving. No vomiting due to inability to eat. She reports epigastric abdominal pain. 05/16/2017: She reports continued nausea from yesterday, no more vomiting, persistent abdominal pain. Denies fevers and chills. Nausea improves with Phenergan but she says it does not last. 05/15/2017: Patient reports nausea and vomiting several times today, after each attempt at eating. She says that her epigastric abdominal pain has improved since yesterday with the new medications. Denies any hematemesis and melena. 05/14/2017: Patient reports epigastric pain and nausea, generalized weakness. She does report more anxiety and mental distress due to the fact that she just found out that her daughter tried to commit suicide today. 05/13/2017: Patient reports difficulty swallowing as well as chest pain unchanged from yesterday, difficulty eating and drinking. She is asking for home IV fluids being concerned that she will get the hydrated but at the same time she is a asking for regular food. - Constitutional Vitals: Temp Pulse Resp BP Pulse Ox 98.1 F 67 18 130/74 97 05/17/17 11:03 05/17/17 13:05 05/17/17 13:05 05/17/17 13:05 05/17/17 13:05 General appearance: Present: A&O X 3, morbidly obese, answers questions appropriately - Eye Eye exam: Present: PERRL, conjuntiva pink, sclera anicteric Pupils: Present: PERRL - Respiratory Respiratory exam: Present: CTAB. Absent: accessory muscle use, rales, rhonchi, wheezes - Cardiovascular Cardiovascular exam: Present: RRR, +S1, +S2. Absent: diastolic murmur, gallop, rubs, systolic murmur - GI/Abdominal GI/Abdominal exam: Present: normal bowel sounds, soft, no peritoneal signs. Absent: distended, tenderness - Extremities Exam Extremities exam: Present: warm, radial pulses palpable and symmetrical. Absent : calf tenderness, cyanotic, pedal edema - Skin Skin exam: Present: dry, intact Internal Medicine: Result - Labs CBC & Chem 7: 05/17/17 03:19 05/17/17 03:19 Labs: Short CBC 05/17/17 Range/Units 03:19 WBC 5.9 (4.3-11.1) K/mcL Hgb 13.4 (11.5-15.4) g/dL Hct 38.9 (35.3-44.9) % Plt Count 157 (140-400) K/mcL Neutrophils # 2.4 (1.6-8.9) K/mcL BMP 05/17/17 03:19 Sodium 138 Potassium 2.9 L Chloride 97 L Carbon Dioxide 29 BUN 9 Creatinine 1.02 Glucose 111 H Calcium 9.1 - ABG Interpretation ABG results: PT/INR, D-dimer PT 13.9 Seconds (9.4-12.1) H 05/14/17 14:41 - Impressions Impressions Abdomen CT 05/17/17 14:27 IMPRESSION: 1. No acute findings within the abdomen or pelvis. Previous cholecystectomy. 2. Partial interval resolution of left lower lobe pneumonia. D/ / 05/17/2017 15:41:54 Rishabh Spain MD / [facility] Interpreting Provider: Rishabh Spain MD Consult Discharge Plan - Plan Referrals: Misael Miller MD [Primary Care Provider] - 05/19/17 3:15 pm ( )
[2017-05-17] MEDS: Venlafaxine XR (24 HR) 75 MG CAP.ER.24H PO SCH (20:50)
[2017-05-17] MEDS: Topiramate 100 MG TABLET PO SCH (20:50)
[2017-05-17] MEDS: Famotidine 20 MG TABLET PO SCH (20:51)
[2017-05-17] MEDS: traZODone 50 MG TABLET PO PRN (22:09)
[2017-05-18 03:58] LABS: Basophils % 0.3 %; Eosinophils # 0.5 K/mcL (0.0-0.6); Eosinophils % 8.2 %; Hematocrit 38.8 % (35.3-44.9); Hemoglobin 13.7 g/dL (11.5-15.4); Immature Granulocytes % 0.3 % (0-4); Lymphocytes # 2.3 K/mcL (0.6-4.6); Lymphocytes % 37.8 %; Mean Corpuscular HGB Conc 35.3 g/dL (31.6-35.5); Mean Corpuscular Volume 90.7 fL (83.0-100.0); Mean Platelet Volume 12.4 fL (9.4-12.4); Monocytes # 0.4 K/mcL (0.0-1.3); Monocytes % 7.3 %; Neutrophils # 2.8 K/mcL (1.6-8.9); Platelet Count 162 K/mcL (140-400); Red Blood Count 4.28 M/mcL (3.82-4.97); Red Cell Distribution Width 12.5 % (11.5-14.5); Segmented Neutrophils % 46.1 %
[2017-05-18 04:11] LABS: BUN/Creatinine Ratio 11 (6-26); Blood Urea Nitrogen 12 mg/dL (7-20); Calcium 9.5 mg/dL (8.6-10.8); Carbon Dioxide 29 mEq/L (19-29); Chloride 95 mEq/L (98-109); Glucose 129 mg/dL (70-99); Osmolality,Calculated 287 (280-300); Potassium 2.7 mEq/L (3.5-4.5); Sodium 138 mEq/L (136-145); eGFR For African Americans > 60 (> 60); eGFR For Non-African Americans 57 (> 60)
[2017-05-18] MEDS: *HR* Promethazine 25 MG/ML VIAL IVP PRN ×3 (05:30→21:42)
[2017-05-18] MEDS: *HR* OxyCODONE/APAP 5/325 TABLET PO PRN ×3 (05:30→21:43)
[2017-05-18] MEDS: Pantoprazole 40 MG VIAL IVP SCH ×2 (05:31→16:56)
[2017-05-18] MEDS: Budesonide/Formoterol 160/4.5 MDI IH SCH ×2 (08:05→20:33)
[2017-05-18] MEDS: Lidocaine Viscous Oral Soln 15 ML SOLUTION MM SCH ×3 (08:32→16:56)
[2017-05-18] MEDS: Potassium Chloride Elixir 20 MEQ/15 ML UDC PO SCH ×3 (08:32→21:41)
[2017-05-18] MEDS: Furosemide 40 MG TABLET PO SCH (08:33)
[2017-05-18] MEDS: Gabapentin 400 MG CAPSULE PO SCH ×3 (08:33→21:42)
[2017-05-18] MEDS: Topiramate 25 MG TABLET PO SCH (08:34)
[2017-05-18] MEDS: cloNIDine HCl 0.1 MG TABLET PO SCH ×2 (08:34→21:43)
[2017-05-18] MEDS: metOLazone 2.5 MG TABLET PO SCH (08:35)
[2017-05-18] MEDS: lamoTRIgine 100 MG TABLET PO SCH ×2 (08:35→21:43)
[2017-05-18] MEDS: Famotidine 20 MG TABLET PO SCH ×2 (08:35→21:43)
[2017-05-18] MEDS: *HR* LORazepam 1 MG TABLET PO SCH ×2 (08:36→21:42)
--- NOTE | 2017-05-18 13:12 | Internal Med Progress Note ---
<Levy Gray - Last Filed: 05/18/17 16:34> Date of Encounter: 05/18/17 Time of Encounter: 16:34 - Assessment and plan (1) Intractable nausea and vomiting Current Visit: Yes Status: Acute Assessment and plan: Severe esophagitis and gastroparesis seen on EGD on 05/16 - We will proceed with esophageal dilation to help her oral intake - GI has been consulted, appreciate recommendations - Reported 3 episodes of nausea and vomiting this morning - Viscous lidocaine, reglan, phenegran PRN for nausea and vomiting. Will advance diet as tolerated, NPO at midnight for EGD - Strong suspicion of malingering and secondary gain but we will rule out organic causes Qualifiers: Vomiting type: cyclical vomiting Qualified Code(s): G43.A1 - Cyclical vomiting, intractable (2) Factor 5 Leiden mutation, heterozygous Current Visit: Yes Status: Chronic Assessment and plan: On chronic anticoagulation. We will hold anticoagulation for 48 hours starting at midnight for EGD with dilation (3) Chest pain Current Visit: Yes Status: Acute Assessment and plan: - Likely secondary to GERD with esophagitis - Previous EGD on last admission showed distal stricture however the surgeon elected not to dilate due to Lovenox use - Plan today given nonimprovement of symptoms to dilate the stricture after holding Lovenox for 48 hours Qualifiers: Chest pain type: chest pain on breathing Qualified Code(s): R07.1 - Chest pain on breathing (4) PNA (pneumonia) Current Visit: Yes Status: Chronic Assessment and plan: Lower left lobe pneumonia possibly seen on abdominal CT scan - Currently still symptomatic with cough, shortness of breath - Tessalon Perles for cough - No white count, afebrile - We will continue to hold off on antibiotics for time being, we will reassess once EGD is done Qualifiers: Pneumonia type: due to unspecified organism Laterality: left Lung location: lower lobe of lung Qualified Code(s): J18.1 - Lobar pneumonia, unspecified organism (5) Morbid obesity with BMI of 50.0-59.9, adult Current Visit: Yes Status: Chronic Assessment and plan: She will need outpatient weight loss regimen and lifestyle modification. (6) Diabetes mellitus Current Visit: Yes Status: Chronic Assessment and plan: A1c 8.4% Diabetic diet. Insulin sliding scale. Qualifiers: Diabetes mellitus type: type 2 Diabetes mellitus complication status: with unspecified complications Diabetes mellitus long-term insulin use: without long-term use Qualified Code(s): E11.8 - Type 2 diabetes mellitus with unspecified complications (7) Hypokalemia Current Visit: Yes Status: Acute Assessment and plan: Severe hypoK with most recent value of 2.7 - Repleting daily with PO potassium - Possibly secondary to poor oral intake. (8) DVT prophylaxis Current Visit: No Status: Acute Assessment and plan: Hold lovanox for EGD with dilation tomorrow. History of factor V leidin. - Time Spent With Patient 25 - 35 minutes - Subjective Interval history: Patient was seen and examined this afternoon. She states she is still experiencing some nausea, vomiting particularly after eating a meal. She is unable to keep down most of her breakfast and lunch. She had one episode of emesis this morning following breakfast but denies any symptoms of hematemesis. She also admits to some mild abdominal pain most concentrated in the lower left quadrant and epigastric region. She denies any symptoms of fevers, chills , hematochezia. She is also complaining of diffuse pain in her abdomen, chest, right leg. - Constitutional Vitals: Temp Pulse Resp BP Pulse Ox 98.4 F 74 18 123/74 91 05/18/17 11:08 05/18/17 11:08 05/18/17 11:08 05/18/17 11:08 05/18/17 11:08 General appearance: Present: A&O X 3, morbidly obese, answers questions appropriately Exam: Gen: Vitals noted. No acute distress. AAOx3. Morbidly obese HEENT: PERRL/EOMI, oropharynx clear, Normocephalic, at raumatic Cardiac: RRR, no murmur, +S1/S2 Pulmonary: CTA bilaterally, no wheezes, rales or rhonchi, equal chest expansion Abdomen: mildly tender to palpation diffusely. soft, BS noted, no guarding. No peritoneal signs Back: Nontender throughout. MSK: ROM intact, no joint swelling noted Extremities: no BLE edema, nontender calf, no cyanosis or clubbing Neuro: A&Ox3, moves all extremities, no focal deficits Psych: Appropriate mood and behavior Internal Medicine: Result - Labs CBC & Chem 7: 05/18/17 03:25 05/18/17 03:25 Labs: Short CBC 05/18/17 Range/Units 03:25 WBC 6.0 (4.3-11.1) K/mcL Hgb 13.7 (11.5-15.4) g/dL Hct 38.8 (35.3-44.9) % Plt Count 162 (140-400) K/mcL Neutrophils # 2.8 (1.6-8.9) K/mcL BMP 05/18/17 03:25 Sodium 138 Potassium 2.7 L Chloride 95 L Carbon Dioxide 29 BUN 12 Creatinine 1.05 Glucose 129 H Calcium 9.5 - ABG Interpretation ABG results: PT/INR, D-dimer PT 13.9 Seconds (9.4-12.1) H 05/14/17 14:41 - Impressions Impressions Abdomen CT 05/17/17 14:27 IMPRESSION: 1. No acute findings within the abdomen or pelvis. Previous cholecystectomy. 2. Partial interval resolution of left lower lobe pneumonia. D/ / 05/17/2017 15:41:54 Rishabh Spain MD / [facility] Interpreting Provider: Rishabh Spain MD Consult Discharge Plan - Plan Referrals: Misael Miller MD [Primary Care Provider] - 05/26/17 2:15 pm (Please follow up as schedule.. ) <Max Pollard P - Last Filed: 05/18/17 17:55> Date of Encounter: 05/18/17 - Constitutional Vitals: Temp Pulse Resp BP Pulse Ox 98.4 F 74 18 123/74 91 05/18/17 11:08 05/18/17 11:08 05/18/17 11:08 05/18/17 11:08 05/18/17 11:08 Internal Medicine: Result - Labs CBC & Chem 7: 05/18/17 03:25 05/18/17 03:25 Labs: Short CBC 05/18/17 Range/Units 03:25 WBC 6.0 (4.3-11.1) K/mcL Hgb 13.7 (11.5-15.4) g/dL Hct 38.8 (35.3-44.9) % Plt Count 162 (140-400) K/mcL Neutrophils # 2.8 (1.6-8.9) K/mcL BMP 05/18/17 03:25 Sodium 138 Potassium 2.7 L Chloride 95 L Carbon Dioxide 29 BUN 12 Creatinine 1.05 Glucose 129 H Calcium 9.5 - ABG Interpretation ABG results: PT/INR, D-dimer PT 13.9 Seconds (9.4-12.1) H 05/14/17 14:41 - Impressions Impressions Abdomen CT 05/17/17 14:27 IMPRESSION: 1. No acute findings within the abdomen or pelvis. Previous cholecystectomy. 2. Partial interval resolution of left lower lobe pneumonia. D/ / 05/17/2017 15:41:54 Rishabh Spain MD / [facility] Interpreting Provider: Rishabh Spain MD - Attending Attestation I examined this patient and my medical decision-making was reviewed with the Resident Physician. I agree with the documented findings, disposition and treatment plan as described except to the extent set forth below. EGD tomorrow hold lovenox
[2017-05-18] MEDS: Venlafaxine XR (24 HR) 75 MG CAP.ER.24H PO SCH (21:42)
[2017-05-18] MEDS: Topiramate 100 MG TABLET PO SCH (21:43)
[2017-05-19 04:04] LABS: Basophils % 0.3 %; Eosinophils # 0.5 K/mcL (0.0-0.6); Eosinophils % 7.8 %; Hematocrit 40.5 % (35.3-44.9); Hemoglobin 13.6 g/dL (11.5-15.4); Immature Granulocytes % 0.3 % (0-4); Lymphocytes # 2.3 K/mcL (0.6-4.6); Lymphocytes % 39.2 %; Mean Corpuscular HGB Conc 33.6 g/dL (31.6-35.5); Mean Corpuscular Hemoglobin 29.9 pg (28.0-33.3); Mean Platelet Volume 11.8 fL (9.4-12.4); Monocytes # 0.5 K/mcL (0.0-1.3); Neutrophils # 2.6 K/mcL (1.6-8.9); Platelet Count 184 K/mcL (140-400); Red Blood Count 4.55 M/mcL (3.82-4.97); Red Cell Distribution Width 12.4 % (11.5-14.5); Segmented Neutrophils % 44.4 %
[2017-05-19] MEDS: *HR* Promethazine 25 MG/ML VIAL IVP PRN ×3 (04:11→19:11)
[2017-05-19 04:16] LABS: BUN/Creatinine Ratio 16 (6-26); Blood Urea Nitrogen 16 mg/dL (7-20); Calcium 9.8 mg/dL (8.6-10.8); Carbon Dioxide 31 mEq/L (19-29); Chloride 95 mEq/L (98-109); Glucose 132 mg/dL (70-99); Osmolality,Calculated 285 (280-300); Potassium 3.3 mEq/L (3.5-4.5); Sodium 136 mEq/L (136-145); eGFR For African Americans > 60 (> 60); eGFR For Non-African Americans > 60 (> 60)
[2017-05-19] MEDS: Pantoprazole 40 MG VIAL IVP SCH ×2 (05:17→20:07)
[2017-05-19] MEDS: Budesonide/Formoterol 160/4.5 MDI IH SCH ×2 (07:45→20:16)
[2017-05-19] MEDS: Topiramate 25 MG TABLET PO SCH (08:31)
[2017-05-19] MEDS: Gabapentin 400 MG CAPSULE PO SCH ×3 (08:31→22:33)
[2017-05-19] MEDS: *HR* LORazepam 1 MG TABLET PO SCH ×2 (08:31→22:33)
[2017-05-19] MEDS: lamoTRIgine 100 MG TABLET PO SCH ×2 (08:31→22:33)
[2017-05-19] MEDS: Lidocaine Viscous Oral Soln 15 ML SOLUTION MM SCH ×3 (08:35→14:52)
[2017-05-19] MEDS: cloNIDine HCl 0.1 MG TABLET PO SCH ×2 (08:36→22:33)
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
[2017-05-19] MEDS: Famotidine 20 MG TABLET PO SCH ×2 (12:02→22:34)
[2017-05-19] MEDS: Potassium Chloride Elixir 20 MEQ/15 ML UDC PO SCH ×2 (12:07→22:34)
[2017-05-19] MEDS: Furosemide 40 MG TABLET PO SCH (12:14)
[2017-05-19] MEDS: metOLazone 2.5 MG TABLET PO SCH (12:14)
[2017-05-19] MEDS ORDERED: 0.9 % Sodium Chloride 500 ML ONE (17:05)
[2017-05-19] MEDS ORDERED: *HR* Midazolam HCl 5 MG/5 ML VIAL IVP ONE (18:37)
[2017-05-19] MEDS ORDERED: *HR* FentaNYL (PF) 100 MCG/2 ML VIAL ONE (18:38)
[2017-05-19] MEDS ORDERED: Tetracaine/Benzocaine/Butamben 200MG/SPRAY (100SPY/BOT) MM ONE (18:50)
[2017-05-19] MEDS: *HR* FentaNYL (PF) 100 MCG/2 ML VIAL IVP PRN ×2 (18:58→19:01)
[2017-05-19] MEDS: *HR* Midazolam HCl 5 MG/5 ML VIAL IVP PRN ×2 (18:58→19:02)
[2017-05-19] MEDS: Ketorolac 15 MG/ML VIAL IVP PRN (21:32)
[2017-05-19] MEDS: Venlafaxine XR (24 HR) 75 MG CAP.ER.24H PO SCH (22:33)
[2017-05-19] MEDS: Topiramate 100 MG TABLET PO SCH (22:34)
[2017-05-19] MEDS ORDERED: *HR* Promethazine 25 MG/ML VIAL IVP ONE (23:45)
[2017-05-20] MEDS: Ketorolac 15 MG/ML VIAL IVP PRN (04:13)
[2017-05-20 04:47] LABS: Basophils % 0.5 %; Eosinophils # 0.6 K/mcL (0.0-0.6); Eosinophils % 9.5 %; Hematocrit 39.6 % (35.3-44.9); Hemoglobin 13.6 g/dL (11.5-15.4); Immature Granulocytes % 0.5 % (0-4); Immature Platelets 9.3 % (1.1-6.1); Lymphocytes # 2.3 K/mcL (0.6-4.6); Lymphocytes % 35.3 %; Mean Corpuscular HGB Conc 34.3 g/dL (31.6-35.5); Mean Corpuscular Hemoglobin 30.9 pg (28.0-33.3); Mean Platelet Volume 12.1 fL (9.4-12.4); Monocytes # 0.5 K/mcL (0.0-1.3); Monocytes % 7.3 %; Platelet Count 159 K/mcL (140-400); Red Cell Distribution Width 12.5 % (11.5-14.5); Segmented Neutrophils % 46.9 %
[2017-05-20] MEDS: Pantoprazole 40 MG VIAL IVP SCH (05:38)
[2017-05-20 06:13] LABS: BUN/Creatinine Ratio 14 (6-26); Blood Urea Nitrogen 16 mg/dL (7-20); Calcium 9.2 mg/dL (8.6-10.8); Carbon Dioxide 29 mEq/L (19-29); Chloride 95 mEq/L (98-109); Glucose 124 mg/dL (70-99); Osmolality,Calculated 289 (280-300); Potassium 2.9 mEq/L (3.5-4.5); Sodium 138 mEq/L (136-145); eGFR For African Americans > 60 (> 60); eGFR For Non-African Americans 51 (> 60)
[2017-05-20] MEDS: Budesonide/Formoterol 160/4.5 MDI IH SCH ×2 (07:53→22:56)
[2017-05-20] MEDS: *HR* Promethazine 25 MG/ML VIAL IVP PRN ×3 (08:23→22:33)
[2017-05-20] MEDS: Topiramate 25 MG TABLET PO SCH (08:23)
[2017-05-20] MEDS: Gabapentin 400 MG CAPSULE PO SCH ×3 (08:23→21:06)
[2017-05-20] MEDS: Lidocaine Viscous Oral Soln 15 ML SOLUTION MM SCH (08:23)
[2017-05-20] MEDS: Furosemide 40 MG TABLET PO SCH (08:23)
[2017-05-20] MEDS: cloNIDine HCl 0.1 MG TABLET PO SCH ×2 (08:24→21:06)
[2017-05-20] MEDS: metOLazone 2.5 MG TABLET PO SCH (08:24)
[2017-05-20] MEDS: *HR* LORazepam 1 MG TABLET PO SCH ×2 (08:24→21:06)
[2017-05-20] MEDS: lamoTRIgine 100 MG TABLET PO SCH ×2 (08:24→21:07)
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
[2017-05-20] MEDS: *HR* OxyCODONE/APAP 5/325 TABLET PO PRN ×2 (11:04→22:33)
[2017-05-20] MEDS: Famotidine 20 MG TABLET PO SCH ×2 (11:49→21:07)
[2017-05-20] MEDS: Acetaminophen 325 MG TABLET PO PRN (15:38)
[2017-05-20] MEDS: *HR* Enoxaparin 150 MG/ML SYRINGE SQ SCH (17:06)
[2017-05-20] MEDS: Topiramate 100 MG TABLET PO SCH (21:06)
[2017-05-20] MEDS: Venlafaxine XR (24 HR) 75 MG CAP.ER.24H PO SCH (21:06)
[2017-05-20] MEDS: Potassium Chloride Elixir 20 MEQ/15 ML UDC PO SCH (21:07)
[2017-05-21] MEDS: *HR* OxyCODONE/APAP 5/325 TABLET PO PRN ×3 (04:38→21:55)
[2017-05-21] MEDS: *HR* Promethazine 25 MG/ML VIAL IVP PRN ×3 (04:39→17:11)
[2017-05-21] MEDS: *HR* Enoxaparin 150 MG/ML SYRINGE SQ SCH ×2 (05:43→17:10)
[2017-05-21 06:28] LABS: Hematocrit 38.8 % (35.3-44.9); Hemoglobin 13.6 g/dL (11.5-15.4); Mean Corpuscular HGB Conc 35.1 g/dL (31.6-35.5); Mean Corpuscular Hemoglobin 31.3 pg (28.0-33.3); Mean Corpuscular Volume 89.2 fL (83.0-100.0); Mean Platelet Volume 12.6 fL (9.4-12.4); Platelet Count 181 K/mcL (140-400); Red Blood Count 4.35 M/mcL (3.82-4.97); Red Cell Distribution Width 12.3 % (11.5-14.5)
[2017-05-21 06:49] LABS: BUN/Creatinine Ratio 21 (6-26); Blood Urea Nitrogen 21 mg/dL (7-20); Calcium 9.5 mg/dL (8.6-10.8); Carbon Dioxide 30 mEq/L (19-29); Chloride 93 mEq/L (98-109); Glucose 148 mg/dL (70-99); Osmolality,Calculated 286 (280-300); Potassium 2.7 mEq/L (3.5-4.5); Sodium 135 mEq/L (136-145); eGFR For African Americans > 60 (> 60); eGFR For Non-African Americans 59 (> 60)
[2017-05-21] MEDS: Potassium Chloride Elixir 20 MEQ/15 ML UDC PO SCH ×2 (08:31→20:42)
[2017-05-21] MEDS: Topiramate 25 MG TABLET PO SCH (08:31)
[2017-05-21] MEDS: cloNIDine HCl 0.1 MG TABLET PO SCH ×2 (08:32→20:43)
[2017-05-21] MEDS: metOLazone 2.5 MG TABLET PO SCH (08:32)
[2017-05-21] MEDS: Gabapentin 400 MG CAPSULE PO SCH ×3 (08:32→20:43)
[2017-05-21] MEDS: Furosemide 40 MG TABLET PO SCH (08:32)
[2017-05-21] MEDS: lamoTRIgine 100 MG TABLET PO SCH ×2 (08:33→20:44)
[2017-05-21] MEDS: Famotidine 20 MG TABLET PO SCH ×2 (08:33→20:43)
[2017-05-21] MEDS: *HR* LORazepam 1 MG TABLET PO SCH ×2 (08:33→20:43)
--- NOTE | 2017-05-21 10:35 | Internal Med Progress Note ---
<Levy Gray - Last Filed: 05/21/17 11:49> Date of Encounter: 05/21/17 Time of Encounter: 10:40 - Assessment and plan (1) Intractable nausea and vomiting Current Visit: Yes Status: Acute Assessment and plan: Severe esophagitis and gastroparesis seen on EGD on 05/16 - Esophageal dilation yesterday afternoon, patient tolerated the procedure well - GI has been consulted, appreciate recommendations - Still complaining of nausea, continue Phenergan, Zofran, Reglan - We will advance diet as tolerated. - Strong suspicion of malingering and secondary gain but we will rule out organic causes. Consulted psychiatry, appreciate recommendations Qualifiers: Vomiting type: cyclical vomiting Qualified Code(s): G43.A1 - Cyclical vomiting, intractable (2) Factor 5 Leiden mutation, heterozygous Current Visit: Yes Status: Chronic Assessment and plan: Continue Lovenox per GI (3) PNA (pneumonia) Current Visit: Yes Status: Acute Assessment and plan: Lower left lobe pneumonia possibly seen on abdominal CT scan - Not complaining of cough this morning. - Tessalon Perles for cough - No white count, afebrile - We will continue to hold off on antibiotics for time being. Qualifiers: Pneumonia type: due to unspecified organism Laterality: left Lung location: lower lobe of lung Qualified Code(s): J18.1 - Lobar pneumonia, unspecified organism (4) Morbid obesity with BMI of 50.0-59.9, adult Current Visit: Yes Status: Chronic Assessment and plan: She will need outpatient weight loss regimen and lifestyle modification. (5) Diabetes mellitus Current Visit: Yes Status: Chronic Assessment and plan: A1c 8.4% Diabetic diet. Insulin sliding scale. Qualifiers: Diabetes mellitus type: type 2 Diabetes mellitus complication status: with unspecified complications Diabetes mellitus terminal press operator insulin use: without fdc use Qualified Code(s): E11.8 - Type 2 diabetes mellitus with unspecified complications (6) Hypokalemia Current Visit: Yes Status: Acute Assessment and plan: Severe hypoK with most recent value of 2.7 - oral potassium 40meq BID scheduled. Will supplement an additional 40 this morning. - Continue to monitor with daily labs, symptoms (7) DVT prophylaxis Current Visit: No Status: Acute Assessment and plan: Lovenox resumed - Time Spent With Patient less than 15 minutes - Subjective Interval history: Patient was seen and examined this morning. She states she is still feeling nauseated with meals and states she has been experiencing episodes of bilious vomiting following meals. She denies blood. She is still complaining of diffuse abdominal pain most prominent in the LLQ. She states her BM yesterday was normal and soft. - Constitutional Vitals: Temp Pulse Resp BP Pulse Ox 98.2 F 66 20 100/60 96 05/21/17 07:13 05/21/17 07:13 05/21/17 07:13 05/21/17 08:35 05/21/17 08:45 General appearance: Present: A&O X 3, morbidly obese, answers questions appropriately - Head Head exam: Present: normal inspection, normocephalic - ENT ENT exam: Present: mucous membranes moist - Respiratory Respiratory exam: Present: CTAB. Absent: rales, rhonchi, stridor, wheezes - Cardiovascular Cardiovascular exam: Present: +S1, +S2. Absent: bradycardia, diastolic murmur, irregular rhythm, systolic murmur - GI/Abdominal GI/Abdominal exam: Present: normal bowel sounds, soft, tenderness, no peritoneal signs. Absent: rebound - Extremities Exam Extremities exam: Present: normal inspection, warm Internal Medicine: Result - Labs CBC & Chem 7: 05/21/17 05:31 05/21/17 05:31 Labs: Short CBC 05/21/17 Range/Units 05:31 WBC 6.6 (4.3-11.1) K/mcL Hgb 13.6 (11.5-15.4) g/dL Hct 38.8 (35.3-44.9) % Plt Count 181 (140-400) K/mcL [facility] 05/21/17 05:31 Sodium 135 L Potassium 2.7 L Chloride 93 L Carbon Dioxide 30 H BUN 21 H Creatinine 1.02 Glucose 148 H Calcium 9.5 - ABG Interpretation ABG results: PT/INR, D-dimer PT 13.9 Seconds (9.4-12.1) H 05/14/17 14:41 Consult Discharge Plan - Plan Referrals: Misael Miller MD [Primary Care Provider] - 05/26/17 2:15 pm (Please follow up as schedule.. ) <Max Pollard P - Last Filed: 05/21/17 17:56> Date of Encounter: 05/21/17 - Constitutional Vitals: Temp Pulse Resp BP Pulse Ox 97.5 F L 65 18 140/77 94 05/21/17 16:36 05/21/17 16:36 05/21/17 16:36 05/21/17 16:36 05/21/17 16:36 Internal Medicine: Result - Labs CBC & Chem 7: 05/21/17 05:31 05/21/17 05:31 Labs: Short CBC 05/21/17 Range/Units 05:31 WBC 6.6 (4.3-11.1) K/mcL Hgb 13.6 (11.5-15.4) g/dL Hct 38.8 (35.3-44.9) % Plt Count 181 (140-400) K/mcL [facility] 05/21/17 05:31 Sodium 135 L Potassium 2.7 L Chloride 93 L Carbon Dioxide 30 H BUN 21 H Creatinine 1.02 Glucose 148 H Calcium 9.5 - ABG Interpretation ABG results: PT/INR, D-dimer PT 13.9 Seconds (9.4-12.1) H 05/14/17 14:41 - Attending Attestation I examined this patient and my medical decision-making was reviewed with the Resident Physician. I agree with the documented findings, disposition and treatment plan as described except to the extent set forth below. A team of director of social services/personal care aid/community health worker from [place] was a here today. Case discussed at length with them in front of RN and corrections caseworker Miss Garrett Conclusion: If we send patient home that will be unsafe discharge. machine operator hop worker along with the team members will find a solution for her placement. Patient is medically clear awaiting for placement
[2017-05-21] MEDS: Budesonide/Formoterol 160/4.5 MDI IH SCH ×2 (10:36→20:28)
[2017-05-21] MEDS ORDERED: D5% in Water 1,000 ML IVC PRN (11:47)
[2017-05-21] MEDS ORDERED: Dextrose Gel 15 GM PO PRN ×2 (11:47)
[2017-05-21] MEDS ORDERED: *HR* Dextrose 50 % in Water (Syg) 50 ML SYRINGE IVP PRN (11:47)
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
[2017-05-21] MEDS: Ketorolac 15 MG/ML VIAL IVP PRN (15:13)
[2017-05-21] MEDS: Insulin LISPRO 300 UNITS/3 ML VIAL SQ SCH ×2 (17:10→20:41)
[2017-05-21] MEDS: Benzonatate 100 MG CAPSULE PO PRN (18:12)
[2017-05-21] MEDS: Topiramate 100 MG TABLET PO SCH (20:42)
[2017-05-21] MEDS: Venlafaxine XR (24 HR) 75 MG CAP.ER.24H PO SCH (20:42)
[2017-05-22] MEDS: *HR* Promethazine 25 MG/ML VIAL IVP PRN ×3 (00:01→16:48)
[2017-05-22] MEDS: *HR* Enoxaparin 150 MG/ML SYRINGE SQ SCH ×2 (05:11→16:47)
[2017-05-22] MEDS: *HR* OxyCODONE/APAP 5/325 TABLET PO PRN ×3 (05:28→21:24)
[2017-05-22 07:12] LABS: Hematocrit 38.8 % (35.3-44.9); Hemoglobin 12.9 g/dL (11.5-15.4); Mean Corpuscular HGB Conc 33.2 g/dL (31.6-35.5); Mean Corpuscular Hemoglobin 29.7 pg (28.0-33.3); Mean Corpuscular Volume 89.4 fL (83.0-100.0); Mean Platelet Volume 11.7 fL (9.4-12.4); Platelet Count 188 K/mcL (140-400); Red Blood Count 4.34 M/mcL (3.82-4.97); Red Cell Distribution Width 12.2 % (11.5-14.5)
[2017-05-22 07:25] LABS: BUN/Creatinine Ratio 19 (6-26); Blood Urea Nitrogen 20 mg/dL (7-20); Calcium 9.5 mg/dL (8.6-10.8); Carbon Dioxide 31 mEq/L (19-29); Chloride 94 mEq/L (98-109); Glucose 163 mg/dL (70-99); Osmolality,Calculated 286 (280-300); Potassium 3.1 mEq/L (3.5-4.5); Sodium 135 mEq/L (136-145); eGFR For African Americans > 60 (> 60); eGFR For Non-African Americans 56 (> 60)
[2017-05-22] MEDS: Furosemide 40 MG TABLET PO SCH (07:46)
[2017-05-22] MEDS: Topiramate 25 MG TABLET PO SCH (07:46)
[2017-05-22] MEDS: Potassium Chloride Elixir 20 MEQ/15 ML UDC PO SCH ×2 (07:46→21:23)
[2017-05-22] MEDS: lamoTRIgine 100 MG TABLET PO SCH ×2 (07:46→21:24)
[2017-05-22] MEDS: cloNIDine HCl 0.1 MG TABLET PO SCH ×2 (07:47→21:24)
[2017-05-22] MEDS: Gabapentin 400 MG CAPSULE PO SCH ×3 (07:47→21:24)
[2017-05-22] MEDS: metOLazone 2.5 MG TABLET PO SCH (07:47)
[2017-05-22] MEDS: *HR* LORazepam 1 MG TABLET PO SCH ×2 (07:47→21:23)
[2017-05-22] MEDS: Famotidine 20 MG TABLET PO SCH ×2 (07:47→21:23)
[2017-05-22] MEDS: Insulin LISPRO 300 UNITS/3 ML VIAL SQ SCH ×4 (07:48→21:25)
[2017-05-22] MEDS ORDERED: Potassium Chloride 40 MEQ, Lidocaine 1% 2 ML in D5% in Water 500 ML IVPB ONE (09:25)
--- NOTE | 2017-05-22 09:28 | Internal Med Progress Note ---
<Mino Danielle - Last Filed: 05/22/17 09:26> Date of Encounter: 05/22/17 Time of Encounter: 09:26 - Assessment and plan (1) Intractable nausea and vomiting Current Visit: Yes Status: Acute Assessment and plan: Severe esophagitis and gastroparesis seen on EGD on 05/16. Underwent Esophageal dilation 05/20, patient tolerated the procedure well. Still complaining of nausea and pain which should continue to improve her dilatation, continue Phenergan, Zofran, Reglan. We will advance diet as tolerated. Strong suspicion of psychiatric component of the patient's symptoms as the patient has expressed that she does not have a safe place to return to her discharge. Patient seen by psych, does not meet inpatient admission requirements. Working with social work to come up with a plan for discharge. Qualifiers: Vomiting type: cyclical vomiting Qualified Code(s): G43.A1 - Cyclical vomiting, intractable (2) Factor 5 Leiden mutation, heterozygous Current Visit: Yes Status: Chronic Assessment and plan: Continue Lovenox BID (3) PNA (pneumonia) Current Visit: Yes Status: Acute Assessment and plan: Lower left lobe pneumonia possibly seen on abdominal CT scan however clinically the patient does not appear to have an infectious pneumonia. We will hold off antibiotics at this time. Qualifiers: Pneumonia type: due to unspecified organism Laterality: left Lung location: lower lobe of lung Qualified Code(s): J18.1 - Lobar pneumonia, unspecified organism (4) Hypokalemia Current Visit: Yes Status: Acute Assessment and plan: Severe hypoK with most recent value of 3.1, slowly improving. Continue twice a day potassium, will give an extra 40 mEq IV today. (5) Morbid obesity with BMI of 50.0-59.9, adult Current Visit: Yes Status: Chronic Assessment and plan: She will need outpatient weight loss regimen and lifestyle modification. - Subjective Interval history: Patient seen and examined at bedside. Patient states that she feels about the same today. She still reports difficulty swallowing and painful swallowing with pain swallows. She denies fever, chills. - Constitutional Vitals: Temp Pulse Resp BP Pulse Ox 98.2 F 65 18 105/73 93 05/22/17 06:53 05/22/17 06:53 05/22/17 06:53 05/22/17 06:53 05/22/17 06:53 General appearance: Present: A&O X 3, morbidly obese, answers questions appropriately - Respiratory Respiratory exam: Present: CTAB. Absent: rales, rhonchi, wheezes - Cardiovascular Cardiovascular exam: Present: RRR. Absent: gallop, rubs, systolic murmur - GI/Abdominal GI/Abdominal exam: Present: normal bowel sounds, soft. Absent: distended, tenderness - Extremities Exam Extremities exam: Present: pedal edema (trace), warm. Absent: tenderness - Neurological Exam Neurological exam: Present: alert, CN II-XII intact, oriented X3, no focal deficits - Psychiatric Psychiatric exam: Present: depressed, flat affect Internal Medicine: Result - Labs CBC & Chem 7: 05/22/17 06:53 05/22/17 06:53 Labs: Short CBC 05/22/17 Range/Units 06:53 WBC 6.0 (4.3-11.1) K/mcL Hgb 12.9 (11.5-15.4) g/dL Hct 38.8 (35.3-44.9) % Plt Count 188 (140-400) K/mcL BMP 05/22/17 06:53 Sodium 135 L Potassium 3.1 L Chloride 94 L Carbon Dioxide 31 H BUN 20 Creatinine 1.07 Glucose 163 H Calcium 9.5 - ABG Interpretation ABG results: PT/INR, D-dimer PT 13.9 Seconds (9.4-12.1) H 05/14/17 14:41 Consult Discharge Plan - Plan Referrals: Misael Miller MD [Primary Care Provider] - 05/26/17 2:15 pm (Please follow up as schedule.. ) <Max Pollard P - Last Filed: 05/22/17 18:42> Date of Encounter: 05/22/17 - Constitutional Vitals: Temp Pulse Resp BP Pulse Ox 98.3 F 58 18 104/69 96 05/22/17 15:43 05/22/17 15:43 05/22/17 15:43 05/22/17 15:43 05/22/17 15:43 Internal Medicine: Result - Labs CBC & Chem 7: 05/22/17 06:53 05/22/17 06:53 Labs: Short CBC 05/22/17 Range/Units 06:53 WBC 6.0 (4.3-11.1) K/mcL Hgb 12.9 (11.5-15.4) g/dL Hct 38.8 (35.3-44.9) % Plt Count 188 (140-400) K/mcL BMP 05/22/17 06:53 Sodium 135 L Potassium 3.1 L Chloride 94 L Carbon Dioxide 31 H BUN 20 Creatinine 1.07 Glucose 163 H Calcium 9.5 - ABG Interpretation ABG results: PT/INR, D-dimer PT 13.9 Seconds (9.4-12.1) H 05/14/17 14:41 - Attending Attestation I examined this patient and my medical decision-making was reviewed with the Resident Physician. I agree with the documented findings, disposition and treatment plan as described except to the extent set forth below. Awaiting for placement
[2017-05-22] MEDS: Budesonide/Formoterol 160/4.5 MDI IH SCH ×2 (09:51→20:06)
[2017-05-22 09:58] LABS: Hemoglobin A1C 7.1 %
[2017-05-22] MEDS: Ketorolac 15 MG/ML VIAL IVP PRN (13:52)
[2017-05-22] MEDS: Venlafaxine XR (24 HR) 75 MG CAP.ER.24H PO SCH (21:24)
[2017-05-22] MEDS: Topiramate 100 MG TABLET PO SCH (21:24)
[2017-05-23] MEDS: *HR* OxyCODONE/APAP 5/325 TABLET PO PRN ×4 (03:26→22:49)
[2017-05-23] MEDS: *HR* Promethazine 25 MG/ML VIAL IVP PRN ×4 (03:26→22:49)
[2017-05-23] MEDS: *HR* Enoxaparin 150 MG/ML SYRINGE SQ SCH ×2 (07:18→16:29)
[2017-05-23] MEDS: Budesonide/Formoterol 160/4.5 MDI IH SCH ×2 (07:34→19:38)
[2017-05-23] MEDS: Famotidine 20 MG TABLET PO SCH ×2 (08:08→21:40)
[2017-05-23] MEDS: Gabapentin 400 MG CAPSULE PO SCH ×3 (08:08→21:40)
[2017-05-23] MEDS: lamoTRIgine 100 MG TABLET PO SCH ×2 (08:09→21:41)
[2017-05-23] MEDS: Furosemide 40 MG TABLET PO SCH (08:09)
[2017-05-23] MEDS: cloNIDine HCl 0.1 MG TABLET PO SCH ×2 (08:09→21:41)
[2017-05-23] MEDS: Topiramate 25 MG TABLET PO SCH (08:10)
[2017-05-23] MEDS: metOLazone 2.5 MG TABLET PO SCH (08:10)
[2017-05-23] MEDS: Potassium Chloride Elixir 20 MEQ/15 ML UDC PO SCH ×2 (08:10→21:39)
[2017-05-23] MEDS: Insulin LISPRO 300 UNITS/3 ML VIAL SQ SCH ×4 (08:10→21:41)
[2017-05-23] MEDS: *HR* LORazepam 1 MG TABLET PO SCH ×2 (08:10→21:40)
[2017-05-23 08:26] LABS: Basophils % 0.3 %; Eosinophils # 0.7 K/mcL (0.0-0.6); Eosinophils % 10.5 %; Hematocrit 39.7 % (35.3-44.9); Hemoglobin 13.4 g/dL (11.5-15.4); Immature Granulocytes % 0.5 % (0-4); Lymphocytes # 2.6 K/mcL (0.6-4.6); Lymphocytes % 42.1 %; Mean Corpuscular HGB Conc 33.8 g/dL (31.6-35.5); Mean Corpuscular Hemoglobin 30.3 pg (28.0-33.3); Mean Corpuscular Volume 89.8 fL (83.0-100.0); Mean Platelet Volume 12.2 fL (9.4-12.4); Monocytes # 0.6 K/mcL (0.0-1.3); Monocytes % 9.6 %; Neutrophils # 2.3 K/mcL (1.6-8.9); Platelet Count 178 K/mcL (140-400); Red Blood Count 4.42 M/mcL (3.82-4.97); Red Cell Distribution Width 12.5 % (11.5-14.5)
[2017-05-23] MEDS ORDERED: Ibuprofen 600 MG TABLET PO PRN (08:32)
--- NOTE | 2017-05-23 08:33 | Internal Med Progress Note ---
<MalloryMino puentes - Last Filed: 05/23/17 08:31> Date of Encounter: 05/23/17 Time of Encounter: 08:31 - Assessment and plan (1) Intractable nausea and vomiting Current Visit: Yes Status: Acute Assessment and plan: Severe esophagitis and gastroparesis seen on EGD on 05/16. Underwent Esophageal dilation 05/20, patient tolerated the procedure well. Still complaining of nausea and pain which should continue to improve after her dilatation, continue Phenergan, Zofran, Reglan. We will advance diet as tolerated. Strong suspicion of psychiatric component of the patient's symptoms as the patient has expressed that she does not have a safe place to return to her discharge. Patient seen by psych, does not meet inpatient admission requirements. Working with social work to come up with a plan for discharge. Qualifiers: Vomiting type: cyclical vomiting Qualified Code(s): G43.A1 - Cyclical vomiting, intractable (2) Factor 5 Leiden mutation, heterozygous Current Visit: Yes Status: Chronic Assessment and plan: Continue Lovenox BID (3) PNA (pneumonia) Current Visit: Yes Status: Acute Assessment and plan: Lower left lobe pneumonia possibly seen on abdominal CT scan however clinically the patient does not appear to have an infectious pneumonia. We will hold off antibiotics at this time. Qualifiers: Pneumonia type: due to unspecified organism Laterality: left Lung location: lower lobe of lung Qualified Code(s): J18.1 - Lobar pneumonia, unspecified organism (4) Hypokalemia Current Visit: Yes Status: Acute Assessment and plan: Severe hypoK with most recent value of 3.1, slowly improving. Continue twice a day potassium, will give an extra 40 mEq IV today. (5) Morbid obesity with BMI of 50.0-59.9, adult Current Visit: Yes Status: Chronic Assessment and plan: She will need outpatient weight loss regimen and lifestyle modification. - Subjective Interval history: Patient seen and examined at bedside. Patient states that she feels about the same today. She still reports difficulty swallowing and painful swallowing with pain swallows. She denies fever, chills. - Constitutional Vitals: Temp Pulse Resp BP Pulse Ox 97.8 F 54 16 109/65 94 05/23/17 06:43 05/23/17 06:43 05/23/17 06:43 05/23/17 06:43 05/23/17 06:43 General appearance: Present: A&O X 3, morbidly obese, answers questions appropriately - Respiratory Respiratory exam: Present: CTAB. Absent: rales, rhonchi, wheezes - Cardiovascular Cardiovascular exam: Present: RRR. Absent: gallop, rubs, systolic murmur - GI/Abdominal GI/Abdominal exam: Present: normal bowel sounds, soft. Absent: distended, tenderness - Extremities Exam Extremities exam: Present: pedal edema (trace), warm. Absent: tenderness - Neurological Exam Neurological exam: Present: alert, CN II-XII intact, oriented X3, no focal deficits - Psychiatric Psychiatric exam: Present: depressed, flat affect Internal Medicine: Result - Labs CBC & Chem 7: 05/23/17 08:07 05/22/17 06:53 Labs: Short CBC 05/23/17 Range/Units 08:07 WBC 6.2 (4.3-11.1) K/mcL Hgb 13.4 (11.5-15.4) g/dL Hct 39.7 (35.3-44.9) % Plt Count 178 (140-400) K/mcL Neutrophils # 2.3 (1.6-8.9) K/mcL - ABG Interpretation ABG results: PT/INR, D-dimer PT 13.9 Seconds (9.4-12.1) H 05/14/17 14:41 Consult Discharge Plan - Plan Referrals: Misael Miller MD [Primary Care Provider] - 05/26/17 2:15 pm (Please follow up as schedule.. ) <Max Pollard P - Last Filed: 05/23/17 13:27> Date of Encounter: 05/23/17 - Constitutional Vitals: Temp Pulse Resp BP Pulse Ox 97.9 F 78 19 152/86 93 05/23/17 11:17 05/23/17 11:17 05/23/17 11:17 05/23/17 11:17 05/23/17 11:17 Internal Medicine: Result - Labs CBC & Chem 7: 05/23/17 08:07 05/23/17 08:07 Labs: Short CBC 05/23/17 Range/Units 08:07 WBC 6.2 (4.3-11.1) K/mcL Hgb 13.4 (11.5-15.4) g/dL Hct 39.7 (35.3-44.9) % Plt Count 178 (140-400) K/mcL Neutrophils # 2.3 (1.6-8.9) K/mcL BMP 05/23/17 08:07 Sodium 135 L Potassium 3.7 Chloride 97 L Carbon Dioxide 30 H BUN 22 H Creatinine 1.02 Glucose 151 H Calcium 9.6 - ABG Interpretation ABG results: PT/INR, D-dimer PT 13.9 Seconds (9.4-12.1) H 05/14/17 14:41 - Attending Attestation I examined this patient and my medical decision-making was reviewed with the Resident Physician. I agree with the documented findings, disposition and treatment plan as described except to the extent set forth below. Awaiting for placement
[2017-05-23 11:05] LABS: BUN/Creatinine Ratio 22 (6-26); Blood Urea Nitrogen 22 mg/dL (7-20); Calcium 9.6 mg/dL (8.6-10.8); Carbon Dioxide 30 mEq/L (19-29); Chloride 97 mEq/L (98-109); Glucose 151 mg/dL (70-99); Magnesium 2.2 mg/dL (1.6-2.6); Osmolality,Calculated 286 (280-300); Potassium 3.7 mEq/L (3.5-4.5); Sodium 135 mEq/L (136-145); eGFR For African Americans > 60 (> 60); eGFR For Non-African Americans 59 (> 60)
[2017-05-23] MEDS: Topiramate 100 MG TABLET PO SCH (21:40)
[2017-05-23] MEDS: Venlafaxine XR (24 HR) 75 MG CAP.ER.24H PO SCH (21:41)
[2017-05-24] MEDS: *HR* Enoxaparin 150 MG/ML SYRINGE SQ SCH ×2 (04:49→17:52)
[2017-05-24] MEDS: *HR* Promethazine 25 MG/ML VIAL IVP PRN ×3 (04:50→17:52)
[2017-05-24] MEDS: *HR* OxyCODONE/APAP 5/325 TABLET PO PRN ×3 (04:50→17:52)
[2017-05-24 05:18] LABS: Basophils % 0.5 %; Eosinophils # 0.7 K/mcL (0.0-0.6); Eosinophils % 11.7 %; Hematocrit 39.1 % (35.3-44.9); Hemoglobin 13.2 g/dL (11.5-15.4); Immature Granulocytes % 0.2 % (0-4); Lymphocytes # 2.5 K/mcL (0.6-4.6); Lymphocytes % 40.9 %; Mean Corpuscular HGB Conc 33.8 g/dL (31.6-35.5); Mean Corpuscular Hemoglobin 30.5 pg (28.0-33.3); Mean Corpuscular Volume 90.3 fL (83.0-100.0); Mean Platelet Volume 12.2 fL (9.4-12.4); Monocytes # 0.5 K/mcL (0.0-1.3); Monocytes % 7.3 %; Neutrophils # 2.4 K/mcL (1.6-8.9); Platelet Count 189 K/mcL (140-400); Red Blood Count 4.33 M/mcL (3.82-4.97); Red Cell Distribution Width 12.4 % (11.5-14.5); Segmented Neutrophils % 39.4 %
[2017-05-24 05:36] LABS: BUN/Creatinine Ratio 22 (6-26); Blood Urea Nitrogen 22 mg/dL (7-20); Calcium 9.7 mg/dL (8.6-10.8); Carbon Dioxide 30 mEq/L (19-29); Chloride 97 mEq/L (98-109); Glucose 165 mg/dL (70-99); Magnesium 2.1 mg/dL (1.6-2.6); Osmolality,Calculated 289 (280-300); Potassium 3.3 mEq/L (3.5-4.5); Sodium 136 mEq/L (136-145); eGFR For African Americans > 60 (> 60); eGFR For Non-African Americans 59 (> 60)
[2017-05-24] MEDS: Budesonide/Formoterol 160/4.5 MDI IH SCH ×2 (08:29→20:35)
[2017-05-24] MEDS: Topiramate 25 MG TABLET PO SCH (09:35)
[2017-05-24] MEDS: Gabapentin 400 MG CAPSULE PO SCH ×3 (09:35→22:16)
[2017-05-24] MEDS: cloNIDine HCl 0.1 MG TABLET PO SCH ×2 (09:35→22:17)
[2017-05-24] MEDS: Potassium Chloride Elixir 20 MEQ/15 ML UDC PO SCH ×2 (09:35→16:01)
[2017-05-24] MEDS: Famotidine 20 MG TABLET PO SCH ×2 (09:35→22:16)
[2017-05-24] MEDS: *HR* LORazepam 1 MG TABLET PO SCH ×2 (09:35→22:17)
[2017-05-24] MEDS: Furosemide 40 MG TABLET PO SCH (09:35)
[2017-05-24] MEDS: metOLazone 2.5 MG TABLET PO SCH (09:36)
[2017-05-24] MEDS: lamoTRIgine 100 MG TABLET PO SCH ×2 (09:36→22:17)
[2017-05-24] MEDS: Insulin LISPRO 300 UNITS/3 ML VIAL SQ SCH ×4 (09:37→22:17)
--- NOTE | 2017-05-24 09:46 | Internal Med Progress Note ---
<Levy Gray - Last Filed: 05/24/17 13:59> Date of Encounter: 05/24/17 Time of Encounter: 11:00 - Assessment and plan (1) Intractable nausea and vomiting Current Visit: Yes Status: Acute Assessment and plan: Severe esophagitis and gastroparesis seen on EGD on 05/16. Underwent Esophageal dilation 05/20, patient tolerated the procedure well. - Still complaining of nausea and pain which should continue to improve after her dilatation, continue Phenergan, Zofran, Reglan. - We will advance diet as tolerated. - Strong suspicion of psychiatric component of the patient's symptoms as the patient has expressed that she does not have a safe place to return to her discharge. - Patient seen by psych, does not meet inpatient admission requirements. Working with social work to come up with a plan for discharge. Qualifiers: Vomiting type: cyclical vomiting Qualified Code(s): G43.A1 - Cyclical vomiting, intractable (2) Factor 5 Leiden mutation, heterozygous Current Visit: Yes Status: Chronic Assessment and plan: Continue Lovenox BID (3) PNA (pneumonia) Current Visit: Yes Status: Acute Assessment and plan: Lower left lobe pneumonia possibly seen on abdominal CT scan however clinically the patient does not appear to have an infectious pneumonia. We will hold off antibiotics at this time. Qualifiers: Pneumonia type: due to unspecified organism Laterality: left Lung location: lower lobe of lung Qualified Code(s): J18.1 - Lobar pneumonia, unspecified organism (4) Morbid obesity with BMI of 50.0-59.9, adult Current Visit: Yes Status: Chronic Assessment and plan: She will need outpatient weight loss regimen and lifestyle modification. (5) Diabetes mellitus Current Visit: Yes Status: Chronic Assessment and plan: A1c 8.4% Diabetic diet. Insulin sliding scale. Qualifiers: Diabetes mellitus type: type 2 Diabetes mellitus complication status: with unspecified complications Diabetes mellitus penitentiary insulin use: without penitentiary use Qualified Code(s): E11.8 - Type 2 diabetes mellitus with unspecified complications (6) Hypokalemia Current Visit: Yes Status: Acute Assessment and plan: Severe hypoK with most recent value of 3.3. - Persistently low - Continue twice a day potassium, will increase dosage to 60 mEq twice a day (7) DVT prophylaxis Current Visit: No Status: Acute Assessment and plan: Lovenox resumed - Time Spent With Patient 25 - 35 minutes - Subjective Interval history: Patient was seen and examined this morning. She states she is still feeling nauseated with meals and states she has been experiencing episodes of bilious vomiting following meals. She denies blood. She is still complaining of diffuse abdominal pain most prominent in the LLQ. She states she is experiencing abdominal Odynaphagia as well. - Constitutional Vitals: Temp Pulse Resp BP Pulse Ox 97.9 F 57 14 109/68 95 05/24/17 07:34 05/24/17 07:34 05/24/17 07:34 05/24/17 07:34 05/24/17 07:34 General appearance: Present: A&O X 3, morbidly obese, answers questions appropriately Exam: Gen.: Vitals noted. No acute distress. AAOx3. Morbidly obese HEENT: PERRL/EOMI, oropharynx clear, Normocephalic, atraumatic Neck: Supple. No adenopathy. Cardiac: RRR, no murmur, +S1/S2 Pulmonary: CTA bilaterally, no wheezes, rales or rhonchi, equal chest expansion Abdomen: soft, tender to palpation diffusely, most prominent in the epigastric and lower left quadrant, BS noted, no guarding Back: Nontender throughout. MSK: ROM intact, no joint swelling noted Extremities: no BLE edema, nontender calf, no cyanosis or clubbing Neuro: A&Ox3, moves all extremities, no focal deficits Psych: Appropriate mood and behavior Internal Medicine: Result - Labs CBC & Chem 7: 05/24/17 04:42 05/24/17 04:42 Labs: Short CBC 05/24/17 Range/Units 04:42 WBC 6.1 (4.3-11.1) K/mcL Hgb 13.2 (11.5-15.4) g/dL Hct 39.1 (35.3-44.9) % Plt Count 189 (140-400) K/mcL Neutrophils # 2.4 (1.6-8.9) K/mcL BMP 05/23/17 05/24/17 08:07 04:42 Sodium 135 L 136 Potassium 3.7 3.3 L Chloride 97 L 97 L Carbon Dioxide 30 H 30 H BUN 22 H 22 H Creatinine 1.02 1.02 Glucose 151 H 165 H Calcium 9.6 9.7 - ABG Interpretation ABG results: PT/INR, D-dimer PT 13.9 Seconds (9.4-12.1) H 05/14/17 14:41 Consult Discharge Plan - Plan Referrals: Misael Miller MD [Primary Care Provider] - 05/26/17 2:15 pm (Please follow up as schedule.. ) <Max Pollard P - Last Filed: 05/24/17 18:37> Date of Encounter: 05/24/17 - Constitutional Vitals: Temp Pulse Resp BP Pulse Ox 97.6 F 76 18 109/69 91 05/24/17 16:06 05/24/17 16:06 05/24/17 16:06 05/24/17 16:06 05/24/17 16:06 Internal Medicine: Result - Labs CBC & Chem 7: 05/24/17 04:42 05/24/17 04:42 Labs: Short CBC 05/24/17 Range/Units 04:42 WBC 6.1 (4.3-11.1) K/mcL Hgb 13.2 (11.5-15.4) g/dL Hct 39.1 (35.3-44.9) % Plt Count 189 (140-400) K/mcL Neutrophils # 2.4 (1.6-8.9) K/mcL BMP 05/24/17 04:42 Sodium 136 Potassium 3.3 L Chloride 97 L Carbon Dioxide 30 H BUN 22 H Creatinine 1.02 Glucose 165 H Calcium 9.7 - ABG Interpretation ABG results: PT/INR, D-dimer PT 13.9 Seconds (9.4-12.1) H 05/14/17 14:41 - Attending Attestation I examined this patient and my medical decision-making was reviewed with the Resident Physician. I agree with the documented findings, disposition and treatment plan as described except to the extent set forth below. I understand that [facility] adult protective services is working on her placement.
[2017-05-24] MEDS ORDERED: Ibuprofen 600 MG TABLET PO PRN (10:39)
[2017-05-24] MEDS: Venlafaxine XR (24 HR) 75 MG CAP.ER.24H PO SCH (22:16)
[2017-05-24] MEDS: Topiramate 100 MG TABLET PO SCH (22:16)
[2017-05-25] MEDS: *HR* Promethazine 25 MG/ML VIAL IVP PRN ×4 (04:08→23:16)
[2017-05-25] MEDS: *HR* OxyCODONE/APAP 5/325 TABLET PO PRN ×4 (04:08→23:16)
[2017-05-25] MEDS: *HR* Enoxaparin 150 MG/ML SYRINGE SQ SCH ×2 (05:33→16:34)
[2017-05-25 07:29] LABS: Basophils # 0.1 K/mcL (0.0-0.2); Basophils % 0.9 %; Eosinophils # 0.6 K/mcL (0.0-0.6); Eosinophils % 11.3 %; Hematocrit 40.1 % (35.3-44.9); Hemoglobin 13.2 g/dL (11.5-15.4); Immature Granulocytes % 0.4 % (0-4); Lymphocytes # 2.5 K/mcL (0.6-4.6); Mean Corpuscular HGB Conc 32.9 g/dL (31.6-35.5); Mean Corpuscular Hemoglobin 30.2 pg (28.0-33.3); Mean Corpuscular Volume 91.8 fL (83.0-100.0); Mean Platelet Volume 12.2 fL (9.4-12.4); Monocytes # 0.3 K/mcL (0.0-1.3); Monocytes % 6.1 %; Neutrophils # 2.1 K/mcL (1.6-8.9); Platelet Count 204 K/mcL (140-400); Red Blood Count 4.37 M/mcL (3.82-4.97); Red Cell Distribution Width 12.2 % (11.5-14.5); Segmented Neutrophils % 37.3 %
[2017-05-25 07:36] LABS: BUN/Creatinine Ratio 21 (6-26); Blood Urea Nitrogen 21 mg/dL (7-20); Calcium 9.6 mg/dL (8.6-10.8); Carbon Dioxide 28 mEq/L (19-29); Chloride 98 mEq/L (98-109); Glucose 133 mg/dL (70-99); Magnesium 1.9 mg/dL (1.6-2.6); Osmolality,Calculated 291 (280-300); Potassium 3.4 mEq/L (3.5-4.5); Sodium 138 mEq/L (136-145); eGFR For African Americans > 60 (> 60); eGFR For Non-African Americans 59 (> 60)
[2017-05-25] MEDS: Insulin LISPRO 300 UNITS/3 ML VIAL SQ SCH ×4 (08:18→21:38)
[2017-05-25] MEDS: Famotidine 20 MG TABLET PO SCH ×2 (10:02→21:36)
[2017-05-25] MEDS: Potassium Chloride Elixir 20 MEQ/15 ML UDC PO SCH ×2 (10:02→16:34)
[2017-05-25] MEDS: Furosemide 40 MG TABLET PO SCH (10:03)
[2017-05-25] MEDS: cloNIDine HCl 0.1 MG TABLET PO SCH ×2 (10:03→21:37)
[2017-05-25] MEDS: Gabapentin 400 MG CAPSULE PO SCH ×3 (10:03→21:37)
[2017-05-25] MEDS: *HR* LORazepam 1 MG TABLET PO SCH ×2 (10:03→21:37)
[2017-05-25] MEDS: Topiramate 25 MG TABLET PO SCH (10:03)
[2017-05-25] MEDS: metOLazone 2.5 MG TABLET PO SCH (10:03)
[2017-05-25] MEDS: lamoTRIgine 100 MG TABLET PO SCH ×2 (10:03→21:37)
[2017-05-25] MEDS: Budesonide/Formoterol 160/4.5 MDI IH SCH ×2 (10:51→22:23)
--- NOTE | 2017-05-25 13:51 | Internal Med Progress Note ---
<Levy Gray - Last Filed: 05/25/17 13:49> Date of Encounter: 05/25/17 Time of Encounter: 13:49 - Assessment and plan (1) Intractable nausea and vomiting Current Visit: Yes Status: Acute Assessment and plan: Severe esophagitis and gastroparesis seen on EGD on 05/16. Underwent Esophageal dilation 05/20, patient tolerated the procedure well. - Still complaining of nausea and pain which should continue to improve after her dilatation, continue Phenergan, Zofran, Reglan. - Is still experiencing dysphagia and abdominal pain. Possibly secondary to psychosomatic features versus post-dilation swelling - We will advance diet as tolerated. - Strong suspicion of psychiatric component of the patient's symptoms as the patient has expressed that she does not have a safe place to return to her discharge. - Patient seen by psych, does not meet inpatient admission requirements. Working with social work to come up with a plan for discharge. Qualifiers: Vomiting type: cyclical vomiting Qualified Code(s): G43.A1 - Cyclical vomiting, intractable (2) Factor 5 Leiden mutation, heterozygous Current Visit: Yes Status: Chronic Assessment and plan: Continue Lovenox BID (3) PNA (pneumonia) Current Visit: Yes Status: Acute Assessment and plan: Lower left lobe pneumonia possibly seen on abdominal CT scan however clinically the patient does not appear to have an infectious pneumonia. We will hold off antibiotics at this time. Qualifiers: Pneumonia type: due to unspecified organism Laterality: left Lung location: lower lobe of lung Qualified Code(s): J18.1 - Lobar pneumonia, unspecified organism (4) Morbid obesity with BMI of 50.0-59.9, adult Current Visit: Yes Status: Chronic Assessment and plan: She will need outpatient weight loss regimen and lifestyle modification. (5) Diabetes mellitus Current Visit: Yes Status: Chronic Assessment and plan: A1c 7.1 % Diabetic diet. Insulin sliding scale. Qualifiers: Diabetes mellitus type: type 2 Diabetes mellitus complication status: with unspecified complications Diabetes mellitus intermediate insulin use: without intermediate use Qualified Code(s): E11.8 - Type 2 diabetes mellitus with unspecified complications (6) Hypokalemia Current Visit: Yes Status: Acute Assessment and plan: Severe hypoK with most recent value of 3.3. - Persistently low - Continue twice a day potassium, will increase dosage to 60 mEq twice a day (7) DVT prophylaxis Current Visit: No Status: Acute Assessment and plan: Lovenox resumed - Time Spent With Patient 25 - 35 minutes - Subjective Interval history: Patient was seen and examined this afternoon. Patient is still experiencing abdominal pain, difficulty swallowing and eating meals. She has dysphagia to both liquid and solids but states that she is able to drink some water with difficulty. Some pain but also difficulty initiating swallowing and states that it gets stuck in her upper esophagus. Mother/POA is present at bedside. All questions were answered. - Constitutional Vitals: Temp Pulse Resp BP Pulse Ox 97.5 F L 61 18 102/56 94 05/25/17 11:14 05/25/17 11:14 05/25/17 11:14 05/25/17 11:14 05/25/17 11:14 General appearance: Present: A&O X 3, morbidly obese, answers questions appropriately Exam: Gen.: Vitals noted. No acute distress. AAOx3. Morbidly obese HEENT: Poor dentition otherwise normal. PERRL/EOMI, oropharynx clear, Normocephalic, atraumatic Neck: Supple. No adenopathy. Cardiac: RRR, no murmur, +S1/S2 Pulmonary: CTA bilaterally, no wheezes, rales or rhonchi, equal chest expansion Abdomen: Tender to palpation diffusely, soft, BS noted, no guarding Back: Nontender throughout. MSK: ROM intact, no joint swelling noted Extremities: no BLE edema, nontender calf, no cyanosis or clubbing Neuro: A&Ox3, moves all extremities, no focal deficits Psych: Appropriate mood and behavior Internal Medicine: Result - Labs CBC & Chem 7: 05/25/17 06:46 05/25/17 06:46 Labs: Short CBC 05/25/17 Range/Units 06:46 WBC 5.6 (4.3-11.1) K/mcL Hgb 13.2 (11.5-15.4) g/dL Hct 40.1 (35.3-44.9) % Plt Count 204 (140-400) K/mcL Neutrophils # 2.1 (1.6-8.9) K/mcL BMP 05/25/17 06:46 Sodium 138 Potassium 3.4 L Chloride 98 Carbon Dioxide 28 BUN 21 H Creatinine 1.02 Glucose 133 H Calcium 9.6 - ABG Interpretation ABG results: PT/INR, D-dimer PT 13.9 Seconds (9.4-12.1) H 05/14/17 14:41 Consult Discharge Plan - Plan Referrals: Misael Miller MD [Primary Care Provider] - 05/26/17 2:15 pm (Please follow up as schedule.. ) <Max Pollard P - Last Filed: 05/25/17 18:24> Date of Encounter: 05/25/17 - Constitutional Vitals: Temp Pulse Resp BP Pulse Ox 98.5 F 56 19 102/58 97 05/25/17 16:19 05/25/17 16:19 05/25/17 16:19 05/25/17 16:19 05/25/17 16:19 Internal Medicine: Result - Labs CBC & Chem 7: 05/25/17 06:46 05/25/17 06:46 Labs: Short CBC 05/25/17 Range/Units 06:46 WBC 5.6 (4.3-11.1) K/mcL Hgb 13.2 (11.5-15.4) g/dL Hct 40.1 (35.3-44.9) % Plt Count 204 (140-400) K/mcL Neutrophils # 2.1 (1.6-8.9) K/mcL BMP 05/25/17 06:46 Sodium 138 Potassium 3.4 L Chloride 98 Carbon Dioxide 28 BUN 21 H Creatinine 1.02 Glucose 133 H Calcium 9.6 - ABG Interpretation ABG results: PT/INR, D-dimer PT 13.9 Seconds (9.4-12.1) H 05/14/17 14:41 - Attending Attestation I examined this patient and my medical decision-making was reviewed with the Resident Physician. I agree with the documented findings, disposition and treatment plan as described except to the extent set forth below. Medically clear awaiting for placement
[2017-05-25] MEDS: Topiramate 100 MG TABLET PO SCH (21:36)
[2017-05-25] MEDS: Venlafaxine XR (24 HR) 75 MG CAP.ER.24H PO SCH (21:37)
[2017-05-26] MEDS: *HR* OxyCODONE/APAP 5/325 TABLET PO PRN ×3 (06:25→18:53)
[2017-05-26] MEDS: *HR* Promethazine 25 MG/ML VIAL IVP PRN ×3 (06:26→18:52)
[2017-05-26] MEDS: *HR* Enoxaparin 150 MG/ML SYRINGE SQ SCH ×2 (06:26→17:08)
[2017-05-26 07:41] LABS: BUN/Creatinine Ratio 22 (6-26); Blood Urea Nitrogen 21 mg/dL (7-20); Calcium 9.3 mg/dL (8.6-10.8); Carbon Dioxide 27 mEq/L (19-29); Chloride 98 mEq/L (98-109); Glucose 147 mg/dL (70-99); Osmolality,Calculated 290 (280-300); Potassium 3.2 mEq/L (3.5-4.5); Sodium 137 mEq/L (136-145); eGFR For African Americans > 60 (> 60); eGFR For Non-African Americans > 60 (> 60)
[2017-05-26 07:48] LABS: Basophils % 0.5 %; Eosinophils # 0.7 K/mcL (0.0-0.6); Eosinophils % 10.9 %; Hematocrit 36.1 % (35.3-44.9); Immature Granulocytes % 0.3 % (0-4); Lymphocytes # 2.5 K/mcL (0.6-4.6); Lymphocytes % 39.5 %; Mean Corpuscular Hemoglobin 33.2 pg (28.0-33.3); Mean Corpuscular Volume 92.3 fL (83.0-100.0); Mean Platelet Volume 12.1 fL (9.4-12.4); Monocytes # 0.5 K/mcL (0.0-1.3); Monocytes % 7.4 %; Neutrophils # 2.6 K/mcL (1.6-8.9); Platelet Count 207 K/mcL (140-400); Red Blood Count 3.91 M/mcL (3.82-4.97); Red Cell Distribution Width 12.5 % (11.5-14.5); Segmented Neutrophils % 41.4 %
[2017-05-26] MEDS: cloNIDine HCl 0.1 MG TABLET PO SCH ×2 (08:07→21:50)
[2017-05-26] MEDS: metOLazone 2.5 MG TABLET PO SCH (08:07)
[2017-05-26] MEDS: Furosemide 40 MG TABLET PO SCH (08:07)
[2017-05-26] MEDS: Famotidine 20 MG TABLET PO SCH ×2 (08:10→21:50)
[2017-05-26] MEDS: Potassium Chloride Elixir 20 MEQ/15 ML UDC PO SCH ×2 (08:10→17:07)
[2017-05-26] MEDS: Gabapentin 400 MG CAPSULE PO SCH ×3 (08:10→21:49)
[2017-05-26] MEDS: Topiramate 25 MG TABLET PO SCH (08:11)
[2017-05-26] MEDS: Insulin LISPRO 300 UNITS/3 ML VIAL SQ SCH ×4 (08:11→21:53)
[2017-05-26] MEDS: lamoTRIgine 100 MG TABLET PO SCH ×2 (08:11→21:49)
[2017-05-26] MEDS: Budesonide/Formoterol 160/4.5 MDI IH SCH ×2 (10:16→20:48)
--- NOTE | 2017-05-26 15:39 | Internal Med Progress Note ---
<Levy Gray - Last Filed: 05/26/17 16:08> Date of Encounter: 05/26/17 Time of Encounter: 15:37 - Assessment and plan (1) Intractable nausea and vomiting Current Visit: Yes Status: Resolved Assessment and plan: Severe esophagitis and gastroparesis seen on EGD on 05/16. Underwent Esophageal dilation 05/20, patient tolerated the procedure well. - Still complaining of nausea and pain which should continue to improve after her dilatation, continue Phenergan, Zofran, Reglan. - Is still experiencing dysphagia and abdominal pain. Possibly secondary to psychosomatic features versus post-dilation swelling - We will advance diet as tolerated. - Strong suspicion of psychiatric component of the patient's symptoms as the patient has expressed that she does not have a safe place to return to her discharge. - Patient seen by psych, does not meet inpatient admission requirements. Working with social work to come up with a plan for discharge. Qualifiers: Vomiting type: cyclical vomiting Qualified Code(s): G43.A1 - Cyclical vomiting, intractable (2) Factor 5 Leiden mutation, heterozygous Current Visit: Yes Status: Chronic Assessment and plan: Continue Lovenox BID (3) PNA (pneumonia) Current Visit: Yes Status: Ruled-out Assessment and plan: Lower left lobe pneumonia possibly seen on abdominal CT scan however clinically the patient does not appear to have an infectious pneumonia. We will hold off antibiotics at this time. Qualifiers: Pneumonia type: due to unspecified organism Laterality: left Lung location: lower lobe of lung Qualified Code(s): J18.1 - Lobar pneumonia, unspecified organism (4) Morbid obesity with BMI of 50.0-59.9, adult Current Visit: Yes Status: Chronic Assessment and plan: She will need outpatient weight loss regimen and lifestyle modification. (5) Diabetes mellitus Current Visit: Yes Status: Chronic Assessment and plan: A1c 7.1 % Diabetic diet. Insulin sliding scale. Qualifiers: Diabetes mellitus type: type 2 Diabetes mellitus complication status: with unspecified complications Diabetes mellitus fingerprint technician insulin use: without [facility] use Qualified Code(s): E11.8 - Type 2 diabetes mellitus with unspecified complications (6) Hypokalemia Current Visit: Yes Status: Acute Assessment and plan: Severe hypoK with most recent value of 3.4. - Persistently low - Continue twice a day potassium, will increased dosage to 60 mEq twice a day - We will consider further increasing dosage to 80 mEq twice per day (7) DVT prophylaxis Current Visit: No Status: Acute Assessment and plan: Lovenox resumed - Time Spent With Patient 25 - 35 minutes - Subjective Interval history: Patient was seen and examined this afternoon. Patient is still experiencing abdominal pain, difficulty swallowing and eating meals. She has dysphagia to both liquid and solids but states that she is able to drink some water with difficulty. Some pain but also difficulty initiating swallowing and states that it gets stuck in her upper esophagus. - Constitutional Vitals: Temp Pulse Resp BP Pulse Ox 97.6 F 66 16 101/63 95 05/26/17 10:59 05/26/17 10:59 05/26/17 10:59 05/26/17 10:59 05/26/17 10:59 General appearance: Present: A&O X 3, morbidly obese, answers questions appropriately Exam: Gen.: Vitals noted. No acute distress. AAOx3 HEENT: PERRL/EOMI, oropharynx clear, Normocephalic, atraumatic Neck: Supple. No adenopathy. Cardiac: RRR, no murmur, +S1/S2 Pulmonary: CTA bilaterally, no wheezes, rales or rhonchi, equal chest expansion Abdomen: soft, diffuse tenderness palpation, BS noted, no guarding, no peritoneal signs Back: Nontender throughout. MSK: ROM intact, no joint swelling noted Extremities: no BLE edema, nontender calf, no cyanosis or clubbing Neuro: A&Ox3, moves all extremities, no focal deficits Psych: Appropriate mood and behavior Internal Medicine: Result - Labs CBC & Chem 7: 05/26/17 06:50 05/26/17 06:50 Labs: Short CBC 05/26/17 Range/Units 06:50 WBC 6.2 (4.3-11.1) K/mcL Hgb 13.0 (11.5-15.4) g/dL Hct 36.1 (35.3-44.9) % Plt Count 207 (140-400) K/mcL Neutrophils # 2.6 (1.6-8.9) K/mcL BMP 05/26/17 06:50 Sodium 137 Potassium 3.2 L Chloride 98 Carbon Dioxide 27 BUN 21 H Creatinine 0.94 Glucose 147 H Calcium 9.3 - ABG Interpretation ABG results: PT/INR, D-dimer PT 13.9 Seconds (9.4-12.1) H 05/14/17 14:41 - VTE Documentation of Mechanical Device: Intermittent pneumatic compression device Consult Discharge Plan - Plan Referrals: Misael Miller MD [Primary Care Provider] - 05/26/17 2:15 pm (Please follow up as schedule.. ) <Max Pollard P - Last Filed: 05/26/17 17:45> Date of Encounter: 05/26/17 - Constitutional Vitals: Temp Pulse Resp BP Pulse Ox 98.5 F 66 15 104/67 95 05/26/17 16:10 05/26/17 16:10 05/26/17 16:10 05/26/17 16:10 05/26/17 16:10 Internal Medicine: Result - Labs CBC & Chem 7: 05/26/17 06:50 05/26/17 06:50 Labs: Short CBC 05/26/17 Range/Units 06:50 WBC 6.2 (4.3-11.1) K/mcL Hgb 13.0 (11.5-15.4) g/dL Hct 36.1 (35.3-44.9) % Plt Count 207 (140-400) K/mcL Neutrophils # 2.6 (1.6-8.9) K/mcL BMP 05/26/17 06:50 Sodium 137 Potassium 3.2 L Chloride 98 Carbon Dioxide 27 BUN 21 H Creatinine 0.94 Glucose 147 H Calcium 9.3 - ABG Interpretation ABG results: PT/INR, D-dimer PT 13.9 Seconds (9.4-12.1) H 05/14/17 14:41 - Attending Attestation I examined this patient and my medical decision-making was reviewed with the Resident Physician. I agree with the documented findings, disposition and treatment plan as described except to the extent set forth below.
[2017-05-26] MEDS: Venlafaxine XR (24 HR) 75 MG CAP.ER.24H PO SCH (21:50)
[2017-05-26] MEDS: Topiramate 100 MG TABLET PO SCH (21:50)
[2017-05-27] MEDS: *HR* OxyCODONE/APAP 5/325 TABLET PO PRN ×4 (01:06→21:42)
[2017-05-27] MEDS: *HR* Promethazine 25 MG/ML VIAL IVP PRN ×4 (01:06→21:42)
[2017-05-27 04:34] LABS: Basophils % 0.5 %; Eosinophils # 0.6 K/mcL (0.0-0.6); Eosinophils % 9.6 %; Hematocrit 38.2 % (35.3-44.9); Hemoglobin 12.5 g/dL (11.5-15.4); Immature Granulocytes % 0.3 % (0-4); Lymphocytes # 2.4 K/mcL (0.6-4.6); Lymphocytes % 38.1 %; Mean Corpuscular HGB Conc 32.7 g/dL (31.6-35.5); Mean Corpuscular Hemoglobin 29.8 pg (28.0-33.3); Mean Corpuscular Volume 91.2 fL (83.0-100.0); Mean Platelet Volume 11.7 fL (9.4-12.4); Monocytes # 0.4 K/mcL (0.0-1.3); Monocytes % 6.7 %; Neutrophils # 2.8 K/mcL (1.6-8.9); Platelet Count 212 K/mcL (140-400); Red Blood Count 4.19 M/mcL (3.82-4.97); Red Cell Distribution Width 12.4 % (11.5-14.5); Segmented Neutrophils % 44.8 %
[2017-05-27 04:53] LABS: BUN/Creatinine Ratio 20 (6-26); Blood Urea Nitrogen 18 mg/dL (7-20); Calcium 9.3 mg/dL (8.6-10.8); Carbon Dioxide 26 mEq/L (19-29); Chloride 101 mEq/L (98-109); Glucose 159 mg/dL (70-99); Magnesium 2.1 mg/dL (1.6-2.6); Osmolality,Calculated 285 (280-300); Potassium 3.5 mEq/L (3.5-4.5); Sodium 135 mEq/L (136-145); eGFR For African Americans > 60 (> 60); eGFR For Non-African Americans > 60 (> 60)
[2017-05-27] MEDS: *HR* Enoxaparin 150 MG/ML SYRINGE SQ SCH ×2 (05:27→16:26)
[2017-05-27] MEDS: Gabapentin 400 MG CAPSULE PO SCH ×3 (07:38→21:41)
[2017-05-27] MEDS: Furosemide 40 MG TABLET PO SCH (07:38)
[2017-05-27] MEDS: Topiramate 25 MG TABLET PO SCH (07:38)
[2017-05-27] MEDS: lamoTRIgine 100 MG TABLET PO SCH ×2 (07:39→21:41)
[2017-05-27] MEDS: Famotidine 20 MG TABLET PO SCH ×2 (07:39→21:41)
[2017-05-27] MEDS: cloNIDine HCl 0.1 MG TABLET PO SCH ×2 (07:39→21:41)
[2017-05-27] MEDS: metOLazone 2.5 MG TABLET PO SCH (07:39)
[2017-05-27] MEDS: Potassium Chloride Elixir 20 MEQ/15 ML UDC PO SCH ×2 (07:39→16:26)
[2017-05-27] MEDS: Insulin LISPRO 300 UNITS/3 ML VIAL SQ SCH ×3 (07:56→17:13)
[2017-05-27] MEDS: Budesonide/Formoterol 160/4.5 MDI IH SCH ×2 (08:31→22:30)
--- NOTE | 2017-05-27 08:33 | Internal Med Progress Note ---
<Levy Gray - Last Filed: 05/27/17 09:18> Date of Encounter: 05/27/17 Time of Encounter: 08:33 - Assessment and plan (1) Intractable nausea and vomiting Current Visit: Yes Status: Resolved Assessment and plan: Severe esophagitis and gastroparesis seen on EGD on 05/16. Underwent Esophageal dilation 05/20, patient tolerated the procedure well. - Still complaining of nausea and pain which should continue to improve after her dilatation, continue Phenergan, Zofran, Reglan. - Is still experiencing dysphagia and abdominal pain. Possibly secondary to psychosomatic features versus post-dilation swelling - We will advance diet as tolerated. - Strong suspicion of psychiatric component of the patient's symptoms as the patient has expressed that she does not have a safe place to return to her discharge. - Patient seen by psych, does not meet inpatient admission requirements. Working with social work to come up with a plan for discharge. Qualifiers: Vomiting type: cyclical vomiting Qualified Code(s): G43.A1 - Cyclical vomiting, intractable (2) Factor 5 Leiden mutation, heterozygous Current Visit: Yes Status: Chronic Assessment and plan: Continue Lovenox BID (3) Morbid obesity with BMI of 50.0-59.9, adult Current Visit: Yes Status: Chronic (4) Diabetes mellitus Current Visit: Yes Status: Chronic Assessment and plan: A1c 7.1 % Diabetic diet. Insulin sliding scale. Qualifiers: Diabetes mellitus type: type 2 Diabetes mellitus complication status: with unspecified complications Diabetes mellitus remote computer terminal operator insulin use: without remote computer terminal operator use Qualified Code(s): E11.8 - Type 2 diabetes mellitus with unspecified complications (5) Hypokalemia Current Visit: Yes Status: Acute Assessment and plan: hypoK with most recent value of 3.5. - Persistently low likely with component of low dietary intake. -Improved from previous with increased dosage to 60 BID. Continue current dose. (6) DVT prophylaxis Current Visit: No Status: Acute Assessment and plan: Lovenox resumed - Time Spent With Patient less than 15 minutes - Subjective Interval history: Patient was seen and examined this morning. She still admits to some abdominal discomfort and difficulty eating. per nursing and patient, she is able to tolerate pudding to take her pills. Patient states that it "just slides down" which makes it easier. Other solids she states she has to force down and it feels like it gets caught. Diffuse abdominal pain. No other symptoms. - Constitutional Vitals: Temp Pulse Resp BP Pulse Ox 98.3 F 60 14 80/47 93 05/27/17 08:23 05/27/17 08:23 05/27/17 08:23 05/27/17 08:23 05/27/17 08:23 General appearance: Present: A&O X 3, morbidly obese, answers questions appropriately Exam: Gen.: Vitals noted. No acute distress. AAOx3, morbidly obese HEENT: PERRL/EOMI, oropharynx clear, Normocephalic, atraumatic Neck: Supple. No adenopathy. Cardiac: RRR, no murmur, +S1/S2 Pulmonary: CTA bilaterally, no wheezes, rales or rhonchi, equal chest expansion Abdomen: Mildly tender to palpation diffusely, worse in upper right quadrant today. soft, BS noted, no guarding Back: Nontender throughout. MSK: ROM intact, no joint swelling noted Extremities: no BLE edema, nontender calf, no cyanosis or clubbing Neuro: A&Ox3, moves all extremities, no focal deficits Psych: Appropriate mood and behavior Internal Medicine: Result - Labs CBC & Chem 7: 05/27/17 03:52 05/27/17 03:52 Labs: Short CBC 05/27/17 Range/Units 03:52 WBC 6.3 (4.3-11.1) K/mcL Hgb 12.5 (11.5-15.4) g/dL Hct 38.2 (35.3-44.9) % Plt Count 212 (140-400) K/mcL Neutrophils # 2.8 (1.6-8.9) K/mcL BMP 05/27/17 03:52 Sodium 135 L Potassium 3.5 Chloride 101 Carbon Dioxide 26 BUN 18 Creatinine 0.91 Glucose 159 H Calcium 9.3 - ABG Interpretation ABG results: PT/INR, D-dimer PT 13.9 Seconds (9.4-12.1) H 05/14/17 14:41 - VTE Documentation of Mechanical Device: Intermittent pneumatic compression device Consult Discharge Plan - Plan Referrals: Misael Miller MD [Primary Care Provider] - 06/01/17 2:15 pm ( ) <Max Pollard P - Last Filed: 05/27/17 18:17> Date of Encounter: 05/27/17 - Constitutional Vitals: Temp Pulse Resp BP Pulse Ox 97.8 F 61 18 93/60 96 05/27/17 15:46 05/27/17 15:46 05/27/17 15:46 05/27/17 15:46 05/27/17 15:46 Internal Medicine: Result - Labs CBC & Chem 7: 05/27/17 03:52 05/27/17 03:52 Labs: Short CBC 05/27/17 Range/Units 03:52 WBC 6.3 (4.3-11.1) K/mcL Hgb 12.5 (11.5-15.4) g/dL Hct 38.2 (35.3-44.9) % Plt Count 212 (140-400) K/mcL Neutrophils # 2.8 (1.6-8.9) K/mcL BMP 05/27/17 03:52 Sodium 135 L Potassium 3.5 Chloride 101 Carbon Dioxide 26 BUN 18 Creatinine 0.91 Glucose 159 H Calcium 9.3 - ABG Interpretation ABG results: PT/INR, D-dimer PT 13.9 Seconds (9.4-12.1) H 05/14/17 14:41 - Attending Attestation I examined this patient and my medical decision-making was reviewed with the Resident Physician. I agree with the documented findings, disposition and treatment plan as described except to the extent set forth below. Medically clear, pending placement
[2017-05-27] MEDS: Topiramate 100 MG TABLET PO SCH (21:41)
[2017-05-27] MEDS: Venlafaxine XR (24 HR) 75 MG CAP.ER.24H PO SCH (21:42)
[2017-05-28] MEDS: Insulin LISPRO 300 UNITS/3 ML VIAL SQ SCH ×5 (02:33→22:48)
[2017-05-28] MEDS: *HR* OxyCODONE/APAP 5/325 TABLET PO PRN ×4 (03:44→22:41)
[2017-05-28] MEDS: *HR* Promethazine 25 MG/ML VIAL IVP PRN ×4 (03:45→22:40)
[2017-05-28] MEDS: *HR* Enoxaparin 150 MG/ML SYRINGE SQ SCH ×2 (06:58→17:12)
[2017-05-28 06:59] LABS: Hematocrit 39.6 % (35.3-44.9); Hemoglobin 12.8 g/dL (11.5-15.4); Mean Corpuscular HGB Conc 32.3 g/dL (31.6-35.5); Mean Corpuscular Hemoglobin 29.4 pg (28.0-33.3); Mean Corpuscular Volume 90.8 fL (83.0-100.0); Mean Platelet Volume 11.2 fL (9.4-12.4); Red Blood Count 4.36 M/mcL (3.82-4.97); Red Cell Distribution Width 12.3 % (11.5-14.5)
[2017-05-28 07:10] LABS: BUN/Creatinine Ratio 19 (6-26); Blood Urea Nitrogen 18 mg/dL (7-20); Calcium 9.4 mg/dL (8.6-10.8); Carbon Dioxide 27 mEq/L (19-29); Chloride 100 mEq/L (98-109); Glucose 155 mg/dL (70-99); Osmolality,Calculated 291 (280-300); Potassium 3.1 mEq/L (3.5-4.5); Sodium 138 mEq/L (136-145); eGFR For African Americans > 60 (> 60); eGFR For Non-African Americans > 60 (> 60)
[2017-05-28] MEDS: Famotidine 20 MG TABLET PO SCH ×2 (07:50→22:41)
[2017-05-28] MEDS: metOLazone 2.5 MG TABLET PO SCH (07:50)
[2017-05-28] MEDS: cloNIDine HCl 0.1 MG TABLET PO SCH ×2 (07:50→22:41)
[2017-05-28] MEDS: lamoTRIgine 100 MG TABLET PO SCH ×2 (07:50→22:41)
[2017-05-28] MEDS: Gabapentin 400 MG CAPSULE PO SCH ×3 (07:50→22:51)
[2017-05-28] MEDS: Furosemide 40 MG TABLET PO SCH (07:51)
[2017-05-28] MEDS: Potassium Chloride Elixir 20 MEQ/15 ML UDC PO SCH ×2 (07:56→16:24)
[2017-05-28] MEDS: Topiramate 25 MG TABLET PO SCH (07:56)
[2017-05-28] MEDS ORDERED: Potassium Chloride 20 MEQ, Lidocaine 1% 2 ML in D5% in Water 250 ML IVPB ONE (08:47)
[2017-05-28] MEDS: Budesonide/Formoterol 160/4.5 MDI IH SCH ×2 (10:49→20:27)
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
[2017-05-28] MEDS ORDERED: Lidocaine -MPF 1% 2 ML VIAL INFILT ONE (14:14)
[2017-05-28] MEDS ORDERED: *HR* LORazepam 1 MG TABLET PO PRN (18:36)
[2017-05-28] MEDS: Topiramate 100 MG TABLET PO SCH (22:41)
[2017-05-28] MEDS: Venlafaxine XR (24 HR) 75 MG CAP.ER.24H PO SCH (22:42)
[2017-05-29] MEDS: *HR* Enoxaparin 150 MG/ML SYRINGE SQ SCH ×2 (05:02→15:47)
[2017-05-29] MEDS: *HR* OxyCODONE/APAP 5/325 TABLET PO PRN ×3 (05:02→17:41)
[2017-05-29 06:38] LABS: Hematocrit 40.3 % (35.3-44.9); Hemoglobin 13.5 g/dL (11.5-15.4); Mean Corpuscular HGB Conc 33.5 g/dL (31.6-35.5); Mean Corpuscular Hemoglobin 30.4 pg (28.0-33.3); Mean Corpuscular Volume 90.8 fL (83.0-100.0); Mean Platelet Volume 11.5 fL (9.4-12.4); Platelet Count 230 K/mcL (140-400); Red Blood Count 4.44 M/mcL (3.82-4.97); Red Cell Distribution Width 12.3 % (11.5-14.5)
[2017-05-29 07:39] LABS: Calcium 9.8 mg/dL (8.6-10.8); Magnesium 2.2 mg/dL (1.6-2.6)
[2017-05-29] MEDS: Budesonide/Formoterol 160/4.5 MDI IH SCH ×2 (07:45→21:53)
[2017-05-29] MEDS: Potassium Chloride Elixir 20 MEQ/15 ML UDC PO SCH ×2 (08:41→15:45)
[2017-05-29] MEDS: lamoTRIgine 100 MG TABLET PO SCH ×2 (08:43→20:44)
[2017-05-29] MEDS: Topiramate 25 MG TABLET PO SCH (08:43)
[2017-05-29] MEDS: cloNIDine HCl 0.1 MG TABLET PO SCH ×2 (08:43→20:44)
[2017-05-29] MEDS: metOLazone 2.5 MG TABLET PO SCH (08:43)
[2017-05-29] MEDS: Famotidine 20 MG TABLET PO SCH ×2 (08:43→20:43)
[2017-05-29] MEDS: Gabapentin 400 MG CAPSULE PO SCH ×3 (08:43→20:43)
[2017-05-29] MEDS: Furosemide 40 MG TABLET PO SCH (08:43)
[2017-05-29] MEDS: Insulin LISPRO 300 UNITS/3 ML VIAL SQ SCH ×4 (08:45→21:05)
[2017-05-29] MEDS: *HR* Promethazine 25 MG/ML VIAL IVP PRN ×2 (11:49→17:42)
[2017-05-29] MEDS: Nystatin SUSP 5 ML UD.LIQ PO SCH ×2 (16:48→20:43)
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
[2017-05-29] MEDS: Topiramate 100 MG TABLET PO SCH (20:43)
[2017-05-29] MEDS: Venlafaxine XR (24 HR) 75 MG CAP.ER.24H PO SCH (20:44)
[2017-05-29 23:07] LABS: Bilirubin,Urine Negative (Negative); Blood,Urine Negative (Negative); Clarity,Urine Clear (Clear); Color,Urine Yellow (Yellow); Glucose,Urine (UA) Normal (Normal); Ketones,Urine Negative (Negative); Leukocyte Esterase,Urine Negative (Negative); Nitrite,Urine Negative (Negative); PH,Urine 5.5 pH Units (5.0-8.0); Protein,Urine Negative (Neg-Trace); Urobilinogen,Urine Normal (Normal)
[2017-05-30] MEDS: Acetaminophen 325 MG TABLET PO PRN (00:13)
[2017-05-30] MEDS: *HR* Promethazine 25 MG/ML VIAL IVP PRN ×4 (00:13→18:20)
[2017-05-30] MEDS: *HR* OxyCODONE/APAP 5/325 TABLET PO PRN ×3 (06:14→18:20)
[2017-05-30] MEDS: *HR* Enoxaparin 150 MG/ML SYRINGE SQ SCH ×2 (06:15→16:12)
[2017-05-30] MEDS: Budesonide/Formoterol 160/4.5 MDI IH SCH ×2 (07:51→20:28)
[2017-05-30] MEDS: Potassium Chloride Elixir 20 MEQ/15 ML UDC PO SCH ×2 (08:27→16:09)
[2017-05-30] MEDS: Gabapentin 400 MG CAPSULE PO SCH ×3 (08:32→21:55)
[2017-05-30] MEDS: lamoTRIgine 100 MG TABLET PO SCH ×2 (08:33→21:55)
[2017-05-30] MEDS: cloNIDine HCl 0.1 MG TABLET PO SCH ×2 (08:33→21:56)
[2017-05-30] MEDS: Topiramate 25 MG TABLET PO SCH (08:34)
[2017-05-30] MEDS: Famotidine 20 MG TABLET PO SCH ×2 (08:34→21:56)
[2017-05-30] MEDS: Furosemide 40 MG TABLET PO SCH (08:34)
[2017-05-30] MEDS: Insulin LISPRO 300 UNITS/3 ML VIAL SQ SCH ×4 (08:35→21:56)
[2017-05-30] MEDS: metOLazone 2.5 MG TABLET PO SCH (08:35)
[2017-05-30] MEDS: Nystatin SUSP 5 ML UD.LIQ PO SCH ×4 (08:37→21:57)
[2017-05-30 09:31] LABS: Basophils % 0.3 %; Eosinophils # 0.4 K/mcL (0.0-0.6); Eosinophils % 7.5 %; Hematocrit 39.9 % (35.3-44.9); Hemoglobin 13.3 g/dL (11.5-15.4); Immature Granulocytes % 0.2 % (0-4); Lymphocytes # 2.2 K/mcL (0.6-4.6); Lymphocytes % 37.1 %; Mean Corpuscular HGB Conc 33.3 g/dL (31.6-35.5); Mean Corpuscular Hemoglobin 29.7 pg (28.0-33.3); Mean Corpuscular Volume 89.1 fL (83.0-100.0); Mean Platelet Volume 11.3 fL (9.4-12.4); Monocytes # 0.4 K/mcL (0.0-1.3); Monocytes % 6.5 %; Neutrophils # 2.9 K/mcL (1.6-8.9); Platelet Count 226 K/mcL (140-400); Red Blood Count 4.48 M/mcL (3.82-4.97); Red Cell Distribution Width 12.2 % (11.5-14.5); Segmented Neutrophils % 48.4 %
[2017-05-30 09:42] LABS: Albumin 3.6 g/dL (3.5-5.0); Albumin/Globulin Ratio 0.9 (1.1-2.2); Bilirubin,Total 0.5 mg/dL (0.2-1.2); Calcium 9.5 mg/dL (8.6-10.8); Potassium 2.8 mEq/L (3.5-4.5); Total Protein 7.6 g/dL (6.0-8.3)
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
[2017-05-30] MEDS: Topiramate 100 MG TABLET PO SCH (21:55)
[2017-05-30] MEDS: Venlafaxine XR (24 HR) 75 MG CAP.ER.24H PO SCH (21:56)
[2017-05-31] MEDS: *HR* OxyCODONE/APAP 5/325 TABLET PO PRN ×4 (00:22→20:30)
[2017-05-31] MEDS: *HR* Promethazine 25 MG/ML VIAL IVP PRN ×4 (00:23→20:30)
[2017-05-31 05:04] LABS: Basophils % 0.3 %; Eosinophils # 0.4 K/mcL (0.0-0.6); Eosinophils % 6.5 %; Hematocrit 39.9 % (35.3-44.9); Hemoglobin 13.4 g/dL (11.5-15.4); Immature Granulocytes % 0.3 % (0-4); Lymphocytes # 2.6 K/mcL (0.6-4.6); Lymphocytes % 39.9 %; Mean Corpuscular HGB Conc 33.6 g/dL (31.6-35.5); Mean Corpuscular Hemoglobin 29.9 pg (28.0-33.3); Mean Corpuscular Volume 89.1 fL (83.0-100.0); Mean Platelet Volume 11.7 fL (9.4-12.4); Monocytes # 0.5 K/mcL (0.0-1.3); Monocytes % 7.7 %; Platelet Count 258 K/mcL (140-400); Red Blood Count 4.48 M/mcL (3.82-4.97); Red Cell Distribution Width 12.1 % (11.5-14.5); Segmented Neutrophils % 45.3 %
[2017-05-31 05:32] LABS: Alanine Aminotransferase 13 Units/L (0-55); Albumin 3.7 g/dL (3.5-5.0); Albumin/Globulin Ratio 0.9 (1.1-2.2); Alkaline Phosphatase 159 Units/L (38-126); Aspartate Amino Transferase 13 Units/L (5-34); BUN/Creatinine Ratio 19 (6-26); Bilirubin,Total 0.4 mg/dL (0.2-1.2); Blood Urea Nitrogen 22 mg/dL (7-20); Calcium 9.8 mg/dL (8.6-10.8); Carbon Dioxide 34 mEq/L (19-29); Chloride 93 mEq/L (98-109); Glucose 143 mg/dL (70-99); Osmolality,Calculated 292 (280-300); Potassium 2.7 mEq/L (3.5-4.5); Sodium 138 mEq/L (136-145); Total Protein 7.7 g/dL (6.0-8.3); eGFR For African Americans > 60 (> 60); eGFR For Non-African Americans 50 (> 60)
[2017-05-31] MEDS: *HR* Enoxaparin 150 MG/ML SYRINGE SQ SCH ×2 (06:36→17:01)
[2017-05-31] MEDS: Potassium Chloride Elixir 20 MEQ/15 ML UDC PO SCH ×2 (08:53→16:58)
[2017-05-31] MEDS: Nystatin SUSP 5 ML UD.LIQ PO SCH ×4 (08:54→20:30)
[2017-05-31] MEDS: lamoTRIgine 100 MG TABLET PO SCH ×2 (08:55→20:30)
[2017-05-31] MEDS: Topiramate 25 MG TABLET PO SCH (08:55)
[2017-05-31] MEDS: Furosemide 40 MG TABLET PO SCH (08:55)
[2017-05-31] MEDS: cloNIDine HCl 0.1 MG TABLET PO SCH ×2 (08:55→20:29)
[2017-05-31] MEDS: metOLazone 2.5 MG TABLET PO SCH (08:55)
[2017-05-31] MEDS: Famotidine 20 MG TABLET PO SCH ×2 (08:56→20:29)
[2017-05-31] MEDS: Gabapentin 400 MG CAPSULE PO SCH ×3 (08:56→20:25)
[2017-05-31] MEDS: Insulin LISPRO 300 UNITS/3 ML VIAL SQ SCH ×4 (08:57→23:56)
[2017-05-31] MEDS ORDERED: Potassium Chloride 20 MEQ, Lidocaine 1% 2 ML in D5% in Water 250 ML IVPB ONE (10:13)
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
[2017-05-31] MEDS: Budesonide/Formoterol 160/4.5 MDI IH SCH ×2 (11:18→21:34)
--- NOTE | 2017-05-31 11:37 | Venous Imaging Report ---
UE Venous Duplex Patient Name:Mary Mitchell Order Number:[id number] Procedure Date:05/30/2017 Date:1970Age:46 yrs Gender:Female Location:[facility] Room #: 2A44 Welder Gun:Phylicia Flor RDCS Referring MD:Micheal Ortiz DO Reading MD:Darryn Mota MD Primary Indications:lumps in arm Secondary Indications: Risk Factors Yes/No Hx of DVT Yes Anticoagulants Yes Impressions: Left upper extremity: normal deep exam. Upper extremity abnormal superficial exam: left Cephalic Upper Arm vein acute thrombosis. Recommendations: After imaging the patient returned to their room. Gave vascular preliminary results to Rosalba DEAN on 05/30/2017 at 11:40am. Test completed on 05/30/2017 at 11:25:00 am. Critical findings reported to Rosalba DEAN in person at 11:40:00 am on 05/30/2017 by Phylicia Flor RDCS. Findings Venous Duplex Results: Right: Venous imaging of the upper extremity reveals full patency and normal vessel compressibility of the right jugular. Doppler signals in the evaluated veins were normal. Left: Venous imaging of the upper extremity reveals full patency and normal vessel compressibility of the left jugular, left subclavian, left axillary, left brachial, left basilic, left radial and left ulnar. Doppler signals in the evaluated veins were normal. The left cephalic upper arm demonstrates an incompressible vein. Flow was absent and it did not augment. Upper Extremity Venous Duplex Side Vein Compress Spontaneous Flow Augment Left Jugular Normal yes Phasic yes Left Subclavian Normal yes Phasic yes Left Axillary Normal yes Phasic yes Left Brachial Normal yes Phasic yes Left Cephalic Upper Arm None no Absent no Left Basilic Normal yes Phasic yes Left Radial Normal yes Phasic yes Left Ulnar Normal yes Phasic yes Right Jugular Normal yes Phasic yes Updated by Darryn Mota MD on 05/31/2017 11:32:53 AM electronically signed on 05/31/2017 11:33:11 AM with status of Final
--- NOTE | 2017-05-31 12:03 | Nephrology Consult Note ---
<Cash Blankenship - Last Filed: 05/31/17 15:01> Date of Encounter: 05/31/17 Time of Encounter: 11:58 Assessment and Plan (1) Hypokalemia Status: Acute Patient is a current potassium 2.7 with several days of hypokalemia. Patient denies nausea and vomiting, diarrhea, polyuria. -She is prescribed Lasix 40 mg a review of her outpatient note demonstrates that she would be taking 80 mg in the a.m. and 40 mg at night's for edema. She is continued on 40 mg Lasix daily. - Suspects diuretic induced hypokalemia. - Primary team currently providing 50 mg potassium chloride 3 times a day Plan: - Hold Lasix - Recheck potassium in the morning - Potassium by mouth preferred. - Urine osmolality, serum osmolality, urinalysis, urine urea ordered for a.m. (2) Diabetes mellitus Status: Chronic Patient has known type 2 diabetes with history of diabetic nephropathy and chronic stage III kidney disease. -Glucose has been slightly elevated during inpatient stay -Glucose management per primary team. Qualifiers: Diabetes mellitus type: type 2 Diabetes mellitus complication status: with unspecified complications Diabetes mellitus health coordinator insulin use: without custodial use Qualified Code(s): E11.8 - Type 2 diabetes mellitus with unspecified complications History of Present Illness - Reason for Consult Consult date: 05/31/17 hypokalemia Requesting physician: Mino Antony - Chief Complaint Feeling tired - History of Present Illness Mrs. Mitchell 46-year-old female past medical history of factor V Leiden mutation on chronic anticoagulation, type 2 diabetes, urinary retention for which she requires chronic Vizcaino, PE, DVT with history of IVC filter, morbid obesity, esophageal stricture who is admitted for esophageal stricture and dysphagia. She has undergone esophageal dilatation and since admission has had continual drop in her potassium. Upon evaluation of ms. Mitchell she denies any nausea, vomiting, diarrhea, increased urinary frequency or burning with urination. She states she has a history of stage III chronic kidney disease and diabetic nephropathy for whom she sees Dr. Villalta with [facility]. She denies any history of hypokalemia, previously taking potassium supplementation or excess diuretic use outside of her prescribed dose. She is taking 40 mg by mouth Lasix for lower extremity edema. She denies any fevers, chills, sweating , nausea vomiting diarrhea constipation, chest pain, palpitations, shortness of breath, blood in her sputum, emesis, bowel movements or urine. She does say however she is in general tired and has been since admission. She denies any other possibilities for having low potassium denies any changes to her medications recently. Past Med Surg Social Fam HX - Past Medical History Medical history: asthma, DVT, diabetes, GERD, pulmonary embolus, renal disease, other Psychiatric history: anxiety, depression - Past Surgical History Surgical History: cholecystectomy, hysterectomy, orthopedic, other, other - Social History Smoking Status: Never smoker Smokeless Tobacco Status: No Alcohol use: none Drug use: none - Family History Mother Family Member Ethnicity: Non- Living Status: Hx Family Cardiac Disorders: Yes (AR, CHF) Hx Family Respiratory Disorders: No Hx Family Cancer: Yes (Cervical) Hx Family GI Disorders: No Hx Family Endocrine Disorder: Yes (Hypoglycemia) Hx Family Neuromuscular Disorders: No Hx Family Neurologic Disorders: No Hx Family HEENT Disorders: No Hx Family Autoimmune Disorders: Yes (Factor V) Medications and Allergies Albuterol Sulfate [Proair Respiclick] 2 puff PO Q4H PRN #0 04/10/15 [History] Budesonide/Formoterol 160/4.5 [Symbicort 160/4.5] 2 puff IH BIDR #0 04/10/15 [ History] Ipratropium/Albuterol Neb [Duoneb] 3 ml IH QIDR PRN 04/10/15 [History] Montelukast [Singulair] 10 mg PO HS 04/10/15 [History] Topiramate [Topamax] 150 mg PO HS 04/10/15 [History] raNITIdine HCl [Ranitidine HCl] 150 mg PO BID 04/10/15 [History] Doxepin [Sinequan] 25 - 50 mg PO HS 08/14/15 [History] Venlafaxine XR (24 HR) [Effexor Xr] 75 mg PO HS 08/14/15 [History] Buspirone HCl [Buspar] 10 mg PO BID 09/17/15 [History] Furosemide [Lasix] 40 mg PO DAILY 09/17/15 [History] Oxygen 2 l NS AD 09/17/15 [History] SUMAtriptan Succinate [Imitrex] 100 mg PO DAILY PRN 09/17/15 [History] cloNIDine HCl [CloNIDine HCl] 0.1 mg PO BID 09/17/15 [History] Potassium Chloride [K-Tab ER] 10 meq PO DAILY 01/20/16 [History] Trazodone HCl [TraZODone] 100 mg PO HS PRN 01/20/16 [History] LORazepam [Ativan] 1 mg PO BID 03/03/16 [History] Cetirizine HCl [All Day Allergy] 10 mg PO DAILY 08/26/16 [History] Gabapentin 800 mg PO TID 08/26/16 [History] lamoTRIgine [Lamictal] 100 mg PO BID 08/26/16 [History] Acetaminophen [Tylenol] 1,000 mg PO Q6HR PRN 09/04/16 [History] Albuterol Neb [Proventil Neb] 2.5 mg IH Q4HR #30 vial.neb 01/30/17 [Rx] Albuterol Sulfate [Albuterol Inhaler] 2 puff IH Q4HR #1 hfa.aer.ad 01/30/17 [Rx] Enoxaparin [Lovenox] 150 mg SQ Q12H #60 syringe 03/04/17 [Rx] Topiramate [Topamax] 50 mg PO DAILY 03/04/17 [History] Atorvastatin [Lipitor] 10 mg PO HS 04/27/17 [History] Dulaglutide [Trulicity] 1.5 mg SQ QWEEK 04/27/17 [History] Oxycodone HCl/Acetaminophen [Percocet 5-325 mg Tablet] 1 tab PO Q6H PRN [History] Omeprazole Magnesium [Prilosec Otc] 20 mg PO BID 30 Days #60 tablet. 06/07/17 [Rx] 3 Allergy/AdvReac Type Severity Reaction Status Date / Time codeine Allergy Hives,SWELL Verified 04/27/17 13:40 ING Erythromycin Base Allergy THROAT Verified 04/27/17 13:40 SWELLING ondansetron Allergy Hives Verified 04/27/17 13:40 [From Zofran (as hydrochloride)] Penicillins [PCN] Allergy THROAT Verified 04/27/17 13:40 SWELLING Sulfa (Sulfonamide Allergy THROAT Verified 04/27/17 13:40 Antibiotics) SWELLING tape Allergy Blister Uncoded 04/27/17 13:40 Review of Systems Constitutional: weakness, no excessive sweating, no weight loss Eyes: bilateral: blurred vision (patient denies), diplopia (patient denies) Nose, mouth and throat: no dizziness, no headache(s) Cardiovascular: no chest pain, no palpitations Respiratory: no cough, no dyspnea Gastrointestinal: no abdominal pain, no change in bowel habits Musculoskeletal: no muscle weakness, no numbness Integumentary: no hirsutism, no striae Psychiatric: no depression, no difficulty concentrating Endocrine: as per HPI Hematologic/Lymphatic: no easy bruising, no lymphadenopathy Exam - Vital Signs Vital signs: Initial Vital Signs Temp Pulse Resp BP Pulse Ox 98.6 F 96 24 154/88 94 05/11/17 03:32 05/11/17 03:32 05/11/17 03:32 05/11/17 03:32 05/11/17 03:32 Vital Signs - Last 8 Hours Temp Pulse Resp BP Pulse Ox 05/31/17 07:49 97.5 F L 51 16 106/72 93 05/31/17 04:35 99.0 F 55 16 118/73 93 Intake and Output 05/30/17 05/31/17 05/31/17 23:59 07:59 15:59 Intake Total 100 / 100 0 / 0 70 / 70 Output Total 700 / 700 0 / 0 Balance -600 / -600 0 / 0 70 / 70 Intake: IV Fluids 100 / 100 10 / 10 Potassium Chloride 10 mEq/100mL 100 / 100 10 / 10 10 meq In 100 ml @ 100 mls/hr IVPB Q1H [facility] Rx#:[id number] Oral 0 / 0 0 / 0 60 / 60 Output: Urine 0 / 0 0 / 0 Straight Cath 700 / 700 Other: Meal Breakfast Percent of Meal Consumed 0% Weight 148.6 kg Blood Glucose* 168 147 147 Patient Weight 05/31/17 23:59 Weight 148.6 kg - General Appearance General appearance: well-developed, well-nourished, appears started age Respiratory: no kyphosis, no scoliosis Cardiology: no murmurs, no rub, no gallops, no edema, regular rate, regular rhythm, normal S1, normal S2 Gastrointestinal: normoactive bowel sounds, no tenderness, no guarding, no organomegaly, no masses, obese Integumentary: no rash, warm and dry Neurologic: no focal deficit, no asterixis, alert and oriented x3, reflexes 2+ and symmetric, gait normal, strength 5/5 Musculoskeletal: no deformities, no erythema, no cyanosis, no clubbing Psychiatric: mood/affect appropriate, cooperative Results - Lab Results 05/31/17 04:40 05/31/17 09:05 Most recent lab results Calcium 9.8 mg/dL (8.6-10.8) 05/31/17 04:40 Magnesium 2.2 mg/dL (1.6-2.6) 05/29/17 06:17 Consult Discharge Plan - Plan Instructions: Viral Pneumonia (DC) Referrals: Misael Miller MD [Primary Care Provider] - 06/11/17 10:15 am ( ) Prescriptions: Omeprazole Magnesium [Prilosec Otc] 20 mg PO BID 30 Days #60 tablet. <Yesica Ly - Last Filed: 06/11/17 13:01> Date of Encounter: 05/31/17 Exam - Vital Signs Vital signs: Initial Vital Signs Temp Pulse Resp BP Pulse Ox 98.6 F 96 24 154/88 94 05/11/17 03:32 05/11/17 03:32 05/11/17 03:32 05/11/17 03:32 05/11/17 03:32 Results - Lab Results 06/07/17 04:42 06/07/17 04:42 Most recent lab results Calcium 9.2 mg/dL (8.6-10.8) 06/07/17 04:42 Magnesium 2.1 mg/dL (1.6-2.6) 06/07/17 04:42 Urine Sodium 50.0 mEq/L 06/04/17 00:15 - Attending Attestation I examined this patient and my medical decision-making was reviewed with the Resident Physician. I agree with the documented findings, disposition and treatment plan as described except to the extent set forth below. Pt seen and examined and in summary 46 y o female with PMH of DM, factor V leiden on anticoag, GFF, PE, DVT, stage 2/3 CKD and esophageal stricture admitted with dysphagia developing hypokalemia during hospital stay while on diuretics. She was noted on exam to be well developed and well nourished with no significant LE edema. Suspect etiology of hypokalemia stems from poor po intake along with renal wasting from diuretics. Will stop all diuretics. Will aggressively replete potassium with supplements. Willc heck urine lytes and also calc TTKG though null with diuretics on board.
[2017-05-31] MEDS: Venlafaxine XR (24 HR) 75 MG CAP.ER.24H PO SCH (20:29)
[2017-05-31] MEDS: Topiramate 100 MG TABLET PO SCH (20:30)
[2017-06-01] MEDS: *HR* OxyCODONE/APAP 5/325 TABLET PO PRN ×4 (02:35→21:55)
[2017-06-01] MEDS: *HR* Promethazine 25 MG/ML VIAL IVP PRN ×4 (02:35→21:56)
[2017-06-01 05:16] LABS: Potassium,Urine 80.6 mEq/L
[2017-06-01] MEDS: *HR* Enoxaparin 150 MG/ML SYRINGE SQ SCH ×2 (05:51→17:09)
--- NOTE | 2017-06-01 06:33 | Internal Med Progress Note ---
Date of Encounter: 06/01/17 Time of Encounter: 06:33 - Assessment and plan (1) Left arm swelling Current Visit: Yes Status: Acute (2) Intractable nausea and vomiting Current Visit: Yes Status: Resolved Qualifiers: Vomiting type: cyclical vomiting Qualified Code(s): G43.A1 - Cyclical vomiting, intractable (3) Hypokalemia Current Visit: Yes Status: Acute (4) Factor 5 Leiden mutation, heterozygous Current Visit: Yes Status: Chronic (5) Morbid obesity with BMI of 50.0-59.9, adult Current Visit: Yes Status: Chronic - Subjective Interval history: The patient was seen and examined at bedside. Patient is comfortably resting in chair next to bed. She says that she is still having trouble swallowing foods thicker than Jell-O consistency. She feels like she has been choking with food up. She otherwise has no acute complaints. - Constitutional Vitals: Temp Pulse Resp BP Pulse Ox 97.7 F 52 17 99/63 94 06/01/17 03:26 06/01/17 03:26 06/01/17 03:26 06/01/17 03:26 06/01/17 03:26 General appearance: Present: A&O X 3, morbidly obese, answers questions appropriately Internal Medicine: Result - Labs CBC & Chem 7: 05/31/17 04:40 05/31/17 09:05 Labs: BMP 05/31/17 09:05 Potassium 2.7 L - ABG Interpretation ABG results: PT/INR, D-dimer PT 13.9 Seconds (9.4-12.1) H 05/14/17 14:41 - VTE Documentation of Mechanical Device: Intermittent pneumatic compression device Consult Discharge Plan - Plan Referrals: Misael Miller MD [Primary Care Provider] - 06/07/17 2:15 pm ( )
[2017-06-01 07:01] LABS: BUN/Creatinine Ratio 20 (6-26); Blood Urea Nitrogen 22 mg/dL (7-20); Calcium 9.7 mg/dL (8.6-10.8); Carbon Dioxide 31 mEq/L (19-29); Chloride 93 mEq/L (98-109); Glucose 154 mg/dL (70-99); Osmolality,Calculated 292 (280-300); Potassium 2.7 mEq/L (3.5-4.5); Sodium 138 mEq/L (136-145); eGFR For African Americans > 60 (> 60); eGFR For Non-African Americans 53 (> 60)
[2017-06-01 07:22] LABS: Thyroid Stimulating Hormone 3.835 mcIU/mL (0.350-4.840)
[2017-06-01] MEDS: Budesonide/Formoterol 160/4.5 MDI IH SCH ×2 (07:44→20:21)
[2017-06-01] MEDS: Topiramate 25 MG TABLET PO SCH (08:20)
[2017-06-01] MEDS: cloNIDine HCl 0.1 MG TABLET PO SCH ×2 (08:20→21:55)
[2017-06-01] MEDS: Insulin LISPRO 300 UNITS/3 ML VIAL SQ SCH ×4 (08:20→21:55)
[2017-06-01] MEDS: Gabapentin 400 MG CAPSULE PO SCH ×3 (08:20→21:54)
[2017-06-01] MEDS: metOLazone 2.5 MG TABLET PO SCH (08:21)
[2017-06-01] MEDS: Nystatin SUSP 5 ML UD.LIQ PO SCH ×4 (08:21→21:54)
[2017-06-01] MEDS: lamoTRIgine 100 MG TABLET PO SCH ×2 (08:21→21:55)
[2017-06-01] MEDS: Famotidine 20 MG TABLET PO SCH ×2 (08:21→21:55)
--- NOTE | 2017-06-01 08:54 | Nephrology Progress Note ---
Date of Encounter: 06/01/17 Time of Encounter: 08:45 - Assessment and Plan (1) Hypokalemia Current Visit: Yes Status: Acute Patient is a current potassium 2.7 with several days of hypokalemia. Patient denies nausea and vomiting, diarrhea, polyuria. -She is prescribed Lasix 40 mg a review of her outpatient note demonstrates that she would be taking 80 mg in the a.m. and 40 mg at night's for edema. She is continued on 40 mg Lasix daily. - Suspects diuretic induced hypokalemia. 06/01: Potassium is 2.7 which is stable from yesterday, patient continued on 60meq KCl orally BID Supporting labs: Urine sodium 59.0, urine potassium 80.6, urine chloride 50 - Year potassium 80.6 suggestive of renal loss of potassium which may be related to the patient's recent diuretic use Plan: - Continue to Hold Lasix - Recheck potassium in the morning - Potassium by mouth preferred. (2) Diabetes mellitus Current Visit: Yes Status: Chronic Patient has known type 2 diabetes with history of diabetic nephropathy and chronic stage III kidney disease. -Glucose has been slightly elevated during inpatient stay -Glucose management per primary team. Qualifiers: Diabetes mellitus type: type 2 Diabetes mellitus complication status: with unspecified complications Diabetes mellitus fdc insulin use: without terminal press operator use Qualified Code(s): E11.8 - Type 2 diabetes mellitus with unspecified complications Subjective Principal diagnosis: Hypokalmeia Interval history: Ms. Mitchell has been seen and evaluated this morning. She says she has the same problems as yesterday of feeling tired. She also says she continues to have trouble swallowing and is unsure of her plan. She thinks that she will be able to eat bananas with her meals. Objective - Vital Signs Vital signs: Vital Signs Temp Pulse Resp BP Pulse Ox 06/01/17 07:47 18 97 06/01/17 07:16 97.6 F 54 17 98/66 97 06/01/17 03:26 97.7 F 52 17 99/63 94 06/01/17 00:05 98.1 F 53 17 107/67 95 05/31/17 21:35 14 94 05/31/17 20:35 98.0 F 60 14 126/84 94 05/31/17 16:41 97.5 F L 65 18 143/88 97 05/31/17 12:36 97.5 F L 56 16 96/63 92 05/31/17 11:18 16 93 Intake and Output 05/31/17 06/01/17 06/01/17 23:59 07:59 15:59 Intake Total 720 / 720 Output Total 0 / 0 475 / 475 Balance 720 / 720 -475 / -475 Intake: Oral 720 / 720 Output: Urine 0 / 0 Straight Cath 475 / 475 Other: Meal Dinner Percent of Meal Consumed 20% Weight 149.3 kg Blood Glucose* 183 150 Patient Weight 06/01/17 23:59 Weight 149.3 kg - General Appearance Exam: General: Patient alert, awake, oriented 3, interactive, in no acute distress HEENT: Normocephalic, atraumatic, pupils equal reactive to light, nasal cavity patent and open, oral mucosa moist, poor dentition, neck supple trachea midline no palpable lymphadenopathy, no thyromegaly. Chest: Symmetric bilateral correlating with respiratory effort, effort nonlabored. Cardiac: Regular rate and rhythm, positive S1 and S2. no bruits appreciated bilateral carotids, Radial pulses 2+ bilateral, posterior tibial and dorsal pedal pulses 2+ bilateral. Respiratory: Clear to auscultation all lung bassett Abdomen: Obese, Soft, nontender, positive bowel sounds, no palpable masses appreciated on examination Extremities: Symmetric bilateral, bilateral lower extremities without erythema or edema patient moving all 4 extremities spontaneously. Neurologic: No focal deficits appreciated on examination. Face symmetric, muscle strength symmetric bilateral upper and lower extremities. - Lab 05/31/17 04:40 06/01/17 06:05 Most recent lab results Calcium 9.7 mg/dL (8.6-10.8) 06/01/17 06:05 Magnesium 2.2 mg/dL (1.6-2.6) 05/29/17 06:17 Urine Sodium 59.0 mEq/L 06/01/17 04:51 - VTE Documentation of Mechanical Device: Intermittent pneumatic compression device Consult Discharge Plan - Plan Referrals: Misael Miller MD [Primary Care Provider] - 06/07/17 2:15 pm ( )
[2017-06-01] MEDS: Potassium Chloride Elixir 20 MEQ/15 ML UDC PO SCH ×2 (09:52→17:09)
[2017-06-01] MEDS ORDERED: Sennosides/Docusate Sodium TABLET PO PRN (14:51)
[2017-06-01 17:36] LABS: Magnesium 2.2 mg/dL (1.6-2.6)
--- NOTE | 2017-06-01 18:46 | Internal Med Progress Note ---
Date of Encounter: 06/01/17 Time of Encounter: 18:45 - Assessment and plan (1) Left arm swelling Current Visit: Yes Status: Acute (2) Diabetes mellitus Current Visit: Yes Status: Chronic Qualifiers: Diabetes mellitus type: type 2 Diabetes mellitus complication status: with unspecified complications Diabetes mellitus terminal worker insulin use: without terminal worker use Qualified Code(s): E11.8 - Type 2 diabetes mellitus with unspecified complications (3) Dysphagia Current Visit: Yes Status: Chronic Qualifiers: Dysphagia type: unspecified Qualified Code(s): R13.10 - Dysphagia, unspecified (4) Factor 5 Leiden mutation, heterozygous Current Visit: Yes Status: Chronic (5) Gastroparesis Current Visit: Yes Status: Chronic (6) Thigh hematoma Current Visit: No Status: Resolved Qualifiers: Encounter type: subsequent encounter Laterality: right Qualified Code(s) : S70.11XD - Contusion of right thigh, subsequent encounter - Subjective Interval history: Mrs. Mary Mitchell is a 46-year-old female who was seen today for follow-up. Previously she was seen by Dr. Pollard. Patient is in hospital for intractable nausea and vomiting and abdominal pain. Detailed workup has been done and seems like symptoms have improved only partially. In the meantime Dr. Conrad rule out any DVT in left upper extremity and found superficial thrombophlebitis. Her magnesium and potassium are pretty low which I think is the main reason she cannot be discharged. Nephrology was involved who has a stop Lasix. Magnesium is better with Lasix as is still down and was supplemented and see if it is corrected by tomorrow. Patient is morbidly obese and I was told that today she ambulated and my recommendation is for for her to ambulate more. I will look at her pain medication and try to reduce dose to see if it helps. Repeat magnesium and potassium in the morning. Add IV Reglan - Constitutional Vitals: Temp Pulse Resp BP Pulse Ox 98.2 F 54 16 113/74 96 06/01/17 16:06 06/01/17 16:06 06/01/17 16:06 06/01/17 16:06 06/01/17 16:06 General appearance: Present: A&O X 3, morbidly obese, answers questions appropriately - Head Head exam: Present: atraumatic, normocephalic - Eye Eye exam: Present: PERRL, conjuntiva pink, sclera anicteric Pupils: Present: PERRL - Neck Neck exam general surgery: Present: supple, trachea midline. Absent: lymphadenopathy - Respiratory Respiratory exam: Present: CTAB. Absent: accessory muscle use, rales, rhonchi, wheezes - Cardiovascular Cardiovascular exam: Present: RRR, +S1, +S2. Absent: diastolic murmur, gallop, rubs, systolic murmur - GI/Abdominal GI/Abdominal exam: Present: normal bowel sounds, soft, no peritoneal signs. Absent: distended, tenderness - Extremities Exam Extremities exam: Present: warm, radial pulses palpable and symmetrical. Absent : calf tenderness, cyanotic, pedal edema - Neurological Exam Neurological exam: Present: CN II-XII intact, oriented X3, no focal deficits. Absent: pronater drift, facial droop, speech deficit - Skin Skin exam: Present: dry, intact Internal Medicine: Result - Labs CBC & Chem 7: 05/31/17 04:40 06/01/17 06:05 Labs: BMP 06/01/17 06:05 Sodium 138 Potassium 2.7 L Chloride 93 L Carbon Dioxide 31 H BUN 22 H Creatinine 1.11 Glucose 154 H Calcium 9.7 - ABG Interpretation ABG results: PT/INR, D-dimer PT 13.9 Seconds (9.4-12.1) H 05/14/17 14:41 - VTE Documentation of Mechanical Device: Intermittent pneumatic compression device Consult Discharge Plan - Plan Referrals: Misael Miller MD [Primary Care Provider] - 06/07/17 2:15 pm ( )
[2017-06-01 19:04] LABS: Potassium 2.7 mEq/L (3.5-4.5)
[2017-06-01] MEDS: Metoclopramide 10 MG/2 ML VIAL IVP SCH (21:54)
[2017-06-01] MEDS: Topiramate 100 MG TABLET PO SCH (21:55)
[2017-06-01] MEDS: Venlafaxine XR (24 HR) 75 MG CAP.ER.24H PO SCH (21:55)
[2017-06-02] MEDS: *HR* Promethazine 25 MG/ML VIAL IVP PRN ×4 (04:34→23:11)
[2017-06-02] MEDS: *HR* OxyCODONE/APAP 5/325 TABLET PO PRN ×4 (04:34→23:10)
[2017-06-02] MEDS: Metoclopramide 10 MG/2 ML VIAL IVP SCH ×2 (06:33→11:47)
[2017-06-02] MEDS: *HR* Enoxaparin 150 MG/ML SYRINGE SQ SCH ×2 (06:34→17:10)
[2017-06-02] MEDS: Insulin LISPRO 300 UNITS/3 ML VIAL SQ SCH ×4 (08:01→23:16)
[2017-06-02] MEDS: Nystatin SUSP 5 ML UD.LIQ PO SCH ×4 (08:03→23:15)
[2017-06-02] MEDS: Potassium Chloride Elixir 20 MEQ/15 ML UDC PO SCH ×5 (08:32→23:21)
[2017-06-02] MEDS: metOLazone 2.5 MG TABLET PO SCH (08:35)
[2017-06-02] MEDS: Gabapentin 400 MG CAPSULE PO SCH ×3 (08:35→23:10)
[2017-06-02] MEDS: Topiramate 25 MG TABLET PO SCH (08:36)
[2017-06-02] MEDS: Famotidine 20 MG TABLET PO SCH (08:36)
[2017-06-02] MEDS: cloNIDine HCl 0.1 MG TABLET PO SCH ×2 (08:36→23:10)
[2017-06-02] MEDS: lamoTRIgine 100 MG TABLET PO SCH ×2 (08:36→23:10)
[2017-06-02] MEDS: Budesonide/Formoterol 160/4.5 MDI IH SCH ×2 (10:31→22:09)
[2017-06-02 10:51] LABS: BUN/Creatinine Ratio 19 (6-26); Blood Urea Nitrogen 20 mg/dL (7-20); Carbon Dioxide 34 mEq/L (19-29); Chloride 93 mEq/L (98-109); Sodium 137 mEq/L (136-145)
[2017-06-02 10:52] LABS: Calcium 9.7 mg/dL (8.6-10.8); Glucose 156 mg/dL (70-99); Magnesium 2.2 mg/dL (1.6-2.6); Osmolality,Calculated 290 (280-300); eGFR For African Americans > 60 (> 60); eGFR For Non-African Americans 58 (> 60)
[2017-06-02 10:55] LABS: Potassium 2.5 mEq/L (3.5-4.5)
--- NOTE | 2017-06-02 11:00 | Nephrology Progress Note ---
Date of Encounter: 06/02/17 Time of Encounter: 10:59 - Assessment and Plan (1) Hypokalemia Current Visit: Yes Status: Acute Patient is a current potassium 2.7 with several days of hypokalemia. Patient denies nausea and vomiting, diarrhea, polyuria. -She is prescribed Lasix 40 mg a review of her outpatient note demonstrates that she would be taking 80 mg in the a.m. and 40 mg at night's for edema. She is continued on 40 mg Lasix daily. - Suspects diuretic induced hypokalemia. 06/02: Potassium level 2.5 after receiving 60meq KCl BID. It was found she was still on Mitalazone and this was held. Potassium 40meq q4hrs with KCl recheck at 1500 today and am. Continued to suspect renal loss with the aid of diuretics. Plan: - Continue to Hold Lasix - Hold Mitalazone - Recheck potassium this afternoon and in the morning - 40meq Q4hr Potassium by mouth preferred. (2) Diabetes mellitus Current Visit: Yes Status: Chronic Patient has known type 2 diabetes with history of diabetic nephropathy and chronic stage III kidney disease. -Glucose has been slightly elevated during inpatient stay -Glucose management per primary team. Qualifiers: Diabetes mellitus type: type 2 Diabetes mellitus complication status: with unspecified complications Diabetes mellitus intermediate insulin use: without terminal gauger supervisor use Qualified Code(s): E11.8 - Type 2 diabetes mellitus with unspecified complications Subjective Principal diagnosis: Hypokalmeia Interval history: Ms. Mitchell has been seen and evaluated this morning. She continues to feel tired without any significant changes from yesterday. Objective - Vital Signs Vital signs: Vital Signs Temp Pulse Resp BP Pulse Ox 06/02/17 10:31 16 96 06/02/17 07:19 97.4 F L 50 18 132/74 92 06/02/17 03:46 97.5 F L 91 20 97/67 91 06/02/17 00:16 97.8 F 55 19 130/79 97 06/01/17 20:22 16 95 06/01/17 19:50 97.8 F 54 19 129/82 94 06/01/17 16:06 98.2 F 54 16 113/74 96 06/01/17 11:10 97.7 F 50 17 116/73 94 Intake and Output 06/01/17 06/02/17 06/02/17 23:59 07:59 15:59 Intake Total 400 / 400 120 / 120 Output Total 350 / 350 Balance 400 / 400 -350 / -350 120 / 120 Intake: Oral 400 / 400 120 / 120 Output: Straight Cath 350 / 350 Other: Meal Dinner Breakfast Percent of Meal Consumed 5% 0% Weight 145.785 kg Blood Glucose* 186 181 Patient Weight 06/02/17 23:59 Weight 145.785 kg - General Appearance General appearance: Present: well-developed, well-nourished, appears started age EENT: Present: mucous membranes moist Neck: Present: no JVD, no thyromegaly, no carotid bruit, supple Respiratory: Present: clear Cardiology: Present: no murmurs, no rub, no edema, regular rate, regular rhythm Gastrointestinal: Present: normoactive bowel sounds, no tenderness, no guarding , no organomegaly Integumentary: Present: no rash, warm and dry Neurologic: Present: no focal deficit, alert and oriented x3 Musculoskeletal: Present: no deformities, no erythema, no cyanosis, no clubbing Psychiatric: Present: mood/affect appropriate - Lab 05/31/17 04:40 06/02/17 08:30 Most recent lab results Calcium 9.7 mg/dL (8.6-10.8) 06/02/17 08:30 Magnesium 2.2 mg/dL (1.6-2.6) 06/02/17 08:30 Urine Sodium 59.0 mEq/L 06/01/17 04:51 - VTE Documentation of Mechanical Device: Intermittent pneumatic compression device Consult Discharge Plan - Plan Referrals: Misael Miller MD [Primary Care Provider] - 06/07/17 2:15 pm ( )
[2017-06-02] MEDS ORDERED: Ondansetron 4 MG/2 ML VIAL IVP PRN (14:00)
--- NOTE | 2017-06-02 14:16 | Internal Med Progress Note ---
Date of Encounter: 06/02/17 Time of Encounter: 14:05 - Assessment and plan (1) Intractable nausea and vomiting Current Visit: Yes Status: Resolved Qualifiers: Vomiting type: cyclical vomiting Qualified Code(s): G43.A1 - Cyclical vomiting, intractable (2) Left lower lobe pneumonia Current Visit: No Status: Suspected Qualifiers: Pneumonia type: due to unspecified organism Qualified Code(s): J18.1 - Lobar pneumonia, unspecified organism (3) Dysphagia Current Visit: Yes Status: Chronic Qualifiers: Dysphagia type: unspecified Qualified Code(s): R13.10 - Dysphagia, unspecified (4) Pulmonary embolism Current Visit: No Status: Chronic Qualifiers: Pulmonary embolism type: other Chronicity: acute Acute cor pulmonale presence: without acute cor pulmonale Qualified Code(s): I26.99 - Other pulmonary embolism without acute cor pulmonale (5) Diabetes mellitus Current Visit: Yes Status: Chronic Qualifiers: Diabetes mellitus type: type 2 Diabetes mellitus complication status: with unspecified complications Diabetes mellitus long-term insulin use: without termite inspector use Qualified Code(s): E11.8 - Type 2 diabetes mellitus with unspecified complications (6) Factor 5 Leiden mutation, heterozygous Current Visit: Yes Status: Chronic (7) Gastroparesis Current Visit: Yes Status: Chronic (8) Thigh hematoma Current Visit: No Status: Resolved Qualifiers: Encounter type: subsequent encounter Laterality: right Qualified Code(s) : S70.11XD - Contusion of right thigh, subsequent encounter (9) Thrombophlebitis of cephalic vein Current Visit: Yes Status: Acute (10) Morbid obesity with BMI of 50.0-59.9, adult Current Visit: Yes Status: Chronic (11) Encounter for current long-term use of anticoagulants Current Visit: No Status: Chronic - Subjective Interval history: Mrs. Mary Mitchell is a 46-year-old female who was seen today for follow-up. Previously she was seen by Dr. Pollard. Patient is in hospital for intractable nausea and vomiting and abdominal pain. Detailed workup has been done and seems like symptoms have improved only partially. In the meantime Dr. Conrad rule out any DVT in left upper extremity and found superficial thrombophlebitis. Her magnesium and potassium are pretty low which I think is the main reason she cannot be discharged. Nephrology was involved who has a stop Lasix. Magnesium is better with Lasix as is still down and was supplemented and see if it is corrected by tomorrow. Patient is morbidly obese and I was told that today she ambulated and my recommendation is for for her to ambulate more. I will look at her pain medication and try to reduce dose to see if it helps. Repeat magnesium and potassium in the morning. 06/02 #1 intractable nausea and vomiting. She has history of gastroparesis Previously CT abdomen and pelvis negative. Order ultrasound liver and gallbladder. She has history of fatty liver. head CT abdomen and pelvis with contrast GI evaluation EGD and colonoscopy during this admission without any significant result. I will DC her Pepcid and put on Prilosec. She has good bowel tones on examination and I will DC the Reglan and Phenergan and keep her on Zofran when necessary. #2 dysphagia. Patient had swallowing evaluation and last month had video fiberoptic laryngoscopy. No obstruction or aspiration noted. #3 hypokalemia and hypomagnesemia: It was noted that patient is on Lasix and metolazone. Both have been a stop and will repeated in the morning to see if levels are stable. She will be given 80 mEq potassium today for her potassium of 2.5. I reviewed her echocardiogram and seems like she has decent systolic and diastolic heart function. I am not sure about the need of diuretics in her case at all except that she might develop bilateral lower extremity edema due to her body habitus. #4 history of PE patient is on the Lovenox. She is discovered to have left cephalic vein thrombophlebitis during this admission for which she has received ibuprofen and at this time is asymptomatic. #6 diabetes Accu-Chek 4 times a day with sliding scale coverage #5 depression: Psych has already seen the patient and she is on multiple medications and will have an outpatient follow-up. Unfortunately she has a lot of social issues related to her family situation. Social workers are trying to find a suitable place for her to stay. - Constitutional Vitals: Temp Pulse Resp BP Pulse Ox 97.8 F 60 17 110/65 93 06/02/17 11:14 06/02/17 11:14 06/02/17 11:14 06/02/17 11:14 06/02/17 11:14 General appearance: Present: A&O X 3, morbidly obese, answers questions appropriately - Head Head exam: Present: atraumatic, normocephalic - Eye Eye exam: Present: PERRL, conjuntiva pink, sclera anicteric Pupils: Present: PERRL - Neck Neck exam general surgery: Present: supple, trachea midline. Absent: lymphadenopathy - Respiratory Respiratory exam: Present: CTAB. Absent: accessory muscle use, rales, rhonchi, wheezes - Cardiovascular Cardiovascular exam: Present: RRR, +S1, +S2. Absent: diastolic murmur, gallop, rubs, systolic murmur - GI/Abdominal GI/Abdominal exam: Present: normal bowel sounds, soft, no peritoneal signs. Absent: distended, tenderness - Extremities Exam Extremities exam: Present: warm, radial pulses palpable and symmetrical. Absent : calf tenderness, cyanotic, pedal edema - Neurological Exam Neurological exam: Present: CN II-XII intact, oriented X3, no focal deficits. Absent: pronater drift, facial droop, speech deficit - Skin Skin exam: Present: dry, intact Internal Medicine: Result - Labs CBC & Chem 7: 05/31/17 04:40 06/02/17 08:30 Labs: BMP 06/01/17 06/02/17 17:00 08:30 Sodium 137 Potassium 2.7 L 2.5 L* Chloride 93 L Carbon Dioxide 34 H BUN 20 Creatinine 1.03 Glucose 156 H Calcium 9.7 - ABG Interpretation ABG results: PT/INR, D-dimer PT 13.9 Seconds (9.4-12.1) H 05/14/17 14:41 - VTE Documentation of Mechanical Device: Intermittent pneumatic compression device Consult Discharge Plan - Plan Referrals: Misael Miller MD [Primary Care Provider] - 06/07/17 2:15 pm ( )
[2017-06-02 17:01] LABS: BUN/Creatinine Ratio 19 (6-26); Blood Urea Nitrogen 20 mg/dL (7-20); Calcium 9.7 mg/dL (8.6-10.8); Carbon Dioxide 32 mEq/L (19-29); Chloride 92 mEq/L (98-109); Glucose 168 mg/dL (70-99); Osmolality,Calculated 286 (280-300); Potassium 2.7 mEq/L (3.5-4.5); Sodium 135 mEq/L (136-145); eGFR For African Americans > 60 (> 60); eGFR For Non-African Americans 56 (> 60)
[2017-06-02] MEDS: Venlafaxine XR (24 HR) 75 MG CAP.ER.24H PO SCH (23:10)
[2017-06-02] MEDS: Topiramate 100 MG TABLET PO SCH (23:10)
[2017-06-03] MEDS: Potassium Chloride Elixir 20 MEQ/15 ML UDC PO SCH ×2 (03:20→08:00)
[2017-06-03] MEDS: *HR* Promethazine 25 MG/ML VIAL IVP PRN ×2 (05:08→11:18)
[2017-06-03] MEDS: *HR* OxyCODONE/APAP 5/325 TABLET PO PRN ×2 (05:09→11:18)
[2017-06-03] MEDS: *HR* Enoxaparin 150 MG/ML SYRINGE SQ SCH ×2 (05:12→17:26)
[2017-06-03 05:43] LABS: BUN/Creatinine Ratio 18 (6-26); Blood Urea Nitrogen 19 mg/dL (7-20); Calcium 8.4 mg/dL (8.6-10.8); Carbon Dioxide 28 mEq/L (19-29); Chloride 100 mEq/L (98-109); Glucose 224 mg/dL (70-99); Magnesium 1.9 mg/dL (1.6-2.6); Osmolality,Calculated 295 (280-300); Potassium 2.8 mEq/L (3.5-4.5); Sodium 138 mEq/L (136-145); eGFR For African Americans > 60 (> 60); eGFR For Non-African Americans 58 (> 60)
[2017-06-03 05:50] LABS: Basophils % 0.5 %; Eosinophils # 0.4 K/mcL (0.0-0.6); Eosinophils % 5.7 %; Immature Granulocytes % 0.3 % (0-4); Lymphocytes # 2.5 K/mcL (0.6-4.6); Mean Corpuscular HGB Conc 32.9 g/dL (31.6-35.5); Mean Corpuscular Hemoglobin 29.3 pg (28.0-33.3); Mean Corpuscular Volume 89.2 fL (83.0-100.0); Mean Platelet Volume 11.4 fL (9.4-12.4); Monocytes # 0.5 K/mcL (0.0-1.3); Monocytes % 7.9 %; Neutrophils # 2.9 K/mcL (1.6-8.9); Platelet Count 218 K/mcL (140-400); Red Blood Count 4.26 M/mcL (3.82-4.97); Red Cell Distribution Width 12.3 % (11.5-14.5); Segmented Neutrophils % 46.6 %
[2017-06-03 06:01] LABS: Hemoglobin 12.5 g/dL (11.5-15.4)
[2017-06-03] MEDS: Gabapentin 400 MG CAPSULE PO SCH ×3 (08:00→21:38)
[2017-06-03] MEDS: Topiramate 25 MG TABLET PO SCH (08:00)
[2017-06-03] MEDS: cloNIDine HCl 0.1 MG TABLET PO SCH ×2 (08:00→21:38)
[2017-06-03] MEDS: Nystatin SUSP 5 ML UD.LIQ PO SCH ×4 (08:01→21:39)
[2017-06-03] MEDS: lamoTRIgine 100 MG TABLET PO SCH ×2 (08:01→21:39)
[2017-06-03] MEDS: Insulin LISPRO 300 UNITS/3 ML VIAL SQ SCH ×4 (08:01→21:34)
--- NOTE | 2017-06-03 09:17 | Nephrology Progress Note ---
Date of Encounter: 06/03/17 Time of Encounter: 09:14 - Assessment and Plan (1) Hypokalemia Current Visit: Yes Status: Acute Patient is a current potassium 2.7 with several days of hypokalemia. Patient denies nausea and vomiting, diarrhea, polyuria. -She is prescribed Lasix 40 mg a review of her outpatient note demonstrates that she would be taking 80 mg in the a.m. and 40 mg at night's for edema. She is continued on 40 mg Lasix daily. - Suspects diuretic induced hypokalemia. 06/02: Potassium level 2.5 after receiving 60meq KCl BID. It was found she was still on Mitalazone and this was held. Potassium 40meq q4hrs with KCl recheck at 1500 today and am. Continued to suspect renal loss with the aid of diuretics. 06/03: Potassium level 2.8, patient started on Aldactone 100 mg by mouth daily currently receiving 40meq IV potassium. Plan: - Continue to Hold Lasix - Hold Mitalazone - Recheck potassium this afternoon and in the morning - Continue Aldactone and IV potassium - Urine potassium, urine sodium (2) Diabetes mellitus Current Visit: Yes Status: Chronic Patient has known type 2 diabetes with history of diabetic nephropathy and chronic stage III kidney disease. -Glucose has been slightly elevated during inpatient stay -Glucose management per primary team. Qualifiers: Diabetes mellitus type: type 2 Diabetes mellitus complication status: with unspecified complications Diabetes mellitus residential insulin use: without residential use Qualified Code(s): E11.8 - Type 2 diabetes mellitus with unspecified complications Subjective Principal diagnosis: Hypokalmeia Interval history: Ms. Mitchell has been seen and evaluated this morning. She denies any changes from yesterday continues to feel tired and a little bit nauseous. She denies any vomiting, diarrhea. She does not have any other concerns today. Objective - Vital Signs Vital signs: Vital Signs Temp Pulse Resp BP Pulse Ox 06/03/17 07:24 97.7 F 58 12 157/74 96 06/03/17 04:36 97.5 F L 53 19 101/61 94 06/02/17 23:20 97.4 F L 56 20 120/89 95 06/02/17 22:09 16 96 06/02/17 19:20 98.1 F 56 18 101/65 95 06/02/17 15:50 97.8 F 57 17 133/79 95 06/02/17 11:14 97.8 F 60 17 110/65 93 06/02/17 10:31 16 96 06/02/17 10:30 93 Intake and Output 06/02/17 06/03/17 06/03/17 23:59 07:59 15:59 Intake Total 600 / 600 Output Total 325 / 325 Balance 275 / 275 Intake: Oral 600 / 600 Output: Urine 0 / 0 Straight Cath 325 / 325 Other: Meal Dinner npo Percent of Meal Consumed 0% Stool Size Large Weight 100.516 kg Blood Glucose* 163 205 Patient Weight 06/03/17 23:59 Weight 100.516 kg - General Appearance General appearance: Present: well-developed, well-nourished, appears started age EENT: Present: mucous membranes moist Neck: Present: no JVD, no thyromegaly, no carotid bruit, supple Respiratory: Present: clear Cardiology: Present: no murmurs, no edema, regular rate, regular rhythm, normal S1, normal S2 Gastrointestinal: Present: normoactive bowel sounds, no tenderness, no guarding Integumentary: Present: no rash, warm and dry Neurologic: Present: no focal deficit Musculoskeletal: Present: no erythema, no cyanosis, no clubbing Psychiatric: Present: mood/affect appropriate - Lab 06/03/17 05:46 06/03/17 05:07 Most recent lab results Calcium 8.4 mg/dL (8.6-10.8) L 06/03/17 05:07 Magnesium 1.9 mg/dL (1.6-2.6) 06/03/17 05:07 Urine Sodium 59.0 mEq/L 06/01/17 04:51 - VTE Documentation of Mechanical Device: Intermittent pneumatic compression device Consult Discharge Plan - Plan Referrals: Misael Miller MD [Primary Care Provider] - 06/07/17 2:15 pm ( )
[2017-06-03] MEDS ORDERED: Potassium Chloride 40 MEQ, Lidocaine 1% 2 ML in D5% in Water 500 ML IVPB ONE (09:34)
--- NOTE | 2017-06-03 09:39 | Internal Med Progress Note ---
Date of Encounter: 06/03/17 Time of Encounter: 09:36 - Assessment and plan (1) Intractable nausea and vomiting Current Visit: Yes Status: Resolved Qualifiers: Vomiting type: cyclical vomiting Qualified Code(s): G43.A1 - Cyclical vomiting, intractable (2) Left lower lobe pneumonia Current Visit: No Status: Suspected Qualifiers: Pneumonia type: due to unspecified organism Qualified Code(s): J18.1 - Lobar pneumonia, unspecified organism (3) Dysphagia Current Visit: Yes Status: Chronic Qualifiers: Dysphagia type: unspecified Qualified Code(s): R13.10 - Dysphagia, unspecified (4) Pulmonary embolism Current Visit: No Status: Chronic Qualifiers: Pulmonary embolism type: other Chronicity: acute Acute cor pulmonale presence: without acute cor pulmonale Qualified Code(s): I26.99 - Other pulmonary embolism without acute cor pulmonale (5) Diabetes mellitus Current Visit: Yes Status: Chronic Qualifiers: Diabetes mellitus type: type 2 Diabetes mellitus complication status: with unspecified complications Diabetes mellitus residential insulin use: without ferry terminal supervisor use Qualified Code(s): E11.8 - Type 2 diabetes mellitus with unspecified complications (6) Factor 5 Leiden mutation, heterozygous Current Visit: Yes Status: Chronic (7) Gastroparesis Current Visit: Yes Status: Chronic (8) Thigh hematoma Current Visit: No Status: Resolved Qualifiers: Encounter type: subsequent encounter Laterality: right Qualified Code(s) : S70.11XD - Contusion of right thigh, subsequent encounter (9) Thrombophlebitis of cephalic vein Current Visit: Yes Status: Acute (10) Morbid obesity with BMI of 50.0-59.9, adult Current Visit: Yes Status: Chronic (11) Encounter for current long-term use of anticoagulants Current Visit: No Status: Chronic - Subjective Interval history: Mrs. Mary Mitchell is a 46-year-old female who was seen today for follow-up. Previously she was seen by Dr. Pollard. Patient is in hospital for intractable nausea and vomiting and abdominal pain. Detailed workup has been done and seems like symptoms have improved only partially. In the meantime Dr. Conrad rule out any DVT in left upper extremity and found superficial thrombophlebitis. Her magnesium and potassium are pretty low which I think is the main reason she cannot be discharged. Nephrology was involved who has a stop Lasix. Magnesium is better with Lasix as is still down and was supplemented and see if it is corrected by tomorrow. Patient is morbidly obese and I was told that today she ambulated and my recommendation is for for her to ambulate more. I will look at her pain medication and try to reduce dose to see if it helps. Repeat magnesium and potassium in the morning. 06/02 #1 intractable nausea and vomiting. She has history of gastroparesis Previously CT abdomen and pelvis negative. Order ultrasound liver and gallbladder. She has history of fatty liver. head CT abdomen and pelvis with contrast GI evaluation EGD and colonoscopy during this admission without any significant result. I will DC her Pepcid and put on Prilosec. She has good bowel tones on examination and I will DC the Reglan and Phenergan and keep her on Zofran when necessary. #2 dysphagia. Patient had swallowing evaluation and last month had video fiberoptic laryngoscopy. No obstruction or aspiration noted. #3 hypokalemia and hypomagnesemia: It was noted that patient is on Lasix and metolazone. Both have been stopped. She will be given 80 mEq potassium today for her potassium of 2.8. I reviewed her echocardiogram and seems like she has decent systolic and diastolic heart function. I am not sure about the need of diuretics in her case at all except that she might develop bilateral lower extremity edema due to her body habitus. Urine Na/K noted. Renal is not preserving K.Aldactone 100 daily ordered. #4 history of PE patient is on the Lovenox. She is discovered to have left cephalic vein thrombophlebitis during this admission for which she has received ibuprofen and at this time is asymptomatic. #6 diabetes Accu-Chek 4 times a day with sliding scale coverage #5 depression: Psych has already seen the patient and she is on multiple medications and will have an outpatient follow-up. Unfortunately she has a lot of social issues related to her family situation. Social workers are trying to find a suitable place for her to stay. 06/03 her main issue is intractable nausea. No vomiting has been noted. Nursing 's staff is concerned if she is actually taking her oral potassium. Discussed with Dr. Estrada and she is also surprise that considering his age and monitor potassium has been given already potassium is still low. In any case all diuretics have been stopped and as noted above she has a decent cardiac function. We will give her IV and oral potassium to supplement and try to reestablish electrolyte balance. Potassium elixir has been a stop which actually she was not taking in front of the nurses but would rather keep it and take her by herself with soda pop. She has decent bowel tones and she claims that she gets one bowel movement every day. At this point I do not see any GI or renal potassium loss and I hope that her potassium will be corrected. Concerned about her intractable nausea therefore I will stop her narcotic pain medication as they themselves can induce nausea. She requested an NG tube which will be placed. - Constitutional Vitals: Temp Pulse Resp BP Pulse Ox 97.7 F 58 12 157/74 96 06/03/17 07:24 06/03/17 07:24 06/03/17 07:24 06/03/17 07:24 06/03/17 07:24 General appearance: Present: A&O X 3, morbidly obese, answers questions appropriately - Head Head exam: Present: atraumatic, normocephalic - Eye Eye exam: Present: PERRL, conjuntiva pink, sclera anicteric Pupils: Present: PERRL - Neck Neck exam general surgery: Present: supple, trachea midline. Absent: lymphadenopathy - Respiratory Respiratory exam: Present: CTAB. Absent: accessory muscle use, rales, rhonchi, wheezes - Cardiovascular Cardiovascular exam: Present: RRR, +S1, +S2. Absent: diastolic murmur, gallop, rubs, systolic murmur - GI/Abdominal GI/Abdominal exam: Present: normal bowel sounds, soft, no peritoneal signs. Absent: distended, tenderness - Extremities Exam Extremities exam: Present: warm, radial pulses palpable and symmetrical. Absent : calf tenderness, cyanotic, pedal edema - Neurological Exam Neurological exam: Present: CN II-XII intact, oriented X3, no focal deficits. Absent: pronater drift, facial droop, speech deficit - Skin Skin exam: Present: dry, intact Internal Medicine: Result - Labs CBC & Chem 7: 06/03/17 05:46 06/03/17 05:07 Labs: Short CBC 06/03/17 Range/Units 05:46 WBC 6.3 (4.3-11.1) K/mcL Hgb 12.5 (11.5-15.4) g/dL Hct 38.0 (35.3-44.9) % Plt Count 218 (140-400) K/mcL Neutrophils # 2.9 (1.6-8.9) K/mcL BMP 06/02/17 06/02/17 06/03/17 08:30 15:50 05:07 Sodium 137 135 L 138 Potassium 2.5 L* 2.7 L 2.8 L Chloride 93 L 92 L 100 Carbon Dioxide 34 H 32 H 28 BUN 20 20 19 Creatinine 1.03 1.07 1.03 Glucose 156 H 168 H 224 H Calcium 9.7 9.7 8.4 L - ABG Interpretation ABG results: PT/INR, D-dimer PT 13.9 Seconds (9.4-12.1) H 05/14/17 14:41 - Impressions Impressions Chest X-Ray 06/02/17 14:27 IMPRESSION: Stable negative chest. D/ / Ann-Marie Flores MD / Ann-Marie Flores MD Interpreting Provider: Ann-Marie Flores MD Abdomen Ultrasound 06/02/17 20:00 IMPRESSION: 1. Likely hepatic fatty infiltration. 2. Mildly dilated common bile duct which is nonspecific but may may relate to post cholecystectomy state. D/ / Ann-Marie Flores MD / Ann-Marie Flores MD Interpreting Provider: Ann-Marie Flores MD - VTE Documentation of Mechanical Device: Intermittent pneumatic compression device Consult Discharge Plan - Plan Referrals: Misael Miller MD [Primary Care Provider] - 06/07/17 2:15 pm ( )
[2017-06-03] MEDS: Budesonide/Formoterol 160/4.5 MDI IH SCH ×2 (10:31→20:06)
[2017-06-03] MEDS: Acetaminophen 325 MG TABLET PO PRN (17:27)
[2017-06-03] MEDS: Topiramate 100 MG TABLET PO SCH (21:38)
[2017-06-03] MEDS: Venlafaxine XR (24 HR) 75 MG CAP.ER.24H PO SCH (21:39)
[2017-06-04] MEDS: *HR* Promethazine 25 MG/ML VIAL IVP PRN ×4 (00:12→18:14)
[2017-06-04] MEDS: *HR* OxyCODONE/APAP 5/325 TABLET PO PRN ×4 (00:17→20:51)
[2017-06-04 00:31] LABS: Potassium,Urine 40.9 mEq/L
[2017-06-04 04:59] LABS: Basophils % 0.7 %; Eosinophils # 0.5 K/mcL (0.0-0.6); Eosinophils % 8.3 %; Hematocrit 38.7 % (35.3-44.9); Hemoglobin 13.1 g/dL (11.5-15.4); Immature Granulocytes % 0.3 % (0-4); Lymphocytes # 2.6 K/mcL (0.6-4.6); Lymphocytes % 44.3 %; Mean Corpuscular HGB Conc 33.9 g/dL (31.6-35.5); Mean Corpuscular Hemoglobin 30.3 pg (28.0-33.3); Mean Corpuscular Volume 89.6 fL (83.0-100.0); Mean Platelet Volume 11.6 fL (9.4-12.4); Monocytes # 0.4 K/mcL (0.0-1.3); Monocytes % 6.8 %; Neutrophils # 2.3 K/mcL (1.6-8.9); Platelet Count 196 K/mcL (140-400); Red Blood Count 4.32 M/mcL (3.82-4.97); Red Cell Distribution Width 12.4 % (11.5-14.5); Segmented Neutrophils % 39.6 %
[2017-06-04 05:11] LABS: BUN/Creatinine Ratio 16 (6-26); Blood Urea Nitrogen 17 mg/dL (7-20); Calcium 9.6 mg/dL (8.6-10.8); Carbon Dioxide 30 mEq/L (19-29); Chloride 95 mEq/L (98-109); Glucose 197 mg/dL (70-99); Magnesium 2.1 mg/dL (1.6-2.6); Osmolality,Calculated 285 (280-300); Potassium 3.2 mEq/L (3.5-4.5); Sodium 134 mEq/L (136-145); eGFR For African Americans > 60 (> 60); eGFR For Non-African Americans 58 (> 60)
[2017-06-04] MEDS: *HR* Enoxaparin 150 MG/ML SYRINGE SQ SCH ×2 (05:54→17:14)
[2017-06-04] MEDS: Budesonide/Formoterol 160/4.5 MDI IH SCH ×2 (08:11→19:49)
[2017-06-04] MEDS: lamoTRIgine 100 MG TABLET PO SCH ×2 (08:15→20:52)
[2017-06-04] MEDS: Gabapentin 400 MG CAPSULE PO SCH ×3 (08:15→20:50)
[2017-06-04] MEDS: Nystatin SUSP 5 ML UD.LIQ PO SCH ×4 (08:15→20:51)
[2017-06-04] MEDS: cloNIDine HCl 0.1 MG TABLET PO SCH ×2 (08:15→20:52)
[2017-06-04] MEDS: Topiramate 25 MG TABLET PO SCH (08:15)
[2017-06-04] MEDS ORDERED: Sodium Phosphate 30 MMOL in D5% in Water 100 ML IVPB ONE (10:09)
[2017-06-04] MEDS ORDERED: Potassium Chloride 40 MEQ, Lidocaine 1% 2 ML in D5% in Water 500 ML IVPB ONE (10:09)
--- NOTE | 2017-06-04 11:15 | Nephrology Progress Note ---
Date of Encounter: 06/04/17 Time of Encounter: 09:30 - Assessment and Plan (1) Hypokalemia Current Visit: Yes Status: Acute Patient is a current potassium 2.7 with several days of hypokalemia. Patient denies nausea and vomiting, diarrhea, polyuria. -She is prescribed Lasix 40 mg a review of her outpatient note demonstrates that she would be taking 80 mg in the a.m. and 40 mg at night's for edema. She is continued on 40 mg Lasix daily. - Suspects diuretic induced hypokalemia. 06/02: Potassium level 2.5 after receiving 60meq KCl BID. It was found she was still on Mitalazone and this was held. Potassium 40meq q4hrs with KCl recheck at 1500 today and am. Continued to suspect renal loss with the aid of diuretics. 06/03: Potassium level 2.8, patient started on Aldactone 100 mg by mouth daily currently receiving 40meq IV potassium. 06/04: Potassium improved to 3.2 while on Aldactone 100 mg by mouth daily. Primary team managing hypokalemia at this point, plan discussed with Dr. Haines. Nephrology will sign off at this time, feel free to call with any further questions. Plan: - Continue to Hold Lasix, recommend holding at the time of discharge. - Hold Mitalazone now and recommend holding at time of discharge. - Continue Aldactone and potassium replacement as needed. (2) Diabetes mellitus Current Visit: Yes Status: Chronic Patient has known type 2 diabetes with history of diabetic nephropathy and chronic stage III kidney disease. -Glucose has been slightly elevated during inpatient stay -Glucose management per primary team. Qualifiers: Diabetes mellitus type: type 2 Diabetes mellitus complication status: with unspecified complications Diabetes mellitus termination clerk insulin use: without termination clerk use Qualified Code(s): E11.8 - Type 2 diabetes mellitus with unspecified complications Subjective Principal diagnosis: Hypokalmeia Interval history: Ms. Mitchell has been seen and evaluated this morning. She continues to complain of some nausea and now has an NG tube in place. She says that she wanted the NG tube and tube feedings as she is not eating due to her nausea. She denies any other discomforts or pains at this time. After discussion regarding her potassium is improving and is recommended she does not go home on her diuretics she did not say much but did demonstrate some understanding. Objective - Vital Signs Vital signs: Vital Signs Temp Pulse Resp BP Pulse Ox 06/04/17 08:40 93 06/04/17 08:11 14 93 06/04/17 07:03 98.2 F 53 17 123/71 96 06/04/17 04:14 98.7 F 52 18 125/66 96 06/03/17 23:09 97.9 F 52 16 174/73 95 06/03/17 20:07 16 98 06/03/17 19:09 98.5 F 54 18 129/77 93 06/03/17 16:27 97.6 F 52 14 140/74 98 06/03/17 11:16 98.0 F 62 12 142/73 97 Intake and Output 06/03/17 06/04/17 06/04/17 23:59 07:59 15:59 Intake Total 110 / 110 220 / 220 110 / 110 Output Total 0 / 0 480 / 480 200 / 200 Balance 110 / 110 -260 / -260 -90 / -90 Intake: Oral 0 / 0 0 / 0 Free Water 220 / 220 Free Water Intake Amount 110 / 110 110 / 110 Output: Urine 0 / 0 Straight Cath 480 / 480 200 / 200 Other: Weight 146.692 kg Blood Glucose* 180 178 Patient Weight 06/04/17 23:59 Weight 146.692 kg - General Appearance General appearance: Present: well-developed, well-nourished, appears started age Exam: NG tube in place Neck: Present: no JVD, no thyromegaly, no carotid bruit, supple Respiratory: Present: no kyphosis, no scoliosis Cardiology: Present: no murmurs, no rub, no gallops, no edema, regular rate, regular rhythm, normal S1, normal S2 Gastrointestinal: Present: normoactive bowel sounds, no tenderness Integumentary: Present: no rash, warm and dry Neurologic: Present: no focal deficit, no asterixis, alert and oriented x3, reflexes 2+ and symmetric, gait normal, strength 5/5 Musculoskeletal: Present: no deformities, no erythema, no cyanosis, no clubbing Psychiatric: Present: mood/affect appropriate, cooperative - Lab 06/04/17 04:30 06/04/17 04:30 Most recent lab results Calcium 9.6 mg/dL (8.6-10.8) 06/04/17 04:30 Magnesium 2.1 mg/dL (1.6-2.6) 06/04/17 04:30 Urine Sodium 50.0 mEq/L 06/04/17 00:15 - VTE Documentation of Mechanical Device: Intermittent pneumatic compression device Consult Discharge Plan - Plan Referrals: Misael Miller MD [Primary Care Provider] - 06/07/17 2:15 pm ( )
[2017-06-04] MEDS: Insulin LISPRO 300 UNITS/3 ML VIAL SQ SCH ×2 (11:39→18:13)
--- NOTE | 2017-06-04 17:07 | Internal Med Progress Note ---
Date of Encounter: 06/04/17 Time of Encounter: 17:05 - Assessment and plan (1) Intractable nausea and vomiting Current Visit: Yes Status: Resolved Qualifiers: Vomiting type: cyclical vomiting Qualified Code(s): G43.A1 - Cyclical vomiting, intractable (2) Left lower lobe pneumonia Current Visit: Yes Status: Suspected Qualifiers: Pneumonia type: due to unspecified organism Qualified Code(s): J18.1 - Lobar pneumonia, unspecified organism (3) Dysphagia Current Visit: Yes Status: Chronic Qualifiers: Dysphagia type: unspecified Qualified Code(s): R13.10 - Dysphagia, unspecified (4) Pulmonary embolism Current Visit: Yes Status: Chronic Qualifiers: Pulmonary embolism type: other Chronicity: acute Acute cor pulmonale presence: without acute cor pulmonale Qualified Code(s): I26.99 - Other pulmonary embolism without acute cor pulmonale (5) Diabetes mellitus Current Visit: Yes Status: Chronic Qualifiers: Diabetes mellitus type: type 2 Diabetes mellitus complication status: with unspecified complications Diabetes mellitus long term care administrator insulin use: without group home use Qualified Code(s): E11.8 - Type 2 diabetes mellitus with unspecified complications (6) Factor 5 Leiden mutation, heterozygous Current Visit: Yes Status: Chronic (7) Gastroparesis Current Visit: Yes Status: Chronic (8) Thigh hematoma Current Visit: No Status: Resolved Qualifiers: Encounter type: subsequent encounter Laterality: right Qualified Code(s) : S70.11XD - Contusion of right thigh, subsequent encounter (9) Thrombophlebitis of cephalic vein Current Visit: Yes Status: Acute (10) Morbid obesity with BMI of 50.0-59.9, adult Current Visit: Yes Status: Chronic (11) Encounter for current long-term use of anticoagulants Current Visit: No Status: Chronic - Subjective Interval history: Mrs. Mary Mitchell is a 46-year-old female who was seen today for follow-up. Previously she was seen by Dr. Pollard. Patient is in hospital for intractable nausea and vomiting and abdominal pain. Detailed workup has been done and seems like symptoms have improved only partially. In the meantime Dr. Conrad rule out any DVT in left upper extremity and found superficial thrombophlebitis. Her magnesium and potassium are pretty low which I think is the main reason she cannot be discharged. Nephrology was involved who has a stop Lasix. Magnesium is better with Lasix as is still down and was supplemented and see if it is corrected by tomorrow. Patient is morbidly obese and I was told that today she ambulated and my recommendation is for for her to ambulate more. I will look at her pain medication and try to reduce dose to see if it helps. Repeat magnesium and potassium in the morning. 06/02 #1 intractable nausea and vomiting. She has history of gastroparesis Previously CT abdomen and pelvis negative. Order ultrasound liver and gallbladder. She has history of fatty liver. head CT abdomen and pelvis with contrast GI evaluation EGD and colonoscopy during this admission without any significant result. I will DC her Pepcid and put on Prilosec. She has good bowel tones on examination and I will DC the Reglan and Phenergan and keep her on Zofran when necessary. #2 dysphagia. Patient had swallowing evaluation and last month had video fiberoptic laryngoscopy. No obstruction or aspiration noted. #3 hypokalemia and hypomagnesemia: It was noted that patient is on Lasix and metolazone. Both have been stopped. She will be given 80 mEq potassium today for her potassium of 2.8. I reviewed her echocardiogram and seems like she has decent systolic and diastolic heart function. I am not sure about the need of diuretics in her case at all except that she might develop bilateral lower extremity edema due to her body habitus. Urine Na/K noted. Renal is not preserving K.Aldactone 100 daily ordered. #4 history of PE patient is on the Lovenox. She is discovered to have left cephalic vein thrombophlebitis during this admission for which she has received ibuprofen and at this time is asymptomatic. #6 diabetes Accu-Chek 4 times a day with sliding scale coverage #5 depression: Psych has already seen the patient and she is on multiple medications and will have an outpatient follow-up. Unfortunately she has a lot of social issues related to her family situation. Social workers are trying to find a suitable place for her to stay. 06/03 her main issue is intractable nausea. No vomiting has been noted. Nursing 's staff is concerned if she is actually taking her oral potassium. Discussed with Dr. Estrada and she is also surprise that considering his age and monitor potassium has been given already potassium is still low. In any case all diuretics have been stopped and as noted above she has a decent cardiac function. We will give her IV and oral potassium to supplement and try to reestablish electrolyte balance. Potassium elixir has been a stop which actually she was not taking in front of the nurses but would rather keep it and take her by herself with soda pop. She has decent bowel tones and she claims that she gets one bowel movement every day. At this point I do not see any GI or renal potassium loss and I hope that her potassium will be corrected. Concerned about her intractable nausea therefore I will stop her narcotic pain medication as they themselves can induce nausea. She requested an NG tube which will be placed. 06/04 patient has NG tube. She says no improvement and continues to complain about abdominal pain and intractable nausea. Her potassium is improving slowly. Her examination is absolutely unremarkable as well as her lab work. We expect her electrolyte imbalance to be corrected and element of fact it was induced by diuretics which seem quite unnecessary considering she has normal cardiac and pulmonary functions. Her bilateral lower extremity edema is more dependent in nature. - Constitutional Vitals: Temp Pulse Resp BP Pulse Ox 98.0 F 57 18 120/76 94 06/04/17 15:59 06/04/17 15:59 06/04/17 15:59 06/04/17 15:59 06/04/17 15:59 General appearance: Present: A&O X 3, morbidly obese, answers questions appropriately - Head Head exam: Present: atraumatic, normocephalic - Eye Eye exam: Present: PERRL, conjuntiva pink, sclera anicteric Pupils: Present: PERRL - Neck Neck exam general surgery: Present: supple, trachea midline. Absent: lymphadenopathy - Respiratory Respiratory exam: Present: CTAB. Absent: accessory muscle use, rales, rhonchi, wheezes - Cardiovascular Cardiovascular exam: Present: RRR, +S1, +S2. Absent: diastolic murmur, gallop, rubs, systolic murmur - GI/Abdominal GI/Abdominal exam: Present: normal bowel sounds, soft, no peritoneal signs. Absent: distended, tenderness - Extremities Exam Extremities exam: Present: warm, radial pulses palpable and symmetrical. Absent : calf tenderness, cyanotic, pedal edema - Neurological Exam Neurological exam: Present: CN II-XII intact, oriented X3, no focal deficits. Absent: pronater drift, facial droop, speech deficit - Skin Skin exam: Present: dry, intact Internal Medicine: Result - Labs CBC & Chem 7: 06/04/17 04:30 06/04/17 04:30 Labs: Short CBC 06/04/17 Range/Units 04:30 WBC 5.8 (4.3-11.1) K/mcL Hgb 13.1 (11.5-15.4) g/dL Hct 38.7 (35.3-44.9) % Plt Count 196 (140-400) K/mcL Neutrophils # 2.3 (1.6-8.9) K/mcL BMP 06/04/17 04:30 Sodium 134 L Potassium 3.2 L Chloride 95 L Carbon Dioxide 30 H BUN 17 Creatinine 1.04 Glucose 197 H Calcium 9.6 - ABG Interpretation ABG results: PT/INR, D-dimer PT 13.9 Seconds (9.4-12.1) H 05/14/17 14:41 - Impressions Impressions KUB X-Ray 06/03/17 17:47 IMPRESSION: NG tube tip over the body of the stomach with the side hole below the expected location of the esophagogastric junction. D/ / Romel Rinaldi MD / Romel Rinaldi MD Interpreting Provider: Romel Rinaldi MD - VTE Documentation of Mechanical Device: Intermittent pneumatic compression device Consult Discharge Plan - Plan Referrals: Misael Miller MD [Primary Care Provider] - 06/07/17 2:15 pm ( )
[2017-06-04] MEDS: Topiramate 100 MG TABLET PO SCH (20:52)
[2017-06-04] MEDS: Venlafaxine XR (24 HR) 75 MG CAP.ER.24H PO SCH (20:52)
[2017-06-05] MEDS: *HR* Promethazine 25 MG/ML VIAL IVP PRN ×4 (00:53→20:50)
[2017-06-05] MEDS: Insulin LISPRO 300 UNITS/3 ML VIAL SQ SCH ×5 (00:54→21:57)
[2017-06-05 04:54] LABS: Basophils % 0.5 %; Eosinophils # 0.5 K/mcL (0.0-0.6); Eosinophils % 7.2 %; Hematocrit 36.6 % (35.3-44.9); Hemoglobin 12.6 g/dL (11.5-15.4); Immature Granulocytes % 0.2 % (0-4); Lymphocytes # 2.2 K/mcL (0.6-4.6); Lymphocytes % 34.5 %; Mean Corpuscular HGB Conc 34.4 g/dL (31.6-35.5); Mean Corpuscular Hemoglobin 31.3 pg (28.0-33.3); Mean Platelet Volume 11.9 fL (9.4-12.4); Monocytes # 0.4 K/mcL (0.0-1.3); Monocytes % 6.3 %; Neutrophils # 3.3 K/mcL (1.6-8.9); Platelet Count 176 K/mcL (140-400); Red Blood Count 4.02 M/mcL (3.82-4.97); Red Cell Distribution Width 12.6 % (11.5-14.5); Segmented Neutrophils % 51.3 %
[2017-06-05] MEDS: *HR* Enoxaparin 150 MG/ML SYRINGE SQ SCH ×2 (06:15→16:49)
[2017-06-05] MEDS: Budesonide/Formoterol 160/4.5 MDI IH SCH ×2 (07:40→19:44)
[2017-06-05] MEDS: Nystatin SUSP 5 ML UD.LIQ PO SCH ×4 (08:10→20:48)
[2017-06-05] MEDS: Topiramate 25 MG TABLET PO SCH (08:10)
[2017-06-05] MEDS: lamoTRIgine 100 MG TABLET PO SCH ×2 (08:10→20:48)
[2017-06-05] MEDS: *HR* OxyCODONE/APAP 5/325 TABLET PO PRN ×3 (08:10→20:48)
[2017-06-05] MEDS: cloNIDine HCl 0.1 MG TABLET PO SCH ×2 (08:11→20:48)
[2017-06-05] MEDS: Gabapentin 400 MG CAPSULE PO SCH ×3 (08:11→20:47)
--- NOTE | 2017-06-05 10:11 | Internal Med Progress Note ---
Date of Encounter: 06/05/17 Time of Encounter: 10:11 - Assessment and plan (1) Intractable nausea and vomiting Current Visit: Yes Status: Resolved Qualifiers: Vomiting type: cyclical vomiting Qualified Code(s): G43.A1 - Cyclical vomiting, intractable (2) Left lower lobe pneumonia Current Visit: Yes Status: Suspected Qualifiers: Pneumonia type: due to unspecified organism Qualified Code(s): J18.1 - Lobar pneumonia, unspecified organism (3) Dysphagia Current Visit: Yes Status: Chronic Qualifiers: Dysphagia type: unspecified Qualified Code(s): R13.10 - Dysphagia, unspecified (4) Pulmonary embolism Current Visit: Yes Status: Chronic Qualifiers: Pulmonary embolism type: other Chronicity: acute Acute cor pulmonale presence: without acute cor pulmonale Qualified Code(s): I26.99 - Other pulmonary embolism without acute cor pulmonale (5) Diabetes mellitus Current Visit: Yes Status: Chronic Qualifiers: Diabetes mellitus type: type 2 Diabetes mellitus complication status: with unspecified complications 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 insulin use: without prison use Qualified Code(s): E11.8 - Type 2 diabetes mellitus with unspecified complications (6) Factor 5 Leiden mutation, heterozygous Current Visit: Yes Status: Chronic (7) Gastroparesis Current Visit: Yes Status: Chronic (8) Thigh hematoma Current Visit: No Status: Resolved Qualifiers: Encounter type: subsequent encounter Laterality: right Qualified Code(s) : S70.11XD - Contusion of right thigh, subsequent encounter (9) Thrombophlebitis of cephalic vein Current Visit: Yes Status: Acute (10) Morbid obesity with BMI of 50.0-59.9, adult Current Visit: Yes Status: Chronic (11) Encounter for current long-term use of anticoagulants Current Visit: No Status: Chronic - Subjective Interval history: Mrs. Mary Mitchell is a 46-year-old female who was seen today for follow-up. Previously she was seen by Dr. Pollard. Patient is in hospital for intractable nausea and vomiting and abdominal pain. Detailed workup has been done and seems like symptoms have improved only partially. In the meantime Dr. Conrad rule out any DVT in left upper extremity and found superficial thrombophlebitis. Her magnesium and potassium are pretty low which I think is the main reason she cannot be discharged. Nephrology was involved who has a stop Lasix. Magnesium is better with Lasix as is still down and was supplemented and see if it is corrected by tomorrow. Patient is morbidly obese and I was told that today she ambulated and my recommendation is for for her to ambulate more. I will look at her pain medication and try to reduce dose to see if it helps. Repeat magnesium and potassium in the morning. 06/02 #1 intractable nausea and vomiting. She has history of gastroparesis Previously CT abdomen and pelvis negative. Order ultrasound liver and gallbladder. She has history of fatty liver. head CT abdomen and pelvis with contrast GI evaluation EGD and colonoscopy during this admission without any significant result. I will DC her Pepcid and put on Prilosec. She has good bowel tones on examination and I will DC the Reglan and Phenergan and keep her on Zofran when necessary. #2 dysphagia. Patient had swallowing evaluation and last month had video fiberoptic laryngoscopy. No obstruction or aspiration noted. #3 hypokalemia and hypomagnesemia: It was noted that patient is on Lasix and metolazone. Both have been stopped. She will be given 80 mEq potassium today for her potassium of 2.8. I reviewed her echocardiogram and seems like she has decent systolic and diastolic heart function. I am not sure about the need of diuretics in her case at all except that she might develop bilateral lower extremity edema due to her body habitus. Urine Na/K noted. Renal is not preserving K.Aldactone 100 daily ordered. #4 history of PE patient is on the Lovenox. She is discovered to have left cephalic vein thrombophlebitis during this admission for which she has received ibuprofen and at this time is asymptomatic. #6 diabetes Accu-Chek 4 times a day with sliding scale coverage #5 depression: Psych has already seen the patient and she is on multiple medications and will have an outpatient follow-up. Unfortunately she has a lot of social issues related to her family situation. Social workers are trying to find a suitable place for her to stay. 06/03 her main issue is intractable nausea. No vomiting has been noted. Nursing 's staff is concerned if she is actually taking her oral potassium. Discussed with Dr. Estrada and she is also surprise that considering his age and monitor potassium has been given already potassium is still low. In any case all diuretics have been stopped and as noted above she has a decent cardiac function. We will give her IV and oral potassium to supplement and try to reestablish electrolyte balance. Potassium elixir has been a stop which actually she was not taking in front of the nurses but would rather keep it and take her by herself with soda pop. She has decent bowel tones and she claims that she gets one bowel movement every day. At this point I do not see any GI or renal potassium loss and I hope that her potassium will be corrected. Concerned about her intractable nausea therefore I will stop her narcotic pain medication as they themselves can induce nausea. She requested an NG tube which will be placed. 06/04 patient has NG tube. She says no improvement and continues to complain about abdominal pain and intractable nausea. Her potassium is improving slowly. Her examination is absolutely unremarkable as well as her lab work. We expect her electrolyte imbalance to be corrected and element of fact it was induced by diuretics which seem quite unnecessary considering she has normal cardiac and pulmonary functions. Her bilateral lower extremity edema is more dependent in nature. 06/05 , she is a still complaining of nausea and abdominal pain but her examination and all test ABSOLUTELY unremarkable. Potassium is improving which will be given today. Recheck BMP tomorrow. DC NG tube DC tube feeds - Constitutional Vitals: Temp Pulse Resp BP Pulse Ox 97.7 F 60 16 128/80 97 06/05/17 08:08 06/05/17 08:08 06/05/17 08:08 06/05/17 08:08 06/05/17 08:25 General appearance: Present: A&O X 3, morbidly obese, answers questions appropriately - Head Head exam: Present: atraumatic, normocephalic - Eye Eye exam: Present: PERRL, conjuntiva pink, sclera anicteric Pupils: Present: PERRL - Neck Neck exam general surgery: Present: supple, trachea midline. Absent: lymphadenopathy - Respiratory Respiratory exam: Present: CTAB. Absent: accessory muscle use, rales, rhonchi, wheezes - Cardiovascular Cardiovascular exam: Present: RRR, +S1, +S2. Absent: diastolic murmur, gallop, rubs, systolic murmur - GI/Abdominal GI/Abdominal exam: Present: normal bowel sounds, soft, no peritoneal signs. Absent: distended, tenderness - Extremities Exam Extremities exam: Present: warm, radial pulses palpable and symmetrical. Absent : calf tenderness, cyanotic, pedal edema - Neurological Exam Neurological exam: Present: CN II-XII intact, oriented X3, no focal deficits. Absent: pronater drift, facial droop, speech deficit - Skin Skin exam: Present: dry, intact Internal Medicine: Result - Labs CBC & Chem 7: 06/05/17 04:20 06/05/17 10:20 Labs: Short CBC 06/05/17 Range/Units 04:20 WBC 6.4 (4.3-11.1) K/mcL Hgb 12.6 (11.5-15.4) g/dL Hct 36.6 (35.3-44.9) % Plt Count 176 (140-400) K/mcL Neutrophils # 3.3 (1.6-8.9) K/mcL - ABG Interpretation ABG results: PT/INR, D-dimer PT 13.9 Seconds (9.4-12.1) H 05/14/17 14:41 - VTE Documentation of Mechanical Device: Intermittent pneumatic compression device Consult Discharge Plan - Plan Referrals: Misael Miller MD [Primary Care Provider] - 06/07/17 2:15 pm ( )
[2017-06-05 10:38] LABS: BUN/Creatinine Ratio 17 (6-26); Blood Urea Nitrogen 16 mg/dL (7-20); Calcium 8.9 mg/dL (8.6-10.8); Carbon Dioxide 29 mEq/L (19-29); Chloride 98 mEq/L (98-109); Glucose 244 mg/dL (70-99); Osmolality,Calculated 289 (280-300); Potassium 3.4 mEq/L (3.5-4.5); Sodium 135 mEq/L (136-145); eGFR For African Americans > 60 (> 60); eGFR For Non-African Americans > 60 (> 60)
[2017-06-05] MEDS: Venlafaxine XR (24 HR) 75 MG CAP.ER.24H PO SCH (20:48)
[2017-06-05] MEDS: Topiramate 100 MG TABLET PO SCH (20:49)
[2017-06-06] MEDS: *HR* OxyCODONE/APAP 5/325 TABLET PO PRN ×4 (03:35→22:46)
[2017-06-06] MEDS: *HR* Promethazine 25 MG/ML VIAL IVP PRN ×4 (03:35→22:46)
[2017-06-06 04:29] LABS: Basophils % 0.7 %; Eosinophils # 0.4 K/mcL (0.0-0.6); Eosinophils % 7.6 %; Hematocrit 37.6 % (35.3-44.9); Hemoglobin 12.6 g/dL (11.5-15.4); Immature Granulocytes % 0.2 % (0-4); Lymphocytes # 2.4 K/mcL (0.6-4.6); Mean Corpuscular HGB Conc 33.5 g/dL (31.6-35.5); Mean Corpuscular Hemoglobin 30.6 pg (28.0-33.3); Mean Corpuscular Volume 91.3 fL (83.0-100.0); Mean Platelet Volume 11.9 fL (9.4-12.4); Monocytes # 0.4 K/mcL (0.0-1.3); Monocytes % 7.1 %; Neutrophils # 2.5 K/mcL (1.6-8.9); Platelet Count 167 K/mcL (140-400); Red Blood Count 4.12 M/mcL (3.82-4.97); Red Cell Distribution Width 12.8 % (11.5-14.5); Segmented Neutrophils % 43.4 %
[2017-06-06 04:52] LABS: Alanine Aminotransferase 14 Units/L (0-55); Albumin 3.3 g/dL (3.5-5.0); Albumin/Globulin Ratio 0.9 (1.1-2.2); Alkaline Phosphatase 127 Units/L (38-126); Aspartate Amino Transferase 11 Units/L (5-34); BUN/Creatinine Ratio 15 (6-26); Bilirubin,Total 0.3 mg/dL (0.2-1.2); Blood Urea Nitrogen 13 mg/dL (7-20); Calcium 9.2 mg/dL (8.6-10.8); Carbon Dioxide 27 mEq/L (19-29); Chloride 102 mEq/L (98-109); Globulin 3.6 g/dL (2.4-3.5); Glucose 184 mg/dL (70-99); Magnesium 2.2 mg/dL (1.6-2.6); Osmolality,Calculated 287 (280-300); Potassium 3.6 mEq/L (3.5-4.5); Sodium 136 mEq/L (136-145); Total Protein 6.9 g/dL (6.0-8.3); eGFR For African Americans > 60 (> 60); eGFR For Non-African Americans > 60 (> 60)
[2017-06-06] MEDS: *HR* Enoxaparin 150 MG/ML SYRINGE SQ SCH ×2 (06:13→16:44)
[2017-06-06] MEDS: Gabapentin 400 MG CAPSULE PO SCH ×3 (07:48→21:45)
[2017-06-06] MEDS: Topiramate 25 MG TABLET PO SCH (07:48)
[2017-06-06] MEDS: Insulin LISPRO 300 UNITS/3 ML VIAL SQ SCH ×3 (07:48→16:43)
[2017-06-06] MEDS: lamoTRIgine 100 MG TABLET PO SCH ×2 (07:49→21:45)
[2017-06-06] MEDS: cloNIDine HCl 0.1 MG TABLET PO SCH ×2 (07:49→21:45)
[2017-06-06] MEDS: Nystatin SUSP 5 ML UD.LIQ PO SCH ×4 (07:49→21:49)
[2017-06-06] MEDS: Budesonide/Formoterol 160/4.5 MDI IH SCH ×2 (09:51→22:48)
[2017-06-06] MEDS ORDERED: Potassium Chloride 40 MEQ, Lidocaine 1% 2 ML in D5% in Water 500 ML IVPB ONE (10:23)
--- NOTE | 2017-06-06 16:59 | Internal Med Progress Note ---
Date of Encounter: 06/06/17 Time of Encounter: 16:57 - Assessment and plan (1) Intractable nausea and vomiting Current Visit: Yes Status: Resolved Qualifiers: Vomiting type: cyclical vomiting Qualified Code(s): G43.A1 - Cyclical vomiting, intractable (2) Left lower lobe pneumonia Current Visit: Yes Status: Suspected Qualifiers: Pneumonia type: due to unspecified organism Qualified Code(s): J18.1 - Lobar pneumonia, unspecified organism (3) Dysphagia Current Visit: Yes Status: Chronic Qualifiers: Dysphagia type: unspecified Qualified Code(s): R13.10 - Dysphagia, unspecified (4) Pulmonary embolism Current Visit: Yes Status: Chronic Qualifiers: Pulmonary embolism type: other Chronicity: acute Acute cor pulmonale presence: without acute cor pulmonale Qualified Code(s): I26.99 - Other pulmonary embolism without acute cor pulmonale (5) Diabetes mellitus Current Visit: Yes Status: Chronic Qualifiers: Diabetes mellitus type: type 2 Diabetes mellitus complication status: with unspecified complications Diabetes mellitus terminal system operator insulin use: without residential use Qualified Code(s): E11.8 - Type 2 diabetes mellitus with unspecified complications (6) Factor 5 Leiden mutation, heterozygous Current Visit: Yes Status: Chronic (7) Gastroparesis Current Visit: Yes Status: Chronic (8) Thigh hematoma Current Visit: No Status: Resolved Qualifiers: Encounter type: subsequent encounter Laterality: right Qualified Code(s) : S70.11XD - Contusion of right thigh, subsequent encounter (9) Thrombophlebitis of cephalic vein Current Visit: Yes Status: Acute (10) Morbid obesity with BMI of 50.0-59.9, adult Current Visit: Yes Status: Chronic (11) Encounter for current long-term use of anticoagulants Current Visit: No Status: Chronic - Subjective Interval history: Mrs. Mary Mitchell is a 46-year-old female who was seen today for follow-up. Previously she was seen by Dr. Pollard. Patient is in hospital for intractable nausea and vomiting and abdominal pain. Detailed workup has been done and seems like symptoms have improved only partially. In the meantime Dr. Conrad rule out any DVT in left upper extremity and found superficial thrombophlebitis. Her magnesium and potassium are pretty low which I think is the main reason she cannot be discharged. Nephrology was involved who has a stop Lasix. Magnesium is better with Lasix as is still down and was supplemented and see if it is corrected by tomorrow. Patient is morbidly obese and I was told that today she ambulated and my recommendation is for for her to ambulate more. I will look at her pain medication and try to reduce dose to see if it helps. Repeat magnesium and potassium in the morning. 06/02 #1 intractable nausea and vomiting. She has history of gastroparesis Previously CT abdomen and pelvis negative. Order ultrasound liver and gallbladder. She has history of fatty liver. head CT abdomen and pelvis with contrast GI evaluation EGD and colonoscopy during this admission without any significant result. I will DC her Pepcid and put on Prilosec. She has good bowel tones on examination and I will DC the Reglan and Phenergan and keep her on Zofran when necessary. #2 dysphagia. Patient had swallowing evaluation and last month had video fiberoptic laryngoscopy. No obstruction or aspiration noted. #3 hypokalemia and hypomagnesemia: It was noted that patient is on Lasix and metolazone. Both have been stopped. She will be given 80 mEq potassium today for her potassium of 2.8. I reviewed her echocardiogram and seems like she has decent systolic and diastolic heart function. I am not sure about the need of diuretics in her case at all except that she might develop bilateral lower extremity edema due to her body habitus. Urine Na/K noted. Renal is not preserving K.Aldactone 100 daily ordered. #4 history of PE patient is on the Lovenox. She is discovered to have left cephalic vein thrombophlebitis during this admission for which she has received ibuprofen and at this time is asymptomatic. #6 diabetes Accu-Chek 4 times a day with sliding scale coverage #5 depression: Psych has already seen the patient and she is on multiple medications and will have an outpatient follow-up. Unfortunately she has a lot of social issues related to her family situation. Social workers are trying to find a suitable place for her to stay. 06/03 her main issue is intractable nausea. No vomiting has been noted. Nursing 's staff is concerned if she is actually taking her oral potassium. Discussed with Dr. Estrada and she is also surprise that considering his age and monitor potassium has been given already potassium is still low. In any case all diuretics have been stopped and as noted above she has a decent cardiac function. We will give her IV and oral potassium to supplement and try to reestablish electrolyte balance. Potassium elixir has been a stop which actually she was not taking in front of the nurses but would rather keep it and take her by herself with soda pop. She has decent bowel tones and she claims that she gets one bowel movement every day. At this point I do not see any GI or renal potassium loss and I hope that her potassium will be corrected. Concerned about her intractable nausea therefore I will stop her narcotic pain medication as they themselves can induce nausea. She requested an NG tube which will be placed. 06/04 patient has NG tube. She says no improvement and continues to complain about abdominal pain and intractable nausea. Her potassium is improving slowly. Her examination is absolutely unremarkable as well as her lab work. We expect her electrolyte imbalance to be corrected and element of fact it was induced by diuretics which seem quite unnecessary considering she has normal cardiac and pulmonary functions. Her bilateral lower extremity edema is more dependent in nature. 06/05 , she is a still complaining of nausea and abdominal pain but her examination and all test ABSOLUTELY unremarkable. Potassium is improving which will be given today. Recheck BMP tomorrow. DC NG tube DC tube feeds 06/06 complaining of less nausea and abdominal pain but also wants to eat food. She has good bowel tones and have been having bowel movements regularly. I DC 'd her NG tube and put her on clear liquids and seems like symptoms are improving since then. We will give another 24 hour and see if symptoms resolve completely. Potassium is finally corrected will give some additional potassium today and recheck tomorrow to see if he does start rising 3.6 level - Constitutional Vitals: Temp Pulse Resp BP Pulse Ox 97.6 F 56 16 117/64 97 06/06/17 16:11 06/06/17 16:11 06/06/17 16:11 06/06/17 16:11 06/06/17 16:11 General appearance: Present: A&O X 3, morbidly obese, answers questions appropriately - Head Head exam: Present: atraumatic, normocephalic - Eye Eye exam: Present: PERRL, conjuntiva pink, sclera anicteric Pupils: Present: PERRL - Neck Neck exam general surgery: Present: supple, trachea midline. Absent: lymphadenopathy - Respiratory Respiratory exam: Present: CTAB. Absent: accessory muscle use, rales, rhonchi, wheezes - Cardiovascular Cardiovascular exam: Present: RRR, +S1, +S2. Absent: diastolic murmur, gallop, rubs, systolic murmur - GI/Abdominal GI/Abdominal exam: Present: normal bowel sounds, soft, no peritoneal signs. Absent: distended, tenderness - Extremities Exam Extremities exam: Present: warm, radial pulses palpable and symmetrical. Absent : calf tenderness, cyanotic, pedal edema - Neurological Exam Neurological exam: Present: CN II-XII intact, oriented X3, no focal deficits. Absent: pronater drift, facial droop, speech deficit - Skin Skin exam: Present: dry, intact Internal Medicine: Result - Labs CBC & Chem 7: 06/06/17 04:13 06/06/17 03:50 Labs: Short CBC 06/06/17 Range/Units 04:13 WBC 5.8 (4.3-11.1) K/mcL Hgb 12.6 (11.5-15.4) g/dL Hct 37.6 (35.3-44.9) % Plt Count 167 (140-400) K/mcL Neutrophils # 2.5 (1.6-8.9) K/mcL BMP 06/06/17 03:50 Sodium 136 Potassium 3.6 Chloride 102 Carbon Dioxide 27 BUN 13 Creatinine 0.86 Glucose 184 H Calcium 9.2 Liver Function 06/06/17 Range/Units 03:50 Total Bilirubin 0.3 (0.2-1.2) mg/dL AST 11 (5-34) Units/L ALT 14 (0-55) Units/L Alkaline Phosphatase 127 H (38-126) Units/L Albumin 3.3 L (3.5-5.0) g/dL - ABG Interpretation ABG results: PT/INR, D-dimer PT 13.9 Seconds (9.4-12.1) H 05/14/17 14:41 - VTE Documentation of Mechanical Device: Intermittent pneumatic compression device Consult Discharge Plan - Plan Referrals: Misael Miller MD [Primary Care Provider] - 06/07/17 2:15 pm ( )
[2017-06-06] MEDS: Topiramate 100 MG TABLET PO SCH (21:45)
[2017-06-06] MEDS: Venlafaxine XR (24 HR) 75 MG CAP.ER.24H PO SCH (21:45)
[2017-06-07 04:45] LABS: Basophils % 0.5 %; Eosinophils # 0.5 K/mcL (0.0-0.6); Eosinophils % 8.8 %; Hematocrit 37.2 % (35.3-44.9); Hemoglobin 12.3 g/dL (11.5-15.4); Immature Granulocytes % 0.4 % (0-4); Lymphocytes # 2.3 K/mcL (0.6-4.6); Lymphocytes % 39.9 %; Mean Corpuscular HGB Conc 33.1 g/dL (31.6-35.5); Mean Corpuscular Hemoglobin 30.6 pg (28.0-33.3); Mean Corpuscular Volume 92.5 fL (83.0-100.0); Monocytes # 0.4 K/mcL (0.0-1.3); Monocytes % 6.1 %; Neutrophils # 2.5 K/mcL (1.6-8.9); Platelet Count 167 K/mcL (140-400); Red Blood Count 4.02 M/mcL (3.82-4.97); Segmented Neutrophils % 44.3 %
[2017-06-07] MEDS: *HR* OxyCODONE/APAP 5/325 TABLET PO PRN ×3 (04:46→17:30)
[2017-06-07] MEDS: *HR* Promethazine 25 MG/ML VIAL IVP PRN ×3 (04:46→17:31)
[2017-06-07 04:59] LABS: Alanine Aminotransferase 14 Units/L (0-55); Albumin 3.3 g/dL (3.5-5.0); Alkaline Phosphatase 116 Units/L (38-126); Aspartate Amino Transferase 9 Units/L (5-34); BUN/Creatinine Ratio 16 (6-26); Bilirubin,Total 0.2 mg/dL (0.2-1.2); Blood Urea Nitrogen 14 mg/dL (7-20); Calcium 9.2 mg/dL (8.6-10.8); Carbon Dioxide 27 mEq/L (19-29); Chloride 106 mEq/L (98-109); Globulin 3.4 g/dL (2.4-3.5); Glucose 173 mg/dL (70-99); Magnesium 2.1 mg/dL (1.6-2.6); Osmolality,Calculated 291 (280-300); Potassium 4.3 mEq/L (3.5-4.5); Sodium 138 mEq/L (136-145); Total Protein 6.7 g/dL (6.0-8.3); eGFR For African Americans > 60 (> 60); eGFR For Non-African Americans > 60 (> 60)
[2017-06-07] MEDS: *HR* Enoxaparin 150 MG/ML SYRINGE SQ SCH ×2 (06:58→17:31)
[2017-06-07] MEDS: Budesonide/Formoterol 160/4.5 MDI IH SCH (07:35)
[2017-06-07] MEDS: Insulin LISPRO 300 UNITS/3 ML VIAL SQ SCH ×4 (08:02→16:26)
[2017-06-07] MEDS: Gabapentin 400 MG CAPSULE PO SCH ×2 (08:06→13:51)
[2017-06-07] MEDS: cloNIDine HCl 0.1 MG TABLET PO SCH (08:06)
[2017-06-07] MEDS: lamoTRIgine 100 MG TABLET PO SCH (08:06)
[2017-06-07] MEDS: Nystatin SUSP 5 ML UD.LIQ PO SCH ×3 (08:06→16:26)
[2017-06-07] MEDS: Topiramate 25 MG TABLET PO SCH (08:06)
--- NOTE | 2017-06-07 12:47 | Internal Med Progress Note ---
Date of Encounter: 06/07/17 Time of Encounter: 12:44 - Assessment and plan (1) Intractable nausea and vomiting Current Visit: Yes Status: Resolved Qualifiers: Vomiting type: cyclical vomiting Qualified Code(s): G43.A1 - Cyclical vomiting, intractable (2) Left lower lobe pneumonia Current Visit: Yes Status: Suspected Qualifiers: Pneumonia type: due to unspecified organism Qualified Code(s): J18.1 - Lobar pneumonia, unspecified organism (3) Dysphagia Current Visit: Yes Status: Chronic Qualifiers: Dysphagia type: unspecified Qualified Code(s): R13.10 - Dysphagia, unspecified (4) Pulmonary embolism Current Visit: Yes Status: Chronic Qualifiers: Pulmonary embolism type: other Chronicity: acute Acute cor pulmonale presence: without acute cor pulmonale Qualified Code(s): I26.99 - Other pulmonary embolism without acute cor pulmonale (5) Diabetes mellitus Current Visit: Yes Status: Chronic Qualifiers: Diabetes mellitus type: type 2 Diabetes mellitus complication status: with unspecified complications Diabetes mellitus terminal gauger insulin use: without longterm use Qualified Code(s): E11.8 - Type 2 diabetes mellitus with unspecified complications (6) Factor 5 Leiden mutation, heterozygous Current Visit: Yes Status: Chronic (7) Gastroparesis Current Visit: Yes Status: Chronic (8) Thigh hematoma Current Visit: No Status: Resolved Qualifiers: Encounter type: subsequent encounter Laterality: right Qualified Code(s) : S70.11XD - Contusion of right thigh, subsequent encounter (9) Thrombophlebitis of cephalic vein Current Visit: Yes Status: Acute (10) Morbid obesity with BMI of 50.0-59.9, adult Current Visit: Yes Status: Chronic (11) Encounter for current long-term use of anticoagulants Current Visit: No Status: Chronic - Subjective Interval history: Mrs. Mary Mitchell is a 46-year-old female who was seen today for follow-up. Previously she was seen by Dr. Pollard. Patient is in hospital for intractable nausea and vomiting and abdominal pain. Detailed workup has been done and seems like symptoms have improved only partially. In the meantime Dr. Conrad rule out any DVT in left upper extremity and found superficial thrombophlebitis. Her magnesium and potassium are pretty low which I think is the main reason she cannot be discharged. Nephrology was involved who has a stop Lasix. Magnesium is better with Lasix as is still down and was supplemented and see if it is corrected by tomorrow. Patient is morbidly obese and I was told that today she ambulated and my recommendation is for for her to ambulate more. I will look at her pain medication and try to reduce dose to see if it helps. Repeat magnesium and potassium in the morning. 06/02 #1 intractable nausea and vomiting. She has history of gastroparesis Previously CT abdomen and pelvis negative. Order ultrasound liver and gallbladder. She has history of fatty liver. head CT abdomen and pelvis with contrast GI evaluation EGD and colonoscopy during this admission without any significant result. I will DC her Pepcid and put on Prilosec. She has good bowel tones on examination and I will DC the Reglan and Phenergan and keep her on Zofran when necessary. #2 dysphagia. Patient had swallowing evaluation and last month had video fiberoptic laryngoscopy. No obstruction or aspiration noted. #3 hypokalemia and hypomagnesemia: It was noted that patient is on Lasix and metolazone. Both have been stopped. She will be given 80 mEq potassium today for her potassium of 2.8. I reviewed her echocardiogram and seems like she has decent systolic and diastolic heart function. I am not sure about the need of diuretics in her case at all except that she might develop bilateral lower extremity edema due to her body habitus. Urine Na/K noted. Renal is not preserving K.Aldactone 100 daily ordered. #4 history of PE patient is on the Lovenox. She is discovered to have left cephalic vein thrombophlebitis during this admission for which she has received ibuprofen and at this time is asymptomatic. #6 diabetes Accu-Chek 4 times a day with sliding scale coverage #5 depression: Psych has already seen the patient and she is on multiple medications and will have an outpatient follow-up. Unfortunately she has a lot of social issues related to her family situation. Social workers are trying to find a suitable place for her to stay. 06/03 her main issue is intractable nausea. No vomiting has been noted. Nursing 's staff is concerned if she is actually taking her oral potassium. Discussed with Dr. Estrada and she is also surprise that considering his age and monitor potassium has been given already potassium is still low. In any case all diuretics have been stopped and as noted above she has a decent cardiac function. We will give her IV and oral potassium to supplement and try to reestablish electrolyte balance. Potassium elixir has been a stop which actually she was not taking in front of the nurses but would rather keep it and take her by herself with soda pop. She has decent bowel tones and she claims that she gets one bowel movement every day. At this point I do not see any GI or renal potassium loss and I hope that her potassium will be corrected. Concerned about her intractable nausea therefore I will stop her narcotic pain medication as they themselves can induce nausea. She requested an NG tube which will be placed. 06/04 patient has NG tube. She says no improvement and continues to complain about abdominal pain and intractable nausea. Her potassium is improving slowly. Her examination is absolutely unremarkable as well as her lab work. We expect her electrolyte imbalance to be corrected and element of fact it was induced by diuretics which seem quite unnecessary considering she has normal cardiac and pulmonary functions. Her bilateral lower extremity edema is more dependent in nature. 06/05 , she is a still complaining of nausea and abdominal pain but her examination and all test ABSOLUTELY unremarkable. Potassium is improving which will be given today. Recheck BMP tomorrow. DC NG tube DC tube feeds 06/06 complaining of less nausea and abdominal pain but also wants to eat food. She has good bowel tones and have been having bowel movements regularly. I DC 'd her NG tube and put her on clear liquids and seems like symptoms are improving since then. We will give another 24 hour and see if symptoms resolve completely. Potassium is finally corrected will give some additional potassium today and recheck tomorrow to see if he does start rising 3.6 level 06/07 continued to complain abdominal pain nausea and vomiting however I did not notice any sign of discomfort or any obvious vomiting neither did the nursing staff noted. We asked the nurses to increase her diet and see if she tolerates so that she can be discharged. Her potassium is corrected therefore I will reduce Aldactone 50 mg daily and I do not think she needs diuretics considering she is quite young and her echocardiogram is quite unremarkable. Discussed in PCR about possibility of discharge and if she tolerates full diet I will discharge her - Constitutional Vitals: Temp Pulse Resp BP Pulse Ox 97.5 F L 62 17 116/71 94 06/07/17 10:59 06/07/17 10:59 10/02/17 10:59 06/07/17 10:59 06/07/17 10:59 General appearance: Present: A&O X 3, morbidly obese, answers questions appropriately - Head Head exam: Present: atraumatic, normocephalic - Eye Eye exam: Present: PERRL, conjuntiva pink, sclera anicteric Pupils: Present: PERRL - Neck Neck exam general surgery: Present: supple, trachea midline. Absent: lymphadenopathy - Respiratory Respiratory exam: Present: CTAB. Absent: accessory muscle use, rales, rhonchi, wheezes - Cardiovascular Cardiovascular exam: Present: RRR, +S1, +S2. Absent: diastolic murmur, gallop, rubs, systolic murmur - GI/Abdominal GI/Abdominal exam: Present: normal bowel sounds, soft, no peritoneal signs. Absent: distended, tenderness - Extremities Exam Extremities exam: Present: warm, radial pulses palpable and symmetrical. Absent : calf tenderness, cyanotic, pedal edema - Neurological Exam Neurological exam: Present: CN II-XII intact, oriented X3, no focal deficits. Absent: pronater drift, facial droop, speech deficit - Skin Skin exam: Present: dry, intact Internal Medicine: Result - Labs CBC & Chem 7: 06/07/17 04:42 06/07/17 04:42 Labs: Short CBC 06/07/17 Range/Units 04:42 WBC 5.7 (4.3-11.1) K/mcL Hgb 12.3 (11.5-15.4) g/dL Hct 37.2 (35.3-44.9) % Plt Count 167 (140-400) K/mcL Neutrophils # 2.5 (1.6-8.9) K/mcL BMP 06/07/17 04:42 Sodium 138 Potassium 4.3 Chloride 106 Carbon Dioxide 27 BUN 14 Creatinine 0.87 Glucose 173 H Calcium 9.2 Liver Function 06/07/17 Range/Units 04:42 Total Bilirubin 0.2 (0.2-1.2) mg/dL AST 9 (5-34) Units/L ALT 14 (0-55) Units/L Alkaline Phosphatase 116 (38-126) Units/L Albumin 3.3 L (3.5-5.0) g/dL - ABG Interpretation ABG results: PT/INR, D-dimer PT 13.9 Seconds (9.4-12.1) H 05/14/17 14:41 - VTE Documentation of Mechanical Device: Intermittent pneumatic compression device Consult Discharge Plan - Plan Referrals: Misael Miller MD [Primary Care Provider] - 06/11/17 10:15 am ( )
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
[2017-06-07 16:09] VITALS: BP 134/75
== END 2017-06-07 18:20 | disposition home or self-care (01) | DRG 54 ==
LOC: 2ANU 03:30 → EMEROO 03:30 → SUATTDRO 06:43 → 2ANU 07:06 → SUATTDRO 05-15 17:19 → 2ANU 05-19 14:16
PROVIDERS: ADMIT Internal Medicine; ATTEND Internal Medicine
PROC: ENDOEBX (2017-05-17 13:30)
PROC: ENDOORB (2017-05-19 12:30)

== ENCOUNTER 2017-10-16 16:31 | Inpatient (IN) ==
--- NOTE | 2017-10-16 17:00 | Emergency Department Note ---
Disposition Clinical Impression: Pulmonary embolism Qualifiers: Pulmonary embolism type: other Chronicity: acute Acute cor pulmonale presence: without acute cor pulmonale Qualified Code(s): I26.99 - Other pulmonary embolism without acute cor pulmonale Disposition: Admitted As Inpatient Condition: Serious Referrals: Misael Miller MD [Primary Care Provider] - Forms: ED Satisfaction Letter Time of Disposition: 20:10 SOB HPI - General Chief Complaint: ED Shortness of Breath/Dyspnea Stated Complaint: "sob,dc'd from [place] yesterday" Time Seen by Provider: 10/16/17 16:45 Source: patient Mode of arrival: ambulatory Limitations: no limitations Nursing Notes Reviewed: Yes Vital Signs Reviewed: Yes - History of Present Illness 47-year-old female with a history of factor V deficiency who has been on Lovenox for several years who presented with chest pain shortness of breath days ago and was found to have bilateral pulmonary embolism. As she was heparinized and sent to [facility] hospitals were not comfortable taking care of the patient here. He does have a [place] filter. She states that they did not change her medications she continues to be on Lovenox. 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 Context: recent illness (Pulmonary embolisms) Severity: moderate Consistency/Duration: constant Improves with: nothing Worsens with: nothing Known history of: PE Associated symptoms: Reports: chest pain Treatment prior to arrival: other (Lovenox) Cough present: No - Related Data Home Medications Medication Instructions Recorded Confirmed Budesonide/Formoterol 160/4.5 2 puff IH BIDR #0 04/10/15 10/01/17 [Symbicort 160/4.5] Ipratropium/Albuterol Neb [Duoneb] 3 ml IH QIDR PRN 04/10/15 10/01/17 Montelukast [Singulair] 10 mg PO HS 04/10/15 10/01/17 Topiramate [Topamax] 150 mg PO HS 04/10/15 10/01/17 raNITIdine HCl [Ranitidine HCl] 150 mg PO BID 04/10/15 10/01/17 Doxepin [Sinequan] 25 - 50 mg PO HS 08/14/15 10/01/17 Furosemide [Lasix] 40 mg PO TID PRN 09/17/15 10/01/17 Oxygen 2 l NS AD 09/17/15 10/01/17 SUMAtriptan Succinate [Imitrex] 100 mg PO DAILY PRN 09/17/15 10/01/17 cloNIDine HCl [CloNIDine HCl] 0.1 mg PO BID 09/17/15 10/01/17 Potassium Chloride [K-Tab ER] 10 meq PO DAILY 01/20/16 10/01/17 LORazepam [Ativan] 1 mg PO BID PRN 03/03/16 10/01/17 Gabapentin 800 mg PO TID 08/26/16 10/01/17 lamoTRIgine [Lamictal] 100 mg PO BID 08/26/16 10/01/17 Topiramate [Topamax] 50 mg PO DAILY 03/04/17 10/01/17 Atorvastatin [Lipitor] 10 mg PO HS 04/27/17 10/01/17 Oxycodone HCl/Acetaminophen 1 tab PO TID PRN 04/27/17 10/01/17 [Percocet 5-325 mg Tablet] Albuterol Neb [Proventil Neb] 2.5 mg IH Q4HR PRN 10/01/17 10/01/17 Lisdexamfetamine Dimesylate 30 mg PO DAILY 10/01/17 10/01/17 [Vyvanse] Previous Rx's Medication Instructions Recorded Omeprazole Magnesium [Prilosec Otc] 20 mg PO BID 30 Days #60 tablet. 06/07/17 Enoxaparin [Lovenox] 150 mg SQ Q12H #60 syringe 07/28/17 Allergies Allergy/AdvReac Type Severity Reaction Status Date / Time codeine Allergy Hives,SWELL Verified 10/01/17 08:17 ING Erythromycin Base Allergy THROAT Verified 10/01/17 08:17 SWELLING ondansetron Allergy Hives Verified 10/01/17 08:17 [From Zofran (as hydrochloride)] Penicillins [PCN] Allergy THROAT Verified 10/01/17 08:17 SWELLING Sulfa (Sulfonamide Allergy THROAT Verified 10/01/17 08:17 Antibiotics) SWELLING tape Allergy Blister Uncoded 10/01/17 08:17 All systems ED: reviewed and negative except as stated. Constitutional: Denies: fever, chills, weakness, weight change Eyes: Denies: eye pain, eye discharge, vision change ENT ED: Denies: ear pain, throat pain, dental pain, hearing loss, epistaxis, congestion, dysphagia Cardiovascular: Reports: chest pain, palpitations. Denies: dyspnea on exertion , edema, syncope Respiratory: Reports: dyspnea, wheezes. Denies: cough, hemoptysis, stridor Gastrointestinal: Denies: abdominal pain, nausea, vomiting, diarrhea, constipation, hematemesis, melena, hematochezia Genitourinary: Denies: dysuria, frequency, hematuria, discharge Musculoskeletal: Denies: back pain, neck pain, arthralgia, myalgia Integumentary: Denies: rash, abrasion, lesions Neurological: Denies: headache, weakness, numbness, paresthesias, confusion, abnormal gait, vertigo Psychiatric: Denies: anxiety, depression, suicidal thoughts, homicidal thoughts , auditory hallucinations, visual hallucinations Endocrine: Denies: fatigue Hematological/Lymphatic: Denies: easy bleeding, easy bruising Allergic/Immunologic: Denies: facial swelling, urticaria Past Medical History - Past Medical History Medical history: Reports: asthma, DVT, diabetes, GERD, pulmonary embolus, renal disease, other Surgical history: Reports: cholecystectomy, hysterectomy, orthopedic, other, other Psychiatric history: Reports: anxiety, depression 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 - Social History Smoking Status: Never smoker Smokeless Tobacco Status: No Alcohol use: Reports: none Drug use: Reports: none Physical Exam - General Limitations: no limitations General appearance: alert, in no apparent distress - Head Head exam: atraumatic, normocephalic, normal inspection - Eye Eye exam: Present: normal appearance, PERRL, EOMI - ENT ENT exam: normal exam - Neck Neck exam: Present: normal inspection, full ROM, trachea midline - Chest Chest inspection: Present: normal inspection, symmetric chest wall rise - Respiratory Respiratory exam: Present: normal lung sounds bilaterally - Cardiovascular Cardiovascular exam: Present: regular rate, normal rhythm, normal heart sounds - Abdominal Exam Abdominal exam: Present: soft, Non-Tender. Absent: tenderness, distention, guarding, rebound, rigidity - Extremities Exam Extremities exam: Present: normal inspection, full ROM. Absent: tenderness, pedal edema - Expanded Lower Extremity Exam Neurovascular/Tendon exam: Absent: motor deficit, sensory deficit, tendon deficit Gait: observed and normal - Back Exam Back exam: Present: normal inspection, full ROM. Absent: tenderness - Neurological Exam Neurological exam: Present: alert, oriented X3 - Psychiatric Psychiatric exam: Present: normal affect, normal mood - Skin Skin exam: Present: warm, dry, intact, normal color Course - Reevaluation(s) Reevaluation #1: 47-year-old female with chest pain shortness of breath with PEs and was sent to [place] couple of days ago. She has been on Lovenox for quite some time and was started on heparin and sent to [place]. Patient was discharged from [place] to continue her Lovenox. Unclear whether they felt this was chronic PE versus an acute PE however the patient did show some right heart strain. Right heart strain with PE O we'll restart heparin and admitted to the hospital. Time: 20:08 - Consultations Consultation #1: Discussed with Dr. Alejandro, admit Time: 20:09 Vital Signs Temperature 98.5 F 10/16/17 16:40 Pulse Rate 95 10/16/17 16:40 Respiratory Rate 18 10/16/17 16:40 Blood Pressure 117/74 10/16/17 16:40 O2 Sat by Pulse Oximetry 99 10/16/17 16:40 Temperature 98.5 F 10/16/17 16:40 Pulse Rate 92 10/16/17 19:53 Respiratory Rate 16 10/16/17 19:53 Blood Pressure 124/84 10/16/17 19:53 O2 Sat by Pulse Oximetry 97 10/16/17 19:53 Oxygen Delivery Oxygen Delivery Room Air Shortness of Breath/Dyspnea - Lab Data Result diagrams: 10/16/17 17:36 10/16/17 17:36 Lab Results 10/16/17 10/16/17 10/16/17 Range/Units 17:36 17:36 17:36 WBC 6.8 (4.3-11.1) K/mcL RBC 4.96 (3.82-4.97) M/mcL Hgb 14.6 (11.5-15.4) g/dL Hct 44.5 (35.3-44.9) % MCV 89.7 (83.0-100.0) fL MCH 29.4 (28.0-33.3) pg MCHC 32.8 (31.6-35.5) g/dL RDW 12.6 (11.5-14.5) % Plt Count 198 (140-400) K/mcL MPV 11.8 (9.4-12.4) fL Immature Gran % 0.4 (0-4) % Seg Neutrophils % 70.5 % Lymphocytes % 19.9 % Monocytes % 5.3 % Eosinophils % 3.2 % Basophils % 0.7 % Neutrophils # 4.8 (1.6-8.9) K/mcL Lymphocytes # 1.4 (0.6-4.6) K/mcL Monocytes # 0.4 (0.0-1.3) K/mcL Eosinophils # 0.2 (0.0-0.6) K/mcL Basophils # 0.1 (0.0-0.2) K/mcL PT 12.1 (9.4-12.1) Seconds INR 1.1 APTT 34.3 (26.0-36.0) Seconds D-Dimer 3789 H (0-500) ng/mLFEU Sodium (136-145) mEq/L Potassium (3.5-5.1) mEq/L Chloride (98-107) mEq/L Carbon Dioxide (23-29) mEq/L BUN (6-20) mg/dL Creatinine (0.60-1.20) mg/dL Est GFR ( Amer) (> 60) Est GFR (Non-Af Amer) (> 60) BUN/Creatinine Ratio (6-26) Glucose (70-105) mg/dL Calculated Osmolality (280-300) Calcium (8.6-10.3) mg/dL Troponin I (< 0.04) ng/mL B-Natriuretic Peptide 97 (Less than 100) pg/mL 10/16/17 10/16/17 Range/Units 17:36 17:36 WBC (4.3-11.1) K/mcL RBC (3.82-4.97) M/mcL Hgb (11.5-15.4) g/dL Hct (35.3-44.9) % MCV (83.0-100.0) fL MCH (28.0-33.3) pg MCHC (31.6-35.5) g/dL RDW (11.5-14.5) % Plt Count (140-400) K/mcL MPV (9.4-12.4) fL Immature Gran % (0-4) % Seg Neutrophils % % Lymphocytes % % Monocytes % % Eosinophils % % Basophils % % Neutrophils # (1.6-8.9) K/mcL Lymphocytes # (0.6-4.6) K/mcL Monocytes # (0.0-1.3) K/mcL Eosinophils # (0.0-0.6) K/mcL Basophils # (0.0-0.2) K/mcL PT (9.4-12.1) Seconds INR APTT (26.0-36.0) Seconds D-Dimer (0-500) ng/mLFEU Sodium 133 L (136-145) mEq/L Potassium 4.0 (3.5-5.1) mEq/L Chloride 100 (98-107) mEq/L Carbon Dioxide 24 (23-29) mEq/L BUN 24 H (6-20) mg/dL Creatinine 0.91 (0.60-1.20) mg/dL Est GFR ( Amer) > 60 (> 60) Est GFR (Non-Af Amer) > 60 (> 60) BUN/Creatinine Ratio 26 (6-26) Glucose 254 H (70-105) mg/dL Calculated Osmolality 289 (280-300) Calcium 9.3 (8.6-10.3) mg/dL Troponin I 0.03 (< 0.04) ng/mL B-Natriuretic Peptide (Less than 100) pg/mL - EKG Data EKG attestation: Yes I reviewed and interpreted this EKG. EKG shows normal: Reports: sinus rhythm Rate: Reports: normal Rhythm: Reports: NSR Rueter/QRS: Reports: IVCD Interpretation: Reports: no acute changes Critical Care Time Critical Care Time: Yes Total Critical Care Time: 30 Attestation: The high probability of a clinically significant, sudden or life threatening deterioration of the [cardiovascular] system(s) required my full and direct attention, intervention and personal management. The aggregate critical care time was [30] minutes. This time is in addition to time spent performing reported procedures but includes the following: [x] Data Review and interpretation [x] Patient assessment and monitoring of vital signs [x] Documentation [x] Medication orders and management
[2017-10-16 17:44] LABS: Basophils # 0.1 K/mcL (0.0-0.2); Basophils % 0.7 %; Eosinophils # 0.2 K/mcL (0.0-0.6); Eosinophils % 3.2 %; Hematocrit 44.5 % (35.3-44.9); Hemoglobin 14.6 g/dL (11.5-15.4); Immature Granulocytes % 0.4 % (0-4); Lymphocytes # 1.4 K/mcL (0.6-4.6); Lymphocytes % 19.9 %; Mean Corpuscular HGB Conc 32.8 g/dL (31.6-35.5); Mean Corpuscular Hemoglobin 29.4 pg (28.0-33.3); Mean Corpuscular Volume 89.7 fL (83.0-100.0); Mean Platelet Volume 11.8 fL (9.4-12.4); Monocytes # 0.4 K/mcL (0.0-1.3); Monocytes % 5.3 %; Neutrophils # 4.8 K/mcL (1.6-8.9); Platelet Count 198 K/mcL (140-400); Red Blood Count 4.96 M/mcL (3.82-4.97); Red Cell Distribution Width 12.6 % (11.5-14.5); Segmented Neutrophils % 70.5 %
[2017-10-16 17:49] LABS: INR 1.1; Prothrombin Time 12.1 Seconds (9.4-12.1)
[2017-10-16 17:52] LABS: Activated Partial Thrombo Time 34.3 Seconds (26.0-36.0)
[2017-10-16 18:02] LABS: BUN/Creatinine Ratio 26 (6-26); Blood Urea Nitrogen 24 mg/dL (6-20); Calcium 9.3 mg/dL (8.6-10.3); Carbon Dioxide 24 mEq/L (23-29); Chloride 100 mEq/L (98-107); Glucose 254 mg/dL (70-105); Osmolality,Calculated 289 (280-300); Sodium 133 mEq/L (136-145); eGFR For African Americans > 60 (> 60); eGFR For Non-African Americans > 60 (> 60)
[2017-10-16] MEDS ORDERED: *HR* Promethazine 25 MG/ML VIAL IM ONE (18:49)
[2017-10-16] MEDS ORDERED: *HR* FentaNYL (PF) 100 MCG/2 ML VIAL IVP ONE ×2 (18:49→19:44)
[2017-10-16] MEDS ORDERED: *HR* Heparin 5,000 UNIT/ML VIAL IVP ONE (19:55)
[2017-10-16] MEDS ORDERED: *HR* Heparin 5,000 UNIT/ML VIAL IVP PRN ×2 (19:55)
[2017-10-16] MEDS: Heparin 25,000 UNIT/500 ML D5W 25,000 UNIT/500 ML BAG IVC SCH (20:19)
[2017-10-16] MEDS ORDERED: Albuterol 2.5 MG/3 ML NEBULIZER IH PRN (20:44)
[2017-10-16] MEDS ORDERED: Furosemide 40 MG TABLET PO PRN (20:44)
[2017-10-16] MEDS ORDERED: SUMAtriptan succinate 50 MG TABLET PO PRN (20:44)
[2017-10-16] MEDS ORDERED: Ipratropium/Albuterol Neb 3 ML IH PRN (20:44)
--- NOTE | 2017-10-16 21:13 | Internal Med History&Physical ---
Date of Encounter: 10/16/17 Time of Encounter: 20:35 Assessment and Plan (1) Pulmonary embolism Current visit: Yes Status: Acute Recurrent PE with F5LD with possible failure of Lovenox therapy and CT evedence of ventricular strain Hemodynamically stable and breathing comfortably Heparin drip started Echo ordered Heme consult ordered Qualifiers: Pulmonary embolism type: other Chronicity: acute Acute cor pulmonale presence: without acute cor pulmonale Qualified Code(s): I26.99 - Other pulmonary embolism without acute cor pulmonale (2) Factor 5 Leiden mutation, heterozygous Current visit: No Status: Chronic Heme consult ordered. She was taking Lovenox 150 mg SQ BID (3) Hypercoagulable state Current visit: Yes Status: Chronic (4) Chest pain Current visit: Yes Status: Acute Qualifiers: Chest pain type: chest pain on breathing Qualified Code(s): R07.1 - Chest pain on breathing; R07.81 - Pleurodynia (5) Morbid obesity with BMI of 50.0-59.9, adult Current visit: No Status: Chronic Code(s): Z68.43 - Body mass index (BMI) 50 -59.9 , adult Internal Medicine - H&P: HPI Chief complaint: CP and SOB History of present illness: 47 year old woman with hx of recurrent venous thromboembolism and pulmonary emboli and known dx of Factor V Leidien Deficiency. She returns to the ER tonight for the second time within 7 days c/o chest pain and SOB. Her CTA- Chest shows extensive pulmonary emboli but not significantly different from the previous CTA Chest done several dys earlier. She has been taking Lovenox 150 mg SQ BID. The CTA chest tonight suggests some mild ventricular strain. She remains hemodynamically stable and is not in acute respiratroty distress. She was started on a Heparin drip and will be admitted for evaluation by hematology to determine if shes had a failure of therapy. Past Med Surg Social Fam HX - Past Medical History Medical history: asthma, DVT, diabetes, GERD, pulmonary embolus, renal disease, other Psychiatric history: anxiety, depression - Past Surgical History Surgical History: cholecystectomy, hysterectomy, orthopedic, other, other - Social History Smoking Status: Never smoker Smokeless Tobacco Status: No Alcohol use: none Drug use: none - Family History Mother Family Member Ethnicity: Non- Living Status: Hx Family Cardiac Disorders: Yes ([place], CHF) Hx Family Respiratory Disorders: No Hx Family Cancer: Yes (Cervical) Hx Family GI Disorders: No Hx Family Endocrine Disorder: Yes (Hypoglycemia) Hx Family Neuromuscular Disorders: No Hx Family Neurologic Disorders: No Hx Family HEENT Disorders: No Hx Family Autoimmune Disorders: Yes (Factor V) Internal Medicine - H&P: Meds Budesonide/Formoterol 160/4.5 [Symbicort 160/4.5] 2 puff IH BIDR #0 04/10/15 [ History] Ipratropium/Albuterol Neb [Duoneb] 3 ml IH QIDR PRN 04/10/15 [History] Montelukast [Singulair] 10 mg PO HS 04/10/15 [History] Topiramate [Topamax] 150 mg PO HS 04/10/15 [History] raNITIdine HCl [Ranitidine HCl] 150 mg PO BID 04/10/15 [History] Doxepin [Sinequan] 25 - 50 mg PO HS 08/14/15 [History] Furosemide [Lasix] 40 mg PO TID PRN 09/17/15 [History] Oxygen 2 l NS AD 09/17/15 [History] SUMAtriptan Succinate [Imitrex] 100 mg PO DAILY PRN 09/17/15 [History] cloNIDine HCl [CloNIDine HCl] 0.1 mg PO BID 09/17/15 [History] Potassium Chloride [K-Tab ER] 10 meq PO DAILY 01/20/16 [History] LORazepam [Ativan] 1 mg PO BID PRN 03/03/16 [History] Gabapentin 800 mg PO TID 08/26/16 [History] lamoTRIgine [Lamictal] 100 mg PO BID 08/26/16 [History] Topiramate [Topamax] 50 mg PO DAILY 03/04/17 [History] Atorvastatin [Lipitor] 10 mg PO HS 04/27/17 [History] Oxycodone HCl/Acetaminophen [Percocet 5-325 mg Tablet] 1 tab PO TID PRN [History] Omeprazole Magnesium [Prilosec Otc] 20 mg PO BID 30 Days #60 tablet.dr 06/07/17 [Rx] Enoxaparin [Lovenox] 150 mg SQ Q12H #60 syringe 07/28/17 [Rx] Albuterol Neb [Proventil Neb] 2.5 mg IH Q4HR PRN 10/01/17 [History] Lisdexamfetamine Dimesylate [Vyvanse] 30 mg PO DAILY 10/01/17 [History] 3 Allergy/AdvReac Type Severity Reaction Status Date / Time codeine Allergy Hives,SWELL Verified 10/01/17 08:17 ING Erythromycin Base Allergy THROAT Verified 10/01/17 08:17 SWELLING ondansetron Allergy Hives Verified 10/01/17 08:17 [From Zofran (as hydrochloride)] Penicillins [PCN] Allergy THROAT Verified 10/01/17 08:17 SWELLING Sulfa (Sulfonamide Allergy THROAT Verified 10/01/17 08:17 Antibiotics) SWELLING tape Allergy Blister Uncoded 10/01/17 08:17 All Systems PM: A 10-system review of systems was performed and is negative for pertinent findings except as documented above in the HPI. - Constitutional Constitutional: no excessive sweating, no fever(s), no falls, no malaise, no weakness, no weight loss - EENT Eyes: no blurry vision, no decreased night vision, no diplopia, no irritation, no loss of peripheral vision, no photophobia, no tunnel vision Ears: as per HPI, no decreased hearing Nose, mouth and throat: no dental pain, no dry mouth, no dysphagia, no mouth pain, no nasal obstruction, no odynophagia, no sinus pressure, no tongue swelling - Respiratory Respiratory: dyspnea, pain on inspiration, no cough, no hemoptysis, no wheezing , no stridor - Gastrointestinal Gastrointestinal: no belching, no change in bowel habits, no coffee ground emesis, no constipation, no diarrhea, no dyspepsia, no hematemesis, no hematochezia, no loose stools, no melena - Genitourinary Genitourinary: dysmenorrhea, no flank pain, no hematuria, no hot flashes, no urinary frequency, no urinary hesitancy - Musculoskeletal Musculoskeletal ROS IM: no joint swelling, no muscle cramps, no myalgias, no numbness, no stiffness - Integumentary Integumentary IM: no rash, no jaundice - Neurological Neurological ROS: no abnormal hearing, no dizziness, no focal weakness - Psychiatric Psychiatric: no abnormal sleep pattern, no anxiety, no confusion - Endocrine Endocrine IM: no cold intolerance - Allergic/Immunologic Allergic/Immunologic: no wheezing, no GI upset with certain foods - Constitutional Vitals: Temp Pulse Resp BP Pulse Ox 98.5 F 88 16 131/90 98 10/16/17 16:40 10/16/17 20:31 10/16/17 20:42 10/16/17 20:42 10/16/17 20:31 General appearance: Present: A&O X 3, no acute distress, obese - Head Head exam: Present: atraumatic, normocephalic - ENT ENT exam: Present: normal exam - Neck Neck exam general surgery: Present: full ROM, lymphadenopathy, tenderness, supple, trachea midline - Respiratory Respiratory exam: Present: CTAB, stridor, wheezes - Cardiovascular Cardiovascular exam: Present: diastolic murmur, RRR, +S1, +S2. Absent: bradycardia - GI/Abdominal GI/Abdominal exam: Present: normal bowel sounds. Absent: distended, guarding, rebound, rigid - Extremities Exam Extremities exam: Present: full ROM, pedal edema, warm - Neurological Exam Neurological exam: Present: CN II-XII intact, oriented X3. Absent: reflexes normal, facial droop, speech deficit - Psychiatric Psychiatric exam: Present: agitated, depressed, normal affect, normal mood Internal Med - H&P Results - Labs CBC & Chem 7: 10/16/17 17:36 10/16/17 17:36 - VTE Reasons for not Prescribing Prophylaxis: Not indicated-Anticoagulated or INR therapeutic
[2017-10-16] MEDS: Budesonide/Formoterol 160/4.5 MDI IH SCH (22:05)
[2017-10-16] MEDS: lamoTRIgine 100 MG TABLET PO SCH (22:20)
[2017-10-16] MEDS: Gabapentin 400 MG CAPSULE PO SCH (22:20)
[2017-10-16] MEDS: *HR* OxyCODONE/APAP 5/325 TABLET PO PRN (22:20)
[2017-10-16] MEDS: Topiramate 100 MG TABLET PO SCH (22:20)
[2017-10-16] MEDS: *HR* FentaNYL (PF) 100 MCG/2 ML VIAL IVP PRN (22:21)
[2017-10-16] MEDS: cloNIDine HCl 0.1 MG TABLET PO SCH (22:21)
[2017-10-16] MEDS: Famotidine 20 MG TABLET PO SCH (22:34)
[2017-10-17] MEDS: *HR* FentaNYL (PF) 100 MCG/2 ML VIAL IVP PRN ×3 (01:10→20:13)
[2017-10-17] MEDS: lamoTRIgine 100 MG TABLET PO SCH ×2 (08:33→20:14)
[2017-10-17] MEDS: Gabapentin 400 MG CAPSULE PO SCH ×3 (08:33→20:13)
[2017-10-17] MEDS: Topiramate 25 MG TABLET PO SCH (08:33)
[2017-10-17] MEDS: cloNIDine HCl 0.1 MG TABLET PO SCH ×2 (08:33→20:13)
[2017-10-17] MEDS: Famotidine 20 MG TABLET PO SCH ×2 (08:33→17:48)
[2017-10-17] MEDS: Lisdexamfetamine Dimesylate [Vyvanse] 30 MG PO SCH (08:41)
[2017-10-17] MEDS: Heparin 25,000 UNIT/500 ML D5W 25,000 UNIT/500 ML BAG IVC SCH (10:16)
[2017-10-17] MEDS: Budesonide/Formoterol 160/4.5 MDI IH SCH ×2 (10:46→19:57)
[2017-10-17] MEDS ORDERED: Dextrose Gel 15 GM/37.5 ML TUBE PO PRN ×2 (12:38)
[2017-10-17] MEDS ORDERED: D5% in Water 1,000 ML IVC PRN (12:38)
[2017-10-17] MEDS ORDERED: *HR* Dextrose 50 % in Water (Syg) 50 ML SYRINGE IVP PRN (12:38)
[2017-10-17] MEDS: *HR* OxyCODONE/APAP 5/325 TABLET PO PRN ×2 (12:50→18:58)
[2017-10-17] MEDS: Insulin LISPRO 300 UNITS/3 ML VIAL SQ SCH ×3 (14:13→20:26)
--- NOTE | 2017-10-17 14:38 | Internal Med Progress Note ---
Date of Encounter: 10/17/17 Time of Encounter: 14:38 - Assessment and plan (1) Pulmonary embolism Current Visit: Yes Status: Acute Assessment and plan: Pt admitted with acute PE. Recently discharged from [place]. Was on Lovenox 150mg BID. Heme consulted for further input regarding treatment. Echo sows no significant cardiac strain. Qualifiers: Pulmonary embolism type: other Chronicity: acute Acute cor pulmonale presence: without acute cor pulmonale Qualified Code(s): I26.99 - Other pulmonary embolism without acute cor pulmonale (2) Chest pain Current Visit: Yes Status: Acute Assessment and plan: Pleuritic chest pain. One dose Toradol given PRN pain meds. Qualifiers: Chest pain type: chest pain on breathing Qualified Code(s): R07.1 - Chest pain on breathing (3) Acute and chronic respiratory failure Current Visit: Yes Status: Acute Assessment and plan: Pt currently on 4 L NC. Will wean as able. Qualifiers: Respiratory failure complication: hypoxia Qualified Code(s): J96.21 - Acute and chronic respiratory failure with hypoxia (4) Factor 5 Leiden mutation, heterozygous Current Visit: No Status: Chronic Assessment and plan: Currently on heparin drip. (5) Diabetes mellitus Current Visit: No Status: Chronic Assessment and plan: Follow blood sugars and cover. 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 Qualifiers: Depression Type: major depressive disorder Major depression recurrence: recurrent Active/Remission status: currently active Major depression episode severity: moderate Qualified Code(s): F33.1 - Major depressive disorder, recurrent, moderate (7) Morbid obesity with BMI of 50.0-59.9, adult Current Visit: Yes Status: Chronic Assessment and plan: Chronic issue - Subjective Interval history: Ms Mitchell is currently admitted acute PE. She remains moderate to high risk due to potential for worsening status. Ms Mitchell is very dyspneic. She says she can't do much without significant dyspnea. Thinks she has a low grade fever but no aches. Has cough but not mobilizing anything. She is very worried about the clots. She said she " passed out" this time and is concerned about this happening again especially when she is with her daughter. Having a lot of pleuritic pain as well. No constipation or diarrhea. - Constitutional Vitals: Temp Pulse Resp BP Pulse Ox 98.1 F 69 18 104/70 95 10/17/17 07:01 10/17/17 07:01 10/17/17 10:46 10/17/17 10:46 10/17/17 10:46 General appearance: Present: A&O X 3, obese, answers questions appropriately - Head Head exam: Present: normocephalic - Eye Eye exam: Present: EOMI, conjuntiva pink - ENT ENT exam: Present: mucous membranes moist - Respiratory Respiratory exam: Present: decreased breath sounds, CTAB. Absent: rales, rhonchi, wheezes - Cardiovascular Cardiovascular exam: Present: RRR. Absent: tachycardia - GI/Abdominal GI/Abdominal exam: Present: soft. Absent: tenderness - Extremities Exam Extremities exam: Present: warm. Absent: tenderness - Neurological Exam Neurological exam: Present: alert, oriented X3 - Psychiatric Psychiatric exam: Present: anxious, depressed - Skin Skin exam: Present: warm. Absent: rash Internal Medicine: Result - Labs CBC & Chem 7: 10/16/17 17:36 10/16/17 17:36 Labs: Cardiac Enzymes 10/16/17 Range/Units 23:07 Troponin I 0.03 (< 0.04) ng/mL - ABG Interpretation ABG results: PT/INR, D-dimer PT 12.1 Seconds (9.4-12.1) 10/16/17 17:36 D-Dimer 3789 ng/mLFEU (0-500) H 10/16/17 17:36 - Impressions Impressions Echocardiogram 10/17/17 21:19 Impressions: No evidence of pulmonary hypertension LVEF 50-55%. Mildly dilated right ventricle. Not well visualized but probably normal function No significant valvular dysfunction. Left Ventricular Wall Motion: Rest Echo Findings All wall segments showed normal motion. Findings: Study Quality * Technically adequate exam. Left Atrium * Normal left atrial size. Aortic Valve * Trileaflet aortic valve with normal function. Mitral Valve * Normal mitral valve structure and function. Aorta * Normally sized aortic root. Pericardium * There is a trivial pericardial effusion present. Tricuspid Valve * No tricuspid stenosis. * Estimated RVSP is 25 mmHg. * No evidence of pulmonary hypertension * Mild tricuspid regurgitation. Pulmonic Valve * No pulmonic stenosis. * Mild pulmonic regurgitation. * No pulmonic regurgitation. Left Ventricle * LVEF 50-55%. * Indeterminate diastolic function. IVC * The IVC is not well evaluated. Interatrial Septum * Interatrial septum not well evaluated. Right Atrium * Right atrium is not well visualized. Right Ventricle * Mildly dilated right ventricle. * Not well visualized but probably normal function ECG Findings * Normal sinus rhythm. - VTE Reasons for not Prescribing Prophylaxis: Not indicated-Anticoagulated or INR therapeutic Documentation of Mechanical Device: Graduated compression elastic hosiery Consult Discharge Plan - Plan Referrals: Misael Miller MD [Primary Care Provider] -
[2017-10-17] MEDS ORDERED: Ketorolac 30 MG/ML VIAL IVP ONE (14:56)
[2017-10-17] MEDS ORDERED: *HR* OxyCODONE/APAP 5/325 TABLET PO PRN (14:58)
[2017-10-17] MEDS: *HR* LORazepam 1 MG TABLET PO PRN (20:13)
[2017-10-17] MEDS: Topiramate 100 MG TABLET PO SCH (20:13)
[2017-10-18] MEDS: *HR* FentaNYL (PF) 100 MCG/2 ML VIAL IVP PRN ×3 (00:50→15:33)
[2017-10-18] MEDS: Heparin 25,000 UNIT/500 ML D5W 25,000 UNIT/500 ML BAG IVC SCH ×2 (00:52→15:42)
[2017-10-18 01:21] LABS: Hematocrit 39.1 % (35.3-44.9); Mean Corpuscular HGB Conc 32.7 g/dL (31.6-35.5); Mean Corpuscular Hemoglobin 29.6 pg (28.0-33.3); Mean Corpuscular Volume 90.3 fL (83.0-100.0); Platelet Count 181 K/mcL (140-400); Red Blood Count 4.33 M/mcL (3.82-4.97); Red Cell Distribution Width 12.8 % (11.5-14.5)
[2017-10-18 01:24] LABS: Hemoglobin 12.8 g/dL (11.5-15.4)
[2017-10-18 01:42] LABS: BUN/Creatinine Ratio 31 (6-26); Blood Urea Nitrogen 29 mg/dL (6-20); Calcium 8.7 mg/dL (8.6-10.3); Carbon Dioxide 23 mEq/L (23-29); Chloride 103 mEq/L (98-107); Glucose 314 mg/dL (70-105); Magnesium 2.1 mg/dL (1.6-2.6); Osmolality,Calculated 296 (280-300); Sodium 134 mEq/L (136-145); eGFR For African Americans > 60 (> 60); eGFR For Non-African Americans > 60 (> 60)
--- NOTE | 2017-10-18 07:44 | Electrocardiograph Report ---
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
[2017-10-18] MEDS: Topiramate 25 MG TABLET PO SCH (08:12)
[2017-10-18] MEDS: lamoTRIgine 100 MG TABLET PO SCH ×2 (08:12→20:56)
[2017-10-18] MEDS: Famotidine 20 MG TABLET PO SCH ×2 (08:12→15:33)
[2017-10-18] MEDS: Loratadine 10 MG TABLET PO SCH (08:12)
[2017-10-18] MEDS: *HR* OxyCODONE/APAP 5/325 TABLET PO PRN ×4 (08:12→23:56)
[2017-10-18] MEDS: Gabapentin 400 MG CAPSULE PO SCH ×3 (08:12→20:56)
[2017-10-18] MEDS: cloNIDine HCl 0.1 MG TABLET PO SCH ×2 (08:13→20:57)
[2017-10-18] MEDS: Lisdexamfetamine Dimesylate [Vyvanse] 30 MG PO SCH (08:13)
[2017-10-18] MEDS: Insulin LISPRO 300 UNITS/3 ML VIAL SQ SCH ×4 (08:30→20:57)
[2017-10-18] MEDS: Budesonide/Formoterol 160/4.5 MDI IH SCH ×2 (09:15→20:25)
--- NOTE | 2017-10-18 11:31 | Oncology Inp Consult Note ---
<Gisella Arana L - Last Filed: 10/19/17 14:09> Date of Encounter: 10/18/17 Time of Encounter: 11:31 Assessment and Plan (1) Pulmonary embolism Status: Acute Assessment and plan: As detailed in history of present illness,patient has failed multiple medications including Coumadin and multiple DOAKs, S/P [place] Filter placement in 2006. She has been on Lovenox twice a day since February 2015. She reports recent compliance with lovenox. Previous thrombophilia workup has been negative. Morbid obesity and decreased mobility likely contributing factors. Echo did not show any significant cardiac strain at this time. Patient is currently on heparin gtt, managed per hospitalist team. she is hemodynamically stable at this present time and is planning to transfer to stepdown unit 2NE. Options for anticoagulation at discharge will likely include lovenox or arixtra , considering after further discussion with attending onc/treating behavior support specialist. Please refer to Dr. Barajas's attestation below for further details. Qualifiers: Pulmonary embolism type: other Chronicity: acute Acute cor pulmonale presence: without acute cor pulmonale Qualified Code(s): I26.99 - Other pulmonary embolism without acute cor pulmonale - Data of Consult Patient: known to practice within the last 3 years Consult date: 10/18/17 Requesting Physician: Sebastien López DO Primary Care Provider: Misael Miller MD - Consult Narrative Reason for consult: PE History of present illness: Ms. Mitchell is a 47 year old female with hematological history significant for recurrent venous thromboembolism. Initially diagnosed with DVT during in 1998. Has had multiple recurrent events (most recent PE 12/18 and again PE ) and has failed oral anticoagulation with coumadin and DOACs. Previous extensive thrombophilia evaluation has been negative, although patient continues to report that she has Factor V Leiden despite this. Despite [place] Filter placement in 2006 she has had multiple PEs since this time. Aticoagulant history: She had fluctuations in her INR on Coumadin raising concern about compliance, she had clotting episodes on Xarelto,she appeared to have effective management at one point in time on Lovenox but there was question of compliance as she has had multiple clotting episodes and at times her anti-Xa factor was low despite reported compliance, records did show that at one point in time she did have therapeutic levels while taking Lovenox more recently, she had recurrence in February 2015 with PE and acute DVT at which time she was on pradaxa with reported compliance. She has been on Lovenox 150 mg subcutaneous twice a day since Feb 2015 and has tolerated very well since that time, anticoagulant activity testing has shown therapeutic drug levels indicating compliance. We are monitoring levels on a regular basis due to morbid obesity and previous noted subtherapeutic levels. CTA on 02/25/2017 show complete resolution of bilateral PE seen previously. Patient was recently admitted to [facility] for acute PE. According to patient they had recommended embolectomy during this hospitalization but she had refused and was discharged home with lovenox BID. Patients details of events are somewhat questionable, I have requested [place] records from this stay. She reports that she has most recently been very compliant with her Lovenox injections prior to this admission. following discharge she presented back to [facility] ED about one day later with complaints of worsening shortness of breath and chest pain. She has been admitted for further PE management and hematology has been consulted for further recommendations. Past Med Surg Social Fam HX - Past Medical History Medical history: asthma, DVT, diabetes, GERD, pulmonary embolus, renal disease, other Psychiatric history: anxiety, depression - Past Surgical History Surgical History: cholecystectomy, hysterectomy, orthopedic, other, other, IVC filter - Social History Smoking Status: Never smoker Smokeless Tobacco Status: No Alcohol use: none Drug use: none - Family History Mother Adopted: [place]: JOSEFA Family Member Ethnicity: Non- Living Status: Age at : 46 Cause of : CANCER Hx Family Cardiac Disorders: No Hx Family Respiratory Disorders: Yes Hx Family Cancer: Yes Hx Family GI Disorders: No Hx Family Genitourinary Disorders: Yes Hx Family Endocrine Disorder: Yes (MOTHER/FATHER) Hx Family Musculoskeletal Disorders: No Hx Family Neuromuscular Disorders: No Hx Family Neurologic Disorders: No Hx Family HEENT Disorders: No Hx Family Autoimmune Disorders: Yes (GRANDMOTHER) Hx Family Reproductive Disorders: No Hx Family Psychosocial Disorders: Yes (MOTHER) Hx Family Medical Disorders: Yes Medications and Allergies Budesonide/Formoterol 160/4.5 [Symbicort 160/4.5] 2 puff IH BIDR #0 04/10/15 [ History] Ipratropium/Albuterol Neb [Duoneb] 3 ml IH QIDR PRN 04/10/15 [History] Montelukast [Singulair] 10 mg PO HS 04/10/15 [History] Topiramate [Topamax] 150 mg PO HS 04/10/15 [History] raNITIdine HCl [Ranitidine HCl] 150 mg PO BID 04/10/15 [History] Doxepin [Sinequan] 25 - 50 mg PO HS 08/14/15 [History] Furosemide [Lasix] 40 mg PO TID PRN 09/17/15 [History] Oxygen 2 l NS AD 09/17/15 [History] cloNIDine HCl [CloNIDine HCl] 0.1 mg PO BID 09/17/15 [History] Potassium Chloride [K-Tab ER] 10 meq PO DAILY 01/20/16 [History] LORazepam [Ativan] 1 mg PO BID PRN 03/03/16 [History] Gabapentin 800 mg PO TID 08/26/16 [History] lamoTRIgine [Lamictal] 100 mg PO BID 08/26/16 [History] Topiramate [Topamax] 50 mg PO DAILY 03/04/17 [History] Atorvastatin [Lipitor] 10 mg PO HS 04/27/17 [History] Oxycodone HCl/Acetaminophen [Percocet 5-325 mg Tablet] 1 tab PO TID PRN [History] Omeprazole Magnesium [Prilosec Otc] 20 mg PO BID 30 Days #60 tablet. 06/07/17 [Rx] Albuterol Neb [Proventil Neb] 2.5 mg IH Q4HR PRN 10/01/17 [History] Lisdexamfetamine Dimesylate [Vyvanse] 30 mg PO DAILY 10/01/17 [History] Enoxaparin [Lovenox] 150 mg SQ BID 10/17/17 [History] Insulin Degludec [Tresiba Flextouch U-100] 20 units SQ DAILY 10/17/17 [History] Loratadine [Allergy Relief] 10 mg PO DAILY 10/17/17 [History] SUMAtriptan Succinate [Sumavel Dosepro] 6 mg SQ NOW 10/17/17 [History] 3 Allergy/AdvReac Type Severity Reaction Status Date / Time codeine Allergy Hives,SWELL Verified 10/01/17 08:17 ING Erythromycin Base Allergy THROAT Verified 10/01/17 08:17 SWELLING ondansetron Allergy Hives Verified 10/01/17 08:17 [From Zofran (as hydrochloride)] Penicillins [PCN] Allergy THROAT Verified 10/01/17 08:17 SWELLING Sulfa (Sulfonamide Allergy THROAT Verified 10/01/17 08:17 Antibiotics) SWELLING tape Allergy Blister Uncoded 10/01/17 08:17 Constitutional: Present: fatigue. Absent: chills, weight loss Eyes: Absent: change in vision Nose, mouth and throat: Absent: mouth lesions Cardiovascular: Present: chest pain. Absent: irregular heart rhythm, palpitations Respiratory: Present: dyspnea, pain on inspiration. Absent: cough Gastrointestinal: Absent: abdominal pain, hematemesis, hematochezia, melena, nausea, vomiting Genitourinary: Absent: dysuria Musculoskeletal: Absent: numbness, tingling Integumentary: Absent: wounds Neurological: Present: headache(s). Absent: numbness, syncope, tingling Hematologic/Lymphatic: Present: easy bruising. Absent: lymphadenopathy Oncology - Exam - Constitutional Vitals: Temp Pulse Resp BP Pulse Ox 97.6 F 68 16 98/60 100 10/18/17 08:27 10/18/17 10:49 10/18/17 09:16 10/18/17 08:27 10/18/17 09:16 General appearance: cooperative, morbidly obese, no acute distress - Head Head exam: Present: atraumatic - Respiratory Respiratory exam: Present: CTAB - Cardiovascular Cardiovascular exam: Present: RRR, +S1, +S2 - GI/Abdominal GI/Abdominal exam: Present: normal bowel sounds. Absent: tenderness - Extremities Exam Extremities exam: Present: calf tenderness - Neurological Exam Neurological exam: Present: alert, oriented X3, no focal deficits, strengths equal and symetr throughout - Psychiatric Psychiatric exam: Present: normal affect, normal mood - Skin Skin exam: Present: normal color, warm Oncology - Results Labs: Short CBC 10/18/17 Range/Units 01:12 WBC 6.5 (4.3-11.1) K/mcL Hgb 12.8 D (11.5-15.4) g/dL Hct 39.1 (35.3-44.9) % Plt Count 181 (140-400) K/mcL [facility] 10/18/17 01:12 Sodium 134 L Potassium 4.0 Chloride 103 Carbon Dioxide 23 BUN 29 H Creatinine 0.95 Glucose 314 H Calcium 8.7 Cardiac Enzymes 10/18/17 Range/Units 01:12 Troponin I < 0.03 (< 0.04) ng/mL Consult Discharge Plan - Plan Referrals: Misael Miller MD [Primary Care Provider] - 10/25/17 2:30 pm <Ramon Barajas S - Last Filed: 10/19/17 16:49> Date of Encounter: 10/19/17 - Data of Consult Requesting Physician: Jones Almendarez Primary Care Provider: Misael Miller MD - Consult Narrative History of present illness: Ms. Mitchell is a 47 year old female Oncology - Exam - Constitutional Vitals: Temp Pulse Resp BP Pulse Ox 97.7 F 70 16 103/69 100 10/19/17 15:58 10/19/17 15:58 10/19/17 15:58 10/19/17 15:58 10/19/17 15:58 Oncology - Results Labs: Short CBC 10/19/17 Range/Units 06:13 WBC 5.7 (4.3-11.1) K/mcL Hgb 12.2 (11.5-15.4) g/dL Hct 37.9 (35.3-44.9) % Plt Count 194 (140-400) K/mcL Neutrophils # 2.2 (1.6-8.9) K/mcL BMP 10/19/17 06:13 Sodium 135 L Potassium 4.2 Chloride 106 Carbon Dioxide 23 BUN 23 H Creatinine 0.78 Glucose 301 H Calcium 8.7 Cardiac Enzymes 10/19/17 Range/Units 06:13 Troponin I < 0.03 (< 0.04) ng/mL - Attending Attestation 1. Acute new bilateral PE with significant clot burden on right ventricular strain d-dimer elevated around 3700 on 10/16/2017 CT angiogram 10/10/2017 and a week later both showed bilateral significant PE she is hospitalized at [place] initially and then here. She follows up with Dr. Gonzalez as an outpatient. She has failed multiple anticoagulants in the past and complains could be she reacted she also has IVC filter placed around 2006 Had a long discussion with her. Given she had new PE her risk of further PE is fairly high. We could try Arixtra 10 mg subcutaneous daily. She wanted to know if she could try heparin balll which she tried during one of the previous pregnancies and worked. It is going to be cumbersome given that she needs to be on continuous IV infusion and I am not sure know how practical that will be especially since she needs to be on lifelong anticoagulation She has very poor venous access and she wants the port placement which is reasonable We also discussed about the IVC filter. She wants another IVC filter placed. The current filter is not retrievable. I discussed this with Dr. Gonzalez and currently there is no role for placing another IVC filter
--- NOTE | 2017-10-18 12:54 | Event Note ---
Date of Encounter: 10/18/17 Time of Encounter: 12:15 POW#2 s/p Right elbow ulnar nerve decompression in situ 10/01/17 Patient was scheduled to see me in the office today for incision check and discuss the procedure but she is currently admitted for recurrent DVT/PE management.. Patient states she is doing well with the elbow with no concerns. She feels it is progressing well. She was concerned because she states at [facility] her dressings/ zipline was removed a couple days ago. Currently has a tegaderm over incision. Incision looks c/d/i with no s/s infection. Patient instructed to leave tegaderm in place until she is discharged from the hospital so as to decrease chance of infection while in hospital. Continue to ice and elevate as needed for swelling. She has full ROM and improving strength. Continue HEP. No formal therapy needed at this time. No restrictions at this time. Progress activity as tolerated. Follow up prn in [facility] office.
--- NOTE | 2017-10-18 14:34 | Internal Med Progress Note ---
<Kuldip Das - Last Filed: 10/18/17 15:21> Date of Encounter: 10/18/17 Time of Encounter: 14:32 - Assessment and plan (1) Pulmonary embolism Current Visit: Yes Status: Acute Assessment and plan: Patient was admitted to the hospital for pulmonary embolus. She has been on anticoagulation with Lovenox since 2006. She was recently discharged from [facility] for a pulmonary embolus. We have consulted hematology for further evaluation and recommendations. We will await their recommendations. The echocardiogram did not show any significant cardiac strain at this time. Patient is currently on heparin. Transfer orders have been placed so the patient can be moved from [facility] to [address] [place] [address]. Qualifiers: Pulmonary embolism type: other Chronicity: acute Acute cor pulmonale presence: without acute cor pulmonale Qualified Code(s): I26.99 - Other pulmonary embolism without acute cor pulmonale (2) Chest pain Current Visit: Yes Status: Acute Assessment and plan: Patient states that she still has ongoing chest pain Patient has when necessary fentanyl and oxycodone ordered. Qualifiers: Chest pain type: chest pain on breathing Qualified Code(s): R07.1 - Chest pain on breathing (3) Factor 5 Leiden mutation, heterozygous Current Visit: No Status: Chronic Assessment and plan: We have consult and hematology and we will await further anticoagulation recommendations. Patient is currently on heparin. 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 Due to the patient having an allergy to Zofran we will give the patient Phenergan for antiemetics. (6) Depression Current Visit: No Status: Chronic Assessment and plan: Patient is a history of depression Continue supportive care Qualifiers: Depression Type: major depressive disorder Major depression recurrence: recurrent Active/Remission status: currently active Major depression episode severity: moderate Qualified Code(s): F33.1 - Major depressive disorder, recurrent, moderate (7) Morbid obesity with BMI of 50.0-59.9, adult Current Visit: Yes Status: Chronic Assessment and plan: This is ongoing chronic medical condition. - Subjective Interval history: Upon rounds this morning patient states that she is still having chest pain and that her breathing has not improved. She states that she is also feeling like she has some conversational dyspnea. States that she normally is on 2 L of oxygen at home since 2013 however she is now on 4 L here maintaining her oxygen saturation within the mid 90s. States that she has also nauseated. - Constitutional Vitals: Temp Pulse Resp BP Pulse Ox 97.9 F 70 18 96/61 97 10/18/17 12:13 10/18/17 12:13 10/18/17 12:13 10/18/17 12:13 10/18/17 12:13 General appearance: Present: A&O X 3, obese, answers questions appropriately - Head Head exam: Present: atraumatic, normocephalic - Neck Neck exam general surgery: Present: full ROM, supple, trachea midline - Respiratory Respiratory exam: Present: CTAB Additional comments: Increased respiratory effort - Cardiovascular Cardiovascular exam: Present: RRR, +S1, +S2. Absent: diastolic murmur, gallop, rubs, systolic murmur - GI/Abdominal GI/Abdominal exam: Present: normal bowel sounds, soft, no peritoneal signs. Absent: distended, tenderness - Extremities Exam Additional comments: Patient has mild swelling in bilateral lower extremities. - Neurological Exam Neurological exam: Present: oriented X3, no focal deficits. Absent: facial droop, speech deficit - Skin Skin exam: Present: dry, intact, warm Internal Medicine: Result - Labs CBC & Chem 7: 10/18/17 01:12 10/18/17 01:12 Labs: Short CBC 10/18/17 Range/Units 01:12 WBC 6.5 (4.3-11.1) K/mcL Hgb 12.8 D (11.5-15.4) g/dL Hct 39.1 (35.3-44.9) % Plt Count 181 (140-400) K/mcL BMP 10/18/17 01:12 Sodium 134 L Potassium 4.0 Chloride 103 Carbon Dioxide 23 BUN 29 H Creatinine 0.95 Glucose 314 H Calcium 8.7 Cardiac Enzymes 10/18/17 Range/Units 01:12 Troponin I < 0.03 (< 0.04) ng/mL - ABG Interpretation ABG results: PT/INR, D-dimer PT 12.1 Seconds (9.4-12.1) 10/16/17 17:36 D-Dimer 3789 ng/mLFEU (0-500) H 10/16/17 17:36 - VTE Reasons for not Prescribing Prophylaxis: Not indicated-Anticoagulated or INR therapeutic Documentation of Mechanical Device: Graduated compression elastic hosiery Consult Discharge Plan - Plan Referrals: Misael Miller MD [Primary Care Provider] - 10/25/17 2:30 pm <Sebastien López - Last Filed: 10/18/17 18:29> Date of Encounter: 10/18/17 - Assessment and plan (1) Pulmonary embolism Current Visit: Yes Status: Acute Qualifiers: Pulmonary embolism type: other Chronicity: acute Acute cor pulmonale presence: without acute cor pulmonale Qualified Code(s): I26.99 - Other pulmonary embolism without acute cor pulmonale (2) Chest pain Current Visit: Yes Status: Acute Qualifiers: Chest pain type: chest pain on breathing Qualified Code(s): R07.1 - Chest pain on breathing (3) Acute and chronic respiratory failure Current Visit: Yes Status: Acute Qualifiers: Respiratory failure complication: hypoxia Qualified Code(s): J96.21 - Acute and chronic respiratory failure with hypoxia (4) Factor 5 Leiden mutation, heterozygous Current Visit: No Status: Chronic (5) Diabetes mellitus Current Visit: No Status: Chronic Qualifiers: Diabetes mellitus type: type 2 Diabetes mellitus complication status: with hyperglycemia Diabetes mellitus care home insulin use: with care home use Qualified Code(s): E11.65 - Type 2 diabetes mellitus with hyperglycemia; Z79.4 - snf (current) use of insulin; Z79.4 - snf (current) use of insulin ; Z79.4 - snf (current) use of insulin; Z79.4 - snf (current) use of insulin (6) Depression Current Visit: No Status: Chronic Qualifiers: Depression Type: major depressive disorder Major depression recurrence: recurrent Active/Remission status: currently active Major depression episode severity: moderate Qualified Code(s): F33.1 - Major depressive disorder, recurrent, moderate (7) Morbid obesity with BMI of 50.0-59.9, adult Current Visit: Yes Status: Chronic - Constitutional Vitals: Temp Pulse Resp BP Pulse Ox 97.9 F 74 20 94/75 96 10/18/17 15:39 10/18/17 15:39 10/18/17 15:39 10/18/17 15:39 10/18/17 15:39 Internal Medicine: Result - Labs CBC & Chem 7: 10/18/17 01:12 10/18/17 01:12 Labs: Short CBC 10/18/17 Range/Units 01:12 WBC 6.5 (4.3-11.1) K/mcL Hgb 12.8 D (11.5-15.4) g/dL Hct 39.1 (35.3-44.9) % Plt Count 181 (140-400) K/mcL BMP 10/18/17 01:12 Sodium 134 L Potassium 4.0 Chloride 103 Carbon Dioxide 23 BUN 29 H Creatinine 0.95 Glucose 314 H Calcium 8.7 Cardiac Enzymes 10/18/17 Range/Units 01:12 Troponin I < 0.03 (< 0.04) ng/mL - ABG Interpretation ABG results: PT/INR, D-dimer PT 12.1 Seconds (9.4-12.1) 10/16/17 17:36 D-Dimer 3789 ng/mLFEU (0-500) H 10/16/17 17:36 - Attending Attestation I examined this patient and my medical decision-making was reviewed with the Resident Physician on 10/18/17. I agree with the documented findings, disposition and treatment plan as described except to the extent set forth below. Ms Mitchell is currently admitted for acute bilateral PE. She remains moderate to high risk due to potential for worsening clinical status. Ms Mitchell is complaining of pain. No fever or chills. No GI issues. Exam Alert Comfortable Heart reg No wheeze I/P 1. Bilateral PE 2. Morbid obesity Further diagnoses and plan as above.
[2017-10-18] MEDS: Topiramate 100 MG TABLET PO SCH (20:56)
[2017-10-18] MEDS: *HR* Promethazine 25 MG/ML VIAL IVP PRN (23:21)
[2017-10-19] MEDS: *HR* LORazepam 1 MG TABLET PO PRN (01:59)
[2017-10-19] MEDS: *HR* OxyCODONE/APAP 5/325 TABLET PO PRN ×4 (03:56→16:28)
[2017-10-19] MEDS: Heparin 25,000 UNIT/500 ML D5W 25,000 UNIT/500 ML BAG IVC SCH (05:37)
[2017-10-19 06:39] LABS: Basophils % 0.5 %; Eosinophils # 0.4 K/mcL (0.0-0.6); Eosinophils % 7.2 %; Hematocrit 37.9 % (35.3-44.9); Hemoglobin 12.2 g/dL (11.5-15.4); Immature Granulocytes % 0.9 % (0-4); Lymphocytes # 2.7 K/mcL (0.6-4.6); Lymphocytes % 47.9 %; Mean Corpuscular HGB Conc 32.2 g/dL (31.6-35.5); Mean Corpuscular Hemoglobin 29.3 pg (28.0-33.3); Mean Corpuscular Volume 90.9 fL (83.0-100.0); Monocytes # 0.3 K/mcL (0.0-1.3); Monocytes % 4.4 %; Neutrophils # 2.2 K/mcL (1.6-8.9); Platelet Count 194 K/mcL (140-400); Red Blood Count 4.17 M/mcL (3.82-4.97); Red Cell Distribution Width 12.8 % (11.5-14.5); Segmented Neutrophils % 39.1 %
[2017-10-19 06:51] LABS: BUN/Creatinine Ratio 29 (6-26); Blood Urea Nitrogen 23 mg/dL (6-20); Calcium 8.7 mg/dL (8.6-10.3); Carbon Dioxide 23 mEq/L (23-29); Chloride 106 mEq/L (98-107); Glucose 301 mg/dL (70-105); Magnesium 2.1 mg/dL (1.6-2.6); Osmolality,Calculated 295 (280-300); Potassium 4.2 mEq/L (3.5-5.1); Sodium 135 mEq/L (136-145); eGFR For African Americans > 60 (> 60); eGFR For Non-African Americans > 60 (> 60)
[2017-10-19] MEDS: Famotidine 20 MG TABLET PO SCH ×2 (07:59→16:28)
[2017-10-19] MEDS: Insulin LISPRO 300 UNITS/3 ML VIAL SQ SCH ×4 (08:00→22:03)
[2017-10-19] MEDS: Budesonide/Formoterol 160/4.5 MDI IH SCH ×2 (08:26→19:46)
[2017-10-19] MEDS: Loratadine 10 MG TABLET PO SCH (09:19)
[2017-10-19] MEDS: cloNIDine HCl 0.1 MG TABLET PO SCH ×2 (09:20→21:35)
[2017-10-19] MEDS: Topiramate 25 MG TABLET PO SCH (09:20)
[2017-10-19] MEDS: lamoTRIgine 100 MG TABLET PO SCH ×2 (09:20→21:34)
[2017-10-19] MEDS: Gabapentin 400 MG CAPSULE PO SCH ×3 (09:20→21:40)
--- NOTE | 2017-10-19 15:06 | Oncology Inp Progress Note ---
Date of Encounter: 10/19/17 Time of Encounter: 15:06 (1) Pulmonary embolism Current Visit: Yes Status: Acute Assessment and plan: As detailed in history of present illness,patient has failed multiple medications including Coumadin and multiple DOAKs, S/P Maddison Filter placement in 2006. She has been on Lovenox twice a day since February 2015. She reports recent compliance with lovenox. Previous thrombophilia workup has been negative. Morbid obesity and decreased mobility likely contributing factors. Echo did not show any significant cardiac strain at this time. She is hemodynamically stable at this present time and will likely discharge home within next day or so per hospitalist team. Discussed plan of care in length with patient. She is inquiring for port placement due to multiple needle sticks and requesting further filter placement. I discussed with patient that port or filter placement would not be recommended by hematology and would actually place her at higher risk for clots. Discussed other options for lifelong anticoagulation with patient. Recommendation made to stop heparin gtt and initiate arixtra SQ weight based at 10 mg once daily (based on weight >100 kg). Arixtra planned to be initiated 1 hour following discontinuation of heparin. Discussed plan with hospitalist team. I have placed a social security assessor consult to verify cost of medication for patient for discharge. I have also ordered a venous doppler of BLE for baseline evaluation given her history and the fact that we are beginning new anticoagulation. She does report LLE calf pain. I will arrange for outpatient follow up with Dr. Gonzalez. Qualifiers: Pulmonary embolism type: other Chronicity: acute Acute cor pulmonale presence: without acute cor pulmonale Qualified Code(s): I26.99 - Other pulmonary embolism without acute cor pulmonale Oncology: Subj Interval history: Ms. Mitchell is resting in bed with family at bedside. She continues to report chest discomfort controlled with pain medication. She is hemodynamically stable. Options for anticoagulation discussed in length as detailed in A&P. - Constitutional Vitals: Vital Signs Temp Pulse Resp BP Pulse Ox 10/19/17 14:06 63 20 100 10/19/17 12:28 68 20 98 10/19/17 12:22 94 10/19/17 11:58 97.4 F L 70 17 97/58 100 10/19/17 09:57 67 16 99 10/19/17 09:29 126/85 10/19/17 08:26 16 98 02/13/18 08:00 60 17 99/66 100 10/19/17 07:59 99 10/19/17 07:49 60 10/19/17 07:34 97.8 F 59 18 99/66 98 10/19/17 03:59 97.7 F 65 16 113/69 96 10/18/17 23:23 98.1 F 73 18 104/63 96 10/18/17 21:02 79 102/72 10/18/17 20:27 16 97 10/18/17 19:55 98.0 F 81 18 106/70 98 10/18/17 18:26 82 10/18/17 15:39 97.9 F 74 20 94/75 96 Intake and Output 10/18/17 10/19/17 10/19/17 23:59 07:59 15:59 Intake Total 350 / 350 788.6 / 788.6 120 / 120 Output Total 1500 / 1500 850 / 850 250 / 250 Balance -1150 / -1150 -61.4 / -61.4 -130 / -130 Intake: IV Fluids 100 / 100 538.6 / 538.6 Heparin 25,000 UNIT/500 ML D5W 100 / 100 538.6 / 538.6 25,000 unit In 500 ml @ 14 UNIT /KG/HR 40.642 mls/hr IVC . [id number] [facility] Rx#:[id number] Oral 250 / 250 250 / 250 120 / 120 Output: Urine 1150 / 1150 400 / 400 Catheter 350 / 350 450 / 450 250 / 250 Other: Meal Dinner Breakfast Percent of Meal Consumed 100% 20% Weight 155.5 kg Blood Glucose* 214 238 Patient Weight 10/19/17 23:59 Weight 155.5 kg General appearance: cooperative, morbidly obese, no acute distress, no febrile - Head Head exam: Present: atraumatic - Respiratory Respiratory exam: Present: decreased breath sounds, CTAB. Absent: respiratory distress - Cardiovascular Cardiovascular exam: Present: RRR, +S1, +S2 - Extremities Exam Extremities exam: Present: normal inspection Additional comments: LLE calf tenderness - Neurological Exam Neurological exam: Present: alert, oriented X3, no focal deficits, strengths equal and symetr throughout - Skin Skin exam: Present: normal color, warm Oncology: Obj Data - Labs CBC & Chem 7: 10/19/17 06:13 10/19/17 06:13 - ABG Interpretation ABG results: PT/INR, D-dimer PT 12.1 Seconds (9.4-12.1) 10/16/17 17:36 D-Dimer 3789 ng/mLFEU (0-500) H 10/16/17 17:36 Consult Discharge Plan - Plan Referrals: Misael Miller MD [Primary Care Provider] - 10/25/17 2:30 pm
[2017-10-19] MEDS: *HR* Promethazine 25 MG/ML VIAL IVP PRN (15:16)
[2017-10-19] MEDS: Lisdexamfetamine Dimesylate [Vyvanse] 30 MG PO SCH (16:28)
[2017-10-19] MEDS: Insulin DETEMIR 100 UNIT/ML X5UNITS SQ SCH (16:28)
--- NOTE | 2017-10-19 18:23 | Internal Med Progress Note ---
Date of Encounter: 10/19/17 Time of Encounter: 11:00 - Assessment and plan (1) Acute and chronic respiratory failure Current Visit: Yes Status: Acute Assessment and plan: Patient hemodynamically stable and on close to home supplemental oxygen requirements. Qualifiers: Respiratory failure complication: hypoxia Qualified Code(s): J96.21 - Acute and chronic respiratory failure with hypoxia (2) Pulmonary embolism Current Visit: Yes Status: Acute Assessment and plan: -Hematology oncology consulted with recommendation to discontinue heparin gtt and initiate arixtra SQ onace daily; Arixtra planned to be initiated 1 hour following discontinuation of heparin. Qualifiers: Pulmonary embolism type: other Chronicity: acute Acute cor pulmonale presence: without acute cor pulmonale Qualified Code(s): I26.99 - Other pulmonary embolism without acute cor pulmonale (3) Hypercoagulable state Current Visit: Yes Status: Chronic Assessment and plan: -Patient with history of factor V Leiden mutation (heterozygous). -Hematology following and appreciate recommendations (4) Morbid obesity with BMI of 50.0-59.9, adult Current Visit: Yes Status: Chronic Assessment and plan: -Last modifications (5) DVT prophylaxis Current Visit: No Status: Acute Assessment and plan: -Anticoagulation as above - Subjective Interval history: Patient hemodynamically stable and on close to home supplemental oxygen requirements. - Constitutional Vitals: Temp Pulse Resp BP Pulse Ox 97.7 F 71 18 103/69 98 10/19/17 15:58 10/19/17 17:37 10/19/17 17:36 10/19/17 15:58 10/19/17 17:36 General appearance: Present: A&O X 3, obese, answers questions appropriately - Respiratory Respiratory exam: Present: CTAB. Absent: accessory muscle use, rales, rhonchi, wheezes - Cardiovascular Cardiovascular exam: Present: RRR, +S1, +S2. Absent: diastolic murmur, gallop, rubs, systolic murmur Internal Medicine: Result - Labs CBC & Chem 7: 10/19/17 06:13 10/19/17 06:13 Labs: Short CBC 10/19/17 Range/Units 06:13 WBC 5.7 (4.3-11.1) K/mcL Hgb 12.2 (11.5-15.4) g/dL Hct 37.9 (35.3-44.9) % Plt Count 194 (140-400) K/mcL Neutrophils # 2.2 (1.6-8.9) K/mcL BMP 10/19/17 06:13 Sodium 135 L Potassium 4.2 Chloride 106 Carbon Dioxide 23 BUN 23 H Creatinine 0.78 Glucose 301 H Calcium 8.7 Cardiac Enzymes 10/19/17 Range/Units 06:13 Troponin I < 0.03 (< 0.04) ng/mL - ABG Interpretation ABG results: PT/INR, D-dimer PT 12.1 Seconds (9.4-12.1) 10/16/17 17:36 D-Dimer 3789 ng/mLFEU (0-500) H 10/16/17 17:36 - VTE Reasons for not Prescribing Prophylaxis: Not indicated-Anticoagulated or INR therapeutic Documentation of Mechanical Device: Graduated compression elastic hosiery Consult Discharge Plan - Plan Referrals: Misael Miller MD [Primary Care Provider] - 10/25/17 2:30 pm
[2017-10-19] MEDS: *HR* Fondaparinux 2.5 MG/0.5 ML SYRINGE SQ SCH (18:30)
[2017-10-19] MEDS: *HR* Fondaparinux 7.5 MG/0.6 ML SYRINGE SQ SCH (18:30)
[2017-10-19] MEDS: Topiramate 100 MG TABLET PO SCH (21:39)
[2017-10-20] MEDS: *HR* Promethazine 25 MG/ML VIAL IVP PRN ×3 (00:04→18:24)
[2017-10-20] MEDS: *HR* OxyCODONE/APAP 5/325 TABLET PO PRN ×4 (05:08→23:31)
[2017-10-20] MEDS: Topiramate 25 MG TABLET PO SCH (07:47)
[2017-10-20] MEDS: Loratadine 10 MG TABLET PO SCH (07:47)
[2017-10-20] MEDS: lamoTRIgine 100 MG TABLET PO SCH ×2 (07:47→21:05)
[2017-10-20] MEDS: Gabapentin 400 MG CAPSULE PO SCH ×3 (07:48→21:05)
[2017-10-20] MEDS: Famotidine 20 MG TABLET PO SCH ×2 (07:48→16:25)
[2017-10-20] MEDS: cloNIDine HCl 0.1 MG TABLET PO SCH ×2 (07:48→21:05)
[2017-10-20] MEDS: Insulin LISPRO 300 UNITS/3 ML VIAL SQ SCH ×5 (07:49→21:07)
[2017-10-20] MEDS ORDERED: 0.9 % Sodium Chloride 500 ML IVC ONE (08:53)
[2017-10-20] MEDS ORDERED: 0.9 % Sodium Chloride 500 ML ONE (08:55)
[2017-10-20] MEDS: Insulin DETEMIR 100 UNIT/ML X5UNITS SQ SCH (08:58)
[2017-10-20] MEDS: Lisdexamfetamine Dimesylate [Vyvanse] 30 MG PO SCH (08:58)
[2017-10-20 10:01] LABS: Basophils % 0.5 %; Eosinophils # 0.4 K/mcL (0.0-0.6); Eosinophils % 7.4 %; Hematocrit 37.9 % (35.3-44.9); Hemoglobin 12.2 g/dL (11.5-15.4); Immature Granulocytes % 0.9 % (0-4); Lymphocytes # 2.1 K/mcL (0.6-4.6); Lymphocytes % 35.8 %; Mean Corpuscular HGB Conc 32.2 g/dL (31.6-35.5); Mean Corpuscular Volume 90.2 fL (83.0-100.0); Mean Platelet Volume 12.1 fL (9.4-12.4); Monocytes # 0.4 K/mcL (0.0-1.3); Monocytes % 6.2 %; Neutrophils # 2.8 K/mcL (1.6-8.9); Nucleated Red Blood Cells 0.5 /100 WBC (0); Platelet Count 207 K/mcL (140-400); Segmented Neutrophils % 49.2 %
[2017-10-20 10:13] LABS: BUN/Creatinine Ratio 28 (6-26); Blood Urea Nitrogen 22 mg/dL (6-20); Calcium 9.2 mg/dL (8.6-10.3); Carbon Dioxide 22 mEq/L (23-29); Chloride 109 mEq/L (98-107); Glucose 118 mg/dL (70-105); Osmolality,Calculated 290 (280-300); Potassium 4.5 mEq/L (3.5-5.1); Sodium 138 mEq/L (136-145); eGFR For African Americans > 60 (> 60); eGFR For Non-African Americans > 60 (> 60)
[2017-10-20] MEDS: Budesonide/Formoterol 160/4.5 MDI IH SCH ×2 (10:28→20:21)
[2017-10-20] MEDS: *HR* Fondaparinux 2.5 MG/0.5 ML SYRINGE SQ SCH (18:23)
[2017-10-20] MEDS: *HR* Fondaparinux 7.5 MG/0.6 ML SYRINGE SQ SCH (18:23)
--- NOTE | 2017-10-20 19:29 | Internal Med Progress Note ---
Date of Encounter: 10/20/17 Time of Encounter: 11:00 - Assessment and plan (1) Acute and chronic respiratory failure Current Visit: Yes Status: Acute Assessment and plan: Patient hemodynamically stable and on close to home supplemental oxygen requirements. Qualifiers: Respiratory failure complication: hypoxia Qualified Code(s): J96.21 - Acute and chronic respiratory failure with hypoxia (2) Pulmonary embolism Current Visit: Yes Status: Acute Assessment and plan: -Hematology oncology consulted with recommendation to discontinue heparin gtt and initiate arixtra SQ onace daily; Arixtra planned to be initiated 1 hour following discontinuation of heparin. Qualifiers: Pulmonary embolism type: other Chronicity: acute Acute cor pulmonale presence: without acute cor pulmonale Qualified Code(s): I26.99 - Other pulmonary embolism without acute cor pulmonale (3) Hypercoagulable state Current Visit: Yes Status: Chronic Assessment and plan: -Patient with history of factor V Leiden mutation (heterozygous). -Hematology following and appreciate recommendations (4) Morbid obesity with BMI of 50.0-59.9, adult Current Visit: Yes Status: Chronic Assessment and plan: -Last modifications (5) DVT prophylaxis Current Visit: No Status: Acute Assessment and plan: -Anticoagulation as above - Subjective Interval history: Patient hemodynamically stable and on close to home supplemental oxygen requirements. - Constitutional Vitals: Temp Pulse Resp BP Pulse Ox 97.9 F 69 18 114/67 96 10/20/17 15:30 10/20/17 15:30 10/20/17 15:30 10/20/17 15:30 10/20/17 15:30 General appearance: Present: A&O X 3, obese, answers questions appropriately - Respiratory Respiratory exam: Present: CTAB. Absent: accessory muscle use, rales, rhonchi, wheezes - Cardiovascular Cardiovascular exam: Present: RRR, +S1, +S2. Absent: diastolic murmur, gallop, rubs, systolic murmur Internal Medicine: Result - Labs CBC & Chem 7: 10/20/17 09:32 10/20/17 09:32 Labs: Short CBC 10/20/17 Range/Units 09:32 WBC 5.8 (4.3-11.1) K/mcL Hgb 12.2 (11.5-15.4) g/dL Hct 37.9 (35.3-44.9) % Plt Count 207 (140-400) K/mcL Neutrophils # 2.8 (1.6-8.9) K/mcL BMP 10/20/17 09:32 Sodium 138 Potassium 4.5 Chloride 109 H Carbon Dioxide 22 L BUN 22 H Creatinine 0.80 Glucose 118 H Calcium 9.2 - ABG Interpretation ABG results: PT/INR, D-dimer PT 12.1 Seconds (9.4-12.1) 10/16/17 17:36 D-Dimer 3789 ng/mLFEU (0-500) H 10/16/17 17:36 - VTE Reasons for not Prescribing Prophylaxis: Not indicated-Anticoagulated or INR therapeutic Documentation of Mechanical Device: Graduated compression elastic hosiery Consult Discharge Plan - Plan Referrals: Misael Miller MD [Primary Care Provider] - 10/25/17 2:30 pm Prescriptions: Fondaparinux [Arixtra] 2.5 mg SQ 1800 #30 syringe Fondaparinux [Arixtra] 7.5 mg SQ 1800 #30 syringe
[2017-10-20] MEDS: Topiramate 100 MG TABLET PO SCH (21:00)
[2017-10-20] MEDS: *HR* LORazepam 1 MG TABLET PO PRN (21:05)
[2017-10-21] MEDS: *HR* OxyCODONE/APAP 5/325 TABLET PO PRN ×2 (03:25→08:25)
[2017-10-21] MEDS: *HR* Promethazine 25 MG/ML VIAL IVP PRN (03:25)
[2017-10-21] MEDS: Budesonide/Formoterol 160/4.5 MDI IH SCH (07:44)
[2017-10-21] MEDS: Topiramate 25 MG TABLET PO SCH (08:25)
[2017-10-21] MEDS: Gabapentin 400 MG CAPSULE PO SCH (08:25)
[2017-10-21] MEDS: Famotidine 20 MG TABLET PO SCH (08:25)
[2017-10-21] MEDS: Loratadine 10 MG TABLET PO SCH (08:26)
[2017-10-21] MEDS: cloNIDine HCl 0.1 MG TABLET PO SCH (08:26)
[2017-10-21] MEDS: Lisdexamfetamine Dimesylate [Vyvanse] 30 MG PO SCH (08:26)
[2017-10-21] MEDS: Insulin LISPRO 300 UNITS/3 ML VIAL SQ SCH (08:27)
[2017-10-21] MEDS: Insulin DETEMIR 100 UNIT/ML X5UNITS SQ SCH (08:31)
[2017-10-21 11:50] VITALS: BP 96/61
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
[2017-10-21] MEDS: *HR* Fondaparinux 2.5 MG/0.5 ML SYRINGE SQ SCH (14:57)
[2017-10-21] MEDS: *HR* Fondaparinux 7.5 MG/0.6 ML SYRINGE SQ SCH (14:57)
== END 2017-10-21 16:35 | disposition home or self-care (01) | DRG 134 ==
LOC: EMEROO 16:31 → 2NNU 16:31 → SUATTDRO 20:37 → 2NNU 20:55
PROVIDERS: ADMIT Internal Medicine Hematology & Oncology; ATTEND Hospitalist

== ENCOUNTER 2019-08-09 14:05 | Observation (INO) ==
[2019-08-09] MEDS ORDERED: Isovue-370 500 ML BOTTLE IVP ONE (15:41)
[2019-08-09 15:43] LABS: Basophils % 0.6 %; Eosinophils # 0.3 K/mcL (0.0-0.6); Eosinophils % 4.7 %; Hematocrit 37.7 % (35.3-44.9); Hemoglobin 12.5 g/dL (11.5-15.4); Immature Granulocytes % 1.4 % (0-4); Lymphocytes # 1.6 K/mcL (0.6-4.6); Lymphocytes % 24.8 %; Mean Corpuscular HGB Conc 33.2 g/dL (31.6-35.5); Mean Corpuscular Hemoglobin 29.3 pg (28.0-33.3); Mean Corpuscular Volume 88.3 fL (83.0-100.0); Mean Platelet Volume 10.8 fL (9.4-12.4); Monocytes # 0.3 K/mcL (0.0-1.3); Monocytes % 5.2 %; Neutrophils # 4.1 K/mcL (1.6-8.9); Platelet Count 393 K/mcL (140-400); Red Blood Count 4.27 M/mcL (3.82-4.97); Red Cell Distribution Width 13.5 % (11.5-14.5); Segmented Neutrophils % 63.3 %; White Blood Count 6.5 K/mcL (4.3-11.1)
[2019-08-09 15:53] LABS: INR 1.1; Prothrombin Time 12.2 Seconds (9.4-12.1)
[2019-08-09 15:55] LABS: Activated Partial Thrombo Time 37.1 Seconds (26.0-36.0)
[2019-08-09 16:03] LABS: BUN/Creatinine Ratio 20 (6-26); Blood Urea Nitrogen 14 mg/dL (6-20); Calcium 8.8 mg/dL (8.6-10.3); Carbon Dioxide 28 mEq/L (23-29); Chloride 105 mEq/L (98-107); Glucose 341 mg/dL (70-105); Osmolality,Calculated 296 (280-300); Potassium 4.2 mEq/L (3.5-5.1); Sodium 136 mEq/L (136-145); eGFR For African Americans > 60 (> 60); eGFR For Non-African Americans > 60 (> 60)
[2019-08-09] MEDS: *HR* FentaNYL (PF) 100 MCG/2 ML VIAL IVP PRN ×2 (17:53→23:07)
[2019-08-09] MEDS ORDERED: *HR* Heparin 5,000 UNIT/ML VIAL IVP ONE ×2 (19:46→19:55)
[2019-08-09] MEDS ORDERED: *HR* FentaNYL (PF) 100 MCG/2 ML VIAL IVP STA (19:53)
[2019-08-09] MEDS ORDERED: *HR* Heparin 5,000 UNIT/ML VIAL IVP PRN ×2 (19:55)
[2019-08-09] MEDS ORDERED: Heparin 25,000 UNIT/250 ML D5W 25,000 UNIT/250 ML IV.SOLN IVC SCH (20:00)
[2019-08-09 20:57] LABS: Hematocrit 40.9 % (35.3-44.9); Hemoglobin 13.2 g/dL (11.5-15.4); Mean Corpuscular HGB Conc 32.3 g/dL (31.6-35.5); Mean Corpuscular Hemoglobin 28.6 pg (28.0-33.3); Mean Corpuscular Volume 88.5 fL (83.0-100.0); Platelet Count 380 K/mcL (140-400); Red Blood Count 4.62 M/mcL (3.82-4.97); Red Cell Distribution Width 13.6 % (11.5-14.5); White Blood Count 7.2 K/mcL (4.3-11.1)
[2019-08-09 21:04] LABS: Heparin anti-factor XA UFH 0.29 IU/mL (0.30-0.70)
[2019-08-09 21:05] LABS: Prothrombin Time 11.9 Seconds (9.4-12.1)
[2019-08-09] MEDS: Heparin 25,000 UNIT/250 ML D5W 25,000 UNIT/250 ML IV.SOLN IVC SCH (21:20)
[2019-08-09] MEDS ORDERED: Naloxone 0.4 MG/ML INJ IVP PRN (21:58)
[2019-08-09] MEDS ORDERED: *HR* Dextrose 50 % in Water (Syg) 50 ML SYRINGE IVP PRN (23:12)
[2019-08-09] MEDS ORDERED: D5% in Water 1,000 ML IVC PRN (23:12)
[2019-08-09] MEDS ORDERED: Dextrose Gel 15 GM/37.5 ML TUBE PO PRN ×2 (23:12)
[2019-08-09] MEDS ORDERED: Albuterol 2.5 MG/3 ML NEBULIZER IH PRN (23:17)
[2019-08-09] MEDS ORDERED: Ketorolac 30 MG/ML VIAL IVP PRN (23:17)
[2019-08-10] MEDS: Topiramate 100 MG TABLET PO SCH ×2 (00:14→21:51)
[2019-08-10] MEDS: Gabapentin 400 MG CAPSULE PO SCH ×4 (00:14→21:51)
[2019-08-10] MEDS: Insulin LISPRO 300 UNITS/3 ML VIAL SQ SCH ×6 (00:14→22:03)
[2019-08-10] MEDS: Insulin DETEMIR 100 UNIT/ML X5UNITS SQ SCH ×2 (00:16→22:02)
[2019-08-10] MEDS: Fluticasone Propionate Nasal 50 MCG/SPRAY BOTTLE NS SCH (00:17)
[2019-08-10] MEDS: *HR* FentaNYL (PF) 100 MCG/2 ML VIAL IVP PRN (00:19)
[2019-08-10 01:25] LABS: Basophils % 0.5 %; Eosinophils # 0.4 K/mcL (0.0-0.6); Eosinophils % 4.9 %; Hemoglobin 12.8 g/dL (11.5-15.4); Immature Granulocytes % 1.4 % (0-4); Lymphocytes # 2.4 K/mcL (0.6-4.6); Lymphocytes % 32.7 %; Mean Corpuscular Hemoglobin 28.7 pg (28.0-33.3); Mean Corpuscular Volume 89.7 fL (83.0-100.0); Mean Platelet Volume 10.5 fL (9.4-12.4); Monocytes # 0.4 K/mcL (0.0-1.3); Monocytes % 4.7 %; Neutrophils # 4.1 K/mcL (1.6-8.9); Platelet Count 397 K/mcL (140-400); Red Blood Count 4.46 M/mcL (3.82-4.97); Red Cell Distribution Width 13.6 % (11.5-14.5); Segmented Neutrophils % 55.8 %; White Blood Count 7.4 K/mcL (4.3-11.1)
[2019-08-10 01:49] LABS: Alanine Aminotransferase 29 Units/L (7-52); Albumin 3.6 g/dL (3.5-5.7); Alkaline Phosphatase 348 Units/L (34-104); Aspartate Amino Transferase 16 Units/L (13-39); BUN/Creatinine Ratio 15 (6-26); Bilirubin,Total 0.3 mg/dL (0.3-1.0); Blood Urea Nitrogen 13 mg/dL (6-20); Calcium 9.1 mg/dL (8.6-10.3); Carbon Dioxide 26 mEq/L (23-29); Chloride 102 mEq/L (98-107); Globulin 3.7 g/dL (2.4-3.5); Glucose 329 mg/dL (70-105); Osmolality,Calculated 295 (280-300); Potassium 3.9 mEq/L (3.5-5.1); Sodium 136 mEq/L (136-145); Total Protein 7.3 g/dL (6.4-8.9); Troponin I < 0.03 ng/mL (< 0.04); eGFR For African Americans > 60 (> 60); eGFR For Non-African Americans > 60 (> 60)
[2019-08-10 02:05] LABS: Estimated Average Glucose 312 mg/dl
[2019-08-10] MEDS ORDERED: *HR* Promethazine 25 MG/ML VIAL IVP PRN (06:38)
[2019-08-10] MEDS ORDERED: Isovue-370 500 ML BOTTLE IVP ONE (08:39)
[2019-08-10] MEDS: lamoTRIgine 100 MG TABLET PO SCH (08:56)
[2019-08-10] MEDS: Heparin 25,000 UNIT/250 ML D5W 25,000 UNIT/250 ML IV.SOLN IVC SCH ×2 (09:00→23:34)
[2019-08-10] MEDS: Furosemide 40 MG TABLET PO SCH (14:09)
[2019-08-11] MEDS: Insulin LISPRO 300 UNITS/3 ML VIAL SQ SCH ×6 (00:45→21:19)
[2019-08-11 04:04] LABS: Basophils # 0.1 K/mcL (0.0-0.2); Basophils % 0.8 %; Eosinophils # 0.6 K/mcL (0.0-0.6); Eosinophils % 6.7 %; Hematocrit 37.1 % (35.3-44.9); Hemoglobin 12.3 g/dL (11.5-15.4); Immature Granulocytes % 4.2 % (0-4); Lymphocytes # 2.8 K/mcL (0.6-4.6); Lymphocytes % 33.5 %; Mean Corpuscular HGB Conc 33.2 g/dL (31.6-35.5); Mean Corpuscular Hemoglobin 29.2 pg (28.0-33.3); Mean Corpuscular Volume 88.1 fL (83.0-100.0); Mean Platelet Volume 10.5 fL (9.4-12.4); Monocytes # 0.6 K/mcL (0.0-1.3); Monocytes % 6.8 %; Platelet Count 409 K/mcL (140-400); Red Blood Count 4.21 M/mcL (3.82-4.97); Red Cell Distribution Width 13.9 % (11.5-14.5); White Blood Count 8.3 K/mcL (4.3-11.1)
[2019-08-11 04:22] LABS: BUN/Creatinine Ratio 26 (6-26); Blood Urea Nitrogen 23 mg/dL (6-20); Calcium 8.8 mg/dL (8.6-10.3); Carbon Dioxide 23 mEq/L (23-29); Chloride 101 mEq/L (98-107); Potassium 4.3 mEq/L (3.5-5.1); Sodium 133 mEq/L (136-145); eGFR For African Americans > 60 (> 60); eGFR For Non-African Americans > 60 (> 60)
[2019-08-11 05:44] LABS: Glucose 160 mg/dL (70-105); Osmolality,Calculated 283 (280-300)
[2019-08-11] MEDS: Gabapentin 400 MG CAPSULE PO SCH ×3 (09:02→21:21)
[2019-08-11] MEDS: lamoTRIgine 100 MG TABLET PO SCH (09:02)
[2019-08-11] MEDS: Fluticasone Propionate Nasal 50 MCG/SPRAY BOTTLE NS SCH (09:03)
[2019-08-11] MEDS ORDERED: SUMAtriptan 6 MG/0.5 ML SQ PRN (09:38)
[2019-08-11] MEDS ORDERED: clonazePAM 0.5 MG TABLET PO PRN (09:38)
[2019-08-11] MEDS: Loratadine 10 MG TABLET PO SCH (12:28)
[2019-08-11] MEDS: Furosemide 40 MG TABLET PO SCH (12:28)
[2019-08-11] MEDS: Heparin 25,000 UNIT/250 ML D5W 25,000 UNIT/250 ML IV.SOLN IVC SCH (13:23)
[2019-08-11] MEDS ORDERED: *HR* Enoxaparin 150 MG/ML SYRINGE SQ ONE (15:36)
[2019-08-11] MEDS: Insulin DETEMIR 100 UNIT/ML X5UNITS SQ SCH (21:19)
[2019-08-11] MEDS: Topiramate 100 MG TABLET PO SCH (21:21)
[2019-08-11] MEDS: cloNIDine HCl 0.1 MG TABLET PO SCH (21:21)
[2019-08-12] MEDS: Insulin LISPRO 300 UNITS/3 ML VIAL SQ SCH ×3 (00:11→08:25)
[2019-08-12] MEDS ORDERED: *HR* Enoxaparin 60 MG/0.6 ML SYRINGE SQ ONE (05:00)
[2019-08-12 07:42] VITALS: BP 119/73
[2019-08-12] MEDS: Gabapentin 400 MG CAPSULE PO SCH (08:26)
[2019-08-12] MEDS: cloNIDine HCl 0.1 MG TABLET PO SCH (08:27)
[2019-08-12] MEDS: lamoTRIgine 100 MG TABLET PO SCH (08:27)
[2019-08-12] MEDS: Loratadine 10 MG TABLET PO SCH (08:27)
== END 2019-08-12 13:21 | disposition home or self-care (01) ==
LOC: EMEROOARM 14:05 → 2NENU 14:05
PROVIDERS: ADMIT Internal Medicine; ATTEND Internal Medicine

== ENCOUNTER 2019-12-24 03:10 | Observation (INO) ==
[2019-12-24] MEDS ORDERED: *HR* HYDROmorphone (PF) 1 MG/ML SYRINGE IVP ONE ×2 (03:41→05:09)
[2019-12-24 04:01] LABS: Basophils % 0.4 %; Eosinophils # 0.4 K/mcL (0.0-0.6); Eosinophils % 5.2 %; Hematocrit 43.1 % (35.3-44.9); Immature Granulocytes % 0.4 % (0-4); Lymphocytes # 1.9 K/mcL (0.6-4.6); Lymphocytes % 25.3 %; Mean Corpuscular HGB Conc 32.5 g/dL (31.6-35.5); Mean Corpuscular Hemoglobin 28.5 pg (28.0-33.3); Mean Corpuscular Volume 87.6 fL (83.0-100.0); Mean Platelet Volume 11.9 fL (9.4-12.4); Monocytes # 0.3 K/mcL (0.0-1.3); Monocytes % 4.5 %; Neutrophils # 4.8 K/mcL (1.6-8.9); Platelet Count 148 K/mcL (140-400); Red Blood Count 4.92 M/mcL (3.82-4.97); Red Cell Distribution Width 13.5 % (11.5-14.5); Segmented Neutrophils % 64.2 %; White Blood Count 7.5 K/mcL (4.3-11.1)
[2019-12-24 04:05] LABS: Prothrombin Time 11.2 Seconds (9.4-12.1)
[2019-12-24 04:08] LABS: Activated Partial Thrombo Time 25.9 Seconds (26.0-36.0)
[2019-12-24] MEDS ORDERED: *HR* Promethazine 25 MG/ML VIAL IVP ONE (04:19)
[2019-12-24 04:20] LABS: BUN/Creatinine Ratio 16 (6-26); Blood Urea Nitrogen 15 mg/dL (6-20); Calcium 9.3 mg/dL (8.6-10.3); Carbon Dioxide 28 mEq/L (23-29); Chloride 96 mEq/L (98-107); Glucose 406 mg/dL (70-105); Osmolality,Calculated 290 (280-300); Potassium 4.6 mEq/L (3.5-5.1); Sodium 131 mEq/L (136-145); eGFR For African Americans > 60 (> 60); eGFR For Non-African Americans > 60 (> 60)
[2019-12-24] MEDS ORDERED: Prochlorperazine 10 MG/2 ML VIAL IVP ONE (05:11)
[2019-12-24] MEDS ORDERED: *HR* Enoxaparin 150 MG/ML SYRINGE SQ STA (05:46)
[2019-12-24] MEDS ORDERED: Acetaminophen 325 MG TABLET PO PRN (06:24)
[2019-12-24] MEDS ORDERED: *HR* HYDROcodone/Acet 5/325 mg TABLET PO PRN (06:24)
[2019-12-24] MEDS ORDERED: Naloxone 0.4 MG/ML INJ IVP PRN (06:24)
[2019-12-24] MEDS ORDERED: SUMAtriptan 6 MG/0.5 ML SQ PRN (06:30)
[2019-12-24] MEDS ORDERED: Albuterol 2.5 MG/3 ML NEBULIZER IH PRN (06:35)
[2019-12-24] MEDS ORDERED: Insulin LISPRO 300 UNITS/3 ML VIAL SQ SCH (07:30)
[2019-12-24] MEDS ORDERED: Gabapentin 400 MG CAPSULE PO SCH (09:00)
[2019-12-24] MEDS ORDERED: Insulin DETEMIR 100 UNIT/ML X5UNITS SQ SCH (09:00)
[2019-12-24] MEDS ORDERED: Fluticasone Propionate Nasal 50 MCG/SPRAY BOTTLE NS SCH (09:00)
[2019-12-24 12:00] VITALS: BP 146/84
[2019-12-24] MEDS ORDERED: *HR* Enoxaparin 150 MG/ML SYRINGE SQ SCH (18:00)
[2019-12-24] MEDS ORDERED: Topiramate 100 MG TABLET PO SCH (21:00)
== END 2019-12-24 12:27 | disposition short-term general hospital (02) ==
LOC: EMEROOARM 03:10 → 3BNU 03:10
PROVIDERS: ADMIT Internal Medicine; ATTEND Internal Medicine

== ENCOUNTER 2020-04-23 15:01 | Observation (INO) ==
[2020-04-23] MEDS ORDERED: Isovue-370 500 ML BOTTLE IVP ONE (15:16)
[2020-04-23 15:44] LABS: Basophils % 0.4 %; Eosinophils # 0.3 K/mcL (0.0-0.6); Eosinophils % 3.8 %; Hematocrit 45.6 % (35.3-44.9); Hemoglobin 14.8 g/dL (11.5-15.4); Immature Granulocytes % 0.3 % (0-4); Lymphocytes # 1.8 K/mcL (0.6-4.6); Lymphocytes % 24.6 %; Mean Corpuscular HGB Conc 32.5 g/dL (31.6-35.5); Mean Corpuscular Hemoglobin 28.2 pg (28.0-33.3); Monocytes # 0.4 K/mcL (0.0-1.3); Monocytes % 4.7 %; Neutrophils # 4.9 K/mcL (1.6-8.9); Platelet Count 174 K/mcL (140-400); Red Blood Count 5.24 M/mcL (3.82-4.97); Red Cell Distribution Width 13.6 % (11.5-14.5); Segmented Neutrophils % 66.2 %; White Blood Count 7.4 K/mcL (4.3-11.1)
[2020-04-23 15:47] LABS: Prothrombin Time 11.6 Seconds (9.4-12.1)
[2020-04-23 15:50] LABS: Activated Partial Thrombo Time 32.2 Seconds (26.0-36.0)
[2020-04-23 16:13] LABS: BUN/Creatinine Ratio 18 (6-26); Blood Urea Nitrogen 13 mg/dL (6-20); Calcium 8.7 mg/dL (8.6-10.3); Carbon Dioxide 24 mEq/L (23-29); Chloride 100 mEq/L (98-107); Glucose 328 mg/dL (70-105); Osmolality,Calculated 291 (280-300); Potassium 3.9 mEq/L (3.5-5.1); Sodium 134 mEq/L (136-145); eGFR For African Americans > 60 (> 60); eGFR For Non-African Americans > 60 (> 60)
[2020-04-23] MEDS ORDERED: *HR* FentaNYL (PF) 100 MCG/2 ML VIAL IVP ONE (17:04)
[2020-04-23] MEDS ORDERED: Naloxone 0.4 MG/ML INJ IVP PRN (17:51)
[2020-04-23] MEDS ORDERED: *HR* Heparin 5,000 UNIT/ML VIAL IVP PRN ×2 (17:55)
[2020-04-23] MEDS ORDERED: Acetaminophen 325 MG TABLET PO PRN (17:55)
[2020-04-23] MEDS ORDERED: *HR* Heparin 5,000 UNIT/ML VIAL IVP ONE ×2 (17:55→22:00)
[2020-04-23] MEDS ORDERED: Dextrose Gel 15 GM/37.5 ML TUBE PO PRN ×2 (17:56)
[2020-04-23] MEDS ORDERED: *HR* Dextrose 50 % in Water (Vial) 50 ML VIAL IVP PRN (17:56)
[2020-04-23] MEDS ORDERED: D5% in Water 1,000 ML IVC PRN (17:56)
[2020-04-23] MEDS: *HR* HYDROcodone/Acet 5/325 mg TABLET PO PRN (19:04)
[2020-04-23] MEDS: Heparin 25,000UNIT/250ML 1/2NS 25,000 UNIT/250 ML IV.SOLN IVC SCH (22:19)
[2020-04-23] MEDS: Insulin DETEMIR 100 UNIT/ML X5UNITS SQ SCH (22:19)
[2020-04-24] MEDS ORDERED: *HR* Promethazine 25 MG/ML VIAL IVP ONE (01:20)
[2020-04-24] MEDS: *HR* HYDROcodone/Acet 5/325 mg TABLET PO PRN ×3 (02:01→21:01)
[2020-04-24 05:25] LABS: Basophils % 0.5 %; Eosinophils # 0.4 K/mcL (0.0-0.6); Hematocrit 43.5 % (35.3-44.9); Hemoglobin 13.9 g/dL (11.5-15.4); Immature Granulocytes % 0.5 % (0-4); Lymphocytes # 2.1 K/mcL (0.6-4.6); Lymphocytes % 33.4 %; Mean Corpuscular Hemoglobin 27.8 pg (28.0-33.3); Mean Platelet Volume 11.7 fL (9.4-12.4); Monocytes # 0.3 K/mcL (0.0-1.3); Monocytes % 5.2 %; Neutrophils # 3.4 K/mcL (1.6-8.9); Platelet Count 166 K/mcL (140-400); Red Cell Distribution Width 13.9 % (11.5-14.5); Segmented Neutrophils % 54.4 %; White Blood Count 6.2 K/mcL (4.3-11.1)
[2020-04-24 05:44] LABS: BUN/Creatinine Ratio 19 (6-26); Blood Urea Nitrogen 14 mg/dL (6-20); Carbon Dioxide 26 mEq/L (23-29); Chloride 100 mEq/L (98-107); Glucose 343 mg/dL (70-105); Osmolality,Calculated 292 (280-300); Sodium 134 mEq/L (136-145); eGFR For African Americans > 60 (> 60); eGFR For Non-African Americans > 60 (> 60)
[2020-04-24] MEDS ORDERED: *HR* Heparin 10,000 UNIT/10 ML VIAL ONE (06:55)
[2020-04-24] MEDS ORDERED: Isovue-300 200 mL Infus..BTL ONE (06:56)
[2020-04-24] MEDS: Insulin LISPRO 300 UNITS/3 ML VIAL SQ SCH ×3 (09:38→17:14)
[2020-04-24] MEDS: Insulin DETEMIR 100 UNIT/ML X5UNITS SQ SCH ×2 (09:43→20:57)
[2020-04-24] MEDS: Heparin 25,000UNIT/250ML 1/2NS 25,000 UNIT/250 ML IV.SOLN IVC SCH (14:10)
[2020-04-24] MEDS ORDERED: *HR* Fondaparinux 2.5 MG/0.5 ML SYRINGE SQ SCH (14:30)
[2020-04-24] MEDS ORDERED: *HR* Fondaparinux 7.5 MG/0.6 ML SYRINGE SQ SCH (14:30)
[2020-04-24 18:50] VITALS: BP 113/62
== END 2020-04-24 23:15 | disposition home or self-care (01) ==
LOC: EMEROOARM 15:01 → 3ANU 15:01 → SUATTDRO 18:31 → 3ANU 19:46
PROVIDERS: ADMIT Student in an Organized Health Care Education/Training Program; ATTEND Internal Medicine

== ENCOUNTER 2021-09-08 15:33 | Observation (INO) ==
[2021-09-08] MEDS ORDERED: Isovue-370 500 ML BOTTLE IVP ONE (17:33)
[2021-09-08] MEDS ORDERED: Metoclopramide 10 MG/2 ML VIAL IVP ONE (17:52)
[2021-09-08 17:57] LABS: Basophils % 0.8 %; Eosinophils # 0.1 K/mcL (0.0-0.6); Eosinophils % 2.7 %; Hematocrit 49.8 % (35.3-44.9); Hemoglobin 16.2 g/dL (11.5-15.4); Immature Granulocytes % 0.4 % (0-4); Immature Platelets 7.5 % (1.1-6.1); Lymphocytes # 1.2 K/mcL (0.6-4.6); Lymphocytes % 24.4 %; Mean Corpuscular HGB Conc 32.5 g/dL (31.6-35.5); Mean Corpuscular Hemoglobin 28.7 pg (28.0-33.3); Mean Corpuscular Volume 88.1 fL (83.0-100.0); Mean Platelet Volume 11.9 fL (9.4-12.4); Monocytes # 0.3 K/mcL (0.0-1.3); Monocytes % 6.4 %; Neutrophils # 3.3 K/mcL (1.6-8.9); Platelet Count 131 K/mcL (140-400); Red Blood Count 5.65 M/mcL (3.82-4.97); Red Cell Distribution Width 12.8 % (11.5-14.5); Segmented Neutrophils % 65.3 %; White Blood Count 5.1 K/mcL (4.3-11.1)
[2021-09-08 18:21] LABS: Alanine Aminotransferase 12 Units/L (7-52); Albumin 3.8 g/dL (3.5-5.7); Albumin/Globulin Ratio 1.1 (1.1-2.2); Alkaline Phosphatase 149 Units/L (34-104); Aspartate Amino Transferase 29 Units/L (13-39); BUN/Creatinine Ratio 19 (6-26); Bilirubin,Total 0.8 mg/dL (0.3-1.0); Blood Urea Nitrogen 12 mg/dL (6-20); Calcium 8.8 mg/dL (8.6-10.3); Carbon Dioxide 22 mEq/L (23-29); Chloride 101 mEq/L (98-107); Globulin 3.4 g/dL (2.4-3.5); Glucose 341 mg/dL (70-105); Osmolality,Calculated 281 (280-300); Potassium 4.9 mEq/L (3.5-5.1); Sodium 129 mEq/L (136-145); Total Protein 7.2 g/dL (6.4-8.9); Troponin I < 0.03 ng/mL (< 0.04); eGFR For African Americans > 60 (> 60); eGFR For Non-African Americans > 60 (> 60)
[2021-09-08] MEDS ORDERED: Prochlorperazine 10 MG/2 ML VIAL IVP PRN (22:37)
[2021-09-08] MEDS ORDERED: *HR* Heparin 5,000 UNIT/ML VIAL IVP ONE (23:42)
[2021-09-08] MEDS ORDERED: *HR* Heparin 5,000 UNIT/ML VIAL IVP PRN ×2 (23:42)
[2021-09-08] MEDS ORDERED: clonazePAM 0.5 MG TABLET PO PRN (23:56)
[2021-09-09] MEDS ORDERED: D5% in Water 1,000 ML IVC PRN (00:08)
[2021-09-09] MEDS ORDERED: Dextrose Gel 15 GM/37.5 ML TUBE PO PRN ×2 (00:08)
[2021-09-09] MEDS ORDERED: *HR* Dextrose 50 % in Water (Syg) 50 ML SYRINGE IVP PRN (00:08)
[2021-09-09] MEDS ORDERED: Acetaminophen 325 MG TABLET PO PRN (00:10)
[2021-09-09] MEDS ORDERED: Naloxone 0.4 MG/ML INJ IVP PRN (00:10)
[2021-09-09] MEDS ORDERED: *HR* OxyCODONE Immed Rel 5 MG TABLET PO PRN (00:10)
[2021-09-09] MEDS: Topiramate 100 MG TABLET PO SCH ×2 (00:33→21:03)
[2021-09-09] MEDS ORDERED: tiZANidine 4 MG TABLET PO ONE (00:36)
[2021-09-09 00:43] LABS: Heparin anti-factor XA UFH < 0.04 IU/mL (0.30-0.70); INR 1.1; Prothrombin Time 11.8 Seconds (9.4-12.1)
[2021-09-09 00:46] LABS: Activated Partial Thrombo Time 29.6 Seconds (26.0-36.0)
[2021-09-09] MEDS ORDERED: Perflutren Lipid Microsphere 1.3 ML in 0.9 % Sodium Chloride 8.7 ML IVP PRN (01:22)
[2021-09-09] MEDS: Insulin LISPRO 300 UNITS/3 ML VIAL SUBQ SCH ×5 (01:23→21:03)
[2021-09-09] MEDS: Heparin 25,000UNIT/250ML 1/2NS 25,000 UNIT/250 ML IV.SOLN IVC SCH ×2 (01:25→12:16)
[2021-09-09 01:38] LABS: Hematocrit 44.6 % (35.3-44.9); Mean Corpuscular HGB Conc 32.5 g/dL (31.6-35.5); Mean Corpuscular Hemoglobin 28.3 pg (28.0-33.3); Mean Corpuscular Volume 86.9 fL (83.0-100.0); Mean Platelet Volume 11.5 fL (9.4-12.4); Platelet Count 152 K/mcL (140-400); Red Blood Count 5.13 M/mcL (3.82-4.97); Red Cell Distribution Width 12.7 % (11.5-14.5); White Blood Count 5.3 K/mcL (4.3-11.1)
[2021-09-09 01:39] LABS: Iron 58 mcg/dL (50-170)
[2021-09-09 01:42] LABS: BUN/Creatinine Ratio 17 (6-26); Blood Urea Nitrogen 11 mg/dL (6-20); Calcium 8.6 mg/dL (8.6-10.3); Carbon Dioxide 27 mEq/L (23-29); Chloride 101 mEq/L (98-107); Chol/HDL Ratio 3.4 (0-4.9); Cholesterol 165 mg/dL (< 200); Glucose 292 mg/dL (70-105); HDL Cholesterol 48 mg/dL (40-59); LDL Cholesterol,Calculated 96 mg/dL (< 100); Magnesium 1.9 mg/dL (1.6-2.6); Osmolality,Calculated 286 (280-300); Potassium 3.6 mEq/L (3.5-5.1); Sodium 133 mEq/L (136-145); Triglycerides 103 mg/dL (< 150); eGFR For African Americans > 60 (> 60); eGFR For Non-African Americans > 60 (> 60)
[2021-09-09 01:46] LABS: Hemoglobin 14.5 g/dL (11.5-15.4)
[2021-09-09 01:58] LABS: Ferritin 90 ng/mL (10-120)
[2021-09-09 02:03] LABS: Folate 8.9 ng/mL (3.0-16.0)
[2021-09-09 09:35] LABS: Estimated Average Glucose 346 mg/dl; Hemoglobin A1C 13.7 %
[2021-09-09] MEDS ORDERED: Insulin DETEMIR 100 UNIT/ML X5UNITS SUBQ SCH (21:00)
[2021-09-10] MEDS: Heparin 25,000UNIT/250ML 1/2NS 25,000 UNIT/250 ML IV.SOLN IVC SCH ×2 (00:06→11:59)
[2021-09-10 06:49] LABS: Hematocrit 42.9 % (35.3-44.9); Hemoglobin 14.2 g/dL (11.5-15.4); Mean Corpuscular HGB Conc 33.1 g/dL (31.6-35.5); Mean Corpuscular Hemoglobin 28.6 pg (28.0-33.3); Mean Corpuscular Volume 86.5 fL (83.0-100.0); Mean Platelet Volume 12.3 fL (9.4-12.4); Platelet Count 138 K/mcL (140-400); Red Blood Count 4.96 M/mcL (3.82-4.97); Red Cell Distribution Width 13.1 % (11.5-14.5); White Blood Count 5.8 K/mcL (4.3-11.1)
[2021-09-10] MEDS: Insulin LISPRO 300 UNITS/3 ML VIAL SUBQ SCH ×2 (08:00→12:00)
[2021-09-10 10:55] VITALS: BP 109/67; PULSE 85; TEMP 97.8; O2SAT 94
[2021-09-10] MEDS ORDERED: *HR* Enoxaparin 30 MG/0.3 ML SYRINGE SQ SCH (12:30)
[2021-09-10] MEDS ORDERED: *HR* Enoxaparin 150 MG/ML SYRINGE SQ SCH (13:15)
[2021-09-11 07:34] LABS: % Iron Saturation 20 % (15-50); Transferrin 208 mg/dL (200-400)
== END 2021-09-10 15:18 | disposition home or self-care (01) ==
LOC: EMEROOARM 15:33 → 3BNU 15:33 → SUATTDRO 20:01 → 3BNU 21:20
PROVIDERS: ADMIT Internal Medicine; ATTEND Internal Medicine

== ENCOUNTER 2022-02-11 19:10 | Observation (INO) ==
[2022-02-11 20:04] LABS: Basophils % 0.5 %; Eosinophils # 0.1 K/mcL (0.0-0.6); Eosinophils % 2.3 %; Hematocrit 43.5 % (35.3-44.9); Hemoglobin 14.5 g/dL (11.5-15.4); Immature Granulocytes % 0.2 % (0-4); Lymphocytes # 1.4 K/mcL (0.6-4.6); Lymphocytes % 24.6 %; Mean Corpuscular HGB Conc 33.3 g/dL (31.6-35.5); Mean Corpuscular Hemoglobin 29.1 pg (28.0-33.3); Mean Corpuscular Volume 87.3 fL (83.0-100.0); Mean Platelet Volume 11.3 fL (9.4-12.4); Monocytes # 0.3 K/mcL (0.0-1.3); Monocytes % 5.9 %; Neutrophils # 3.8 K/mcL (1.6-8.9); Platelet Count 179 K/mcL (140-400); Red Blood Count 4.98 M/mcL (3.82-4.97); Red Cell Distribution Width 12.9 % (11.5-14.5); Segmented Neutrophils % 66.5 %; White Blood Count 5.8 K/mcL (4.3-11.1)
[2022-02-11] MEDS ORDERED: Isovue-370 500 ML BOTTLE IVP ONE (20:18)
[2022-02-11 20:26] LABS: BUN/Creatinine Ratio 20 (6-26); Blood Urea Nitrogen 20 mg/dL (6-20); Carbon Dioxide 26 mEq/L (23-29); Chloride 101 mEq/L (98-107); Glucose 432 mg/dL (70-105); Osmolality,Calculated 301 (280-300); Potassium 4.1 mEq/L (3.5-5.1); Sodium 135 mEq/L (136-145); Troponin I < 0.03 ng/mL (< 0.04); eGFR For African Americans > 60 (> 60); eGFR For Non-African Americans 58 (> 60)
[2022-02-11] MEDS ORDERED: Morphine Sulfate 2 MG/ML SYRINGE IVP ONE ×2 (20:33→22:17)
[2022-02-11 20:43] LABS: Prothrombin Time 11.6 Seconds (9.4-12.1)
[2022-02-11 20:46] LABS: Activated Partial Thrombo Time 30.1 Seconds (26.0-36.0)
[2022-02-11] MEDS ORDERED: *HR* Promethazine 25 MG/ML VIAL IM ONE (20:49)
[2022-02-11 21:57] LABS: Influenza A PCR Negative (Negative); Influenza B PCR Negative (Negative); Resp. Syncytial Virus PCR Negative (Negative)
[2022-02-11] MEDS ORDERED: *HR* Heparin 5,000 UNIT/ML VIAL IVP PRN ×2 (21:57)
[2022-02-11] MEDS ORDERED: Heparin 25,000UNIT/250ML 1/2NS 25,000 UNIT/250 ML IV.SOLN IVC SCH (22:00)
[2022-02-11 22:16] LABS: SARS-CoV-2 by PCR (In House) Negative (Negative)
[2022-02-12] MEDS ORDERED: *HR* Heparin 5,000 UNIT/ML VIAL IVP PRN ×2 (00:16)
[2022-02-12] MEDS ORDERED: Acetaminophen 325 MG TABLET PO ONE ×2 (02:00→04:15)
[2022-02-12] MEDS ORDERED: *HR* Dextrose 50 % in Water (Syg) 50 ML SYRINGE IVP PRN (02:06)
[2022-02-12] MEDS ORDERED: Dextrose Gel 15 GM/37.5 ML TUBE PO PRN ×2 (02:06)
[2022-02-12] MEDS ORDERED: D5% in Water 1,000 ML IVC PRN (02:06)
[2022-02-12] MEDS: Ipratropium/Albuterol Neb 3 ML IH SCH ×5 (03:56→22:12)
[2022-02-12 04:02] LABS: Alanine Aminotransferase 10 Units/L (7-52); Albumin 3.5 g/dL (3.5-5.7); Albumin/Globulin Ratio 1.2 (1.1-2.2); Alkaline Phosphatase 123 Units/L (34-104); Aspartate Amino Transferase 13 Units/L (13-39); BUN/Creatinine Ratio 23 (6-26); Bilirubin,Total 0.4 mg/dL (0.3-1.0); Blood Urea Nitrogen 18 mg/dL (6-20); Calcium 8.8 mg/dL (8.6-10.3); Carbon Dioxide 26 mEq/L (23-29); Chloride 100 mEq/L (98-107); Chol/HDL Ratio 3.5 (0-4.9); Cholesterol 169 mg/dL (< 200); Glucose 326 mg/dL (70-105); HDL Cholesterol 48 mg/dL (40-59); LDL Cholesterol,Calculated 96 mg/dL (< 100); Osmolality,Calculated 293 (280-300); Phosphorous 3.9 mg/dL (2.7-4.5); Sodium 134 mEq/L (136-145); Total Protein 6.5 g/dL (6.4-8.9); Triglycerides 124 mg/dL (< 150); Troponin I < 0.03 ng/mL (< 0.04); eGFR For African Americans > 60 (> 60); eGFR For Non-African Americans > 60 (> 60)
[2022-02-12 04:14] LABS: Thyroid Stimulating Hormone 4.008 mcIU/mL (0.340-5.600)
[2022-02-12 05:00] LABS: Amphetamine Screen,Urine Positive ng/mL (Cutoff=1000); Barbiturate Screen,Urine Negative ng/mL (Cutoff=200); Benzodiazepines Screen,Urine Negative ng/mL (Cutoff=200); Cannabinoid Screen,Urine Negative ng/mL (Cutoff = 50); Cocaine Screen,Urine Negative ng/mL (Cutoff= 300); Opiate Screen,Urine Positive ng/mL (Cutoff=300); Phencyclidine Screen,Urine Negative ng/mL (Cutoff=25)
[2022-02-12 05:56] LABS: Basophils % 0.3 %; Eosinophils # 0.2 K/mcL (0.0-0.6); Eosinophils % 3.2 %; Hematocrit 43.1 % (35.3-44.9); Hemoglobin 14.3 g/dL (11.5-15.4); Immature Granulocytes % 0.3 % (0-4); Lymphocytes # 2.7 K/mcL (0.6-4.6); Lymphocytes % 46.8 %; Mean Corpuscular HGB Conc 33.2 g/dL (31.6-35.5); Mean Corpuscular Volume 87.4 fL (83.0-100.0); Mean Platelet Volume 11.6 fL (9.4-12.4); Monocytes # 0.4 K/mcL (0.0-1.3); Neutrophils # 2.5 K/mcL (1.6-8.9); Platelet Count 162 K/mcL (140-400); Red Blood Count 4.93 M/mcL (3.82-4.97); Red Cell Distribution Width 13.1 % (11.5-14.5); Segmented Neutrophils % 43.4 %; White Blood Count 5.9 K/mcL (4.3-11.1)
[2022-02-12 06:02] LABS: Prothrombin Time 10.8 Seconds (9.4-12.1)
[2022-02-12 06:03] LABS: Heparin anti-factor XA UFH 0.46 IU/mL (0.30-0.70)
[2022-02-12 06:10] LABS: Activated Partial Thrombo Time 55.4 Seconds (26.0-36.0)
[2022-02-12] MEDS ORDERED: Perflutren Lipid Microsphere 1.3 ML in 0.9 % Sodium Chloride 8.7 ML IVP PRN (06:54)
[2022-02-12] MEDS: *HR* OxyCODONE/APAP 5/325 TABLET PO PRN ×2 (08:03→14:42)
[2022-02-12] MEDS: Aspirin 81 MG TAB.CHEW PO SCH (08:03)
[2022-02-12] MEDS: Insulin DETEMIR 100 UNIT/ML X5UNITS SUBQ SCH (08:03)
[2022-02-12] MEDS: cloNIDine HCL 0.1 MG TABLET PO SCH ×3 (08:03→20:06)
[2022-02-12] MEDS: Insulin LISPRO 300 UNITS/3 ML VIAL SUBQ SCH ×6 (08:07→17:21)
[2022-02-12] MEDS: Heparin 25,000UNIT/250ML 1/2NS 25,000 UNIT/250 ML IV.SOLN IVC SCH ×2 (08:08→12:50)
[2022-02-12 08:31] LABS: Estimated Average Glucose 338 mg/dl; Hemoglobin A1C 13.4 %
[2022-02-12] MEDS ORDERED: Warfarin perPT PO PRN (18:00)
[2022-02-13] MEDS: Ipratropium/Albuterol Neb 3 ML IH SCH ×2 (03:53→10:59)
[2022-02-13 04:13] LABS: Basophils % 0.5 %; Eosinophils # 0.2 K/mcL (0.0-0.6); Eosinophils % 4.2 %; Hematocrit 39.9 % (35.3-44.9); Immature Granulocytes % 0.2 % (0-4); Lymphocytes # 2.4 K/mcL (0.6-4.6); Lymphocytes % 43.1 %; Mean Corpuscular HGB Conc 32.6 g/dL (31.6-35.5); Mean Corpuscular Hemoglobin 29.3 pg (28.0-33.3); Mean Corpuscular Volume 89.9 fL (83.0-100.0); Mean Platelet Volume 11.8 fL (9.4-12.4); Monocytes # 0.3 K/mcL (0.0-1.3); Monocytes % 6.2 %; Neutrophils # 2.5 K/mcL (1.6-8.9); Platelet Count 161 K/mcL (140-400); Red Blood Count 4.44 M/mcL (3.82-4.97); Red Cell Distribution Width 12.9 % (11.5-14.5); Segmented Neutrophils % 45.8 %; White Blood Count 5.5 K/mcL (4.3-11.1)
[2022-02-13 04:23] LABS: Prothrombin Time 11.2 Seconds (9.4-12.1)
[2022-02-13 04:31] LABS: BUN/Creatinine Ratio 33 (6-26); Blood Urea Nitrogen 28 mg/dL (6-20); Calcium 8.7 mg/dL (8.6-10.3); Carbon Dioxide 26 mEq/L (23-29); Chloride 100 mEq/L (98-107); Glucose 319 mg/dL (70-105); Osmolality,Calculated 292 (280-300); Potassium 4.5 mEq/L (3.5-5.1); Sodium 132 mEq/L (136-145); eGFR For African Americans > 60 (> 60); eGFR For Non-African Americans > 60 (> 60)
[2022-02-13 04:38] LABS: Activated Partial Thrombo Time 119.4 Seconds (26.0-36.0)
[2022-02-13] MEDS: Heparin 25,000UNIT/250ML 1/2NS 25,000 UNIT/250 ML IV.SOLN IVC SCH (06:04)
[2022-02-13] MEDS: Insulin LISPRO 300 UNITS/3 ML VIAL SUBQ SCH ×7 (07:43→17:46)
[2022-02-13] MEDS: Insulin DETEMIR 100 UNIT/ML X5UNITS SUBQ SCH (07:45)
[2022-02-13] MEDS: Aspirin 81 MG TAB.CHEW PO SCH (07:45)
[2022-02-13] MEDS: cloNIDine HCL 0.1 MG TABLET PO SCH ×3 (07:46→21:03)
[2022-02-13] MEDS: *HR* Fondaparinux 7.5 MG/0.6 ML SYRINGE SQ SCH (12:10)
[2022-02-13] MEDS ORDERED: Ipratropium/Albuterol Neb 3 ML IH PRN (12:43)
[2022-02-13] MEDS: *HR* OxyCODONE/APAP 5/325 TABLET PO PRN ×2 (14:02→20:52)
[2022-02-13] MEDS ORDERED: Insulin DETEMIR 100 UNIT/ML X5UNITS SUBQ SCH (21:00)
[2022-02-14 03:11] LABS: Prothrombin Time 11.1 Seconds (9.4-12.1); White Blood Count 5.3 K/mcL (4.3-11.1)
[2022-02-14 03:12] LABS: Basophils % 0.8 %; Eosinophils # 0.2 K/mcL (0.0-0.6); Eosinophils % 4.5 %; Hematocrit 40.3 % (35.3-44.9); Hemoglobin 13.1 g/dL (11.5-15.4); Immature Granulocytes % 0.4 % (0-4); Lymphocytes # 2.1 K/mcL (0.6-4.6); Lymphocytes % 38.8 %; Mean Corpuscular HGB Conc 32.5 g/dL (31.6-35.5); Mean Corpuscular Hemoglobin 28.9 pg (28.0-33.3); Mean Platelet Volume 11.5 fL (9.4-12.4); Monocytes # 0.4 K/mcL (0.0-1.3); Neutrophils # 2.6 K/mcL (1.6-8.9); Platelet Count 178 K/mcL (140-400); Red Blood Count 4.53 M/mcL (3.82-4.97); Segmented Neutrophils % 48.5 %
[2022-02-14 03:23] LABS: Activated Partial Thrombo Time 30.9 Seconds (26.0-36.0)
[2022-02-14 03:36] LABS: BUN/Creatinine Ratio 39 (6-26); Blood Urea Nitrogen 31 mg/dL (6-20); Calcium 8.8 mg/dL (8.6-10.3); Carbon Dioxide 25 mEq/L (23-29); Chloride 100 mEq/L (98-107); Glucose 371 mg/dL (70-105); Osmolality,Calculated 294 (280-300); Potassium 4.7 mEq/L (3.5-5.1); Sodium 131 mEq/L (136-145); eGFR For African Americans > 60 (> 60); eGFR For Non-African Americans > 60 (> 60)
[2022-02-14] MEDS: *HR* Fondaparinux 7.5 MG/0.6 ML SYRINGE SQ SCH (05:15)
[2022-02-14] MEDS: *HR* OxyCODONE/APAP 5/325 TABLET PO PRN (05:16)
[2022-02-14] MEDS: Insulin LISPRO 300 UNITS/3 ML VIAL SUBQ SCH ×6 (08:52→11:53)
[2022-02-14] MEDS ORDERED: Insulin DETEMIR 100 UNIT/ML X5UNITS SUBQ SCH (09:00)
[2022-02-14] MEDS: Aspirin 81 MG TAB.CHEW PO SCH (09:04)
[2022-02-14] MEDS: cloNIDine HCL 0.1 MG TABLET PO SCH (09:04)
[2022-02-14 12:05] VITALS: BP 145/75; PULSE 76; TEMP 98; O2SAT 97
[2022-02-14] MEDS ORDERED: Insulin LISPRO 300 UNITS/3 ML VIAL SUBQ SCH (21:00)
== END 2022-02-14 14:36 | disposition home health service (06) ==
LOC: EMEROOARM 19:10 → 2ANU 19:10 → SUATTDRO 22:25 → 2ANU 02-12 00:38
PROVIDERS: ADMIT Internal Medicine; ATTEND Internal Medicine